=== PATIENT | male | born 1955 | race Caucasian/White ===

== ENCOUNTER 2023-09-02 20:27 | Inpatient (IN) ==
[2023-09-02 21:53] LABS: Basophils # (auto) 0.06 K/uL (0.00-0.20); Basophils % (auto) 0.3 %; Eosinophils # (auto) 0.02 K/uL (0.00-0.50); Eosinophils % (auto) 0.1 %; Hematocrit (blood only) 28.4 % (42.0-52.0); Hemoglobin 9.2 g/dl (14.0-18.0); Immature Granulocytes # (auto) 0.27 K/uL (0.01-0.20); Immature Granulocytes % (auto) 1.5 %; Lymphocytes # (auto) 0.21 K/uL (1.20-3.40); Lymphocytes % (auto) 1.2 %; Mean Corpuscular Hemoglobin 29.6 pg (25.0-34.0); Mean Corpuscular Hgb Conc 32.4 g/dL (32.0-36.0); Mean Corpuscular Volume 91.3 fL (80.0-100.0); Mean Platelet Volume 11.1 fL (9.4-12.4); Monocytes # (auto) 1.67 K/uL (0.11-0.59); Monocytes % (auto) 9.3 %; Neutrophils # (auto) 15.67 K/uL (1.40-6.50); Neutrophils % (auto) 87.6 %; Platelet Count 250 K/uL (130-400); RDW Coefficient of Variation 15.5 % (11.5-14.5); RDW Standard Deviation 51.9 fL (36.4-46.3); Red Blood Count 3.11 M/uL (4.70-6.10)
[2023-09-02 22:00] LABS: INR 1.1 (0.9-1.1); Partial Thromboplastin Time 29 Seconds (21-31); Prothrombin Time 12.1 Seconds (9.0-12.0)
[2023-09-02 22:07] LABS: Albumin Globulin Ratio 0.9 (0.9-2); Albumin Level 3.1 gm/dl (3.4-5.0); BUN Creatinine Ratio 48.1 (10-20); Bilirubin,Total 0.5 mg/dl (0.2-1.0); Calcium 9.7 mg/dl (8.6-10.3); Creatinine Clr Calc Pharmacy 68.4 ml/min; Est GFR (African American) 106.2 ml/min; Est GFR (Non-African American) 91.6 ml/min; Globulin 3.3 gm/dl (2.5-4.0); Total Protein 6.4 gm/dl (6.0-8.3)
[2023-09-02 22:13] LABS: Troponin I High Sensitivity 13.4 pg/ml (0-20)
[2023-09-02] MEDS ORDERED: SODIUM CHLORIDE 0.9% IV STA (22:22)
[2023-09-02] MEDS ORDERED: VANCOMYCIN CONSULT ACTIVE PRN (22:22)
[2023-09-02] MEDS ORDERED: MEROPENEM IV STA (22:22)
[2023-09-02] MEDS: SODIUM CHLORIDE 0.9% 1,000 ML IV ONE (23:06)
[2023-09-02] MEDS: SODIUM CHLORIDE 0.9% 500 ML IV ONE (23:06)
[2023-09-02 23:09] LABS: Magnesium 1.9 mg/dl (1.7-2.4)
[2023-09-02 23:15] LABS: C Reactive Protein 13.76 mg/dl (0-0.5)
[2023-09-03] MEDS: OPTIRAY 320 125ml IV ONE (00:07)
[2023-09-03] MEDS: VANCOMYCIN HCL 1,000 MG in SODIUM CHLORIDE 0.9% 500 ML IV ONE (00:32)
[2023-09-03] MEDS: diphenhydrAMINE 50 MG/ML VIAL IV STA (00:33)
--- NOTE | 2023-09-03 01:02 | History & Physical Report ---
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 Was again admitted in June 2023 at [facility] with symptomatic anemia ALISA and hyperkalemia possible superimposed soft tissue infection versus osteonecrosis versus osteomyelitis on CT neck films. ID consulted recommended 6 weeks of IV meropenem for presumed osteomyelitis. Patient presented to [facility] on July 07, 2023 with pink-tinged drainage from his tracheostomy and drainage out of his right neck area. On July 10, 2023 patient underwent right composite mandibulectomy, right neck dissection, left scapula and latissimus free flap to right neck and trach tube exchange. His course was complicated by postoperative hypotension with SBP's in the 80s requiring pressors WBC went up to 30 K. ID was consulted in the setting of prior history of Pseudomonas and Morganella pneumonia sputum and mandibular wound cultures. He was receiving cefepime and Flagyl. Progressive leukocytosis resolved. It is recommended to continue 6 weeks of IV meropenem 2 g IV every 8 hours for osteomyelitis to complete on August 26.Had episode of presyncope and hypotension thought to be from venlafaxine and it was stopped on august 02 2023. As per patient developed rash thought to be from meropenem and was stopped and was changed to ceftazidime and p.o. Flagyl but rash got worse and also got swelling of the lower extremity. And antibiotics were stopped per on on August 26. seems somewhat mixed up with dates and which antibiotic caused adverse reactions. Her infectious doctor Dr. Moore told her that rash and swelling could be from allergic reaction to venlafaxine.. Patient also has history of multivessel CAD. CKD. Hypotension on as needed midodrine. Comes here because patient having poor appetite could not tolerate tube feeds. Used to get 5 bolus tube feeds currently only tolerating 2 bolus tube feeds.Having lot of cough. Feeling feverish. And she does not want to take him back to [facility] so brought him here. Patient is alert and oriented. Difficult to understand. Denies any headache. No blurred vision. Always has some runny nose. No tracheal secretions currently. No chest pain. Currently not feeling any short of breath. No nausea. No abdominal pain. Stools are always loose. Micturating okay. Ambulates with a walker. Hemodynamics are okay. initially refused meropenem but then was okay to try meropenem for now..CT scan showing Pneumonia.Records are on the chart. Pneumonia Possible hospital-acquired pneumonia CT scan showing extensive bilateral pulmonary infiltrates with dense consolidation in left lower lobe and lower aspect of the left upper lobe Empirically starting on IV Vanco and meropenem Monitor for any drug reaction Consult pulmonary Close monitor Diffuse distention of colon On CT scan Will monitor Left adrenal nodule CT abdomen pelvis Noncontrast abdomen CT or MRI when patient is more stable( Seems patient knows about it, can check with ). Squamous cell carcinoma right Mandible and base of tongue S/p chemotherapy/radiation/pembrolizumab S/p surgery S/p PEG tube and s/p trach Follow-up with [facility] Hypotension On midodrine Chronic pain On oxycodone Hyperlipidemia On statin History of CAD On aspirin and statin Anemia Hemoglobin 9.2 Will check stool for Hemoccult Will monitor Mild transaminitis Will monitor Hyponatremia Sodium 131 Getting fluids Will follow labs Lower extremity edema Follow Dopplers Follow echo Nutrition Dietitian consult On tube feeds Pressure ulcers stage 2/3 sacral ulcers Wound care consult DVT prophylaxis Lovenox Disposition Telemetry Full code if chance of recovery as per my discussion with the patient His ID doctors at [facility] where [facility] [place] and also . ph [phone]. 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 Was again admitted in June 2023 at [facility] with symptomatic anemia ALISA and hyperkalemia possible superimposed soft tissue infection versus osteonecrosis versus osteomyelitis on CT neck films. ID consulted recommended 6 weeks of IV meropenem for presumed osteomyelitis. Patient presented to [facility] on July 07, 2023 with pink-tinged drainage from his tracheostomy and drainage out of his right neck area. On July 10, 2023 patient underwent right composite man dibulectomy, right neck dissection, left scapula and latissimus free flap to right neck and trach tube exchange. His course was complicated by postoperative hypotension with SBP's in the 80s requiring pressors WBC went up to 30 K. ID was consulted in the setting of prior history of Pseudomonas and Morganella pneumonia sputum and mandibular wound cultures. He was receiving cefepime and Flagyl. Progressive leukocytosis resolved. It is recommended to continue 6 weeks of IV meropenem 2 g IV every 8 hours for osteomyelitis to complete on August 26.Had episode of presyncope and hypotension thought to be from venlafaxine and it was stopped on august 02 2023. As per patient developed rash thought to be from meropenem and was stopped and was changed to ceftazidime and p.o. Flagyl but rash got worse and also got swelling of the lower extremity. And antibiotics were stopped per on on August 26. seems somewhat mixed up with dates and which antibiotic caused adverse reactions. Her infectious doctor Dr. Moore told her that rash and swelling could be from allergic reaction to venlafaxine.. Patient also has history of multivessel CAD. CKD. Hypotension on as needed midodrine. Comes here because patient having poor appetite could not tolerate tube feeds. Used to get 5 bolus tube feeds currently only tolerating 2 bolus tube feeds.Having lot of cough. Feeling feverish. And she does not want to take him back to [facility] so brought him here. Patient is alert and oriented. Difficult to understand. Denies any headache. No blurred vision. Always has some runny nose. No tracheal secretions currently. No chest pain. Currently not feeling any short of breath. No nausea. No abdominal pain. Stools are always loose. Micturating okay. Ambulates with a walker. Hemodynamics are okay. initially refused meropenem but then was okay to try meropenem for now..CT scan showing Pneumonia.Records are on the chart. Past medical history. As mentioned above Past surgical history. S/p tracheostomy and G-tube, s/p reconstructive repair/free flap reconstruction. S/p TAVR, expiratory laparotomy. Cholecyst cholecystectomy. Multiple tooth extractions. Family history father had kidney disease. Social history. No smoking. No alcohol use. No drug use. Allergies Allergy/AdvReac Type Severity Reaction Status Date / Time herbal complex no.323 Allergy Severe RASH ALL Verified 09/02/23 23:00 [From Menofem] OVER BODY/LEGS ceftazidime Allergy Intermediate SWELLING Verified 09/02/23 23:00 OF LOWER LEGS--GOING FOR ALLERGY TESTING metronidazole [From Flagyl] Allergy Intermediate SWELLING Verified 09/02/23 23:00 OF LOWER LEGS--GOING FOR ALLERGY TESTING Penicillins Allergy Unknown Unknown Verified 09/02/23 23:00 Home Medications Medication Instructions Recorded Confirmed Type Nutra 2.0 1 dose feeding tube DIRECTED 09/02/23 09/02/23 History ascorbic acid (vitamin C) 500 mg/5 1,000 mg feeding tube HS 09/02/23 09/02/23 History mL oral syrup aspirin 81 mg chewable tablet 81 mg feeding tube HS 09/02/23 09/02/23 History gabapentin 250 mg/5 mL oral 250 mg feeding tube QAM 09/02/23 09/02/23 History solution lactulose 10 gram/15 mL oral 15 ml feeding tube DIRECTED PRN 09/02/23 09/02/23 History solution Constipation midodrine 10 mg tablet 10 mg feeding tube TID 09/02/23 09/02/23 History multivitamin 0.5 tab feeding tube HS 09/02/23 09/02/23 History oxycodone 20 mg/mL oral concentrate 20 mg feeding tube Q3H 09/02/23 09/02/23 History polyethylene glycol 3350 17 17 g feeding tube DAILY PRN 09/02/23 09/02/23 History gram/dose oral powder (Miralax) Constipation potassium chloride 20 mEq oral 10 meq feeding tube DAILY 09/02/23 09/02/23 History packet (Klor-Con) kaya oil 1 ea miscellaneous DIRECTED 09/02/23 09/02/23 History rosuvastatin 20 mg tablet 20 mg feeding tube HS 09/02/23 09/02/23 History sennosides 8.8 mg/5 mL oral syrup 17.6 mg feeding tube HS 09/02/23 09/02/23 History (senna) sodium di- and 1 tab feeding tube ACHS 09/02/23 09/02/23 History monophosphate-potassium phos monobasic 250 mg tablet (Phospha Neutral) Review of Systems Review of Systems: All systems reviewed & are unremarkable except as noted in HPI & below Physical Exam Physical Exam: General- Not in distress Head- atraumatic Eyes- PERRL. ENT- oropharynx clear Neck- right s/p mandible surgery. s/p trach. Lungs- clear to auscultation , no wheezing or crackles. Heart- regular rhythm; no murmur, no gallop. Abdomen- normal bowel sounds, soft, nontender, s/p feeding tube. no distension. Extremities- no pretibial edema, no erythema seen. Neuro- alert, oriented x 3; PERRL, EOMI; pressured speech; obeys commands, moves extremities Skin: Stage 2/3 Sacral decubitus ulcers Results & Data Results & Data Vital Signs (Past 12 Hours) Vital Signs Temp Pulse Pulse Resp BP BP Pulse Ox 09/02/23 20:45 105 H 09/02/23 20:42 97 H 15 94 09/02/23 20:42 94 09/02/23 20:19 09/02/23 20:19 36.9 C 94 H 14 98/69 L 94 09/02/23 20:19 36.9 C 98 H 18 97/59 L 94 09/02/23 20:19 O2 Del Method O2 Flow Rate 09/02/23 20:45 09/02/23 20:42 Free Flow/Blow-by, Trach Collar 15 09/02/23 20:42 Free Flow/Blow-by, Trach Collar 15 09/02/23 20:19 Trach Collar 12 09/02/23 20:19 Free Flow/Blow-by, Trach Collar 15 09/02/23 20:19 Free Flow/Blow-by, Trach Collar 15 09/02/23 20:19 Free Flow/Blow-by, Trach Collar 10 Diagnostic Findings Laboratory Results WBC 17.90 K/ul (4.8-10.8) H 09/02/23 21:11 RBC 3.11 M/uL (4.70-6.10) L 09/02/23 21:11 Hgb 9.2 g/dl (14.0-18.0) L 09/02/23 21:11 Hct 28.4 % (42.0-52.0) L 09/02/23 21:11 MCV 91.3 fL (80.0-100.0) 09/02/23 21:11 MCH 29.6 pg (25.0-34.0) 09/02/23 21:11 MCHC 32.4 g/dL (32.0-36.0) 09/02/23 21:11 RDW Std Deviation 51.9 fL (36.4-46.3) H 09/02/23 21:11 RDW Coeff of [place] 15.5 % (11.5-14.5) H 09/02/23 21:11 Plt Count 250 K/uL (130-400) 09/02/23 21:11 MPV 11.1 fL (9.4-12.4) 09/02/23 21:11 Immature Gran % (Auto) 1.5 % 09/02/23 21:11 Neut % (Auto) 87.6 % 09/02/23 21:11 Lymph % (Auto) 1.2 % 09/02/23 21:11 [place] % (Auto) 9.3 % 09/02/23 21:11 Eos % (Auto) 0.1 % 09/02/23 21:11 Baso % (Auto) 0.3 % 09/02/23 21:11 Neut # (Auto) 15.67 K/uL (1.40-6.50) H 09/02/23 21:11 Lymph # (Auto) 0.21 K/uL (1.20-3.40) L 09/02/23 21:11 [place] # (Auto) 1.67 K/uL (0.11-0.59) H 09/02/23 21:11 Eos # (Auto) 0.02 K/uL (0.00-0.50) 09/02/23 21:11 Baso # (Auto) 0.06 K/uL (0.00-0.20) 09/02/23 21:11 Immature Gran # (Auto) 0.27 K/uL (0.01-0.20) H 09/02/23 21:11 ESR 61 mm/hr (0-20) H 09/02/23 21:11 PT 12.1 Seconds (9.0-12.0) H 09/02/23 21:11 INR 1.1 (0.9-1.1) 09/02/23 21:11 APTT 29 Seconds (21-31) 09/02/23 21:11 PTT Ratio 1.0 09/02/23 21:11 Sodium 131 mmol/L (136-145) L 09/02/23 21:11 Potassium 4.0 mmol/L (3.5-5.1) 09/02/23 21:11 Chloride 98 mmol/L (98-107) 09/02/23 21:11 Carbon Dioxide 25 mmol/L (21-32) 09/02/23 21:11 Anion Gap 8 (3-11) 09/02/23 21:11 BUN 38 mg/dl (6-23) H 09/02/23 21:11 Creatinine 0.79 mg/dl (0.6-1.4) 09/02/23 21:11 Est Cr Clr Drug Dosing 68.4 ml/min 09/02/23 21:11 Est GFR ( Amer) 106.2 ml/min 09/02/23 21:11 Est GFR (Non-Af Amer) 91.6 ml/min 09/02/23 21:11 BUN/Creatinine Ratio 48.1 (10-20) H 09/02/23 21:11 Glucose 141 mg/dl (70-99(Fasting)) H 09/02/23 21:11 Lactate 1.6 mmol/L (0.4-2.0) 09/02/23 23:06 Calcium 9.7 mg/dl (8.6-10.3) 09/02/23 21:11 Magnesium 1.9 mg/dl (1.7-2.4) 09/02/23 21:11 Total Bilirubin 0.5 mg/dl (0.2-1.0) 09/02/23 21:11 AST 61 U/L (13-39) H 09/02/23 21:11 ALT 57 U/L (7-52) H 09/02/23 21:11 Alkaline Phosphatase 91 U/L (34-104) 09/02/23 21:11 Total Creatine Kinase 12 U/L (30-223) L 09/02/23 21:11 Troponin I High Sens 13.4 pg/ml (0-20) 09/02/23 21:11 C-Reactive Protein 13.76 mg/dl (0-0.5) H 09/02/23 21:11 Total Protein 6.4 gm/dl (6.0-8.3) 09/02/23 21:11 Albumin 3.1 gm/dl (3.4-5.0) L 09/02/23 21:11 Globulin 3.3 gm/dl (2.5-4.0) 09/02/23 21:11 Albumin/Globulin Ratio 0.9 (0.9-2) 09/02/23 21:11 Procalcitonin 1.16 ng/ml (0-0.5) H 09/02/23 21:11 Impressions Abdomen/Pelvis CT 09/02/23 22:30 Exam(s): CT ABDOMEN + PELVIS With Contrast IV Amt: 117 ml optiray 320 EXAM: CT Abdomen and Pelvis With Intravenous Contrast CLINICAL HISTORY: Reason for exam: abd pain, peg tube. TECHNIQUE: Axial computed tomography images of the abdomen and pelvis with intravenous contrast. CTDI is 14.25 mGy and DLP is 1172.85 mGy-cm. Automated exposure control was utilized for the study. A dose lowering technique was utilized adhering to the principles of ALARA. CONTRAST: Patient received 117 ml optiray 320 of IV contrast COMPARISON: No relevant prior studies available. FINDINGS: ABDOMEN: Liver: Unremarkable. No mass. Gallbladder and bile ducts: Unremarkable. No calcified stones. No ductal dilation. Pancreas: Unremarkable. No mass. No ductal dilation. Spleen: Unremarkable. No splenomegaly. Adrenals: 13 mm left adrenal nodule. Kidneys and ureters: Bilateral nonobstructing renal calculi. There are 2 small calculi in the right kidney. There are 2 calculi in the left kidney, the largest measuring 5 mm. No hydronephrosis or ureteral calculus. Stomach and bowel: Significant portions of the colon are very distended. There is no evidence of small bowel obstruction. No mucosal thickening. PELVIS: Appendix: No findings to suggest acute appendicitis. Bladder: Unremarkable. No mass. ABDOMEN and PELVIS: Intraperitoneal space: Unremarkable. No free air. No significant fluid collection. Bones/joints: No acute findings. Soft tissues: Diffuse edema within fat planes diffusely, including the body wall. Vasculature: Unremarkable. No abdominal aortic aneurysm. Lymph nodes: Unremarkable. No enlarged lymph nodes. Tubes, lines and devices: A percutaneous gastrostomy tube is in the stomach. IMPRESSION: Diffuse distention of the colon. Bilateral nonobstructing renal calculi. Nonspecific 13 mm left adrenal nodule. If there is no history of malignancy consider a follow-up low dose, non-contrast adrenal CT or chemical-shift adrenal MRI in 12 months. If there is a history of malignancy recommend a low dose, non-emergent, non-contrast adrenal CT or chemical-shift adrenal MRI follow-up study. Electronically signed by: Candido Tejeda MD 09/03/23 01:07 AM Chest CTA 09/02/23 22:30 Exam(s): CTA CHEST IV Amt: 117 ml optiray 320 EXAM: CT Angiography Chest With Intravenous Contrast CLINICAL HISTORY: Reason for exam: PE. TECHNIQUE: Axial computed tomographic angiography images of the chest with intravenous contrast. CTDI is 14.25 mGy and DLP is 1172.85 mGy-cm. Automated exposure control was utilized for the study. A dose lowering technique was utilized adhering to the principles of ALARA. MIP reconstructed images were created and reviewed. COMPARISON: No relevant prior studies available. FINDINGS: Pulmonary arteries: Unremarkable. No pulmonary embolism. Aorta: No acute findings. No thoracic aortic aneurysm. Lungs: Extensive bilateral pulmonary infiltrates likely representing pneumonia. These are seen in both lower lobes, the right middle lobe and the left upper lobe. Dense consolidation is seen in the left lower lobe and lingular segments of the left upper lobe. Pleural space: Unremarkable. No significant effusion. No pneumothorax. Heart: Unremarkable. No cardiomegaly. No significant pericardial effusion. No evidence of RV dysfunction. Mediastinum: Subcarinal and left hilar adenopathy. Bones/joints: No acute fracture. No dislocation. Soft tissues: Unremarkable. IMPRESSION: Extensive bilateral pulmonary infiltrates with dense consolidations in the left lower lobe and lower aspect of the left upper lobe. No evidence of pulmonary emboli. Electronically signed by: Candido Tejeda MD 09/03/23 01:00 AM ECG Additional Comments: ECG. Normal sinus rhythm rate of 95. Possible left atrial enlargement. QTc 432.
--- NOTE | 2023-09-03 01:08 | CT Scan Report ---
Exam(s): CT ABDOMEN + PELVIS With Contrast IV Amt: 117 ml optiray 320 EXAM: CT Abdomen and Pelvis With Intravenous Contrast CLINICAL HISTORY: Reason for exam: abd pain, peg tube. TECHNIQUE: Axial computed tomography images of the abdomen and pelvis with intravenous contrast. CTDI is 14.25 mGy and DLP is 1172.85 mGy-cm. Automated exposure control was utilized for the study. A dose lowering technique was utilized adhering to the principles of ALARA. CONTRAST: Patient received 117 ml optiray 320 of IV contrast COMPARISON: No relevant prior studies available. FINDINGS: ABDOMEN: Liver: Unremarkable. No mass. Gallbladder and bile ducts: Unremarkable. No calcified stones. No ductal dilation. Pancreas: Unremarkable. No mass. No ductal dilation. Spleen: Unremarkable. No splenomegaly. Adrenals: 13 mm left adrenal nodule. Kidneys and ureters: Bilateral nonobstructing renal calculi. There are 2 small calculi in the right kidney. There are 2 calculi in the left kidney, the largest measuring 5 mm. No hydronephrosis or ureteral calculus. Stomach and bowel: Significant portions of the colon are very distended. There is no evidence of small bowel obstruction. No mucosal thickening. PELVIS: Appendix: No findings to suggest acute appendicitis. Bladder: Unremarkable. No mass. ABDOMEN and PELVIS: Intraperitoneal space: Unremarkable. No free air. No significant fluid collection. Bones/joints: No acute findings. Soft tissues: Diffuse edema within fat planes diffusely, including the body wall. Vasculature: Unremarkable. No abdominal aortic aneurysm. Lymph nodes: Unremarkable. No enlarged lymph nodes. Tubes, lines and devices: A percutaneous gastrostomy tube is in the stomach. IMPRESSION: Diffuse distention of the colon. Bilateral nonobstructing renal calculi. Nonspecific 13 mm left adrenal nodule. If there is no history of malignancy consider a follow-up low dose, non-contrast adrenal CT or chemical-shift adrenal MRI in 12 months. If there is a history of malignancy recommend a low dose, non-emergent, non-contrast adrenal CT or chemical-shift adrenal MRI follow-up study. Electronically signed by: Candido Tejeda MD 09/03/23 01:07 AM
[2023-09-03] MEDS: MEROPENEM 500 MG in SYRINGE 0 ML IV STA (01:16)
--- NOTE | 2023-09-03 01:30 | Emergency Department Note ---
History of Present Illness General Chief complaint: Respiratory Problems Time Seen by Provider: 09/02/23 21:51 History of Present Illness Maximum Pain Intensity: 7 This 67-year-old male with a complicated medical history that is been receiving all his care at [facility] came here tonight for chills, cough, congestion, shortness of breath and generalized illness. gives a majority of the history as patient has a trach and is hard of hearing. 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 He also has a PEG tube. states that they are recently hospitalized down in [facility] and he had some type of drug reaction either from a behavioral health medication or from an antibiotic. She is not sure. He just finished a long course of antibiotics for osteomyelitis. is not sure where the osteomyelitis was present at. He just finished meropenem on 26 August. Family complains of cough, congestion, generalized illness breathing problems and decreased appetite. Patient takes nothing by mouth. Patient does not have access to her [facility] online portal. Patient does have a few packets from her recent discharge that I did review and obtain most of the history from this. Home Medications Medication Instructions Recorded Confirmed Type Nutra 2.0 1 dose feeding tube DIRECTED 09/02/23 09/02/23 History ascorbic acid (vitamin C) 500 mg/5 1,000 mg feeding tube HS 09/02/23 09/02/23 History mL oral syrup aspirin 81 mg chewable tablet 81 mg feeding tube HS 09/02/23 09/02/23 History gabapentin 250 mg/5 mL oral 250 mg feeding tube QAM 09/02/23 09/02/23 History solution lactulose 10 gram/15 mL oral 15 ml feeding tube DIRECTED PRN 09/02/23 09/02/23 History solution Constipation midodrine 10 mg tablet 10 mg feeding tube TID 09/02/23 09/02/23 History multivitamin 0.5 tab feeding tube HS 09/02/23 09/02/23 History oxycodone 20 mg/mL oral concentrate 20 mg feeding tube Q3H 09/02/23 09/02/23 History polyethylene glycol 3350 17 17 g feeding tube DAILY PRN 09/02/23 09/02/23 History gram/dose oral powder (Miralax) Constipation potassium chloride 20 mEq oral 10 meq feeding tube DAILY 09/02/23 09/02/23 History packet (Klor-Con) kaya oil 1 ea miscellaneous DIRECTED 09/02/23 09/02/23 History rosuvastatin 20 mg tablet 20 mg feeding tube HS 09/02/23 09/02/23 History sennosides 8.8 mg/5 mL oral syrup 17.6 mg feeding tube HS 09/02/23 09/02/23 History (senna) sodium di- and 1 tab feeding tube ACHS 09/02/23 09/02/23 History monophosphate-potassium phos monobasic 250 mg tablet (Phospha Neutral) Allergies Allergy/AdvReac Type Severity Reaction Status Date / Time herbal complex no.323 Allergy Severe RASH ALL Verified 09/02/23 23:00 [From Menofem] OVER BODY/LEGS ceftazidime Allergy Intermediate SWELLING Verified 09/02/23 23:00 OF LOWER LEGS--GOING FOR ALLERGY TESTING metronidazole [From Flagyl] Allergy Intermediate SWELLING Verified 09/02/23 23:00 OF LOWER LEGS--GOING FOR ALLERGY TESTING Penicillins Allergy Unknown Unknown Verified 09/02/23 23:00 Review of Systems A total of 10 systems reviewed and were otherwise negative Physical Exam Vital Signs Vital Signs - 24 hr 09/02/23 20:19 09/02/23 20:19 09/02/23 20:19 Temperature 36.9 C 36.9 C Temperature Source Oral Oral Pulse Rate 94 H Pulse Rate [Right Finger] 98 H Respiratory Rate 18 14 Blood Pressure 98/69 L Blood Pressure [Left Arm] 97/59 L Blood Pressure Mean 78 Blood Pressure Mean [Left Arm] 71 Blood Pressure Position [Left Arm] Sitting Pulse Oximetry 94 94 Oxygen Delivery Method Free Flow/Blow- by Trach Collar Free Flow/Blow- by Trach Collar Free Flow/Blow- by Trach Collar Oxygen Flow Rate 10 15 15 Sepsis Recent Fever Within 48 Hours Yes Sepsis New/Unexplained Change in Mental Status No Sepsis Action Taken by Nursing No Action Required 09/02/23 20:19 09/02/23 20:42 09/02/23 20:42 Temperature Temperature Source Pulse Rate 97 H Pulse Rate [Right Finger] Respiratory Rate 15 Blood Pressure Blood Pressure [Left Arm] Blood Pressure Mean Blood Pressure Mean [Left Arm] Blood Pressure Position [Left Arm] Pulse Oximetry 94 94 Oxygen Delivery Method Trach Collar Free Flow/Blow- by Trach Collar Free Flow/Blow- by Trach Collar Oxygen Flow Rate 12 15 15 Sepsis Recent Fever Within 48 Hours Sepsis New/Unexplained Change in Mental Status Sepsis Action Taken by Nursing 09/02/23 20:45 09/03/23 00:39 Temperature Temperature Source Pulse Rate 105 H 67 Pulse Rate [Right Finger] Respiratory Rate Blood Pressure Blood Pressure [Left Arm] Blood Pressure Mean Blood Pressure Mean [Left Arm] Blood Pressure Position [Left Arm] Pulse Oximetry Oxygen Delivery Method Oxygen Flow Rate Sepsis Recent Fever Within 48 Hours Sepsis New/Unexplained Change in Mental Status Sepsis Action Taken by Nursing VITALS: Vitals are noted on the nurse's note and reviewed by myself. Vital signs hypoxic on room air but improved on oxygen GENERAL: White male whose had multiple surgeries to the right side of his jaw, in no acute distress, nondiaphoretic, well-developed well-nourished. SKIN: Capillary reflex less than 2 seconds. HEENT: Normocephalic. PERRLA. EOMI. Nares patent. Mucous membranes moist. Neck is supple without nuchal rigidity. HEART: Regular rate and rhythm LUNGS: Mild diffuse end expiratory wheezes. Rhonchi. No retractions or accessory muscle use. ABDOMEN: Positive bowel sounds x 4. Normal tympanic percussion. Soft, nontender, without masses or organomegaly. Sandoval sign negative. No guarding or rebound tenderness. no CVA tenderness MUSCULOSKELETAL: No gross musculoskeletal defects. Lower extremities with mild anemia and erythema that appears chronic in nature. Pedal pulses +2 equal present bilaterally. NEURO: Patient was alert and oriented to person place and time. No focal neurological deficits. Course Administered Medications Discontinued Medications Diphenhydramine HCl (Diphenhydramine 50 Mg/Ml Vial) 25 mg IV NOW STA Stop: 09/02/23 22:36 Last Admin: 09/03/23 00:33 Dose: 25 mg Documented By: PATTI Vancomycin HCl 1,000 mg/ (Sodium Chloride) 520 mls @ 200 mls/hr IV NOW ONE Stop: 09/03/23 00:57 Last Admin: 09/03/23 00:32 Dose: 200 mls/hr Documented By: PATTI Sodium Chloride (Nss) 1,000 mls @ 999 mls/hr IV .Q1H1M ONE Stop: 09/02/23 23:27 Last Infusion: 09/03/23 00:59 Dose: Infused Documented By: Admin: 09/02/23 23:06 Dose: 999 mls/hr Documented By: ISAC Sodium Chloride (Nss) 500 mls @ 999 mls/hr IV .Q31M ONE Stop: 09/02/23 22:57 Last Infusion: 09/03/23 00:59 Dose: Infused Documented By: Admin: 09/02/23 23:06 Dose: 999 mls/hr Documented By: ISAC Meropenem 500 mg/ Syringe 10 mls @ 2 mls/min IV NOW STA; Protocol Stop: 09/03/23 00:19 Last Admin: 09/03/23 01:16 Dose: 2 mls/min Documented By: PATTI Ioversol (Optiray 320 125ml) 125 ml IV ONCE ONE Stop: 09/03/23 00:08 Last Admin: 09/03/23 00:07 Dose: 117 ml Documented By: SARAH Critical Care Time Critical Care Time: Yes Total Critical Care Time: 35 I have personally spent 35 minutes of critical care time in the direct management of this patient. This includes bedside care, interpretation of diagnostic studies, and testing, discussion with consultants, patient, and family members, and other required patient management activities. This 35 minutes is in excess of all separately billable procedures. Medical Decision Making Medical Records Attestation: I reviewed the patient's medical records. Home Medications Current Medication List: was personally reviewed by me Laboratory Data Attestation: I reviewed the patient's lab results. 09/02/23 21:11 09/02/23 21:11 Lab Results 09/02/23 09/02/23 Range/Units 21:11 23:06 WBC 17.90 H (4.8-10.8) K/ul RBC 3.11 L (4.70-6.10) M/uL Hgb 9.2 L (14.0-18.0) g/dl Hct 28.4 L (42.0-52.0) % MCV 91.3 (80.0-100.0) fL MCH 29.6 (25.0-34.0) pg MCHC 32.4 (32.0-36.0) g/dL RDW Std Deviation 51.9 H (36.4-46.3) fL RDW Coeff of [place] 15.5 H (11.5-14.5) % Plt Count 250 (130-400) K/uL MPV 11.1 (9.4-12.4) fL Immature Gran % (Auto) 1.5 % Neut % (Auto) 87.6 % Lymph % (Auto) 1.2 % [place] % (Auto) 9.3 % Eos % (Auto) 0.1 % Baso % (Auto) 0.3 % Neut # (Auto) 15.67 H (1.40-6.50) K/uL Lymph # (Auto) 0.21 L (1.20-3.40) K/uL [place] # (Auto) 1.67 H (0.11-0.59) K/uL Eos # (Auto) 0.02 (0.00-0.50) K/uL Baso # (Auto) 0.06 (0.00-0.20) K/uL Immature Gran # (Auto) 0.27 H (0.01-0.20) K/uL ESR 61 H (0-20) mm/hr PT 12.1 H (9.0-12.0) Seconds INR 1.1 (0.9-1.1) APTT 29 (21-31) Seconds PTT Ratio 1.0 Sodium 131 L (136-145) mmol/L Potassium 4.0 (3.5-5.1) mmol/L Chloride 98 (98-107) mmol/L Carbon Dioxide 25 (21-32) mmol/L Anion Gap 8 (3-11) BUN 38 H (6-23) mg/dl Creatinine 0.79 (0.6-1.4) mg/dl Est Cr Clr Drug Dosing 68.4 ml/min Est GFR ( Amer) 106.2 ml/min Est GFR (Non-Af Amer) 91.6 ml/min BUN/Creatinine Ratio 48.1 H (10-20) Glucose 141 H (70-99(Fasting)) mg/dl Lactate 1.6 (0.4-2.0) mmol/L Calcium 9.7 (8.6-10.3) mg/dl Magnesium 1.9 (1.7-2.4) mg/dl Total Bilirubin 0.5 (0.2-1.0) mg/dl AST 61 H (13-39) U/L ALT 57 H (7-52) U/L Alkaline Phosphatase 91 (34-104) U/L Total Creatine Kinase 12 L (30-223) U/L Troponin I High Sens 13.4 (0-20) pg/ml C-Reactive Protein 13.76 H (0-0.5) mg/dl Total Protein 6.4 (6.0-8.3) gm/dl Albumin 3.1 L (3.4-5.0) gm/dl Globulin 3.3 (2.5-4.0) gm/dl Albumin/Globulin Ratio 0.9 (0.9-2) Procalcitonin 1.16 H (0-0.5) ng/ml Imaging Data Attestation: I personally reviewed and interpreted this imaging study as follows: Radiologist's Impression: Abdomen/Pelvis CT 09/02/23 22:30 Exam(s): CT ABDOMEN + PELVIS With Contrast IV Amt: 117 ml optiray 320 EXAM: CT Abdomen and Pelvis With Intravenous Contrast CLINICAL HISTORY: Reason for exam: abd pain, peg tube. TECHNIQUE: Axial computed tomography images of the abdomen and pelvis with intravenous contrast. CTDI is 14.25 mGy and DLP is 1172.85 mGy-cm. Automated exposure control was utilized for the study. A dose lowering technique was utilized adhering to the principles of ALARA. CONTRAST: Patient received 117 ml optiray 320 of IV contrast COMPARISON: No relevant prior studies available. FINDINGS: ABDOMEN: Liver: Unremarkable. No mass. Gallbladder and bile ducts: Unremarkable. No calcified stones. No ductal dilation. Pancreas: Unremarkable. No mass. No ductal dilation. Spleen: Unremarkable. No splenomegaly. Adrenals: 13 mm left adrenal nodule. Kidneys and ureters: Bilateral nonobstructing renal calculi. There are 2 small calculi in the right kidney. There are 2 calculi in the left kidney, the largest measuring 5 mm. No hydronephrosis or ureteral calculus. Stomach and bowel: Significant portions of the colon are very distended. There is no evidence of small bowel obstruction. No mucosal thickening. PELVIS: Appendix: No findings to suggest acute appendicitis. Bladder: Unremarkable. No mass. ABDOMEN and PELVIS: Intraperitoneal space: Unremarkable. No free air. No significant fluid collection. Bones/joints: No acute findings. Soft tissues: Diffuse edema within fat planes diffusely, including the body wall. Vasculature: Unremarkable. No abdominal aortic aneurysm. Lymph nodes: Unremarkable. No enlarged lymph nodes. Tubes, lines and devices: A percutaneous gastrostomy tube is in the stomach. IMPRESSION: Diffuse distention of the colon. Bilateral nonobstructing renal calculi. Nonspecific 13 mm left adrenal nodule. If there is no history of malignancy consider a follow-up low dose, non-contrast adrenal CT or chemical-shift adrenal MRI in 12 months. If there is a history of malignancy recommend a low dose, non-emergent, non-contrast adrenal CT or chemical-shift adrenal MRI follow-up study. Electronically signed by: Candido Tejeda MD 09/03/23 01:07 AM Chest CTA 09/02/23 22:30 Exam(s): CTA CHEST IV Amt: 117 ml optiray 320 EXAM: CT Angiography Chest With Intravenous Contrast CLINICAL HISTORY: Reason for exam: PE. TECHNIQUE: Axial computed tomographic angiography images of the chest with intravenous contrast. CTDI is 14.25 mGy and DLP is 1172.85 mGy-cm. Automated exposure control was utilized for the study. A dose lowering technique was utilized adhering to the principles of ALARA. MIP reconstructed images were created and reviewed. COMPARISON: No relevant prior studies available. FINDINGS: Pulmonary arteries: Unremarkable. No pulmonary embolism. Aorta: No acute findings. No thoracic aortic aneurysm. Lungs: Extensive bilateral pulmonary infiltrates likely representing pneumonia. These are seen in both lower lobes, the right middle lobe and the left upper lobe. Dense consolidation is seen in the left lower lobe and lingular segments of the left upper lobe. Pleural space: Unremarkable. No significant effusion. No pneumothorax. Heart: Unremarkable. No cardiomegaly. No significant pericardial effusion. No evidence of RV dysfunction. Mediastinum: Subcarinal and left hilar adenopathy. Bones/joints: No acute fracture. No dislocation. Soft tissues: Unremarkable. IMPRESSION: Extensive bilateral pulmonary infiltrates with dense consolidations in the left lower lobe and lower aspect of the left upper lobe. No evidence of pulmonary emboli. Electronically signed by: Candido Tejeda MD 09/03/23 01:00 AM MDM Narrative Prior records/ancillary studies reviewed and summarized above. Nursing notes reviewed. Additional history obtained from family. The patient's history was concerning for breathing issues, chills, generalized illness. Differential diagnosis: Etiologies such as metabolic, infection, hypo/hyperglycemia, electrolyte abnormalities, cardiac sources, intracerebral event, toxicologic, neurologic, as well as others were entertained. Physical examination: As above. ER treatment provided: IV Lock An order was placed for continuous cardiac monitoring. The monitor shows a rate of 60-100 with a sinus rhythm per my interpretation. IV fluids per septic protocol, vancomycin, meropenem and this was reviewed with the pharmacist I did request the records from [facility] On reassessment the patient felt better. Diagnostics interpretation by me: ECG: Ordered for weakness EKG: Normal sinus, left anterior fascicular block, no acute ST-T wave changes. Impression normal sinus rhythm with a left anterior fascicular block per my independent interpretation The labs Independently Interpreted by myself revealed leukocytosis, mild anemia stable per chart review on the patient's records Blood cultures pending, elevated procalcitonin, minimally elevated LFTs Elevated inflammatory markers Imaging studies: Chest x-ray concerning for multifocal pneumonia per my independent interpretation CTs as above Consultation: A consultation was placed with the hospitalist. The case was discussed and diagnostics were reviewed. The patient was evaluated in the ER for further treatment. Exam and history seem consistent with sepsis from pneumonia. Patient started broad-spectrum antibiotics. I did request the records from [facility]. Most of the history is obtained from the who did appear to be somewhat of a poor historian. I did review the paperwork from [facility]. He did have multiple drug resistances on his last sputum culture. He does have a history of MRSA. Pseudomonas was present on his last sputum culture. Patient has finished chemotherapy and radiation. He is suppose to start immunotherapy here shortly. Patient is agreeable treatment plan of admission. Medicine was consulted case was discussed. He will be admitted to the medical service and the case was discussed. By the evaluation outlined above emergent etiologies such as cardiac sources, intracerebral event, toxologic, neurologic, abnormalities blood glucose, metabolic, as well as others were deemed relatively unlikely. The pt informed about the findings as listed above. All questions were answered and pleased with the treatment. The chart was completed utilizing [employer] Speech voice recognition software. Grammatical errors, random word insertions, pronoun errors, and incomplete sentences are an occassional consequence of this system due to software limitations, ambient noise, and hardware issues. Any formal questions or concerns about the content, text, or information contained within the body of this dictation should be directly addressed to the physician virtual assistant for clarification. Impression & Plan Sepsis, Pneumonia Discharge Plan Visit Data Chief Complaint: Respiratory Problems ED Provider: Sunil [place] ED Midlevel Provider: Kari Triplett Discharge Problem: Sepsis, Pneumonia Patient Disposition: Admitted As Inpatient Condition: Fair Forms Stand Alone Forms: My [facility] [employer] Prescriptions Prescriptions: No Action multivitamin Tablet 0.5 tab feeding tube HS gabapentin 250 mg/5 mL solution 250 mg feeding tube QAM Rx Instructions: NEED TO SPACE GABAPENTIN 2-3 HRS BETWEEN OXYCODONE. sennosides [senna] 8.8 mg/5 mL Syrup 17.6 mg feeding tube HS potassium chloride [Klor-Con] 20 mEq packet 10 meq feeding tube DAILY Rx Instructions: NEED TO MIX WITH 8 OZ. WATER, THEN FLUSH WITH 8 OZ. WATER kaya oil Oil 1 ea miscellaneous DIRECTED Rx Instructions: PER PT'S SPOUSE, "USES SEVERAL TIMES DAILY" aspirin 81 mg Tablet,Chewable 81 mg feeding tube HS Phospha 250 Neutral 250 mg tablet 1 tab feeding tube ACHS polyethylene glycol 3350 [Miralax] 17 gram/dose Powder 17 g feeding tube DAILY PRN (Reason: Constipation) oxycodone 20 mg/mL concentrate 20 mg feeding tube Q3H midodrine 10 mg tablet 10 mg feeding tube TID ascorbic acid (vitamin C) [Vitamin C] 500 mg/5 mL Syrup 1,000 mg feeding tube HS rosuvastatin 20 mg tablet 20 mg feeding tube HS lactulose 10 gram/15 mL solution 15 ml feeding tube DIRECTED PRN (Reason: Constipation) Nutra 2.0 1 dose feeding tube DIRECTED Rx Instructions: NO FIBER ADDED TO NUTRA 2.0 PER PT'S SPOUSE Referrals Referrals: PCP,NO [Primary Care Provider] - Discharge Problem: Sepsis Qualifiers: Sepsis type: sepsis due to unspecified organism Sepsis acute organ dysfunction status: without acute organ dysfunction Qualified Code(s): A41.9 - Sepsis, unspecified organism
[2023-09-03] MEDS ORDERED: [UNRECOGNIZED DRUG - OTHER] feeding tube SCH (01:38)
[2023-09-03] MEDS ORDERED: POLYETHYLENE (MIRALAX) 17 GM PACK PEG PRN (01:38)
[2023-09-03] MEDS ORDERED: NITROGLYCERIN SL 0.4 MG/TAB TAB SL PRN (01:38)
[2023-09-03] MEDS ORDERED: TPN/PPN CONSULT PHARMACY PRN (02:07)
[2023-09-03] MEDS: ALBUT/IPRATROP 3MG/0.5MG NEB 3 ML VIAL NEB STA (02:23)
--- NOTE | 2023-09-03 02:23 | Ultrasound Report ---
Exam(s): US VENOUS BILATERAL LOWER EXTREMITIES EXAM: US Duplex Bilateral Lower Extremities Veins CLINICAL HISTORY: Reason for exam: swelling. TECHNIQUE: Real-time duplex ultrasound scan of the bilateral lower extremity veins integrating B-mode two-dimensional vascular structure, Doppler spectral analysis, color flow Doppler imaging and compression. COMPARISON: No relevant prior studies available. FINDINGS: Right deep veins: Unremarkable. No DVT in the right common femoral, femoral, proximal deep femoral or popliteal veins. The veins demonstrate normal color flow, are normally compressible, with normal phasic flow and/or augmentation response. Right superficial veins: Unremarkable. No thrombus in the visualized right great saphenous vein. Left deep veins: Unremarkable. No DVT in the left common femoral, femoral, proximal deep femoral or popliteal veins. The veins demonstrate normal color flow, are normally compressible, with normal phasic flow and/or augmentation response. Left superficial veins: Unremarkable. No thrombus in the visualized left great saphenous vein. Soft tissues: Extensive soft tissue edema. No popliteal cyst. IMPRESSION: No evidence of DVT in the lower extremities. Electronically signed by: Candido Tejeda MD 09/03/23 02:22 AM
--- NOTE | 2023-09-03 02:27 | Pharmacy Report ---
Pharmacy PK ABX Note - Date of Service September 03, 2023 - Assessment and Plan Assessment 67 year old M receiving Vancomycin and Meropenem for treatment of pneumonia. * Day #1 of antimicrobial therapy. * Afebrile. White count 18k. SCr 0.79. * Blood cultures pending. Plan Vancomycin * Loading dose: 1000 mg IV x 1 * Maintenance dose: 750 mg IV every 12 hours * Regimen is predicted to achieve target AUC/DESTINI of 400-600 mg/L.hr * Random level ordered for: 09/04/23 Meropenem * 500 mg IV every 6 hours Pharmacy will continue to follow and will adjust dose/frequency as necessary. Thank you. Pharmacy has transitioned to AUC monitoring for vancomycin. AUC/DESTINI is the preferred PK/PD target and is associated with decreased risk of nephrotoxicity compared to traditional trough targets.
[2023-09-03] MEDS: oxyCODONE HCL SOLN 5 MG/5 ML UDC PO PRN (04:11)
[2023-09-03] MEDS: SODIUM CHLORIDE 0.9% 1,000 ML IV SCH (04:12)
[2023-09-03] MEDS ORDERED: Nursing to Pharmacy Communication SCH (06:30)
[2023-09-03] MEDS: ENOXAPARIN INJ 40 MG/0.4 ML SYR SQ SCH ×2 (06:32→13:34)
--- NOTE | 2023-09-03 06:54 | XRay Report ---
SINGLE VIEW CHEST CLINICAL HISTORY: Atypical chest pain FINDINGS: An AP, portable, upright chest radiograph is obtained. No prior studies are available for c omparison at the time of dictation. The examination is degraded by portable technique, apical lordoti c positioning, and patient rotation. A tracheostomy is in place. A right-sided PICC line is in place. The tip projects over the right atrium. There is evidence of previous cardiac valve surgery. The hea rt is enlarged. The pulmonary vasculature is noncongested. There is dense airspace consolidation at t he left lung base with a left pleural effusion. Mild patchy airspace consolidation is seen at the rig ht lung base. No pneumothorax is seen. The skeletal structures are osteopenic. The bony thorax is emily ssly intact. Surgical clips project over the left chest. IMPRESSION: 1. There is dense left basilar consolidation and a small left pleural effusion. The appearance is typ ical for pneumonia/aspiration pneumonitis. Clinical correlation will be required and radiographic fol low-up to resolution is recommended. 2. There is also milder consolidation at the right lung base. 3. Mild cardiac enlargement without radiographic evidence of congestive failure. 4. Lines and tubes as above. ACT 112: Negative or not required by law. Electronically signed by: Sunil Khanna M.D. 09/03/2023 6:53 AM
[2023-09-03 07:45] LABS: Basophils # (auto) 0.02 K/uL (0.00-0.20); Basophils % (auto) 0.2 %; Hematocrit (blood only) 24.9 % (42.0-52.0); Hemoglobin 7.8 g/dl (14.0-18.0); Immature Granulocytes # (auto) 0.08 K/uL (0.01-0.20); Immature Granulocytes % (auto) 0.6 %; Lymphocytes # (auto) 0.37 K/uL (1.20-3.40); Lymphocytes % (auto) 2.8 %; Mean Corpuscular Hgb Conc 31.3 g/dL (32.0-36.0); Mean Corpuscular Volume 92.6 fL (80.0-100.0); Mean Platelet Volume 10.8 fL (9.4-12.4); Monocytes # (auto) 1.29 K/uL (0.11-0.59); Monocytes % (auto) 9.8 %; Neutrophils # (auto) 11.39 K/uL (1.40-6.50); Neutrophils % (auto) 86.6 %; Platelet Count 194 K/uL (130-400); RDW Coefficient of Variation 15.6 % (11.5-14.5); Red Blood Count 2.69 M/uL (4.70-6.10); White Blood Count 13.15 K/ul (4.8-10.8)
[2023-09-03] MEDS: MEROPENEM 500 MG in SYRINGE 0 ML IV SCH (07:45)
[2023-09-03] MEDS: POT PHOSPHATE MONOBASIC W/ SOD TAB PEG SCH (07:45)
[2023-09-03 08:04] LABS: BUN Creatinine Ratio 48.4 (10-20); Calcium 8.6 mg/dl (8.6-10.3); Creatinine Clr Calc Pharmacy 87.2 ml/min; Est GFR (African American) 117.3 ml/min; Est GFR (Non-African American) 101.2 ml/min; Magnesium 1.7 mg/dl (1.7-2.4); Potassium 3.9 mmol/L (3.5-5.1)
[2023-09-03] MEDS: GABAPENTIN 250 MG/5 ML 470 ML BTL GT SCH (08:31)
[2023-09-03] MEDS: POTASSIUM CHLORIDE PWD 20 MEQ PACK GT SCH (08:31)
[2023-09-03] MEDS: MIDODRINE HCL 10 MG TAB PO SCH (08:31)
--- NOTE | 2023-09-03 11:30 | Infectious Disease Consult ---
Date of Service September 03, 2023 Telehealth Information I performed this visit using a real-time telehealth connection between my location and the patients location ([facility]). After connecting through interactive tele-video, patient was identified by name and date of and/or wristband check.Patient (or authorized healthcare traveling representative) was informed that this was a telemedicine visit and it was being conducted confidentially over secure lines. My office door was closed and no one else was present in the room with me.Patient (or authorized healthcare traveling representative) provided consent to proceed with the visit, expressed an understanding of privacy and security of the telemedicine visit, and gave permission to have a hospital traveling representative in the room in order to assist with the visit and to conduct portions of the visit, as needed. I informed the patient (or authorized healthcare traveling representative) that I reviewed their record and presented the opportunity for them to ask any questions regarding the visit today. The patient agreed to participate. 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 Concerns for extensive bilateral pneumonia on CT imaging, patient has been started on meropenem and vancomycin IV therapy. 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 Patient was had a significant history related to his right mandibular squamous cell carcinoma s/p chemotherapy. In June 2023 he was at [facility] for concerns of osteomyelitis/necrosis of the jaw and treated with 6 weeks of ertapenem for presumed osteomyelitis. Patient underwent composite mandibulectomy in July 2023 with further concerns of infection, treated again with 6 weeks of meropenem with plans to end through 08/26. Unfortunately patient developing a rash and it was transitioned to ceftaz and Flagyl however rash persisted in the medication was discontinued prior to previously planned end date of 08/26. Apparently previous ID doctor thought that the rash was due to venlafaxine and not the IV antibiotics. Patient currently presenting to [facility] as did not want to take patient to [facility], with complaints of poor appetite and not tolerating tube feeds. Upon presentation temperature BP 98/69, 36.3 C, pulse 61, respiratory rate 21, pulse ox 100% on 15L, WBC 13.15. CTA chest with no evidence of pulmonary embolus showing extensive bilateral pulmonary infiltrates with dense conso lidations in the left lower lobe and lower aspect of the left upper lobe. CT abdomen/pelvis showing diffuse distention of the colon and nonobstructing bilateral renal calculi. Nonspecific 13 mm left adrenal nodule noted suggestions of MRI follow-up study. agreed to my ertapenem and patient was currently on that plus vancomycin in the setting of pneumonia. Allergies Allergy/AdvReac Type Severity Reaction Status Date / Time herbal complex no.323 Allergy Severe RASH ALL Verified 09/02/23 23:00 [From Menofem] OVER BODY/LEGS ceftazidime Allergy Intermediate SWELLING Verified 09/02/23 23:00 OF LOWER LEGS--GOING FOR ALLERGY TESTING metronidazole [From Flagyl] Allergy Intermediate SWELLING Verified 09/02/23 23:00 OF LOWER LEGS--GOING FOR ALLERGY TESTING Penicillins Allergy Unknown Unknown Verified 09/02/23 23:00 Home Medications Medication Instructions Recorded Confirmed Type Nutra 2.0 1 dose feeding tube DIRECTED 09/02/23 09/02/23 History ascorbic acid (vitamin C) 500 mg/5 1,000 mg feeding tube HS 09/02/23 09/02/23 History mL oral syrup aspirin 81 mg chewable tablet 81 mg feeding tube HS 09/02/23 09/02/23 History gabapentin 250 mg/5 mL oral 250 mg feeding tube QAM 09/02/23 09/02/23 History solution lactulose 10 gram/15 mL oral 15 ml feeding tube DIRECTED PRN 09/02/23 09/02/23 History solution Constipation midodrine 10 mg tablet 10 mg feeding tube TID 09/02/23 09/02/23 History multivitamin 0.5 tab feeding tube HS 09/02/23 09/02/23 History oxycodone 20 mg/mL oral concentrate 20 mg feeding tube Q3H 09/02/23 09/02/23 History polyethylene glycol 3350 17 17 g feeding tube DAILY PRN 09/02/23 09/02/23 History gram/dose oral powder (Miralax) Constipation potassium chloride 20 mEq oral 10 meq feeding tube DAILY 09/02/23 09/02/23 History packet (Klor-Con) kaya oil 1 ea miscellaneous DIRECTED 09/02/23 09/02/23 History rosuvastatin 20 mg tablet 20 mg feeding tube HS 09/02/23 09/02/23 History sennosides 8.8 mg/5 mL oral syrup 17.6 mg feeding tube HS 09/02/23 09/02/23 History (senna) sodium di- and 1 tab feeding tube ACHS 09/02/23 09/02/23 History monophosphate-potassium phos monobasic 250 mg tablet (Phospha Neutral) Patient History Medical History (Updated 09/03/23 @ 12:10 by Adan Leone MD) History of head and neck cancer Tracheostomy dependence Multifocal pneumonia Social History Smoking Status: Unknown if ever smoked Hx Alcohol Use: No Hx Substance Use: No Preferred Language: Turkish Communication Ability: Impaired Dental Equipment Technician Required: No Beliefs That Will Affect Care: None Current Living Situation: Spouse Other Information That Helps Us Care for You: No Feels Safe at Home: Yes Safety Concerns: Feels Safe At This Time Assistive Devices: Nebulizer, Walker and Other Review of Systems Constitutional: No weight loss/gain, fatigue, fever, loss of appetite Eyes: No pain, drainage, vision change HENT: No ear pain/drainage, sinus infections, hearing loss Cardiovascular: No chest pain, palpitations, lower extremity swelling Respiratory: No shortness of breath, wheezing, cough, sputum production Gastrointestinal: No abdominal pain, nausea/vomiting, indigestion/heartburn Skin: No rash, lesions Neurological: No dizziness, weakness, confusion, sensory changes Physical Exam telehealth, no physical exam obtained Results & Data Vital Signs (Past 12 Hours) Vital Signs Temp Pulse Pulse Resp BP BP Pulse Ox 09/03/23 11:04 09/03/23 11:04 36.3 C L 67 18 110/68 95 09/03/23 10:10 65 20 99 09/03/23 10:00 105/52 L 09/03/23 10:00 55 L 17 100 09/03/23 09:52 63 19 100 09/03/23 09:40 56 L 16 100 09/03/23 09:32 107/60 09/03/23 09:32 56 L 19 100 09/03/23 09:30 56 L 11 L 100 09/03/23 09:20 58 L 13 100 09/03/23 09:18 54 L 14 100 09/03/23 08:50 58 L 18 99 09/03/23 08:40 65 15 100 09/03/23 08:30 61 21 100 09/03/23 08:20 60 19 100 09/03/23 08:10 62 18 100 09/03/23 08:00 66 13 100 09/03/23 07:50 61 13 99 09/03/23 07:40 57 L 17 100 09/03/23 07:30 63 14 100 09/03/23 07:28 63 09/03/23 07:20 69 18 100 09/03/23 07:10 61 15 100 09/03/23 07:00 61 13 99 09/03/23 06:50 78 25 H 100 09/03/23 06:40 60 10 L 100 09/03/23 06:30 60 15 100 09/03/23 06:20 58 L 12 100 09/03/23 06:10 61 16 100 09/03/23 06:01 65 15 100 09/03/23 06:01 90/53 L 09/03/23 06:00 84/53 L 09/03/23 06:00 60 14 100 09/03/23 05:50 63 17 100 09/03/23 05:41 61 18 100 09/03/23 05:38 09/03/23 05:30 63 14 100 09/03/23 05:20 65 16 100 09/03/23 05:10 81 15 100 09/03/23 05:00 63 17 100 09/03/23 04:50 63 17 100 09/03/23 04:40 59 L 12 100 09/03/23 04:30 63 17 100 09/03/23 04:25 63 09/03/23 04:20 61 17 100 09/03/23 04:16 58 L 19 100 09/03/23 04:16 97/55 L 09/03/23 04:10 60 19 100 09/03/23 04:00 79 18 93 09/03/23 03:50 66 16 100 09/03/23 03:49 65 18 100 09/03/23 03:49 99/58 L 09/03/23 03:40 64 18 100 09/03/23 03:30 64 18 100 09/03/23 03:30 64 18 97/55 L 100 09/03/23 03:20 64 14 97 09/03/23 03:16 71 21 09/03/23 03:00 65 15 99 09/03/23 03:00 104/62 09/03/23 02:50 66 17 97 09/03/23 02:40 68 21 98 09/03/23 02:30 65 17 110/64 98 09/03/23 02:00 71 16 109/67 98 09/03/23 01:38 09/03/23 01:30 73 15 105/56 L 100 09/03/23 01:00 70 109/67 100 09/03/23 00:39 67 09/03/23 00:30 65 93/54 L 100 09/02/23 23:45 75 107/67 100 09/02/23 23:35 69 21 108/61 100 Pulse Ox O2 Del Method O2 Del Method O2 Flow Rate 09/03/23 11:04 Room Air 09/03/23 11:04 Room Air 09/03/23 10:10 09/03/23 10:00 09/03/23 10:00 09/03/23 09:52 09/03/23 09:40 09/03/23 09:32 09/03/23 09:32 09/03/23 09:30 09/03/23 09:20 09/03/23 09:18 09/03/23 08:50 09/03/23 08:40 09/03/23 08:30 09/03/23 08:20 09/03/23 08:10 09/03/23 08:00 09/03/23 07:50 09/03/23 07:40 09/03/23 07:30 09/03/23 07:28 09/03/23 07:20 09/03/23 07:10 09/03/23 07:00 09/03/23 06:50 09/03/23 06:40 09/03/23 06:30 09/03/23 06:20 09/03/23 06:10 09/03/23 06:01 09/03/23 06:01 09/03/23 06:00 09/03/23 06:00 09/03/23 05:50 09/03/23 05:41 09/03/23 05:38 Trach Collar 09/03/23 05:30 09/03/23 05:20 09/03/23 05:10 09/03/23 05:00 09/03/23 04:50 09/03/23 04:40 09/03/23 04:30 09/03/23 04:25 09/03/23 04:20 09/03/23 04:16 09/03/23 04:16 09/03/23 04:10 09/03/23 04:00 09/03/23 03:50 09/03/23 03:49 09/03/23 03:49 09/03/23 03:40 09/03/23 03:30 09/03/23 03:30 Trach Collar 09/03/23 03:20 09/03/23 03:16 09/03/23 03:00 09/03/23 03:00 09/03/23 02:50 09/03/23 02:40 09/03/23 02:30 Trach Collar 09/03/23 02:00 Trach Collar 09/03/23 01:38 100 Free Flow/Blow-by, Trach Collar 8 09/03/23 01:30 Trach Collar 09/03/23 01:00 Trach Collar 09/03/23 00:39 09/03/23 00:30 Trach Collar 09/02/23 23:45 Trach Collar 09/02/23 23:35 Trach Collar Laboratory Results Abnormal Lab Results 09/02/23 09/02/23 09/03/23 21:11 23:06 07:31 WBC 17.90 H 13.15 H RBC 3.11 L 2.69 L Hgb 9.2 L 7.8 L Hct 28.4 L 24.9 L MCV 91.3 92.6 MCH 29.6 29.0 MCHC 32.4 31.3 L RDW Std Deviation 51.9 H 52.0 H RDW Coeff of [place] 15.5 H 15.6 H Plt Count 250 194 MPV 11.1 10.8 Immature Gran % (Auto) 1.5 0.6 Neut % (Auto) 87.6 86.6 Lymph % (Auto) 1.[address] [facility] % (Auto) 9.3 9.8 Eos % (Auto) 0.1 0.0 Baso % (Auto) 0.3 0.2 Neut # (Auto) 15.67 H 11.39 H Lymph # (Auto) 0.[address] [facility] # (Auto) 1.67 H 1.29 H Eos # (Auto) 0.02 0.00 Baso # (Auto) 0.06 0.02 Immature Gran # (Auto) 0.27 H 0.08 ESR 61 H PT 12.1 H INR 1.1 APTT 29 PTT Ratio 1.0 Sodium 131 L 134 L Potassium 4.0 3.9 Chloride 98 104 Carbon Dioxide 25 26 Anion Gap 8 4 BUN 38 H 30 H Creatinine 0.79 0.62 Est Cr Clr Drug Dosing 68.4 87.2 Est GFR ( Amer) 106.2 117.3 Est GFR (Non-Af Amer) 91.6 101.2 BUN/Creatinine Ratio 48.1 H 48.4 H Glucose 141 H 102 H Lactate 1.6 Calcium 9.7 8.6 Magnesium 1.9 1.7 Total Bilirubin 0.5 AST 61 H ALT 57 H Alkaline Phosphatase 91 Total Creatine Kinase 12 L Troponin I High Sens 13.4 C-Reactive Protein 13.76 H Total Protein 6.4 Albumin 3.1 L Globulin 3.3 Albumin/Globulin Ratio 0.9 Procalcitonin 1.16 H 09/03/23 02:36 Gram Stain - Final Sputum,Vent Suction Sputum Culture - Pending 09/02/23 23:06 Aerobic Blood Culture - Pending Blood Anaerobic Blood Culture - Pending 09/02/23 21:11 Aerobic Blood Culture - Pending Blood Anaerobic Blood Culture - Pending Diagnostic Findings CT abdomen/pelvis: IMPRESSION: Diffuse distention of the colon. Bilateral nonobstructing renal calculi. Nonspecific 13 mm left adrenal nodule. If there is no history of malignancy consider a follow-up low dose, non-contrast adrenal CT or chemical-shift adrenal MRI in 12 months. If there is a history of malignancy recommend a low dose, non-emergent, non-contrast adrenal CT or chemical-shift adrenal MRI follow-up study. CTA chest: IMPRESSION: Extensive bilateral pulmonary infiltrates with dense consolidations in the left lower lobe and lower aspect of the left upper lobe. No evidence of pulmonary emboli.
[2023-09-03] MEDS ORDERED: VANCOMYCIN HCL 750 MG in SODIUM CHLORIDE 0.9% 250 ML IV SCH (12:00)
--- NOTE | 2023-09-03 12:12 | Pulmonary Consultation ---
Date of Consultation September 03, 2023 Assessment & Plan (1) Multifocal pneumonia: (2) Tracheostomy dependence: (3) History of head and neck cancer: Plan Patient with multifocal pneumonia which appears possibly related to aspiration given intolerance of tube feeds at home. Agree with continuing vancomycin and meropenem. Will defer further antibiotic coverage to ID. Patient has doing well with supplemental oxygen. Will consider bronchoscopy if patient unable to clear secretions or not having a significant clinical improvement in the next few days. Will add percussive vest therapy and hypertonic saline to promote mucociliary clearance. Thank you for the consult. Will continue to follow along with you. History of Present Illness Reason for Consultation: Multifocal pneumonia in a patient with a tracheostomy Attending Physician: Nabeel Wilkinson MD History of Present Illness 67-year-old male with history of right mandibular squamous cell carcinoma status postchemotherapy diagnosed in 2001 who had a tracheostomy and PEG tube placement in late of 2021. 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 He was on extended course of antibiotics including meropenem and Flagyl. There may have been confusion with his regarding antibiotics and concerns of adverse reactions. Patient has been having poor appetite and not tolerating tube feeds. Is also been having a cough with productive sputum and shortness of breath. He was admitted by the hospitalist service and is treated for "hospital-acquired pneumonia". Chest CTA completed 09/02/2019 revealed extensive bilateral pulmonary infiltrates with dense consolidation in the lingula and left lower lobe. Sputum cultures from tracheostomy are pending. Patient is currently on meropenem and vancomycin. ID consult is pending. He is on trach collar and required 8 L flow per minute. Saturations in the low 90s. Denies any dyspnea at rest. Patient notes that he has had a tracheostomy for about 2 years and follows with [facility]. Allergies Allergy/AdvReac Type Severity Reaction Status Date / Time herbal complex no.323 Allergy Severe RASH ALL Verified 09/02/23 23:00 [From Menofem] OVER BODY/LEGS ceftazidime Allergy Intermediate SWELLING Verified 09/02/23 23:00 OF LOWER LEGS--GOING FOR ALLERGY TESTING metronidazole [From Flagyl] Allergy Intermediate SWELLING Verified 09/02/23 23:00 OF LOWER LEGS--GOING FOR ALLERGY TESTING Penicillins Allergy Unknown Unknown Verified 09/02/23 23:00 Home Medications Medication Instructions Recorded Confirmed Type Nutra 2.0 1 dose feeding tube DIRECTED 09/02/23 09/02/23 History ascorbic acid (vitamin C) 500 mg/5 1,000 mg feeding tube HS 09/02/23 09/02/23 Hi story mL oral syrup aspirin 81 mg chewable tablet 81 mg feeding tube HS 09/02/23 09/02/23 History gabapentin 250 mg/5 mL oral 250 mg feeding tube QAM 09/02/23 09/02/23 History solution lactulose 10 gram/15 mL oral 15 ml feeding tube DIRECTED PRN 09/02/23 09/02/23 History solution Constipation midodrine 10 mg tablet 10 mg feeding tube TID 09/02/23 09/02/23 History multivitamin 0.5 tab feeding tube HS 09/02/23 09/02/23 History oxycodone 20 mg/mL oral concentrate 20 mg feeding tube Q3H 09/02/23 09/02/23 History polyethylene glycol 3350 17 17 g feeding tube DAILY PRN 09/02/23 09/02/23 History gram/dose oral powder (Miralax) Constipation potassium chloride 20 mEq oral 10 meq feeding tube DAILY 09/02/23 09/02/23 History packet (Klor-Con) kaya oil 1 ea miscellaneous DIRECTED 09/02/23 09/02/23 History rosuvastatin 20 mg tablet 20 mg feeding tube HS 09/02/23 09/02/23 History sennosides 8.8 mg/5 mL oral syrup 17.6 mg feeding tube HS 09/02/23 09/02/23 History (senna) sodium di- and 1 tab feeding tube ACHS 09/02/23 09/02/23 History monophosphate-potassium phos monobasic 250 mg tablet (Phospha Neutral) Patient History Medical History (Updated 09/03/23 @ 12:10 by Adan Leone MD) History of head and neck cancer Tracheostomy dependence Multifocal pneumonia Social History Smoking Status: Unknown if ever smoked Hx Alcohol Use: No Hx Substance Use: No Preferred Language: Welsh Communication Ability: Impaired Road Sign Installer Required: No Beliefs That Will Affect Care: None Current Living Situation: Spouse Other Information That Helps Us Care for You: No Feels Safe at Home: Yes Safety Concerns: Feels Safe At This Time Assistive Devices: Nebulizer, Walker and Other Review of Systems Review of Systems: All systems reviewed & are unremarkable except as noted in HPI & below Physical Exam Physical Exam: Constitutional: Patient appears to be of their stated age. Patient appears frail and elderly. Eyes: Pupils are equal round and reactive to light. Conjunctivae are normal. Anicteric sclera. Ears nose, mouth and throat: Mallampati class 2. Normal posterior oropharynx. Uvula is midline. Neck: Trachea is midline. Visual inspection is normal. Tracheostomy noted with Passy-Ashfield valve. Respiratory: Diffuse crackles. No increased work of breathing. No tachypnea Cardiovascular: Regular rate and rhythm. No murmurs. No edema. Gastrointestinal: Normal bowel sounds, soft, nontender and nondistended. No hepatosplenomegaly noted. Musculoskeletal: No cyanosis. Patient is able to move all extremities. Strength is 5 out of 5 in the upper and lower extremities. Skin: No rashes, warm dry and intact. Neurologic: No obvious focal neurological deficits seen. Psychiatric: Alert and oriented x3 with a euthymic affect. Results & Data Results & Data Vital Signs (Past 12 Hours) Vital Signs Temp Pulse Pulse Resp BP BP Pulse Ox 09/03/23 11:35 58 L 18 101/57 L 93 09/03/23 11:04 09/03/23 11:04 36.3 C L 67 18 110/68 95 09/03/23 10:10 65 20 99 09/03/23 10:00 105/52 L 09/03/23 10:00 55 L 17 100 09/03/23 09:52 63 19 100 09/03/23 09:40 56 L 16 100 09/03/23 09:32 107/60 09/03/23 09:32 56 L 19 100 09/03/23 09:30 56 L 11 L 100 09/03/23 09:20 58 L 13 100 09/03/23 09:18 54 L 14 100 09/03/23 08:50 58 L 18 99 09/03/23 08:40 65 15 100 09/03/23 08:30 61 21 100 09/03/23 08:20 60 19 100 09/03/23 08:10 62 18 100 09/03/23 08:00 66 13 100 09/03/23 07:50 61 13 99 05 07:40 57 L 17 100 05 07:30 63 14 100 05 07:28 63 05/05/28 07:20 69 18 100 05 07:10 61 15 100 05 07:00 61 13 99 05 06:50 78 25 H 100 05 06:40 60 10 L 100 05 06:30 60 15 100 05 06:20 58 L 12 100 05 06:10 61 16 100 05 06:01 65 15 100 05 06:01 90/53 L 05 06:00 84/53 L 05 06:00 60 14 100 05 05:50 63 17 100 05 05:41 61 18 100 05 05:38 05 05:30 63 14 100 05 05:20 65 16 100 05 05:10 81 15 100 05 05:00 63 17 100 05 04:50 63 17 100 05 04:40 59 L 12 100 05 04:30 63 17 100 05 04:25 63 05 04:20 61 17 100 05 04:16 58 L 19 100 05 04:16 97/55 L 05 04:10 60 19 100 05 04:00 79 18 93 05 03:50 66 16 100 05 03:49 65 18 100 05 03:49 99/58 L 05 03:40 64 18 100 05/05/28 03:30 64 18 100 05/05/28 03:30 64 18 97/55 L 100 05 03:20 64 14 97 05 03:16 71 21 05 03:00 65 15 99 05/05/28 03:00 104/62 05/05/28 02:50 66 17 97 05 02:40 68 21 98 05 02:30 65 17 110/64 98 05/01/24 02:00 71 16 109/67 98 09/03/23 01:38 09/03/23 01:30 73 15 105/56 L 100 09/03/23 01:00 70 109/67 100 09/03/23 00:39 67 09/03/23 00:30 65 93/54 L 100 Pulse Ox O2 Del Method O2 Del Method O2 Flow Rate O2 Flow Rate 09/03/23 11:35 Trach Collar 8 09/03/23 11:04 Room Air 09/03/23 11:04 Room Air 09/03/23 10:10 09/03/23 10:00 09/03/23 10:00 09/03/23 09:52 09/03/23 09:40 09/03/23 09:32 09/03/23 09:32 09/03/23 09:30 09/03/23 09:20 09/03/23 09:18 09/03/23 08:50 09/03/23 08:40 09/03/23 08:30 09/03/23 08:20 09/03/23 08:10 09/03/23 08:00 09/03/23 07:50 09/03/23 07:40 09/03/23 07:30 09/03/23 07:28 09/03/23 07:20 09/03/23 07:10 09/03/23 07:00 09/03/23 06:50 09/03/23 06:40 09/03/23 06:30 09/03/23 06:20 09/03/23 06:10 09/03/23 06:01 09/03/23 06:01 09/03/23 06:00 09/03/23 06:00 09/03/23 05:50 09/03/23 05:41 09/03/23 05:38 Trach Collar 09/03/23 05:30 09/03/23 05:20 09/03/23 05:10 09/03/23 05:00 09/03/23 04:50 09/03/23 04:40 09/03/23 04:30 09/03/23 04:25 09/03/23 04:20 09/03/23 04:16 09/03/23 04:16 09/03/23 04:10 09/03/23 04:00 09/03/23 03:50 09/03/23 03:49 09/03/23 03:49 09/03/23 03:40 09/03/23 03:30 09/03/23 03:30 Trach Collar 09/03/23 03:20 09/03/23 03:16 09/03/23 03:00 09/03/23 03:00 09/03/23 02:50 09/03/23 02:40 09/03/23 02:30 Trach Collar 09/03/23 02:00 Trach Collar 09/03/23 01:38 100 Free Flow/Blow-by, Trach Collar 8 09/03/23 01:30 Trach Collar 09/03/23 01:00 Trach Collar 09/03/23 00:39 09/03/23 00:30 Trach Collar PG Care Time/CCT Total # of Minutes Spent Total Time Spent with Patient: Total time spent is greater than 50% in coordination of care (as documented) at patient's floor/unit and/or counseling patient: Coding Level of Care Code 01711 INT INP/OBS CARE 3/75MIN Diagnoses Multifocal pneumonia J18.9 Tracheostomy dependence Z93.0 History of head and neck cancer Z85.89
[2023-09-03] MEDS: VANCOMYCIN HCL 1,000 MG in SODIUM CHLORIDE 0.9% 250 ML IV SCH (12:20)
--- NOTE | 2023-09-03 16:47 | Communication Note ---
Date of Service: September 03, 2023 Seen resting in bed, comfortable, not in distress States he is feeling improved compared to admission Breathing is okay No chest pain, palpitations, dizziness Abdominal pain Vital signs noted and reviewed Mild crackles bilaterally No wheezing Good air entry bilaterally No abdominal distention, normal bowel sounds No other new symptom All labs noted and reviewed Assessment and plan: Bilateral pneumonia, possible aspiration component On vancomycin plus meropenem ID service consulted Pulmonary service also consulted Tube feeding intolerance As per admitting H&P Nutrition service consulted Other diagnoses and plan of care per admitting service notes Nabeel Wilkinson MD
[2023-09-03] MEDS: TUBE FEEDING WATER FLUSH PEG SCH (17:10)
[2023-09-03 18:27] LABS: Adenovirus PCR Not Detected (NotDetected); Bordetella parapertussis PCR Not Detected (NotDetected); Bordetella pertussis PCR Not Detected (NotDetected); Chlamydia pneumoniae PCR Not Detected (NotDetected); Coronavirus 229E PCR Not Detected (NotDetected); Coronavirus CoV-2 (COVID19)PCR Not Detected (NotDetected); Coronavirus HKU1 PCR Not Detected (NotDetected); Coronavirus NL63 PCR Not Detected (NotDetected); Coronavirus OC43PCR Not Detected (NotDetected); Human Metapneumovirus PCR Not Detected (NotDetected); Influenza A PCR Not Detected (NotDetected); Influenza B PCR Not Detected (NotDetected); Mycoplasma pneumoniae PCR Not Detected (NotDetected); Parainfluenza Virus 1 PCR Not Detected (NotDetected); Parainfluenza Virus 2 PCR Not Detected (NotDetected); Parainfluenza Virus 3 PCR Not Detected (NotDetected); Parainfluenza Virus 4 PCR Not Detected (NotDetected); Respiratory Syncytial VirusPCR Not Detected (NotDetected); Rhinovirus/Enterovirus PCR Not Detected (NotDetected)
[2023-09-03] MEDS: SODIUM CHLOR 7% 4 ML NEB NEB SCH (18:58)
[2023-09-03] MEDS: SENNOSIDES 8.8 MG/5 ML UDC PEG SCH (23:16)
[2023-09-03] MEDS: ROSUVASTATIN CALCIUM 20 MG TAB PEG SCH (23:17)
[2023-09-03] MEDS: ASCORBIC ACID 500 MG TAB PO SCH (23:17)
[2023-09-03] MEDS: ASPIRIN 81 MG CHEW PEG SCH (23:17)
[2023-09-03] MEDS: MULTI VIT W/MINERALS LIQUID 15 ML UDC PEG SCH (23:17)
[2023-09-04] MEDS: ALBUT/IPRATROP 3MG/0.5MG NEB 3 ML VIAL NEB PRN (00:34)
--- NOTE | 2023-09-04 06:54 | Communication Note ---
Date of Service: September 04, 2023 Notified by RN of hemoglobin of 7.8 from 9.2 yesterday. No overt bleed as per RN. AP Worsening anemia possibly dilutional given ongoing IVF No overt bleeding Recheck H&H at 10 AM Defer decision for blood transfusion to AM provider.
[2023-09-04 09:57] LABS: BUN Creatinine Ratio 43.9 (10-20); Calcium 8.7 mg/dl (8.6-10.3); Creatinine Clr Calc Pharmacy 96.7 ml/min; Est GFR (African American) 121.4 ml/min; Est GFR (Non-African American) 104.8 ml/min; Potassium 3.8 mmol/L (3.5-5.1)
[2023-09-04] MEDS: LACTOBACILLUS ACIDOPHILUS 1 GM PACK PEG SCH (11:09)
[2023-09-04 11:27] LABS: Basophils # (auto) 0.05 K/uL (0.00-0.20); Basophils % (auto) 0.3 %; Eosinophils # (auto) 0.06 K/uL (0.00-0.50); Eosinophils % (auto) 0.3 %; Hematocrit (blood only) 29.1 % (42.0-52.0); Hemoglobin 9.1 g/dl (14.0-18.0); Immature Granulocytes # (auto) 0.19 K/uL (0.01-0.20); Lymphocytes # (auto) 0.44 K/uL (1.20-3.40); Lymphocytes % (auto) 2.3 %; Mean Corpuscular Hemoglobin 29.1 pg (25.0-34.0); Mean Corpuscular Hgb Conc 31.3 g/dL (32.0-36.0); Mean Platelet Volume 10.5 fL (9.4-12.4); Monocytes # (auto) 1.13 K/uL (0.11-0.59); Monocytes % (auto) 5.8 %; Neutrophils # (auto) 17.68 K/uL (1.40-6.50); Neutrophils % (auto) 90.3 %; Platelet Count 255 K/uL (130-400); RDW Coefficient of Variation 15.5 % (11.5-14.5); RDW Standard Deviation 53.1 fL (36.4-46.3); Red Blood Count 3.13 M/uL (4.70-6.10); White Blood Count 19.55 K/ul (4.8-10.8)
--- NOTE | 2023-09-04 11:34 | Pulmonology Progress Note ---
Date of Service September 04, 2023 Assessment & Plan (1) Multifocal pneumonia: (2) Tracheostomy dependence: (3) History of head and neck cancer: Plan Patient with multifocal pneumonia which appears possibly related to aspiration given intolerance of tube feeds at home. MRSA screen positive. Continue vancomycin. Continue gram-negative coverage per ID consult. Patient appears to be clearing secretions well with the aid of hypertonic saline and percussive vest therapy. Thank you for the consult. Will continue to follow along with you. Admission and Anticipated Discharge Date Admission Date: September 03, 2023 Subjective Patient's cough and shortness of breath are improving. Denies any significant shortness of breath at rest. Remains on humidified oxygen via trach. Review of Systems Review of Systems: All systems reviewed & are unremarkable except as noted in HPI & below Physical Exam Physical Exam: Constitutional: Patient appears to be of their stated age. Patient appears fra il and elderly. Eyes: Pupils are equal round and reactive to light. Conjunctivae are normal. Anicteric sclera. Ears nose, mouth and throat: Mallampati class 2. Normal posterior oropharynx. Uvula is midline. Neck: Trachea is midline. Visual inspection is normal. Tracheostomy noted with Passy-Charli valve. Respiratory: Diffuse crackles. No increased work of breathing. No tachypnea Cardiovascular: Regular rate and rhythm. No murmurs. No edema. Gastrointestinal: Normal bowel sounds, soft, nontender and nondistended. No hepatosplenomegaly noted. Musculoskeletal: No cyanosis. Patient is able to move all extremities. Strength is 5 out of 5 in the upper and lower extremities. Skin: No rashes, warm dry and intact. Neurologic: No obvious focal neurological deficits seen. Psychiatric: Alert and oriented x3 with a euthymic affect. Results & Data Results & Data Vital Signs (Past 12 Hours) Vital Signs Temp Pulse Pulse Resp BP Pulse Ox O2 Del Method 09/04/23 11:31 36.4 C L 59 L 16 97/61 L 96 Trach Collar 09/04/23 07:44 76 09/04/23 07:44 Room Air 09/04/23 07:36 94 Room Air 09/04/23 07:27 36.7 C 55 L 18 101/65 09/04/23 07:05 20 Trach Collar 09/04/23 03:07 36.5 C 64 18 103/62 92 Trach Collar 09/04/23 00:34 80 18 97 Trach Collar O2 Flow Rate FiO2 09/04/23 11:31 9 09/04/23 07:44 09/04/23 07:44 09/04/23 07:36 09/04/23 07:27 09/04/23 07:05 8 50 09/04/23 03:07 9 09/04/23 00:34 8 40 PG Care Time/CCT Total # of Minutes Spent Total Time Spent with Patient: Total time spent is greater than 50% in coordination of care (as documented) at patient's floor/unit and/or counseling patient: Coding Level of Care Code 52783 SUB INP/OBS CARE 05/29MIN Diagnoses Multifocal pneumonia J18.9 Tracheostomy dependence Z93.0 History of head and neck cancer Z85.89
[2023-09-04] MEDS: VANCOMYCIN LEVEL ONE (12:49)
--- NOTE | 2023-09-04 13:15 | Pharmacy Report ---
Pharmacy PK ABX Note - Date of Service September 04, 2023 - Assessment and Plan Assessment 67 year old M receiving vancomycin and meropenem for treatment of multifocal pneumonia. * Day #2 of antimicrobial therapy. * Afebrile. White count 20k. Renal function stable. * Blood cultures x 2 show no growth at 24 hours. Sputum (vent suction) culture growing Staphylococcus species. MRSA nasal swab positive. * Pulmonology and ID consulted. Plan Vancomycin * Current regimen: 1000 mg IV every 12 hours * Random level obtained 09/04/23 resulted as 14.7 mcg/mL. This is predicted to achieve target AUC/DESTINI of 400-600 mg/L.hr * Predicted AUC at steady state: 535 mg/L.hr * Continue 1000 mg IV every 12 hours * Will repeat level in the next 48-72 hours if therapy is continued and/or change in patient clinical status Meropenem * 500 mg IV every 6 hours Pharmacy will continue to follow and will adjust dose/frequency as necessary. Thank you. Pharmacy has transitioned to AUC monitoring for vancomycin. AUC/DESTINI is the preferred PK/PD target and is associated with decreased risk of nephrotoxicity compared to traditional trough targets.
[2023-09-04] MEDS: LACTULOSE SYRUP 10 GM/15 ML BTL 960 ML PO PRN (13:51)
--- NOTE | 2023-09-04 19:01 | Hospitalist Progress Note ---
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 Was again admitted in June 2023 at [facility] with symptomatic anemia ALISA and hyperkalemia possible superimposed soft tissue infection versus osteonecrosis versus osteomyelitis on CT neck films. ID consulted recommended 6 weeks of IV meropenem for presumed osteomyelitis. Patient presented to [facility] on July 07, 2023 with pink-tinged drainage from his tracheostomy and drainage out of his right neck area. On July 10, 2023 patient underwent right composite mandibulectomy, right neck dissection, left scapula and latissimus free flap to right neck and trach tube exchange. His course was complicated by postoperative hypotension with SBP's in the 80s requiring pressors WBC went up to 30 K. ID was consulted in the setting of prior history of Pseudomonas and Morganella pneumonia sputum and mandibular wound cultures. He was receiving cefepime and Flagyl. Progressive leukocytosis resolved. It is recommended to continue 6 weeks of IV meropenem 2 g IV every 8 hours for osteomyelitis to complete on August 26.Had episode of presyncope and hypotension thought to be from venlafaxine and it was stopped on august 02 2023. As per patient developed rash thought to be from meropenem and was stopped and was changed to ceftazidime and p.o. Flagyl but rash got worse and also got swelling of the lower extremity. And antibiotics were stopped per on on August 26. seems somewhat mixed up with dates and which antibiotic caused adverse reactions. Her infectious doctor Dr. Moore told her that rash and swelling could be from allergic reaction to venlafaxine.. Patient also has history of multivessel CAD. CKD. Hypotension on as needed midodrine. Comes here because patient having poor appetite could not tolerate tube feeds. Used to get 5 bolus tube feeds currently only tolerating 2 bolus tube feeds.Having lot of cough. Feeling feverish. And she does not want to take him back to [facility] so brought him here. Patient is alert and oriented. Difficult to understand. Denies any headache. No blurred vision. Always has some runny nose. No tracheal secretions currently. No chest pain. Currently not feeling any short of breath. No nausea. No abdominal pain. Stools are always loose. Micturating okay. Ambulates with a walker. Hemodynamics are okay. initially refused meropenem but then was okay to try meropenem for now..CT scan showing Pneumonia.Records are on the chart. Pneumonia Possible hospital-acquired pneumonia CT scan showing extensive bilateral pulmonary infiltrates with dense consolidation in left lower lobe and lower aspect of the left upper lobe Empirically starting on IV Vanco and meropenem Monitor for any drug reaction Consult pulmonary Close monitor Diffuse distention of colon On CT scan Will monitor Left adrenal nodule CT abdomen pelvis Noncontrast abdomen CT or MRI when patient is more stable( Seems patient knows about it, can check with ). Squamous cell carcinoma right Mandible and base of tongue S/p chemotherapy/radiation/pembrolizumab S/p surgery S/p PEG tube and s/p trach Follow-up with [facility] Hypotension On midodrine Chronic pain On oxycodone Hyperlipidemia On statin History of CAD On aspirin and statin Anemia Hemoglobin 9.2 Will check stool for Hemoccult Will monitor Mild transaminitis Will monitor Hyponatremia Sodium 131 Getting fluids Will follow labs Lower extremity edema Follow Dopplers Follow echo Nutrition Dietitian consult On tube feeds Pressure ulcers stage 2/3 sacral ulcers Wound care consult DVT prophylaxis Lovenox Disposition Telemetry Full code if chance of recovery as per my discussion with the patient His ID doctors at [facility] where [facility] and also . ph [phone]. Admission and Anticipated Discharge Date Admission Date: September 03, 2023 Results & Data Results & Data Vital Signs (Past 12 Hours) Vital Signs Temp Pulse Pulse Resp BP Pulse Ox O2 Del Method 09/04/23 15:25 36.3 C L 70 16 105/63 93 Room Air 09/04/23 15:12 68 09/04/23 11:31 36.4 C L 59 L 16 97/61 L 96 Trach Collar 09/04/23 07:44 76 09/04/23 07:44 Room Air 09/04/23 07:36 94 Room Air 09/04/23 07:27 36.7 C 55 L 18 101/65 09/04/23 07:05 20 Trach Collar O2 Flow Rate FiO2 09/04/23 15:25 09/04/23 15:12 09/04/23 11:31 9 09/04/23 07:44 09/04/23 07:44 09/04/23 07:36 09/04/23 07:27 09/04/23 07:05 8 50
[2023-09-05] MEDS: NUTREN LIQD 2.0 1,000 ML BAG PEG SCH (06:37)
[2023-09-05 08:36] LABS: Basophils # (auto) 0.03 K/uL (0.00-0.20); Basophils % (auto) 0.2 %; Eosinophils # (auto) 0.35 K/uL (0.00-0.50); Eosinophils % (auto) 2.7 %; Hematocrit (blood only) 24.8 % (42.0-52.0); Hemoglobin 7.7 g/dl (14.0-18.0); Immature Granulocytes # (auto) 0.12 K/uL (0.01-0.20); Immature Granulocytes % (auto) 0.9 %; Lymphocytes # (auto) 0.28 K/uL (1.20-3.40); Lymphocytes % (auto) 2.2 %; Mean Corpuscular Hemoglobin 29.1 pg (25.0-34.0); Mean Corpuscular Volume 93.6 fL (80.0-100.0); Mean Platelet Volume 10.7 fL (9.4-12.4); Monocytes # (auto) 0.67 K/uL (0.11-0.59); Monocytes % (auto) 5.2 %; Neutrophils # (auto) 11.51 K/uL (1.40-6.50); Neutrophils % (auto) 88.8 %; Platelet Count 252 K/uL (130-400); RDW Coefficient of Variation 15.6 % (11.5-14.5); RDW Standard Deviation 53.1 fL (36.4-46.3); Red Blood Count 2.65 M/uL (4.70-6.10); White Blood Count 12.96 K/ul (4.8-10.8)
[2023-09-05 08:48] LABS: BUN Creatinine Ratio 43.8 (10-20); Calcium 6.7 mg/dl (8.6-10.3); Creatinine Clr Calc Pharmacy 114.6 ml/min; Est GFR (African American) 130.3 ml/min; Est GFR (Non-African American) 112.4 ml/min; Potassium 2.9 mmol/L (3.5-5.1)
[2023-09-05 09:21] LABS: Acanthocytes 1+; Echinocytes 1+; Polychromasia 1+
[2023-09-05] MEDS ORDERED: VANCOMYCIN HCL 1,250 MG in SODIUM CHLORIDE 0.9% 250 ML IV SCH (10:00)
--- NOTE | 2023-09-05 10:54 | Electrocardiogram Report ---
Test Reason : Blood Pressure : / mmHG Vent. Rate : 095 BPM Atrial Rate : 095 BPM P-R Int : 130 ms QRS Dur : 102 ms QT Int : 344 ms P-R-T Axes : 068 -53 085 degrees QTc Int : 432 ms Normal sinus rhythm Possible Left atrial enlargement Left anterior fascicular block Abnormal ECG No previous ECGs available Confirmed by Jason Raya ([id number]) on 09/05/2023 10:53:46 AM Referred By: REFERRED SELF Confirmed By:Jason Raya
--- NOTE | 2023-09-05 18:58 | Hospitalist Progress Note ---
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 Was again admitted in June 2023 at [facility] with symptomatic anemia ALISA and hyperkalemia possible superimposed soft tissue infection versus osteonecrosis versus osteomyelitis on CT neck films. ID consulted recommended 6 weeks of IV meropenem for presumed osteomyelitis. Patient presented to [facility] on July 07, 2023 with pink-tinged drainage from his tracheostomy and drainage out of his right neck area. On July 10, 2023 patient underwent right composite mandibulectomy, right neck dissection, left scapula and latissimus free flap to right neck and trach tube exchange. His course was complicated by postoperative hypotension with SBP's in the 80s requiring pressors WBC went up to 30 K. ID was consulted in the setting of prior history of Pseudomonas and Morganella pneumonia sputum and mandibular wound cultures. He was receiving cefepime and Flagyl. Progressive leukocytosis resolved. It is recommended to continue 6 weeks of IV meropenem 2 g IV every 8 hours for osteomyelitis to complete on August 26.Had episode of presyncope and hypotension thought to be from venlafaxine and it was stopped on august 02 2023. As per patient developed rash thought to be from meropenem and was stopped and was changed to ceftazidime and p.o. Flagyl but rash got worse and also got swelling of the lower extremity. And antibiotics were stopped per on on August 26. seems somewhat mixed up with dates and which antibiotic caused adverse reactions. Her infectious doctor Dr. Moore told her that rash and swelling could be from allergic reaction to venlafaxine.. Patient also has history of multivessel CAD. CKD. Hypotension on as needed midodrine. Comes here because patient having poor appetite could not tolerate tube feeds. Used to get 5 bolus tube feeds currently only tolerating 2 bolus tube feeds.Having lot of cough. Feeling feverish. And she does not want to take him back to [facility] so brought him here. Patient is alert and oriented. Difficult to understand. Denies any headache. No blurred vision. Always has some runny nose. No tracheal secretions currently. No chest pain. Currently not feeling any short of breath. No nausea. No abdominal pain. Stools are always loose. Micturating okay. Ambulates with a walker. Hemodynamics are okay. initially refused meropenem but then was okay to try meropenem for now..CT scan showing Pneumonia.Records are on the chart. Pneumonia Possible hospital-acquired pneumonia CT scan showing extensive bilateral pulmonary infiltrates with dense consolidation in left lower lobe and lower aspect of the left upper lobe Empirically starting on IV Vanco and meropenem Monitor for any drug reaction Consult pulmonary Close monitor /3 Improving Continue vancomycin plus meropenem Hypertonic saline twice daily Diffuse distention of colon Tolerating tube feeding well Repeat CT scan of the abdomen tomorrow to follow-up Left adrenal nodule CT abdomen pelvis Noncontrast abdomen CT or MRI when patient is more stable( Seems patient knows about it, can check with ). Squamous cell carcinoma right Mandible and base of tongue S/p chemotherapy/radiation/pembrolizumab S/p surgery S/p PEG tube and s/p trach Follow-up with [facility] Hypotension On midodrine Chronic pain On oxycodone Hyperlipidemia On statin History of CAD On aspirin and statin Anemia Hemoglobin 9.2 Will check stool for Hemoccult Will monitor Stable Mild transaminitis Will monitor Hyponatremia Sodium 131 Getting fluids Will follow labs Lower extremity edema Follow Dopplers Follow echo Nutrition Dietitian consult On tube feeds Pressure ulcers stage 2/3 sacral ulcers Wound care consult DVT prophylaxis Lovenox Disposition Telemetry Full code if chance of recovery as per my discussion with the patient His ID doctors at [facility] where Adan [facility] and also . ph [phone]. Admission and Anticipated Discharge Date Admission Date: September 03, 2023 Subjective Follow-up for pneumonia etc. Seen resting in bed, comfortable, sitting up States he continues to feel improved Breathing is improving, less cough No abdominal pain, tolerating tube feeding well Has chronic headache, jaw pain, back pain No other new symptoms Review of Systems Review of Systems: all noted and negative except for above Physical Exam Physical Exam: General- oriented x 3, not in distress, speaks in sentences with no effort or accessory muscle use Eyes- anicteric Neck- no JVD Lungs-mild rhonchi at the bases, no wheezing Heart- normal rate, regular rhythm; no murmurs Abdomen- normal bowel sounds, nondistended, soft, nontender Extremities- no pretibial edema, no calf tenderness Neuro- alert, oriented x 3; no gross focal neurologic deficits Skin- warm & dry Results & Data Results & Data Vital Signs (Past 12 Hours) Vital Signs Temp Pulse Pulse Resp BP Pulse Ox O2 Del Method 09/05/23 15:45 36.4 C L 71 20 96/65 L 94 Room Air 09/05/23 11:01 36.2 C L 69 19 97/59 L 94 Room Air 09/05/23 08:00 68 09/05/23 08:00 Trach Collar 09/05/23 07:29 36.4 C L 74 19 98/66 L 74 L Room Air 09/05/23 07:16 78 18 94 Room Air all noted and reviewed including below
[2023-09-05] MEDS: oxyCODONE HCL SOLN 5 MG/5 ML UDC PO PRN (20:25)
[2023-09-06 06:58] LABS: Basophils # (auto) 0.04 K/uL (0.00-0.20); Basophils % (auto) 0.3 %; Eosinophils # (auto) 0.63 K/uL (0.00-0.50); Eosinophils % (auto) 5.5 %; Immature Granulocytes # (auto) 0.36 K/uL (0.01-0.20); Immature Granulocytes % (auto) 3.1 %; Lymphocytes # (auto) 0.37 K/uL (1.20-3.40); Lymphocytes % (auto) 3.2 %; Mean Corpuscular Hemoglobin 28.7 pg (25.0-34.0); Mean Corpuscular Volume 92.4 fL (80.0-100.0); Mean Platelet Volume 10.7 fL (9.4-12.4); Monocytes # (auto) 0.61 K/uL (0.11-0.59); Monocytes % (auto) 5.3 %; Neutrophils # (auto) 9.52 K/uL (1.40-6.50); Neutrophils % (auto) 82.6 %; Platelet Count 259 K/uL (130-400); RDW Coefficient of Variation 15.5 % (11.5-14.5); RDW Standard Deviation 51.8 fL (36.4-46.3); Red Blood Count 3.14 M/uL (4.70-6.10); White Blood Count 11.53 K/ul (4.8-10.8)
[2023-09-06 07:09] LABS: BUN Creatinine Ratio 38.3 (10-20); Creatinine Clr Calc Pharmacy 91.5 ml/min; Est GFR (African American) 118.9 ml/min; Est GFR (Non-African American) 102.6 ml/min; Potassium 3.3 mmol/L (3.5-5.1)
[2023-09-06] MEDS: POTASSIUM CHLORIDE 20 MEQ/15 ML UDC PEG SCH (10:48)
[2023-09-06] MEDS: CEFEPIME 2,000 MG in SYRINGE 0 ML IV SCH (10:48)
[2023-09-06] MEDS: POLYETHYLENE (MIRALAX) 17 GM PACK PEG SCH (10:49)
--- NOTE | 2023-09-06 12:50 | Pharmacy Report ---
Pharmacy PK ABX Note - Date of Service September 06, 2023 - Assessment and Plan Assessment 67 year old M receiving vancomycin and cefepime, metronidazole for treatment of multifocal pneumonia. * Day #4 of antimicrobial therapy. * Afebrile. White count trending down. Renal function stable. * Blood cultures x 2 show no growth. Sputum (vent suction) culture growing MRSA. * Pulmonology and ID consulted. Vancomycin * Random vancomycin level obtained 09/06/23 resulted as 25.1 mcg/mL. This is unexpectedly high. Repeated level and remained high at 24.8 mcg/mL. Unclear etiology of increase - SCr stable and vancomycin dose has not changed. * Will stop current vancomycin dose and give small supplemental dose this PM. Plan Vancomycin * Target AUC/EDSTINI of 400-600 mg/L.hr, but may need to dose by level instead of AUC for now * Stop scheduled vancomycin * 500 mg IV x1 tonight * Random level w AM labs Pharmacy will continue to follow and will adjust dose/frequency as necessary. Thank you. Pharmacy has transitioned to AUC monitoring for vancomycin. AUC/DESTINI is the preferred PK/PD target and is associated with decreased risk of nephrotoxicity compared to traditional trough targets.
[2023-09-06] MEDS: metroNIDAZOLE 500 MG TAB PO SCH (14:59)
--- NOTE | 2023-09-06 15:09 | CT Scan Report ---
CT SCAN OF THE ABDOMEN AND PELVIS WITHOUT IV CONTRAST CLINICAL HISTORY: Constipation. COMPARISON STUDY: Abdominal CT dated 09/02/2023 TECHNIQUE: CT scan of the abdomen and pelvis is performed from the lung bases to the proximal femora. Images are reviewed in the axial, sagittal, and coronal planes. IV contrast was not administered for this examination as per the referring clinician. Note that the examination was performed and signifi cantly suboptimal fashion without oral and IV contrast. The examination is degraded by motion artifac t, patient cachexia, and streak artifact from the arms which could not be elevated above the abdomen. A dose lowering technique was utilized adhering to the principles of ALARA. CT DOSE: 1312.27 mGy.cm FINDINGS: Lung bases: The heart is enlarged noting trace pericardial effusion. There is evidence of previous ao rtic valve surgery. The coronary arteries are densely calcified. There is diffusely diminished attenu ation of the cardiac blood pool as compared to the myocardium suggesting anemia. There are small pleu ral effusions. Extensive airspace consolidation is seen at the left lung base. Mild patchy consolidat ion is noted the right lung base. There are scattered calcified granulomas. A PICC line is noted in t he right upper extremity. Liver: The unenhanced liver is normal in size, contour, and attenuation. There is no intrahepatic janet iary ductal dilatation. Gallbladder: Surgically absent noting clips in the gallbladder fossa. Spleen: Normal in size and attenuation. Pancreas: The unenhanced pancreas is atrophic and not well evaluated. Adrenal glands: A 14 mm left adrenal adenoma is unchanged. The right adrenal gland is normal in appea corey. Kidneys: The unenhanced kidneys are normal in size and without hydronephrosis. Bilateral nonobstructi ng renal calculi measure up to 7 mm. Renal cysts measure up to 3.4 cm. A 2.2 cm complex/hyperdense le valery is seen in the interpolar left kidney on image #129. Abdominal vasculature: The abdominal aorta is normal in course and caliber noting moderate to advance d atherosclerotic calcification. Bowel: A percutaneous gastrostomy tube is in place. There is residual enteric contrast in the rectosi gmoid. No bowel obstruction is seen. Moderate fecal retention is noted throughout the colon. Question postsurgical change involving the rectosigmoid. The appendix is well-visualized and normal. Peritoneum: There is diffuse mesenteric edema. No intraperitoneal free air is identified. There is a small volume of abdominopelvic ascites. Lymphadenopathy: None. Pelvic viscera: The prostate gland is mildly enlarged and heterogeneous. The bladder wall appears thi ckened/trabeculated indicating chronic outlet obstruction. Skeletal structures: The skeletal structures are osteopenic. There is mild to moderate lumbosacral sp ondylosis. Sclerotic change is noted in the sacroiliac joints. No lytic or blastic lesions are seen. Soft tissues: The patient is cachectic. There is diffuse body wall edema. Tiny foci of gas within the ventral abdominal wall are likely related to subcutaneous injections. IMPRESSION: 1. Significantly suboptimal examination without oral and IV contrast. The examination is also degrade d by streak artifact, motion artifact, anasarca, and patient cachexia. 2. Cardiomegaly and trace pleural effusions. 3. Extensive left basilar consolidation and milder consolidation at the right lung base is again note d and typical for pneumonia/aspiration pneumonitis. Clinical correlation will be required and radiogr aphic follow-up to resolution is recommended. 4. Moderate colonic fecal retention. No bowel obstruction is seen. 5. There is anasarca of the body wall, diffuse mesenteric edema, and a small volume of ascites. 6. Bilateral nephrolithiasis. 7. There is an indeterminant 2.2 cm hypodense lesion in the left kidney which appeared to show postco ntrast enhancement on the 09/02/2023 examination. Although this could represent a complex cyst, a peter l neoplasm is to be excluded. A 3-4 month follow-up with a contrast-enhanced renal protocol CT or MRI is recommended for reassessment. 8. Additional findings as above. ACT 112: Positive. There are findings on this exam that require communication between the performing entity and the patient following Patient Test Result Information Act ([place] Act 112) guidelines. Electronically signed by: Sunil Khanna M.D. 09/06/2023 3:07 PM
--- NOTE | 2023-09-06 15:32 | Hospitalist Progress Note ---
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 Was again admitted in June 2023 at [facility] with symptomatic anemia ALISA and hyperkalemia possible superimposed soft tissue infection versus osteonecrosis versus osteomyelitis on CT neck films. ID consulted recommended 6 weeks of IV meropenem for presumed osteomyelitis. Patient presented to [facility] on July 07, 2023 with pink-tinged drainage from his tracheostomy and drainage out of his right neck area. On July 10, 2023 patient underwent right composite mandibulectomy, right neck dissection, left scapula and latissimus free flap to right neck and trach tube exchange. His course was complicated by postoperative hypotension with SBP's in the 80s requiring pressors WBC went up to 30 K. ID was consulted in the setting of prior history of Pseudomonas and Morganella pneumonia sputum and mandibular wound cultures. He was receiving cefepime and Flagyl. Progressive leukocytosis resolved. It is recommended to continue 6 weeks of IV meropenem 2 g IV every 8 hours for osteomyelitis to complete on August 26.Had episode of presyncope and hypotension thought to be from venlafaxine and it was stopped on august 02 2023. As per patient developed rash thought to be from meropenem and was stopped and was changed to ceftazidime and p.o. Flagyl but rash got worse and also got swelling of the lower extremity. And antibiotics were stopped per on on August 26. seems somewhat mixed up with dates and which antibiotic caused adverse reactions. Her infectious doctor Dr. Moore told her that rash and swelling could be from allergic reaction to venlafaxine.. Patient also has history of multivessel CAD. CKD. Hypotension on as needed midodrine. Comes here because patient having poor appetite could not tolerate tube feeds. Used to get 5 bolus tube feeds currently only tolerating 2 bolus tube feeds.Having lot of cough. Feeling feverish. And she does not want to take him back to [facility] so brought him here. Patient is alert and oriented. Difficult to understand. Denies any headache. No blurred vision. Always has some runny nose. No tracheal secretions currently. No chest pain. Currently not feeling any short of breath. No nausea. No abdominal pain. Stools are always loose. Micturating okay. Ambulates with a walker. Hemodynamics are okay. initially refused meropenem but then was okay to try meropenem for now..CT scan showing Pneumonia.Records are on the chart. Pneumonia Sepsis present on admission Possible hospital-acquired pneumonia CT scan showing extensive bilateral pulmonary infiltrates with dense consolidation in left lower lobe and lower aspect of the left upper lobe Empirically starting on IV Vanco and meropenem Monitor for any drug reaction Consult pulmonary Close monitor 3 Improving Continue vancomycin plus meropenem Hypertonic saline twice daily Diffuse distention of colon Tolerating tube feeding well Repeat CT scan of the abdomen tomorrow to follow-up Pressure ulcer of sacral region, stage 3, POA Daily wound care Wound care nurse consulted Left adrenal nodule CT abdomen pelvis Noncontrast abdomen CT or MRI when patient is more stable( Seems patient knows about it, can check with ). Squamous cell carcinoma right Mandible and base of tongue S/p chemotherapy/radiation/pembrolizumab S/p surgery S/p PEG tube and s/p trach Follow-up with [facility] Hypotension On midodrine Chronic pain On oxycodone Hyperlipidemia On statin History of CAD On aspirin and statin Anemia Hemoglobin 9.2 Stable Mild transaminitis Will monitor Hyponatremia Sodium 138 Lower extremity edema Negative for DVT EF 60 to 65%, status post TAVR, gradient is normal for this prosthetic aortic valve Possible component of cellulitis? Antibiotic management per above Severe malnutrition Dietitian consult On tube feeds DVT prophylaxis Lovenox Disposition Pending PT and OT evaluation Lives with his , main primary caregiver for the patient plan of care discussed with patient today and in detail and at length with his yesterday over the phone all questions answered they are understanding, agreeable, comfortable with the plan of care Admission and Anticipated Discharge Date Admission Date: September 03, 2023 Subjective Follow-up for pneumonia, etc. Seen resting in bed, comfortable, not in distress Breathing is improving, no cough No chest pain No abdominal pain, nausea vomiting, tolerating tube feeding well No other new symptom Review of Systems Review of Systems: all noted and negative except for above Physical Exam Physical Exam: General- oriented x 3, not in distress, speaks in sentences with no effort or accessory muscle use Eyes- anicteric Neck- no JVD Lungs-mild rhonchi at the bases, good air entry bilaterally Heart- normal rate, regular rhythm; no murmurs Abdomen- normal bowel sounds, nondistended, soft, nontender PEG tube in place Extremities- no pretibial edema, no calf tenderness Neuro- alert, oriented x 3; no gross focal neurologic deficits Skin- warm & dry Results & Data Results & Data Vital Signs (Past 12 Hours) Vital Signs Temp Pulse Pulse Resp BP Pulse Ox O2 Del Method 09/06/23 12:10 36.8 C 72 17 116/68 97 Room Air 09/06/23 08:00 64 09/06/23 07:35 37.0 C 87 19 110/72 97 Room Air all noted and reviewed including below
[2023-09-06] MEDS: VANCOMYCIN HCL 500 MG in NSS 100mL IV ONE (21:05)
[2023-09-07 06:47] LABS: Basophils # (auto) 0.03 K/uL (0.00-0.20); Basophils % (auto) 0.2 %; Eosinophils # (auto) 0.78 K/uL (0.00-0.50); Eosinophils % (auto) 5.6 %; Hematocrit (blood only) 26.6 % (42.0-52.0); Hemoglobin 8.5 g/dl (14.0-18.0); Immature Granulocytes # (auto) 0.15 K/uL (0.01-0.20); Immature Granulocytes % (auto) 1.1 %; Lymphocytes # (auto) 0.36 K/uL (1.20-3.40); Lymphocytes % (auto) 2.6 %; Mean Corpuscular Volume 90.8 fL (80.0-100.0); Mean Platelet Volume 10.6 fL (9.4-12.4); Monocytes # (auto) 0.67 K/uL (0.11-0.59); Monocytes % (auto) 4.8 %; Neutrophils # (auto) 11.97 K/uL (1.40-6.50); Neutrophils % (auto) 85.7 %; Platelet Count 233 K/uL (130-400); RDW Coefficient of Variation 15.3 % (11.5-14.5); RDW Standard Deviation 50.4 fL (36.4-46.3); Red Blood Count 2.93 M/uL (4.70-6.10); White Blood Count 13.96 K/ul (4.8-10.8)
[2023-09-07 06:56] LABS: BUN Creatinine Ratio 44.6 (10-20); Calcium 7.6 mg/dl (8.6-10.3); Creatinine Clr Calc Pharmacy 97.7 ml/min; Est GFR (African American) 122.3 ml/min; Est GFR (Non-African American) 105.5 ml/min; Potassium 3.6 mmol/L (3.5-5.1)
--- NOTE | 2023-09-07 09:43 | Pharmacy Report ---
Pharmacy PK ABX Note - Date of Service September 07, 2023 - Assessment and Plan Assessment 67 year old M receiving vancomycin and cefepime, metronidazole for treatment of multifocal pneumonia. * Day #5 of antimicrobial therapy. * Afebrile. White count w slight trend up today. SCr stable. * Blood cultures x 2 show no growth. Sputum (vent suction) culture growing MRSA. * Pulmonology and ID consulted. Vancomycin * Random vancomycin level obtained 09/06/23 resulted as 25.1 mcg/mL. This is unexpectedly high. Repeated level and remained high at 24.8 mcg/mL. Unclear etiology of increase - SCr stable and vancomycin dose has not changed. * Will stopped scheduled vancomycin and dosing via level * Random vancomycin level this AM with slight trend down to 20.6 mcg/mL after evening dose of 500 mg. Will give AM dose of 1000 mg this AM to target level >15 mcg/mL tomorrow AM Plan Vancomycin * Target AUC/DESTINI of 400-600 mg/L.hr, but dosing by level instead of AUC for now due to altered PK * 1000 mg IV x1 at noon * Random level w AM labs Pharmacy will continue to follow and will adjust dose/frequency as necessary. Thank you. Pharmacy has transitioned to AUC monitoring for vancomycin. AUC/DESTINI is the preferred PK/PD target and is associated with decreased risk of nephrotoxicity compared to traditional trough targets.
[2023-09-07] MEDS: VANCOMYCIN HCL 1,000 MG in SODIUM CHLORIDE 0.9% 250 ML IV ONE (11:57)
--- NOTE | 2023-09-07 15:59 | Hospitalist Progress Note ---
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 Was again admitted in June 2023 at [facility] with symptomatic anemia ALISA and hyperkalemia possible superimposed soft tissue infection versus osteonecrosis versus osteomyelitis on CT neck films. ID consulted recommended 6 weeks of IV meropenem for presumed osteomyelitis. Patient presented to [facility] on July 07, 2023 with pink-tinged drainage from his tracheostomy and drainage out of his right neck area. On July 10, 2023 patient underwent right composite mandibulectomy, right neck dissection, left scapula and latissimus free flap to right neck and trach tube exchange. His course was complicated by postoperative hypotension with SBP's in the 80s requiring pressors WBC went up to 30 K. ID was consulted in the setting of prior history of Pseudomonas and Morganella pneumonia sputum and mandibular wound cultures. He was receiving cefepime and Flagyl. Progressive leukocytosis resolved. It is recommended to continue 6 weeks of IV meropenem 2 g IV every 8 hours for osteomyelitis to complete on August 26.Had episode of presyncope and hypotension thought to be from venlafaxine and it was stopped on august 02 2023. As per patient developed rash thought to be from meropenem and was stopped and was changed to ceftazidime and p.o. Flagyl but rash got worse and also got swelling of the lower extremity. And antibiotics were stopped per on on August 26. seems somewhat mixed up with dates and which antibiotic caused adverse reactions. Her infectious doctor Dr. Moore told her that rash and swelling could be from allergic reaction to venlafaxine.. Patient also has history of multivessel CAD. CKD. Hypotension on as needed midodrine. Comes here because patient having poor appetite could not tolerate tube feeds. Used to get 5 bolus tube feeds currently only tolerating 2 bolus tube feeds.Having lot of cough. Feeling feverish. And she does not want to take him back to [facility] so brought him here. Patient is alert and oriented. Difficult to understand. Denies any headache. No blurred vision. Always has some runny nose. No tracheal secretions currently. No chest pain. Currently not feeling any short of breath. No nausea. No abdominal pain. Stools are always loose. Micturating okay. Ambulates with a walker. Hemodynamics are okay. initially refused meropenem but then was okay to try meropenem for now..CT scan showing Pneumonia.Records are on the chart. Pneumonia Sepsis present on admission Possible hospital-acquired pneumonia CT scan showing extensive bilateral pulmonary infiltrates with dense consolidation in left lower lobe and lower aspect of the left upper lobe Empirically starting on IV Vanco and meropenem Monitor for any drug reaction Consult pulmonary Close monitor 09/04 Improving Continue vancomycin plus meropenem Hypertonic saline twice daily 09/06 continue to improve on room air on Vanco, Cefepime + Flagyl Diffuse distention of colon Tolerating tube feeding well Repeat CT scan of the abdomen tomorrow to follow-up no bowel obstruction Pressure ulcer of sacral region, stage 3, POA Daily wound care Wound care nurse consulted Left adrenal nodule CT abdomen pelvis Noncontrast abdomen CT or MRI when patient is more stable( Seems patient knows about it, can check with ). Squamous cell carcinoma right Mandible and base of tongue S/p chemotherapy/radiation/pembrolizumab S/p surgery S/p PEG tube and s/p trach Follow-up with [facility] Hypotension On midodrine Chronic pain On oxycodone Hyperlipidemia On statin History of CAD On aspirin and statin Anemia Hemoglobin 9.2 Stable Mild transaminitis Will monitor Hyponatremia Sodium 137 Lower extremity edema Negative for DVT EF 60 to 65%, status post TAVR, gradient is normal for this prosthetic aortic valve Possible component of cellulitis? Antibiotic management per above - will order Lasix 20mg IV Severe malnutrition Dietitian consult On tube feeds DVT prophylaxis Lovenox Disposition Pending PT and OT evaluation Lives with his , main primary caregiver for the patient Admission and Anticipated Discharge Date Admission Date: September 03, 2023 Subjective ff up for pneumonia BL, etc seen resting in bed, comfortable states he feels that he is improving overall breathing continues to improve no chest pain no abdominal pain, tolerating feeding well Review of Systems Review of Systems: all noted and negative except for above Physical Exam Physical Exam: General- oriented x 3, not in distress, speaks in sentences with no effort or accessory muscle use Eyes- anicteric Neck- no JVD Lungs- clear BS BL Heart- normal rate, regular rhythm; no murmurs Abdomen- normal bowel sounds, nondistended, soft, no tenderness Extremities-mild pretibial edema, erythema improving , no calf tenderness Neuro- alert, oriented x 3; no gross focal neurologic deficits Skin- warm & dry Results & Data Results & Data Vital Signs (Past 12 Hours) Vital Signs Temp Pulse Pulse Resp BP Pulse Ox O2 Del Method 09/07/23 11:56 36.5 C 66 19 118/65 97 Room Air 09/07/23 08:15 Trach Collar 09/07/23 07:35 36.9 C 64 17 121/67 99 Room Air 09/07/23 06:28 63 O2 Flow Rate 09/07/23 11:56 09/07/23 08:15 10 09/07/23 07:35 09/07/23 06:28 all noted and reviewed including below
[2023-09-07] MEDS: FUROSEMIDE INJ 20 MG/2 ML VIAL IV ONE (16:54)
[2023-09-07] MEDS ORDERED: ACETAMINOPHEN SUSP 500 MG/15.6 ML UDP PO PRN (22:27)
[2023-09-07] MEDS: MELATONIN 3 MG TAB PO PRN (23:24)
[2023-09-07] MEDS: ACETAMINOPHEN SUSP 500 MG/15.6 ML UDP PEG PRN (23:24)
[2023-09-08 06:12] LABS: Calcium 7.6 mg/dl (8.6-10.3); Creatinine Clr Calc Pharmacy 96.5 ml/min; Est GFR (African American) 118.9 ml/min; Est GFR (Non-African American) 102.6 ml/min; Potassium 3.6 mmol/L (3.5-5.1)
[2023-09-08 06:15] LABS: Basophils # (auto) 0.02 K/uL (0.00-0.20); Basophils % (auto) 0.2 %; Eosinophils # (auto) 0.61 K/uL (0.00-0.50); Eosinophils % (auto) 4.7 %; Hematocrit (blood only) 26.5 % (42.0-52.0); Hemoglobin 8.4 g/dl (14.0-18.0); Immature Granulocytes # (auto) 0.16 K/uL (0.01-0.20); Immature Granulocytes % (auto) 1.2 %; Lymphocytes # (auto) 0.36 K/uL (1.20-3.40); Lymphocytes % (auto) 2.8 %; Mean Corpuscular Hemoglobin 28.7 pg (25.0-34.0); Mean Corpuscular Hgb Conc 31.7 g/dL (32.0-36.0); Mean Corpuscular Volume 90.4 fL (80.0-100.0); Mean Platelet Volume 10.7 fL (9.4-12.4); Monocytes # (auto) 0.73 K/uL (0.11-0.59); Monocytes % (auto) 5.6 %; Neutrophils # (auto) 11.16 K/uL (1.40-6.50); Neutrophils % (auto) 85.5 %; Platelet Count 213 K/uL (130-400); RDW Coefficient of Variation 15.4 % (11.5-14.5); RDW Standard Deviation 50.8 fL (36.4-46.3); Red Blood Count 2.93 M/uL (4.70-6.10); White Blood Count 13.04 K/ul (4.8-10.8)
--- NOTE | 2023-09-08 11:21 | Pharmacy Report ---
Pharmacy PK ABX Note - Date of Service September 08, 2023 - Assessment and Plan Assessment 67 year old M receiving vancomycin and cefepime, metronidazole for treatment of multifocal pneumonia. * Day #5 of antimicrobial therapy. * Afebrile. White count w slight trend up today. SCr stable. * Blood cultures x 2 show no growth. Sputum (vent suction) culture growing MRSA. * Pulmonology and ID consulted. Vancomycin * Random vancomycin level obtained 09/06/23 resulted as 25.1 mcg/mL. This is unexpectedly high. Repeated level and remained high at 24.8 mcg/mL. Unclear etiology of increase - SCr stable and vancomycin dose has not changed. * Will stopped scheduled vancomycin and dosing via level * Random vancomycin level this AM with slight trend down to 20.6 mcg/mL after evening dose of 500 mg. Will give AM dose of 1000 mg this AM to target level >15 mcg/mL tomorrow AM 5: Reviewed vancomycin level, trough within goal range. Will continue to dose per levels at this time as the patient specific pharmacokinetics are not following predictions for age and renal function. Redose 1000mg x1 today, level tomorrow AM Plan Vancomycin * Target AUC/DESTINI of 400-600 mg/L.hr, intermediate model fit per [facility] with predicted therapeutic AUC/DESTINI but dosing by level instead of AUC for now due to altered PK and severity of infection. Goal trough 15-20mcg/mL * 1000 mg IV x1 at noon * Random level w AM labs Pharmacy will continue to follow and will adjust dose/frequency as necessary. Thank you. Pharmacy has transitioned to AUC monitoring for vancomycin. AUC/DESTINI is the preferred PK/PD target and is associated with decreased risk of nephrotoxicity compared to traditional trough targets.
[2023-09-08] MEDS: VANCOMYCIN HCL 1,000 MG in SODIUM CHLORIDE 0.9% 250 ML IV ONE (13:19)
--- NOTE | 2023-09-08 17:16 | Hospitalist Progress Note ---
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 Was again admitted in June 2023 at [facility] with symptomatic anemia ALISA and hyperkalemia possible superimposed soft tissue infection versus osteonecrosis versus osteomyelitis on CT neck films. ID consulted recommended 6 weeks of IV meropenem for presumed osteomyelitis. Patient presented to [facility] on July 07, 2023 with pink-tinged drainage from his tracheostomy and drainage out of his right neck area. On July 10, 2023 patient underwent right composite mandibulectomy, right neck dissection, left scapula and latissimus free flap to right neck and trach tube exchange. His course was complicated by postoperative hypotension with SBP's in the 80s requiring pressors WBC went up to 30 K. ID was consulted in the setting of prior history of Pseudomonas and Morganella pneumonia sputum and mandibular wound cultures. He was receiving cefepime and Flagyl. Progressive leukocytosis resolved. It is recommended to continue 6 weeks of IV meropenem 2 g IV every 8 hours for osteomyelitis to complete on August 26.Had episode of presyncope and hypotension thought to be from venlafaxine and it was stopped on august 02 2023. As per patient developed rash thought to be from meropenem and was stopped and was changed to ceftazidime and p.o. Flagyl but rash got worse and also got swelling of the lower extremity. And antibiotics were stopped per on on August 26. seems somewhat mixed up with dates and which antibiotic caused adverse reactions. Her infectious doctor Dr. Moore told her that rash and swelling could be from allergic reaction to venlafaxine.. Patient also has history of multivessel CAD. CKD. Hypotension on as needed midodrine. Comes here because patient having poor appetite could not tolerate tube feeds. Used to get 5 bolus tube feeds currently only tolerating 2 bolus tube feeds.Having lot of cough. Feeling feverish. And she does not want to take him back to [facility] so brought him here. Patient is alert and oriented. Difficult to understand. Denies any headache. No blurred vision. Always has some runny nose. No tracheal secretions currently. No chest pain. Currently not feeling any short of breath. No nausea. No abdominal pain. Stools are always loose. Micturating okay. Ambulates with a walker. Hemodynamics are okay. initially refused meropenem but then was okay to try meropenem for now..CT scan showing Pneumonia.Records are on the chart. Pneumonia Sepsis present on admission Possible hospital-acquired pneumonia CT scan showing extensive bilateral pulmonary infiltrates with dense consolidation in left lower lobe and lower aspect of the left upper lobe Empirically starting on IV Vanco and meropenem Monitor for any drug reaction Consult pulmonary Close monitor 09/04 Improving Continue vancomycin plus meropenem Hypertonic saline twice daily 09/06 continue to improve on room air on Vanco, Cefepime + Flagyl 09/07 Stable overall Continue Vanco plus cefepime plus Flagyl Plan to transition to Augmentin plus doxycycline upon discharge Diffuse distention of colon Tolerating tube feeding well Repeat CT scan of the abdomen tomorrow to follow-up no bowel obstruction Pressure ulcer of sacral region, stage 3, POA - Daily wound care Wound care nurse consulted: Recommendations noted Left adrenal nodule CT abdomen pelvis Noncontrast abdomen CT or MRI when patient is more stable( Seems patient knows about it, can check with ). Squamous cell carcinoma right Mandible and base of tongue S/p chemotherapy/radiation/pembrolizumab S/p surgery S/p PEG tube and s/p trach Follow-up with [facility] Hypotension On midodrine Chronic pain On oxycodone Hyperlipidemia On statin History of CAD On aspirin and statin Anemia Hemoglobin 9.2 Stable Mild transaminitis Will monitor Hyponatremia Sodium 137 Lower extremity edema Negative for DVT EF 60 to 65%, status post TAVR, gradient is normal for this prosthetic aortic valve Possible component of cellulitis? Antibiotic management per above - Ordered Lasix 20mg IV Significantly improved May need as needed Lasix at home for leg edema Severe malnutrition Dietitian consult On tube feeds DVT prophylaxis Lovenox Disposition Pending PT and OT evaluation Lives with his , main primary caregiver for the patient Admission and Anticipated Discharge Date Admission Date: September 03, 2023 Subjective Follow-up for pneumonia, etc. Seen resting in bed, comfortable, not in distress States she continues to feel better overall Breathing is better No chest pain, palpitations, dizziness No fevers or chills Tolerating tube feeds well No other symptoms Review of Systems Review of Systems: all noted and negative except for above Physical Exam Physical Exam: General- oriented x 3, not in distress, speaks in sentences with no effort or accessory muscle use Eyes- anicteric Neck- no JVD Lungs- clear breath sounds bilaterally, no rales/wheezes Heart- normal rate, regular rhythm; no murmurs Abdomen- normal bowel sounds, nondistended, soft, nontender Extremities- no pretibial edema, no calf tenderness Neuro- alert, oriented x 3; no gross focal neurologic deficits Skin- warm & dry Results & Data Results & Data Vital Signs (Past 12 Hours) Vital Signs Temp Pulse Pulse Resp BP Pulse Ox O2 Del Method 09/08/23 15:00 36.8 C 64 20 126/72 100 Room Air 09/08/23 14:00 58 L 09/08/23 10:58 36.6 C 58 L 20 126/73 97 Room Air 09/08/23 08:00 Room Air 09/08/23 07:02 36.4 C L 57 L 18 130/72 97 Room Air 09/08/23 06:05 56 L all noted and reviewed including below
[2023-09-09 05:47] LABS: Basophils # (auto) 0.03 K/uL (0.00-0.20); Basophils % (auto) 0.2 %; Eosinophils # (auto) 0.65 K/uL (0.00-0.50); Eosinophils % (auto) 5.2 %; Hemoglobin 8.2 g/dl (14.0-18.0); Immature Granulocytes # (auto) 0.16 K/uL (0.01-0.20); Immature Granulocytes % (auto) 1.3 %; Lymphocytes # (auto) 0.42 K/uL (1.20-3.40); Lymphocytes % (auto) 3.3 %; Mean Corpuscular Hemoglobin 28.8 pg (25.0-34.0); Mean Corpuscular Hgb Conc 31.5 g/dL (32.0-36.0); Mean Corpuscular Volume 91.2 fL (80.0-100.0); Monocytes # (auto) 0.89 K/uL (0.11-0.59); Monocytes % (auto) 7.1 %; Neutrophils # (auto) 10.46 K/uL (1.40-6.50); Neutrophils % (auto) 82.9 %; Platelet Count 210 K/uL (130-400); RDW Coefficient of Variation 15.3 % (11.5-14.5); RDW Standard Deviation 50.7 fL (36.4-46.3); Red Blood Count 2.85 M/uL (4.70-6.10); White Blood Count 12.61 K/ul (4.8-10.8)
[2023-09-09 05:57] LABS: BUN Creatinine Ratio 45.2 (10-20); Calcium 7.5 mg/dl (8.6-10.3); Creatinine Clr Calc Pharmacy 92.6 ml/min; Est GFR (African American) 117.3 ml/min; Est GFR (Non-African American) 101.2 ml/min; Potassium 3.8 mmol/L (3.5-5.1)
[2023-09-09] MEDS: VANCOMYCIN HCL 1,000 MG in SODIUM CHLORIDE 0.9% 250 ML IV SCH (11:14)
--- NOTE | 2023-09-09 14:01 | Discharge Summary ---
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 Was again admitted in June 2023 at [facility] with symptomatic anemia ALISA and hyperkalemia possible superimposed soft tissue infection versus osteonecrosis versus osteomyelitis on CT neck films. ID consulted recommended 6 weeks of IV meropenem for presumed osteomyelitis. Patient presented to [facility] on July 07, 2023 with pink-tinged drainage from his tracheostomy and drainage out of his right neck area. On July 10, 2023 patient underwent right composite mandibulectomy, right neck dissection, left scapula and latissimus free flap to right neck and trach tube exchange. His course was complicated by postoperative hypotension with SBP's in the 80s requiring pressors WBC went up to 30 K. ID was consulted in the setting of prior history of Pseudomonas and Morganella pneumonia sputum and mandibular wound cultures. He was receiving cefepime and Flagyl. Progressive leukocytosis resolved. It is recommended to continue 6 weeks of IV meropenem 2 g IV every 8 hours for osteomyelitis to complete on August 26.Had episode of presyncope and hypotension thought to be from venlafaxine and it was stopped on august 02 2023. As per patient developed rash thought to be from meropenem and was stopped and was changed to ceftazidime and p.o. Flagyl but rash got worse and also got swelling of the lower extremity. And antibiotics were stopped per on on August 26. seems somewhat mixed up with dates and which antibiotic caused adverse reactions. Her infectious doctor Dr. Moore told her that rash and swelling could be from allergic reaction to venlafaxine.. Patient also has history of multivessel CAD. CKD. Hypotension on as needed midodrine. Comes here because patient having poor appetite could not tolerate tube feeds. Used to get 5 bolus tube feeds currently only tolerating 2 bolus tube feeds.Having lot of cough. Feeling feverish. And she does not want to take him back to [facility] so brought him here. Patient is alert and oriented. Difficult to understand. Denies any headache. No blurred vision. Always has some runny nose. No tracheal secretions currently. No chest pain. Currently not feeling any short of breath. No nausea. No abdominal pain. Stools are always loose. Micturating okay. Ambulates with a walker. Hemodynamics are okay. initially refused meropenem but then was okay to try meropenem for now..CT scan showing Pneumonia.Records are on the chart. Past medical history. As mentioned above Past surgical history. S/p tracheostomy and G-tube, s/p reconstructive repair/free flap reconstruction. S/p TAVR, expiratory laparotomy. Cholecyst c holecystectomy. Multiple tooth extractions. Family history father had kidney disease. Social history. No smoking. No alcohol use. No drug use. Admission Exam Per Admitting Provider General- Not in distress Head- atraumatic Eyes- PERRL. ENT- oropharynx clear Neck- right s/p mandible surgery. s/p trach. Lungs- clear to auscultation , no wheezing or crackles. Heart- regular rhythm; no murmur, no gallop. Abdomen- normal bowel sounds, soft, nontender, s/p feeding tube. no distension. Extremities- no pretibial edema, no erythema seen. 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 Was again admitted in June 2023 at [facility] with symptomatic anemia ALISA and hyperkalemia possible superimposed soft tissue infection versus osteonecrosis versus osteomyelitis on CT neck films. ID consulted recommended 6 weeks of IV meropenem for presumed osteomyelitis. Patient presented to [facility] on July 07, 2023 with pink-tinged drainage from his tracheostomy and drainage out of his right neck area. On July 10, 2023 patient underwent right composite mandibulectomy, right neck dissection, left scapula and latissimus free flap to right neck and trach tube exchange. His course was complicated by postoperative hypotension with SBP's in the 80s requiring pressors WBC went up to 30 K. ID was consulted in the setting of prior history of Pseudomonas and Morganella pneumonia sputum and mandibular wound cultures. He was receiving cefepime and Flagyl. Progressive leukocytosis resolved. It is recommended to continue 6 weeks of IV meropenem 2 g IV every 8 hours for osteomyelitis to complete on August 26.Had episode of presyncope and hypotension thought to be from venlafaxine and it was stopped on august 02 2023. As per patient developed rash thought to be from meropenem and was stopped and was changed to ceftazidime and p.o. Flagyl but rash got worse and also got swelling of the lower extremity. And antibiotics were stopped per on on August 26. seems somewhat mixed up with dates and which antibiotic caused adverse reactions. Her infectious doctor Dr. Moore told her that rash and swelling could be from allergic reaction to venlafaxine.. Patient also has history of multivessel CAD. CKD. Hypotension on as needed midodrine. Comes here because patient having poor appetite could not tolerate tube feeds. Used to get 5 bolus tube feeds currently only tolerating 2 bolus tube feeds.Having lot of cough. Feeling feverish. And she does not want to take him back to [facility] so brought him here. Patient is alert and oriented. Difficult to understand. Denies any headache. No blurred vision. Always has some runny nose. No tracheal secretions currently. No chest pain. Currently not feeling any short of breath. No nausea. No abdominal pain. Stools are always loose. Micturating okay. Ambulates with a walker. Hemodynamics are okay. initially refused meropenem but then was okay to try meropenem for now..CT scan showing Pneumonia.Records are on the chart. Pneumonia Sepsis present on admission Possible hospital-acquired pneumonia CT scan showing extensive bilateral pulmonary infiltrates with dense consolidation in left lower lobe and lower aspect of the left upper lobe Pulmonary service consulted placed on vancomycin plus meropenem Hypertonic saline twice daily Sputum culture: (+) MRSA improved gradually weaned off oxygen supplement completed 7 day course of Vanco, Merorpenem --> cefepime plus Flagyl 3 more days of Linezolid PO upon discharge to complete 10 day course PCP ff up in 1 week Diffuse distention of colon, resolved Tolerating tube feeding well Repeat CT scan of the abdomen : no distention, no obstruction Pressure ulcer of sacral region, stage 3, POA - Daily wound care Wound care nurse consulted: Recommendations noted - requires alternating pressure pad and pump prescription provided - wound care with Aquacel, Optifoam instructions provided Left adrenal nodule CT abdomen pelvis: . There is an indeterminant 2.2 cm hypodense lesion in the left kidney which appeared to show postcontrast enhancement on the 09/02/2023 examination. Although this could represent a complex cyst, a renal neoplasm is to be excluded. A 3-4 month follow-up with a contrast-enhanced renal protocol CT or MRI is recommended for reassessment. discussed with , they are already aware of this lesion and outside MDs following Please refer to full report in the Ordered Studies section above Further work up, management, and ff up as outpatient Squamous cell carcinoma right Mandible and base of tongue S/p chemotherapy/radiation/pembrolizumab S/p surgery S/p PEG tube and s/p trach Follow-up with [facility] Hypotension On midodrine Chronic pain On oxycodone Hyperlipidemia On statin History of CAD On aspirin and statin Anemia Hemoglobin 9.2 Stable Mild transaminitis ff up as outpatient Hyponatremia resolved Sodium 137 Lower extremity edema Negative for DVT EF 60 to 65%, status post TAVR, gradient is normal for this prosthetic aortic valve Possible component of cellulitis? Antibiotic management per above - Ordered Lasix 20mg IV Significantly improved May need as needed Lasix at home for leg edema Severe malnutrition Dietitian consult On tube feeds DVT prophylaxis Lovenox Disposition d/c home PCP ff up in 1 week plan of care discussed with patient and his over the phone in detail and at length all questions answered they are understanding, agreeable, comfortable with the plan of care Discharge Exam General- oriented x 3, not in distress, speaks in sentences with no effort or accessory muscle use Eyes- anicteric Neck- no JVD Lungs- clear breath sounds bilaterally, no rales/wheezes trach collar: no issues Heart- normal rate, regular rhythm; no murmurs Abdomen- normal bowel sounds, nondistended, soft, nontender Extremities- no pretibial edema, no calf tenderness Neuro- alert, oriented x 3; no gross focal neurologic deficits Skin- warm & dry Updated Medication List Medication Instructions Recorded Confirmed Type Nutra 2.0 1 dose feeding tube DIRECTED 09/02/23 09/02/23 History ascorbic acid (vitamin C) 500 mg/5 1,000 mg feeding tube HS 09/02/23 09/02/23 History mL oral syrup aspirin 81 mg chewable tablet 81 mg feeding tube HS 09/02/23 09/02/23 History gabapentin 250 mg/5 mL oral 250 mg feeding tube QAM 09/02/23 09/02/23 History solution lactulose 10 gram/15 mL oral 15 ml feeding tube DIRECTED PRN 09/02/23 09/02/23 History solution Constipation midodrine 10 mg tablet 10 mg feeding tube TID 09/02/23 09/02/23 History multivitamin 0.5 tab feeding tube HS 09/02/23 09/02/23 History kaya oil 1 ea miscellaneous DIRECTED 09/02/23 09/02/23 History rosuvastatin 20 mg tablet 20 mg feeding tube HS 09/02/23 09/02/23 History sennosides 8.8 mg/5 mL oral syrup 17.6 mg feeding tube HS 09/02/23 09/02/23 History (senna) sodium di- and 1 tab feeding tube ACHS 09/02/23 09/02/23 History monophosphate-potassium phos monobasic 250 mg tablet (Phospha Neutral) Lactobacillus acidophilus, 1 packet PEG BID 30 days #30 ea 09/09/23 Rx bulgaricus 100 million cell granules packet (Floranex) furosemide 20 mg tablet (Lasix) 20 mg PO UD PRN leg swelling #10 09/09/23 Rx tabs linezolid 600 mg tablet 600 mg PO BID 3 days #6 tabs 09/09/23 Rx oxycodone 20 mg/mL oral concentrate 10 mg (0.5 mL) feeding tube Q4H 09/09/23 09/02/23 Rx PRN pain #30 mL polyethylene glycol 3350 17 17 g feeding tube DAILY 09/09/23 Rx gram/dose oral powder Constipation 30 days #510 grams potassium chloride 20 mEq/15 mL 20 meq (15 mL) PEG BID 30 days 09/09/23 Rx oral liquid #900 mL Hospital Stay Data Consultations 09/02/23 23:05 ED Decision to Admit Stat 09/03/23 07:33 Consult Infectious Diseases Routine 09/03/23 08:00 Consult Pulmonology Routine Diagnostic Imagining Performed Laboratory Results WBC 12.61 K/ul (4.8-10.8) H 09/09/23 05:22 RBC 2.85 M/uL (4.70-6.10) L 09/09/23 05:22 Hgb 8.2 g/dl (14.0-18.0) L 09/09/23 05:22 Hct 26.0 % (42.0-52.0) L 09/09/23 05:22 MCV 91.2 fL (80.0-100.0) 09/09/23 05:22 MCH 28.8 pg (25.0-34.0) 09/09/23 05:22 MCHC 31.5 g/dL (32.0-36.0) L 09/09/23 05:22 RDW Std Deviation 50.7 fL (36.4-46.3) H 09/09/23 05:22 RDW Coeff of Quinton 15.3 % (11.5-14.5) H 09/09/23 05:22 Plt Count 210 K/uL (130-400) 09/09/23 05:22 MPV 11.0 fL (9.4-12.4) 09/09/23 05:22 Immature Gran % (Auto) 1.3 % 09/09/23 05:22 Neut % (Auto) 82.9 % 09/09/23 05:22 Lymph % (Auto) 3.3 % 09/09/23 05:22 Sutton % (Auto) 7.1 % 09/09/23 05:22 Eos % (Auto) 5.2 % 09/09/23 05:22 Baso % (Auto) 0.2 % 09/09/23 05:22 Neut # (Auto) 10.46 K/uL (1.40-6.50) H 09/09/23 05:22 Lymph # (Auto) 0.42 K/uL (1.20-3.40) L 09/09/23 05:22 Sutton # (Auto) 0.89 K/uL (0.11-0.59) H 09/09/23 05:22 Eos # (Auto) 0.65 K/uL (0.00-0.50) H 09/09/23 05:22 Baso # (Auto) 0.03 K/uL (0.00-0.20) 09/09/23 05:22 Immature Gran # (Auto) 0.16 K/uL (0.01-0.20) 09/09/23 05:22 Polychromasia 1+ 09/05/23 07:48 Echinocytes 1+ 09/05/23 07:48 Acanthocytes (Spur) 1+ 09/05/23 07:48 ESR 61 mm/hr (0-20) H 09/02/23 21:11 PT 12.1 Seconds (9.0-12.0) H 09/02/23 21:11 INR 1.1 (0.9-1.1) 09/02/23 21:11 APTT 29 Seconds (21-31) 09/02/23 21:11 PTT Ratio 1.0 09/02/23 21:11 Sodium 135 mmol/L (136-145) L 09/09/23 05:22 Potassium 3.8 mmol/L (3.5-5.1) 09/09/23 05:22 Chloride 106 mmol/L (98-107) 09/09/23 05:22 Carbon Dioxide 22 mmol/L (21-32) 09/09/23 05:22 Anion Gap 7 (3-11) 09/09/23 05:22 BUN 28 mg/dl (6-23) H 09/09/23 05:22 Creatinine 0.62 mg/dl (0.6-1.4) 09/09/23 05:22 Est Cr Clr Drug Dosing 92.6 ml/min 09/09/23 05:22 Est GFR ( Amer) 117.3 ml/min 09/09/23 05:22 Est GFR (Non-Af Amer) 101.2 ml/min 09/09/23 05:22 BUN/Creatinine Ratio 45.2 (10-20) H 09/09/23 05:22 Glucose 109 mg/dl (70-99(Fasting)) H 09/09/23 05:22 POC Glucose 109 mg/dl (70-99) H 09/06/23 18:09 Lactate 1.6 mmol/L (0.4-2.0) 09/02/23 23:06 Calcium 7.5 mg/dl (8.6-10.3) L 09/09/23 05:22 Magnesium 1.7 mg/dl (1.7-2.4) 09/03/23 07:31 Total Bilirubin 0.5 mg/dl (0.2-1.0) 09/02/23 21:11 AST 61 U/L (13-39) H 09/02/23 21:11 ALT 57 U/L (7-52) H 09/02/23 21:11 Alkaline Phosphatase 91 U/L (34-104) 09/02/23 21:11 Total Creatine Kinase 12 U/L (30-223) L 09/02/23 21:11 Troponin I High Sens 13.4 pg/ml (0-20) 09/02/23 21:11 C-Reactive Protein 13.76 mg/dl (0-0.5) H 09/02/23 21:11 Total Protein 6.4 gm/dl (6.0-8.3) 09/02/23 21:11 Albumin 3.1 gm/dl (3.4-5.0) L 09/02/23 21:11 Globulin 3.3 gm/dl (2.5-4.0) 09/02/23 21:11 Albumin/Globulin Ratio 0.9 (0.9-2) 09/02/23 21:11 Procalcitonin 1.16 ng/ml (0-0.5) H 09/02/23 21:11 Nasal Screen MRSA (PCR) Positive (Negative) A 09/03/23 16:53 Random Vancomycin 18.3 mcg/ml (10-20) 09/09/23 05:22 Adenovirus (PCR) Not Detected (NotDetected) 09/03/23 16:53 B. pertussis DNA (PCR) Not Detected (NotDetected) 09/03/23 16:53 B.parapertussis DNA PCR Not Detected (NotDetected) 09/03/23 16:53 C. pneumoniae DNA (PCR) Not Detected (NotDetected) 09/03/23 16:53 Coronavirus OC43 (PCR) Not Detected (NotDetected) 09/03/23 16:53 Coronavirus HKU1 (PCR) Not Detected (NotDetected) 09/03/23 16:53 Coronavirus 229E (PCR) Not Detected (NotDetected) 09/03/23 16:53 SARS-CoV-2 (PCR) Not Detected (NotDetected) 09/03/23 16:53 Coronavirus NL63 (PCR) Not Detected (NotDetected) 09/03/23 16:53 Human Metapneumovir PCR Not Detected (NotDetected) 09/03/23 16:53 Influenza Type A (PCR) Not Detected (NotDetected) 09/03/23 16:53 Influenza Type B (PCR) Not Detected (NotDetected) 09/03/23 16:53 Urine Legionella Ag SEE NOTE 09/03/23 Unknown M. pneumoniae (PCR) Not Detected (NotDetected) 09/03/23 16:53 Parainfluenza 1 (PCR) Not Detected (NotDetected) 09/03/23 16:53 Parainfluenza 2 (PCR) Not Detected (NotDetected) 09/03/23 16:53 Parainfluenza 3 (PCR) Not Detected (NotDetected) 09/03/23 16:53 Parainfluenza 4 (PCR) Not Detected (NotDetected) 09/03/23 16:53 RSV (PCR) Not Detected (NotDetected) 09/03/23 16:53 Entero/Rhino (PCR) Not Detected (NotDetected) 09/03/23 16:53 Blood Type A Negative 09/04/23 09:50 Antibody Screen NEGATIVE 09/04/23 09:50 Impressions Chest X-Ray 09/02/23 20:42 SINGLE VIEW CHEST CLINICAL HISTORY: Atypical chest pain FINDINGS: An AP, portable, upright chest radiograph is obtained. No prior studies are available for comparison at the time of dictation. The examination is degraded by portable technique, apical lordotic positioning, and patient rotation. A tracheostomy is in place. A right-sided PICC line is in place. The tip projects over the right atrium. There is evidence of previous cardiac valve surgery. The heart is enlarged. The pulmonary vasculature is noncongested. There is dense airspace consolidation at the left lung base with a left pleural effusion. Mild patchy airspace consolidation is seen at the right lung base. No pneumothorax is seen. The skeletal structures are osteopenic. The bony thorax is grossly intact. Surgical clips project over the left chest. IMPRESSION: 1. There is dense left basilar consolidation and a small left pleural effusion. The appearance is typical for pneumonia/aspiration pneumonitis. Clinical correlation will be required and radiographic follow-up to resolution is recommended. 2. There is also milder consolidation at the right lung base. 3. Mild cardiac enlargement without radiographic evidence of congestive failure. 4. Lines and tubes as above. ACT 112: Negative or not required by law. Electronically signed by: Sunil Khanna M.D. 09/03/2023 6:53 AM Venous Doppler Study 09/02/23 22:29 Exam(s): US VENOUS BILATERAL LOWER EXTREMITIES EXAM: US Duplex Bilateral Lower Extremities Veins CLINICAL HISTORY: Reason for exam: swelling. TECHNIQUE: Real-time duplex ultrasound scan of the bilateral lower extremity veins integrating B-mode two-dimensional vascular structure, Doppler spectral analysis, color flow Doppler imaging and compression. COMPARISON: No relevant prior studies available. FINDINGS: Right deep veins: Unremarkable. No DVT in the right common femoral, femoral, proximal deep femoral or popliteal veins. The veins demonstrate normal color flow, are normally compressible, with normal phasic flow and/or augmentation response. Right superficial veins: Unremarkable. No thrombus in the visualized right great saphenous vein. Left deep veins: Unremarkable. No DVT in the left common femoral, femoral, proximal deep femoral or popliteal veins. The veins demonstrate normal color flow, are normally compressible, with normal phasic flow and/or augmentation response. Left superficial veins: Unremarkable. No thrombus in the visualized left great saphenous vein. Soft tissues: Extensive soft tissue edema. No popliteal cyst. IMPRESSION: No evidence of DVT in the lower extremities. Electronically signed by: Candido Tejeda MD 09/03/23 02:22 AM Chest CTA 09/02/23 22:30 Exam(s): CTA CHEST IV Amt: 117 ml optiray 320 EXAM: CT Angiography Chest With Intravenous Contrast CLINICAL HISTORY: Reason for exam: PE. TECHNIQUE: Axial computed tomographic angiography images of the chest with intravenous contrast. CTDI is 14.25 mGy and DLP is 1172.85 mGy-cm. Automated exposure control was utilized for the study. A dose lowering technique was utilized adhering to the principles of ALARA. MIP reconstructed images were created and reviewed. COMPARISON: No relevant prior studies available. FINDINGS: Pulmonary arteries: Unremarkable. No pulmonary embolism. Aorta: No acute findings. No thoracic aortic aneurysm. Lungs: Extensive bilateral pulmonary infiltrates likely representing pneumonia. These are seen in both lower lobes, the right middle lobe and the left upper lobe. Dense consolidation is seen in the left lower lobe and lingular segments of the left upper lobe. Pleural space: Unremarkable. No significant effusion. No pneumothorax. Heart: Unremarkable. No cardiomegaly. No significant pericardial effusion. No evidence of RV dysfunction. Mediastinum: Subcarinal and left hilar adenopathy. Bones/joints: No acute fracture. No dislocation. Soft tissues: Unremarkable. IMPRESSION: Extensive bilateral pulmonary infiltrates with dense consolidations in the left lower lobe and lower aspect of the left upper lobe. No evidence of pulmonary emboli. Electronically signed by: Candido Tejeda MD 09/03/23 01:00 AM Abdomen/Pelvis CT 09/06/23 09:42 CT SCAN OF THE ABDOMEN AND PELVIS WITHOUT IV CONTRAST CLINICAL HISTORY: Constipation. COMPARISON STUDY: Abdominal CT dated 09/02/2023 TECHNIQUE: CT scan of the abdomen and pelvis is performed from the lung bases to the proximal femora. Images are reviewed in the axial, sagittal, and coronal planes. IV contrast was not administered for this examination as per the referring clinician. Note that the examination was performed and significantly suboptimal fashion without oral and IV contrast. The examination is degraded by motion artifact, patient cachexia, and streak artifact from the arms which could not be elevated above the abdomen. A dose lowering technique was utilized adhering to the principles of ALARA. CT DOSE: 1312.27 mGy.cm FINDINGS: Lung bases: The heart is enlarged noting trace pericardial effusion. There is evidence of previous aortic valve surgery. The coronary arteries are densely calcified. There is diffusely diminished attenuation of the cardiac blood pool as compared to the myocardium suggesting anemia. There are small pleural effusions. Extensive airspace consolidation is seen at the left lung base. Mild patchy consolidation is noted the right lung base. There are scattered calcified granulomas. A PICC line is noted in the right upper extremity. Liver: The unenhanced liver is normal in size, contour, and attenuation. There is no intrahepatic biliary ductal dilatation. Gallbladder: Surgically absent noting clips in the gallbladder fossa. Spleen: Normal in size and attenuation. Pancreas: The unenhanced pancreas is atrophic and not well evaluated. Adrenal glands: A 14 mm left adrenal adenoma is unchanged. The right adrenal gland is normal in appearance. Kidneys: The unenhanced kidneys are normal in size and without hydronephrosis. Bilateral nonobstructing renal calculi measure up to 7 mm. Renal cysts measure up to 3.4 cm. A 2.2 cm complex/hyperdense lesion is seen in the interpolar left kidney on image #129. Abdominal vasculature: The abdominal aorta is normal in course and caliber noting moderate to advanced atherosclerotic calcification. Bowel: A percutaneous gastrostomy tube is in place. There is residual enteric contrast in the rectosigmoid. No bowel obstruction is seen. Moderate fecal retention is noted throughout the colon. Question postsurgical change involving the rectosigmoid. The appendix is well-visualized and normal. Peritoneum: There is diffuse mesenteric edema. No intraperitoneal free air is identified. There is a small volume of abdominopelvic ascites. Lymphadenopathy: None. Pelvic viscera: The prostate gland is mildly enlarged and heterogeneous. The bladder wall appears thickened/trabeculated indicating chronic outlet obstruction. Skeletal structures: The skeletal structures are osteopenic. There is mild to moderate lumbosacral spondylosis. Sclerotic change is noted in the sacroiliac joints. No lytic or blastic lesions are seen. Soft tissues: The patient is cachectic. There is diffuse body wall edema. Tiny foci of gas within the ventral abdominal wall are likely related to subcutaneous injections. IMPRESSION: 1. Significantly suboptimal examination without oral and IV contrast. The examination is also degraded by streak artifact, motion artifact, anasarca, and patient cachexia. 2. Cardiomegaly and trace pleural effusions. 3. Extensive left basilar consolidation and milder consolidation at the right lung base is again noted and typical for pneumonia/aspiration pneumonitis. Clinical correlation will be required and radiographic follow-up to resolution is recommended. 4. Moderate colonic fecal retention. No bowel obstruction is seen. 5. There is anasarca of the body wall, diffuse mesenteric edema, and a small volume of ascites. 6. Bilateral nephrolithiasis. 7. There is an indeterminant 2.2 cm hypodense lesion in the left kidney which appeared to show postcontrast enhancement on the 09/02/2023 examination. Although this could represent a complex cyst, a renal neoplasm is to be excluded. A 3-4 month follow-up with a contrast-enhanced renal protocol CT or MRI is recommended for reassessment. 8. Additional findings as above. ACT 112: Positive. There are findings on this exam that require communication between the performing entity and the patient following Patient Test Result Information Act ([place] Act 112) guidelines. Electronically signed by: Sunil Khanna M.D. 09/06/2023 3:07 PM Discharge Instructions Given to Patient (Per Discharging Provider) PLEASE REFER TO YOUR NEW MEDICATION LIST AND FOLLOW INSTRUCTIONS CAREFULLY. YOUR NEW MEDICATIONS INCLUDE: Linezolid-antibiotic for pneumonia Potassium supplement MiraLAX Probiotic Lasix as needed for leg edema/swelling PLEASE CALL YOUR PRIMARY CARE PHYSICIAN OR RETURN TO THE ER IF WITH WORSENING OF SYMPTOMS, INCLUDING Fever or chills, cough, shortness of breath, Leg swelling, Worsening redness, discharge, pain over wound sites, etc. FOLLOW UP WITH PRIMARY CARE PHYSICIAN OUTLINED ABOVE. Total Time Total Time Spent Total Time Spent (In Minutes): 55 minutes
== END 2023-09-09 15:22 | disposition home health service (06) | DRG 871 ==
LOC: ED 20:27 → SUATTDRO 09-03 00:35 → EDINP 09-03 00:35 → 2S 09-03 01:39

== ENCOUNTER 2023-10-13 13:58 | Inpatient (IN) ==
[2023-10-13 15:52] LABS: Hematocrit (blood only) 26.5 % (42.0-52.0); Hemoglobin 8.5 g/dl (14.0-18.0); Mean Corpuscular Hemoglobin 29.2 pg (25.0-34.0); Mean Corpuscular Hgb Conc 32.1 g/dL (32.0-36.0); Mean Corpuscular Volume 91.1 fL (80.0-100.0); Mean Platelet Volume 11.1 fL (9.4-12.4); Platelet Count 183 K/uL (130-400); RDW Coefficient of Variation 16.5 % (11.5-14.5); RDW Standard Deviation 54.7 fL (36.4-46.3); Red Blood Count 2.91 M/uL (4.70-6.10); White Blood Count 17.77 K/ul (4.8-10.8)
[2023-10-13 16:08] LABS: Albumin Level 2.8 gm/dl (3.4-5.0); BUN Creatinine Ratio 45.3 (10-20); Bilirubin Direct 0.2 mg/dl (0-0.2); Bilirubin,Total 0.5 mg/dl (0.2-1.0); Calcium 12.1 mg/dl (8.6-10.3); Creatinine Clr Calc Pharmacy 57.8 ml/min; Est GFR (African American) 93.6 ml/min; Est GFR (Non-African American) 80.8 ml/min; Potassium 3.4 mmol/L (3.5-5.1); Total Protein 5.9 gm/dl (6.0-8.3)
--- NOTE | 2023-10-13 16:12 | Emergency Department Note ---
Impression & Plan Multifocal pneumonia, Severe malnutrition, Tracheostomy dependence, History of head and neck cancer ED Provider Note NAME: MARIPOSA PRIETO AGE: 68 SEX: M : 1955 ARRIVES VIA: Walk-In INFORMANT: [Patient][, ] ED PROVIDER(S): [Tushar Butler MD] CHIEF COMPLAINT: IV antibiotics HPI: This is a 68-year-old male with extensive medical history presenting for IV antibiotics. Patient was seen here recently with multifocal pneumonia as well as concern for pneumatosis of the abdomen. Family is encouraged to be admitted to the hospital for IV antibiotics and further treatment however family refused. After culture results revealed no oral antibiotic options, patient's family was called back and patient was brought back in the hospital. When asked about hospice options which they were supposed to start hospice tomorrow morning. Family states that the patient has been "tired of fighting "for some time now and requested hospice. Did offer options including hospice with antibiotics which they are agreeable to. Patient is also comfortable with this plan. ROS: See above HPI for pertinent positives & negatives. A total of [10] systems reviewed and were otherwise negative. PHYSICAL EXAMINATION: General: Extremely cachectic, chronically ill-appearing Head: Normocephalic Eyes: Normal inspection, extraocular muscles intact Ear, nose, throat: Normal external exam Neck: Large neck mass with previous surgical scars Respiratory: Rhonchi Cardiovascular: Regular rate/rhythm, no murmur GI: Tender Neuro: The patient awake and alert MEDICAL DECISION MAKING: This is 68-year-old male presenting for IV antibiotics. Patient recently left the ED and return for positive blood cultures requiring IV antibiotics. Patient has requested hospice care at this time as well. Patient is cachectic, G-tube and trach dependent. After goals care discussion with family, they would encourage hospice care with antibiotics at this time. -Blood work is reviewed showing a leukocytosis, hyponatremia, elevated calcium, slight transaminitis. -Some opacities reviewed on x-ray. -Will start on antibiotics and admit to medicine. Differential diagnosis: Sepsis, pneumonia, bacteremia, hospice Past Med/Surg History Problem List (Updated 10/17/23 @ 11:34 by Tushar Butler MD) Chronic osteomyelitis Severe malnutrition (Acute) Dysphagia Dyspnea and respiratory abnormalities Encounter for hospice care discussion Counseling regarding advanced directives and goals of care Palliative care by specialist Weakness generalized Cancer related pain CAD (coronary artery disease) Pressure ulcer G tube feedings Goals of care, counseling/discussion Hypercalcemia (Acute) History of head and neck cancer (Acute) Tracheostomy dependence (Acute) Multifocal pneumonia (Acute) Pneumonia (Acute) Sepsis (Acute) Social History Smoking Status: Never smoker Second Hand Exposure: No; Do You Dip or Chew Tobacco: No; Tobacco Cessation Education Requested by Patient: No Hx Alcohol Use: No Hx Substance Use: No Preferred Language: Brazilian Communication Ability: Impaired Groundhand Required: No Beliefs That Will Affect Care: Bahai Current Living Situation: Spouse Other Information That Helps Us Care for You: No Feels Safe at Home: Yes Safety Concerns: Feels Safe At This Time Assistive Devices: Nebulizer, Walker and Other Allergies Allergies Allergy/AdvReac Type Severity Reaction Status Date / Time herbal complex no.323 Allergy Severe RASH ALL Verified 10/11/23 15:19 [From Menofem] OVER BODY/LEGS ceftazidime Allergy Intermediate SWELLING Verified 10/11/23 15:19 OF LOWER LEGS--GOING FOR ALLERGY TESTING metronidazole [From Flagyl] Allergy Intermediate SWELLING Verified 10/11/23 15:19 OF LOWER LEGS--GOING FOR ALLERGY TESTING Penicillins Allergy Unknown CAN'T Verified 10/11/23 15:19 REMEMBER Home Meds Home Medications Medication Instructions Recorded Confirmed Nutra 2.0 1 dose feeding tube DIRECTED 09/02/23 10/13/23 ascorbic acid (vitamin C) 500 mg/5 500 mg feeding tube BID 09/02/23 10/13/23 mL oral syrup aspirin 81 mg chewable tablet 81 mg feeding tube HS 09/02/23 10/13/23 gabapentin 250 mg/5 mL oral 250 mg feeding tube TID 09/02/23 10/13/23 solution lactulose 10 gram/15 mL oral 10 g feeding tube DAILY PRN 09/02/23 10/13/23 solution Constipation midodrine 10 mg tablet 10 mg feeding tube TID 09/02/23 10/13/23 multivitamin 0.5 tab feeding tube BID 09/02/23 10/13/23 kaya oil 1 ea miscellaneous DAILY 09/02/23 10/13/23 sennosides 8.8 mg/5 mL oral syrup 17.6 mg feeding tube BID PRN 09/02/23 10/13/23 (senna) Constipation sodium di- and 1 tab feeding tube QPM 09/02/23 10/13/23 monophosphate-potassium phos monobasic 250 mg tablet (Phospha Neutral) acetaminophen 650 mg/20.3 mL oral 650 mg feeding tube Q6H PRN Pain 10/11/23 10/13/23 solution chlorhexidine gluconate 0.12 % 15 ml mucous membrane TID 10/11/23 10/13/23 mouthwash furosemide 10 mg/mL oral solution 20 mg feeding tube DAILY PRN 10/11/23 10/13/23 SWELLING OF LEGS mineral oil-hydrophil petrolat 1 applic topical BID 10/11/23 10/13/23 topical ointment naloxone 4 mg/actuation nasal spray 1 spray intranasal DIRECTED PRN 10/11/23 10/13/23 Opioid Overdose oxycodone 20 mg/mL oral concentrate 10 mg feeding tube Q3H PRN pain 10/11/23 10/13/23 polyethylene glycol 3350 17 17 g feeding tube QPM PRN 10/11/23 10/13/23 gram/dose oral powder Constipation potassium chloride 20 mEq oral 10 meq feeding tube BID 10/11/23 10/13/23 packet (Klor-Con) Previous Rx's Medication Instructions Recorded levofloxacin 750 mg tablet 750 mg PO DAILY 10 days #10 tabs 10/11/23 linezolid 600 mg tablet 600 mg PO BID 10 days #20 tabs 10/11/23 sucralfate 1 gram tablet (Carafate) 1 g PO BID 4 weeks #56 tabs 10/11/23 Results & Data (ED) Vital Signs Vital Signs - 24 hr 10/13/23 14:31 10/13/23 14:50 10/13/23 14:50 Temperature 36.6 C Temperature Source Temporal Artery Scan Pulse Rate 54 L Pulse Rate [Forehead] 54 L Respiratory Rate 16 Respiratory Effort / Characteristics Non-Labored Spontaneous Respiratory Depth Normal Respiratory Pattern Regular Blood Pressure 94/60 L Blood Pressure [Right Arm] Blood Pressure Mean 71 Blood Pressure Mean [Right Arm] Pulse Oximetry 97 Oxygen Delivery Method Room Air Room Air Sepsis Recent Fever Within 48 Hours No Sepsis New/Unexplained Change in Mental Status N/A Sepsis Action Taken by Nursing No Action Required 10/13/23 14:50 10/13/23 16:13 Temperature Temperature Source Pulse Rate 56 L Pulse Rate [Forehead] 54 L Respiratory Rate 12 Respiratory Effort / Characteristics Non-Labored Spontaneous Respiratory Depth Normal Respiratory Pattern Blood Pressure Blood Pressure [Right Arm] 127/62 Blood Pressure Mean Blood Pressure Mean [Right Arm] 83 Pulse Oximetry 100 Oxygen Delivery Method Room Air Sepsis Recent Fever Within 48 Hours Sepsis New/Unexplained Change in Mental Status Sepsis Action Taken by Nursing Laboratory Data 10/15/23 05:28 10/15/23 05:28 Lab Results 10/13/23 10/13/23 Range/Units 15:15 16:10 WBC 17.77 H (4.8-10.8) K/ul RBC 2.91 L (4.70-6.10) M/uL Hgb 8.5 L (14.0-18.0) g/dl Hct 26.5 L (42.0-52.0) % MCV 91.1 (80.0-100.0) fL MCH 29.2 (25.0-34.0) pg MCHC 32.1 (32.0-36.0) g/dL RDW Std Deviation 54.7 H (36.4-46.3) fL RDW Coeff of [place] 16.5 H (11.5-14.5) % Plt Count 183 (130-400) K/uL MPV 11.1 (9.4-12.4) fL Immature Gran % (Auto) 1.5 % Neut % (Auto) 91.7 % Lymph % (Auto) 1.7 % [place] % (Auto) 4.9 % Eos % (Auto) 0.1 % Baso % (Auto) 0.1 % Neut # (Auto) 16.30 H (1.40-6.50) K/uL Lymph # (Auto) 0.31 L (1.20-3.40) K/uL [place] # (Auto) 0.87 H (0.11-0.59) K/uL Eos # (Auto) 0.01 (0.00-0.50) K/uL Baso # (Auto) 0.01 (0.00-0.20) K/uL Immature Gran # (Auto) 0.27 H (0.01-0.20) K/uL Polychromasia 1+ Ovalocytes 1+ Echinocytes 1+ VBG pH 7.25 L (7.36-7.41) VBG pCO2 49 (38-50) mmHg VBG pO2 39 mmHg VBG HCO3 22 mmol/L VBG O2 Saturation 63.7 % VBG Base Excess -6.0 mEq/L Sodium 129 L (136-145) mmol/L Potassium 3.4 L (3.5-5.1) mmol/L Chloride 100 (98-107) mmol/L Carbon Dioxide 23 (21-32) mmol/L Anion Gap 6 (3-11) BUN 43 H (6-23) mg/dl Creatinine 0.95 (0.6-1.4) mg/dl Est Cr Clr Drug Dosing 57.8 ml/min Est GFR ( Amer) 93.6 ml/min Est GFR (Non-Af Amer) 80.8 ml/min BUN/Creatinine Ratio 45.3 H (10-20) Glucose 95 (70-99(Fasting)) mg/dl Lactate 1.0 (0.4-2.0) mmol/L Calcium 12.1 H* (8.6-10.3) mg/dl Total Bilirubin 0.5 (0.2-1.0) mg/dl Direct Bilirubin 0.2 (0-0.2) mg/dl AST 67 H (13-39) U/L ALT 62 H (7-52) U/L Alkaline Phosphatase 91 (34-104) U/L Total Protein 5.9 L (6.0-8.3) gm/dl Albumin 2.8 L (3.4-5.0) gm/dl Lipase 9 L (11-82) U/L Administered Medications Acetaminophen (Acetaminophen Susp 325 Mg/10.15 Ml Udc) 650 mg PEG Q6H BUCK Stop: 11/16/23 07:59 Last Admin: 10/17/23 09:09 Dose: 650 mg Documented By: CLARI Gabapentin (Gabapentin 250 Mg/5 Ml 470 Ml Btl) 250 mg GT TID BUCK Stop: 11/12/23 20:59 Last Admin: 10/17/23 09:09 Dose: 250 mg Documented By: Admin: 10/16/23 21:21 Dose: 250 mg Documented By: Admin: 10/16/23 15:16 Dose: 250 mg Documented By: Admin: 10/16/23 11:41 Dose: 250 mg Documented By: Admin: 10/15/23 21:35 Dose: 250 mg Documented By: Admin: 10/15/23 13:08 Dose: 250 mg Documented By: Admin: 10/15/23 10:02 Dose: 250 mg Documented By: Admin: 10/14/23 19:54 Dose: 250 mg Documented By: Admin: 10/14/23 15:21 Dose: 250 mg Documented By: Admin: 10/14/23 11:16 Dose: 250 mg Documented By: Admin: 10/13/23 23:50 Dose: 250 mg Documented By: ZEYNEP Heparin Sodium (Beef Lung) (Heparin 10 Unit/Ml 5 Ml Flush) 5 ml FLUSH PRN PRN PRN Reason: Flush Stop: 11/15/23 08:13 Last Admin: 10/16/23 08:41 Dose: 10 ml Documented By: CRISTINA Magnesium Hydroxide (Magnesium Hydroxide Susp 30 Ml Udc) 30 ml PEG BID BUCK Stop: 11/13/23 17:14 Last Admin: 10/17/23 07:32 Dose: Not Given Documented By: Admin: 10/16/23 21:21 Dose: 30 ml Documented By: Admin: 10/16/23 11:41 Dose: 30 ml Documented By: Admin: 10/15/23 21:35 Dose: 30 ml Documented By: Admin: 10/15/23 10:12 Dose: 30 ml Documented By: Admin: 10/14/23 19:53 Dose: 30 ml Documented By: Admin: 10/14/23 18:15 Dose: 30 ml Documented By: DIANNE Nutritional Formula (Nutren Liqd 2.0 1,000 Ml Bag) 1,000 ml GT UD BUCK; Protocol Stop: 11/12/23 18:14 Last Admin: 10/16/23 23:37 Dose: 1,000 ml Documented By: JENNIFER Potassium Phosphate (Pot Phosphate Monobasic W/ Sod Tab) 1 tab GT QPM BUCK Stop: 11/12/23 20:59 Last Admin: 10/16/23 21:15 Dose: 1 tab Documented By: Admin: 10/15/23 21:37 Dose: 1 tab Documented By: Admin: 10/14/23 19:51 Dose: 1 tab Documented By: Admin: 10/13/23 23:50 Dose: 1 tab Documented By: ZEYNEP Sennosides (Sennosides 8.8 Mg/5 Ml Udc) 17.6 mg GT BID PRN PRN Reason: Constipation, 2nd line Stop: 11/12/23 19:43 Last Admin: 10/15/23 09:43 Dose: 17.6 mg Documented By: DIANNE Sterile Water (Tube Feeding Water Flush) 175 ml GT Q4H BUCK Stop: 11/13/23 16:44 Last Admin: 10/17/23 09:09 Dose: 175 ml Documented By: Admin: 10/17/23 04:07 Dose: 175 ml Documented By: Admin: 10/17/23 00:40 Dose: 175 ml Documented By: Admin: 10/16/23 21:15 Dose: 175 ml Documented By: Admin: 10/16/23 16:30 Dose: 175 ml Documented By: Admin: 10/16/23 12:31 Dose: 175 ml Documented By: Admin: 10/16/23 07:45 Dose: 175 ml Documented By: Admin: 10/16/23 05:26 Dose: 175 ml Documented By: Admin: 10/16/23 01:37 Dose: 175 ml Documented By: Admin: 10/15/23 21:38 Dose: 175 ml Documented By: Admin: 10/15/23 17:01 Dose: 175 ml Documented By: Admin: 10/15/23 13:06 Dose: 175 ml Documented By: Admin: 10/15/23 07:51 Dose: 175 ml Documented By: Admin: 10/15/23 04:19 Dose: 175 ml Documented By: Admin: 10/14/23 23:28 Dose: 175 ml Documented By: Admin: 10/14/23 19:52 Dose: 175 ml Documented By: Admin: 10/14/23 16:45 Dose: 175 ml Documented By: DIANNE Discontinued Medications Albuterol (Albut/Ipratrop 3mg/0.5mg Neb 3 Ml Vial) 3 ml NEB QIDR BUCK; Protocol Stop: 11/13/23 08:24 Last Admin: 10/17/23 10:59 Dose: Not Given Documented By: Admin: 10/17/23 07:16 Dose: Not Given Documented By: [id number] Admin: 10/16/23 20:16 Dose: Not Given Documented By: Admin: 10/16/23 15:32 Dose: 3 ml Documented By: [id number] Admin: 10/16/23 11:10 Dose: 3 ml Documented By: [id number] Admin: 10/16/23 07:49 Dose: 3 ml Documented By: [id number] Admin: 10/15/23 19:45 Dose: 3 ml Documented By: Admin: 10/15/23 14:10 Dose: 3 ml Documented By: Admin: 10/15/23 10:22 Dose: 3 ml Documented By: Admin: 10/15/23 07:02 Dose: 3 ml Documented By: Admin: 10/14/23 20:14 Dose: 3 ml Documented By: Admin: 10/14/23 14:36 Dose: Not Given Documented By: Admin: 10/14/23 11:11 Dose: Not Given Documented By: Admin: 10/14/23 09:16 Dose: Not Given Documented By: CLIF Aspirin (Aspirin 81 Mg Chew) 81 mg GT HS BUCK Stop: 11/12/23 20:59 Last Admin: 10/15/23 21:37 Dose: 81 mg Documented By: KJSera Admin: 10/14/23 19:50 Dose: 81 mg Documented By: SJTonja Admin: 10/13/23 23:50 Dose: 81 mg Documented By: ZEYNEP Calcitonin [place] (Calcitonin [place] 400 Units/2 Ml) 200 units SQ ONE ONE Stop: 10/13/23 17:46 Last Admin: 10/13/23 20:28 Dose: 200 units Documented By: Chlorhexidine Gluconate (Chlorhexidine Gluconate 0.12% 480 Ml) 15 ml MT TID BUCK Stop: 11/12/23 20:59 Last Admin: 10/15/23 22:36 Dose: Not Given Documented By: Admin: 10/15/23 13:06 Dose: Not Given Documented By: Admin: 10/15/23 07:51 Dose: Not Given Documented By: Admin: 10/14/23 19:55 Dose: Not Given Documented By: Admin: 10/14/23 14:19 Dose: Not Given Documented By: Admin: 10/14/23 08:23 Dose: 15 ml Documented By: Admin: 10/13/23 23:49 Dose: 15 ml Documented By: ZEYNEP Hydromorphone HCl (Hydromorphone Inj 1 Mg/Ml Syringe) 1 mg IV Q3H PRN PRN Reason: Moderate Pain (4,5,6) on NRS Stop: 10/27/23 17:31 Last Admin: 10/14/23 00:01 Dose: 1 mg Documented By: ZEYNEP Hydromorphone HCl (Hydromorphone Inj 1 Mg/Ml Syringe) 1.5 mg IV Q3H PRN PRN Reason: Severe Pain (7,8,9,10) on NRS Stop: 10/27/23 17:31 Last Admin: 10/13/23 19:30 Dose: 1.5 mg Documented By: Hydromorphone HCl (Hydromorphone Inj 0.5 Mg/0.5 Ml Syr) 0.5 mg IV Q15M PRN PRN Reason: Pain Stop: 10/29/23 12:40 Last Admin: 10/16/23 07:44 Dose: 0.5 mg Documented By: CLARI Piperacillin Sod/Tazobactam Sod (Zosyn) 4.5 gm in 100 mls @ 200 mls/hr IV NOW ONE Stop: 10/13/23 15:53 Last Infusion: 10/13/23 17:32 Dose: Infused Documented By: Admin: 10/13/23 16:18 Dose: 200 mls/hr Documented By: ABIGAIL Sodium Chloride (Nss) 500 mls @ 999 mls/hr IV .Q31M ONE Stop: 10/13/23 17:51 Last Infusion: 10/13/23 20:40 Dose: Infused Documented By: Admin: 10/13/23 19:31 Dose: 999 mls/hr Documented By: Piperacillin Sod/Tazobactam (Sod 4.5 gm/ Dextrose) 100 mls @ 25 mls/hr IV Q8H [facility]; Protocol Stop: 10/20/23 21:59 Last Infusion: 10/15/23 22:31 Dose: Infused Documented By: Admin: 10/15/23 21:51 Dose: 25 mls/hr Documented By: Infusion: 10/15/23 17:01 Dose: Infused Documented By: Admin: 10/15/23 13:08 Dose: 28 mls/hr Documented By: Infusion: 10/15/23 10:10 Dose: Infused Documented By: Admin: 10/15/23 05:09 Dose: 25 mls/hr Documented By: Infusion: 10/15/23 01:51 Dose: Infused Documented By: Admin: 10/14/23 21:50 Dose: 25 mls/hr Documented By: Infusion: 10/14/23 18:20 Dose: Infused Documented By: Admin: 10/14/23 14:22 Dose: 25 mls/hr Documented By: Infusion: 10/14/23 10:53 Dose: Infused Documented By: Admin: 10/14/23 06:44 Dose: 25 mls/hr Documented By: Infusion: 10/14/23 04:32 Dose: Infused Documented By: Admin: 10/13/23 23:50 Dose: 25 mls/hr Documented By: PAH Lactated Ringer's (Lr) 500 mls @ 999 mls/hr IV .Q31M ONE Stop: 10/13/23 20:34 Last Infusion: 10/13/23 21:22 Dose: Infused Documented By: Admin: 10/13/23 20:32 Dose: 999 mls/hr Documented By: JR Lactated Ringer's (Lr) 1,000 mls @ 80 mls/hr IV .[id number] [facility] Stop: 10/14/23 14:59 Last Infusion: 10/14/23 10:54 Dose: Infused Documented By: Admin: 10/14/23 09:48 Dose: 80 mls/hr Documented By: Infusion: 10/14/23 09:48 Dose: Infused Documented By: Admin: 10/13/23 21:21 Dose: 80 mls/hr Documented By: Sodium Chloride (Nss) 1,000 mls @ 15 mls/hr IV .Q24H BUCK Stop: 10/28/23 13:07 Last Infusion: 10/14/23 16:46 Dose: Infused Documented By: Admin: 10/14/23 16:45 Dose: 100 mls/hr Documented By: Infusion: 10/14/23 16:45 Dose: Infused Documented By: Admin: 10/14/23 14:19 Dose: 15 mls/hr Documented By: DIANNE Sodium Chloride (Nss) 500 mls @ 100 mls/hr IV .Q5H BUCK Stop: 10/15/23 02:29 Last Infusion: 10/15/23 02:55 Dose: Infused Documented By: Admin: 10/14/23 21:51 Dose: 100 mls/hr Documented By: Infusion: 10/14/23 21:48 Dose: Infused Documented By: Admin: 10/14/23 16:45 Dose: 100 mls/hr Documented By: DIANNE Potassium Chloride (K Delfino / Wtr) 10 meq in 100 mls @ 100 mls/hr IV Q1H BUCK Stop: 10/15/23 10:29 Last Infusion: 10/15/23 11:43 Dose: Infused Documented By: Admin: 10/15/23 09:43 Dose: 100 mls/hr Documented By: Infusion: 10/15/23 09:43 Dose: Infused Documented By: Admin: 10/15/23 09:25 Dose: 100 mls/hr Documented By: Infusion: 10/15/23 08:49 Dose: Infused Documented By: Admin: 10/15/23 07:49 Dose: 100 mls/hr Documented By: Infusion: 10/15/23 07:29 Dose: Infused Documented By: Admin: 10/15/23 06:29 Dose: 100 mls/hr Documented By: PABLO Linezolid (Linezolid 600 Mg Tab) 600 mg PO BID BUCK Stop: 11/24/23 20:59 Last Admin: 10/15/23 21:35 Dose: 600 mg Documented By: Admin: 10/15/23 09:40 Dose: 600 mg Documented By: Admin: 10/14/23 19:51 Dose: 600 mg Documented By: Admin: 10/14/23 08:16 Dose: 600 mg Documented By: Admin: 10/13/23 23:51 Dose: 600 mg Documented By: ZEYNEP Midodrine (Midodrine Hcl 10 Mg Tab) 10 mg PO TID@0700,1200,1800 BUCK Stop: 11/13/23 06:59 Last Admin: 10/15/23 17:47 Dose: 10 mg Documented By: Admin: 10/15/23 13:06 Dose: 10 mg Documented By: Admin: 10/15/23 09:40 Dose: 10 mg Documented By: Admin: 10/14/23 19:50 Dose: 10 mg Documented By: Admin: 10/14/23 11:16 Dose: 10 mg Documented By: Admin: 10/14/23 08:16 Dose: 10 mg Documented By: DIANNE Multivitamins (Multivitamin Tab) 0.5 tab PO BID BUCK Stop: 11/12/23 20:59 Last Admin: 10/15/23 21:35 Dose: 0.5 tab Documented By: Admin: 10/15/23 09:41 Dose: 0.5 tab Documented By: Admin: 10/14/23 19:51 Dose: 0.5 tab Documented By: Admin: 10/14/23 08:16 Dose: 0.5 tab Documented By: Admin: 10/13/23 23:51 Dose: 0.5 tab Documented By: ZEYNEP Oxycodone HCl (Oxycodone Hcl Soln 5 Mg/5 Ml Udc) 15 mg PO Q1H PRN PRN Reason: Pain Stop: 10/29/23 12:44 Last Admin: 10/17/23 06:29 Dose: 15 mg Documented By: Admin: 10/17/23 04:02 Dose: 15 mg Documented By: Admin: 10/17/23 00:36 Dose: 15 mg Documented By: Admin: 10/16/23 16:29 Dose: 15 mg Documented By: CLARI Polyethylene Glycol (Polyethylene (Miralax) 17 Gm Pack) 17 gm PEG DAILY BUCK Stop: 11/13/23 17:14 Last Admin: 10/16/23 11:41 Dose: 17 gm Documented By: Admin: 10/15/23 09:42 Dose: 17 gm Documented By: Admin: 10/14/23 18:16 Dose: 17 gm Documented By: DIANNE Potassium Chloride (Potassium Chloride 20 Meq/15 Ml Udc) 40 meq GT NOW STA Stop: 10/13/23 17:40 Last Admin: 10/13/23 20:00 Dose: 40 meq Documented By: Potassium Chloride (Potassium Chloride Pwd 20 Meq Pack) 10 meq GT BID BUCK Stop: 11/12/23 20:59 Last Admin: 10/15/23 21:35 Dose: 10 meq Documented By: Admin: 10/15/23 09:40 Dose: 10 meq Documented By: Admin: 10/14/23 19:50 Dose: 10 meq Documented By: Admin: 10/14/23 08:17 Dose: 10 meq Documented By: Admin: 10/13/23 23:51 Dose: 10 meq Documented By: PAH Sodium Chloride (Sodium Chlor 7% 4 Ml Neb) 4 ml NEB BIDR BUCK Stop: 11/13/23 08:24 Last Admin: 10/15/23 19:45 Dose: 4 ml Documented By: Admin: 10/15/23 07:02 Dose: 4 ml Documented By: Admin: 10/14/23 20:14 Dose: 4 ml Documented By: Admin: 10/14/23 09:16 Dose: Not Given Documented By: CLIF Sucralfate (Sucralfate 1 Gm Tab) 1 gm GT BID BUCK Stop: 11/12/23 20:59 Last Admin: 10/15/23 21:35 Dose: 1 gm Documented By: Admin: 10/15/23 09:43 Dose: 1 gm Documented By: Admin: 10/14/23 19:51 Dose: 1 gm Documented By: Admin: 10/14/23 08:16 Dose: 1 gm Documented By: Admin: 10/13/23 23:51 Dose: 1 gm Documented By: PAH Discharge Plan Visit Data Chief Complaint: Referred by Doctor Stated Complaint: SENT OVER FOR IV ANITBIOTICS ED Provider: Tushar Butler Discharge Problem: Multifocal pneumonia, Severe malnutrition, Tracheostomy dependence, History of head and neck cancer Patient Disposition: Admitted As Inpatient Discharge Instructions Interventions: ED Discharge Assessment Last Done: 10/13/23 19:43
[2023-10-13] MEDS: PIPERACILLIN/TAZOBACTAM 4.5 GM/100 ML BAG IV ONE (16:18)
[2023-10-13 16:20] LABS: HCO3 VBG 22 mmol/L; Oxygen Saturation VBG 63.7 %; PCO2 VBG 49 mmHg (38-50); PO2 VBG 39 mmHg; pH VBG 7.25 (7.36-7.41)
--- NOTE | 2023-10-13 16:26 | History & Physical Report ---
Date of Service October 13, 2023 Assessment & Plan (1) Goals of care, counseling/discussion: Plan: Goals of Care: Discussed with patient and his at bedside, with additional family present. Extensive discussion regarding goals of care up until this point. Patient has expressed that he is very tired and would like to pursue hospice, and that they were pending enrollment in this tomorrow. They do not wish for any invasive treatments or treatments that are not going to improve quality of life, however treatments that may improve quality and decrease pain are things he would still like to pursue. Antibiotic treatment, any potential grafting that could help alleviate ulcer pain, and G-tube replacement if this becomes uncomfortable are all within this goal of care to the patient. They report their goals of this admission is to treat his pneumonia, and get to a point of wellness just prior to that around 2 weeks ago and then focus on hospice with home health and comfort. Should he decline and become critically ill escalation to the ICU, in vasive interventions including vasopressors are not things that Beltran wants and are not within his goals of care. 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 It is important for him and his family to feel like he is not giving up and do not want to "throw in the towel "for treatable or reversible parts of his illness, also expresses he and his agree that his most important value at this time is the comfort and quality at the end of his life. On shared decision making family would like to pursue the following plan: 1. Inpatient treatment for his fluoroquinolone resistant Pseudomonas infection. Could transition to outpatient/hospice if able to receive IV treatment at home 2. Would like to have his G-tube replaced at some point when stable/able for comfort as it has been over 2 years since this is replaced and notes that it is more uncomfortable for him to use 3. Continue G feeds as tolerated. Typically takes 1.5 cans of Nutra 2.0 diluted in an equal volume of water. Nutrition consulted. Do not add fiber to patients feeds. 4. Please like to keep outpatient referrals to review graphs for the wounds on his right hip as this causes him pain, and surgical opinion on whether interventions or procedures could help his pain as he tends to lean towards his graft site 5. If patient enters the active phase of dying, or decompensates/becomes critically ill Beltran does not wish for ICU level of care or vasopressors. Would transition to C[employer] HOU[employer] WORK[employer] at that point 6. Would like to meet with the palliative care provider while inpatient, and would like to keep the goal of transitioning to home hospice (2) Multifocal pneumonia: Plan: Sepsis 2/2 Recurrent multifocal pneumonia culture positive for open 1 and carbapenem resistant Pseudomonas. Prior MRSA positive cultures Continue linezolid/Zosyn Patient meets sepsis criteria due to leukocytosis, source, hypotension. IVF given in ER, 30 cc/kg effectual radiologically deferred due to significant lower extremity anemia, history of CHF. Lasix deferred. 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 Bioprosthetic not well-visualized. History of diastolic dysfunction Lasix held Hypotension Worsened in the setting of active infection/sepsis. Fluids as noted Midodrine continued (6) Hypercalcemia: Plan: 12.1, 12.1 on repeat Fluids as noted With history of osteonecrosis, osteomyelitis Bisphosphonate therapy deferred due to extensive bony and osteonecrotic disease. Will continue volume expansion, Add calcitonin 4u/kg --> 200u x1 and trend. May continue up to 48 hours. Of note cancerous procalcitonin associated with long-term not short-term/abbreviated use (7) Sepsis: Plan: Pulmonary source Is with a history of diastolic CHF, lower extremity edema. Hypotensive on admission Lasix held Received 500cc NSS on admission. Sepsis 1695 cc deferred due to significant lower extremity volume overload and history of CHF, lactate is normal. (8) G tube feedings: Plan: - Nutrition consulted Continue G feeds as tolerated. Typically takes 1.5 cans of Nutra 2.0 diluted in an equal volume of water. Goal 5 cans but pt with poor tolerance to this. Nutrition consulted. Do not add fiber to patients feeds. Started at 10 cc continuous feed overnight due to recent poor tolerance, further titration and evaluation per dietitian (9) Pressure ulcer: Plan: Pressure ulcer, sacral and bilateral shoulder Wound care consulted Patient defers examination by provider at time of admission due to discomfort at the sites and having recently been ruled/examined [id number] mattress ordered Plan Prophylaxis: Heparin twice daily deferred due to patient discomfort, discussed with family prefers SCDs Diet: Tube feeds as noted Disposition: PCU CODE STATUS: DNR/DNI. No escalation of care to ICU/pressures for clinical decompensation History of Present Illness Primary Care Provider: INGRID HENDRIX Per ER: 67yo M with a PMHx of SCC of the R mandible and tongue dx 2021 and s/p chemotherapy radiation/pembrolizumab, subsequent soft tissue infection versus osteonecrosis/osteomyelitis 06/2023 for which ID was consulted and recommended 6 weeks of meropenem for presumed osteomyelitis, after which patient had drainage from his tracheostomy 07/2023 and subsequently underwent right composite mandibulectomy, right neck dissection, left scapular and latissimus free flap to right neck grafting and treat tube exchange. He had postoperative hypotension and leukocytosis, given his prior Pseudomonas/Morganella positive cultures he was placed on cefepime and Flagyl with gradual clinical improvement. Was to continue 6 weeks of IV meropenem. Was subsequently admitted, mini with sepsis suspected from pneumonia with a MRSA sputum culture. He was discharged 09/09/2023 and completed 7 days of vancomycin/meropenem transition to cefepime plus Flagyl, and was to complete 3 more days of linezolid upon discharge at that time Patient was to start hospice 10/14/23. He presented to the ER 10/11/2023 for possible G-tube displacement/malfunction. CT A/P at that time showed left lobe airspace consolidations and trace pleural effusions. He did refuse admission at that time, was prescribed linezolid/levofloxacin to attempt to treat his observed recurrent pneumonia; cultures speciated for Pseudomonas which was resistant to fluoroquinolones. He was recalled to the emergency department for IV treatment for MDR Pseudomonas. On ER assessment he was volume contracted, hypercalcemic, with a leukocytosis of 17. Repeat imaging was not performed given recent interval and imaging. Blood cultures pending, patient was ordered Zosyn. Goals of care were discussed with the patient's and his at the bedside by ER provider. Patient was scheduled to enroll in hospice and would like to continue conservative care goals consistent with this; however treatment of active infection including IV antibiotics at this time are within her goals of care. They would like to be admitted to hospital for IV antibiotic treatment, without escalation of care should patient decompensate Per Patient: Patient is seen with his reedy and wif angel. THey report they are here to treat a pneumonia Was in the ER previously, was recommended to stay but did not wish to and was discharged home onvaquin Hospice was to start tomorrow. Per his 'patient was ready to throw in the towel, but now want to get straightened up and at least get through this infection' No fevers, but had been warm Trach suction material 'darker, gunky, and thick' no chest pain or chest pressure G tube has been functioning normally, but has not been replaced in 2 years. Was previously displaced, but appears to be functional. Was to see [facility] for a replacement. Was placed by a GI doctor. Would like replaced if possible. utrin 2.0 , 5 cartons per day (16oz each, approximately 1 cup). No fiber. Suppose dto take 5 boluses throughout the day, down to 1.5 cartons per day due to poor tolerance. Does not do free water pushes, usually mixes nitrin with an equal volume of water and somtimes a small flush of water after. Large sacral ulcer, pending an appointment with a surgeon at [place] to have a patch placed. Was at the side of his graft harvest, so tends to lean to that side. Has shoulder pressure ulcers. Patient defers exam at tiem of admission 2/2 comfort Goals of Care: Discussed with patient and his at bedside, with additional family present. Extensive discussion regarding goals of care up until this point. Patient has expressed that he is very tired and would like to pursue hospice, and that they were pending enrollment in this tomorrow. They do not wish for any invasive treatments or treatments that are not going to improve quality of life, however treatments that may improve quality and decrease pain are things he would still like to pursue. Antibiotic treatment, any potential grafting that could help alleviate ulcer pain, and G-tube replacement if this becomes uncomfortable are all within this goal of care to the patient. They report their goals of this admission is to treat his pneumonia, and get to a point of wellness just prior to that around 2 weeks ago and then focus on hospice with home health and comfort. Should he decline and become critically ill escalation to the ICU, invasive interventions including vasopressors are not things that Beltran wants and are not within his goals of care. 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 It is important for him and his family to feel like he is not giving up and do not want to "throw in the towel "for treatable or reversible parts of his illness, also expresses he and his agree that his most important value at this time is the comfort and quality at the end of his life. On shared decision making family would like to pursue the following plan: 1. Inpatient treatment for his fluoroquinolone resistant Pseudomonas infection. Could transition to outpatient/hospice if able to receive IV treatment at home 2. Would like to have his G-tube replaced at some point when stable/able for comfort as it has been over 2 years since this is replaced and notes that it is more uncomfortable for him to use 3. Continue NG feeds as tolerated. Typically takes 1.5 cans of Nutra 2.0 diluted in an equal volume of water. Nutrition consulted. Do not add fiber to patients feeds. 4. Please like to keep outpatient referrals to review graphs for the wounds on his right hip as this causes him pain, and surgical opinion on whether interventions or procedures could help his pain as he tends to lean towards his graft site 5. If patient enters the active phase of dying, or decompensates/becomes critically ill Beltran does not wish for ICU level of care or vasopressors. Would transition to C[employer] HOU[employer] WORK[employer] at that point 6. Would like to meet with the palliative care provider while inpatient, and would like to keep the goal of transitioning to home hospice Allergies Allergy/AdvReac Type Severity Reaction Status Date / Time herbal complex no.323 Allergy Severe RASH ALL Verified 10/11/23 15:19 [From Menofem] OVER BODY/LEGS ceftazidime Allergy Intermediate SWELLING Verified 10/11/23 15:19 OF LOWER LEGS--GOING FOR ALLERGY TESTING metronidazole [From Flagyl] Allergy Intermediate SWELLING Verified 10/11/23 15:19 OF LOWER LEGS--GOING FOR ALLERGY TESTING Penicillins Allergy Unknown CAN'T Verified 10/11/23 15:19 REMEMBER Home Medications Medication Instructions Recorded Confirmed Type Nutra 2.0 1 dose feeding tube DIRECTED 09/02/23 10/13/23 History ascorbic acid (vitamin C) 500 mg/5 500 mg feeding tube BID 09/02/23 10/13/23 History mL oral syrup aspirin 81 mg chewable tablet 81 mg feeding tube HS 09/02/23 10/13/23 History gabapentin 250 mg/5 mL oral 250 mg feeding tube TID 09/02/23 10/13/23 History solution lactulose 10 gram/15 mL oral 10 g feeding tube DAILY PRN 09/02/23 10/13/23 History solution Constipation midodrine 10 mg tablet 10 mg feeding tube TID 09/02/23 10/13/23 History multivitamin 0.5 tab feeding tube BID 09/02/23 10/13/23 History kaya oil 1 ea miscellaneous DAILY 09/02/23 10/13/23 History sennosides 8.8 mg/5 mL oral syrup 17.6 mg feeding tube BID PRN 09/02/23 10/13/23 History (senna) Constipation sodium di- and 1 tab feeding tube QPM 09/02/23 10/13/23 History monophosphate-potassium phos monobasic 250 mg tablet (Phospha Neutral) acetaminophen 650 mg/20.3 mL oral 650 mg feeding tube Q6H PRN Pain 10/11/23 10/13/23 History solution chlorhexidine gluconate 0.12 % 15 ml mucous membrane TID 10/11/23 10/13/23 History mouthwash furosemide 10 mg/mL oral solution 20 mg feeding tube DAILY PRN 10/11/23 10/13/23 History SWELLING OF LEGS levofloxacin 750 mg tablet 750 mg PO DAILY 10 days #10 tabs 10/11/23 10/13/23 Rx linezolid 600 mg tablet 600 mg PO BID 10 days #20 tabs 10/11/23 10/13/23 Rx mineral oil-hydrophil petrolat 1 applic topical BID 10/11/23 10/13/23 History topical ointment naloxone 4 mg/actuation nasal spray 1 spray intranasal DIRECTED PRN 10/11/23 10/13/23 History Opioid Overdose oxycodone 20 mg/mL oral concentrate 10 mg feeding tube Q3H PRN pain 10/11/23 10/13/23 History polyethylene glycol 3350 17 17 g feeding tube QPM PRN 10/11/23 10/13/23 History gram/dose oral powder Constipation potassium chloride 20 mEq oral 10 meq feeding tube BID 10/11/23 10/13/23 History packet (Klor-Con) sucralfate 1 gram tablet (Carafate) 1 g PO BID 4 weeks #56 tabs 10/11/23 10/13/23 Rx Past Med/Surg History Problem List CAD (coronary artery disease) Pressure ulcer G tube feedings Goals of care, counseling/discussion Hypercalcemia (Acute) History of head and neck cancer (Acute) Tracheostomy dependence (Acute) Multifocal pneumonia (Acute) Pneumonia (Acute) Sepsis (Acute) Social History Smoking Status: Never smoker Hx Alcohol Use: No Hx Substance Use: No Preferred Language: Yi Communication Ability: Effective Chassis Inspector Required: No Beliefs That Will Affect Care: None Current Living Situation: Spouse Feels Safe at Home: Yes Assistive Devices: Walker Physical Exam Physical Exam: General: Somnolent. Cachectic. Oriented to name and place, easily fatigued and offers minimal conversation but does answer questions appropriately. Skin: Patient is with known sacral decubitus ulcer, and pressure ulcers of his upper back. Reports these were recently checked by nursing and dressed and defers exam at time of admission for comfort HEENT: Right neck deformity at surgical site with graft in place no overlying warmth/tenderness/erythema. Trach in place. Pulm: Diminished in the bases, no rales. Diffusely mildly coarse symmetrical chest rise. No respiratory distress. Cardiac: Systolic murmur, regular bradycardia. Radial pulses intact and symmetrical. Abdominal: G-tube in place. Abdomen is soft without guarding/rigidity. No erythema/warmth/discharge at G-tube site Extremities: Bilateral lower extremities with 34+ pitting edema Results & Data Results & Data Vital Signs (Past 12 Hours) Vital Signs Temp Pulse Pulse Resp BP BP Pulse Ox 10/13/23 16:13 54 L 12 127/62 100 10/13/23 14:50 56 L 10/13/23 14:50 54 L 10/13/23 14:50 54 L 97 10/13/23 14:31 36.6 C 16 94/60 L O2 Del Method 10/13/23 16:13 Room Air 10/13/23 14:50 10/13/23 14:50 Room Air 10/13/23 14:50 Room Air 10/13/23 14:31 PG Care Time/CCT Total # of Minutes Spent Total Time Spent with Patient: Total time spent is greater than 50% in coordination of care (as documented) at patient's floor/unit and/or counseling patient: Coding Level of Care Code 70156 INT INP/OBS CARE 375MIN Diagnoses Goals of care, counseling/discussion Z71.89 Multifocal pneumonia J18.9 Tracheostomy dependence Z93.0 History of head and neck cancer Z85.89 CAD (coronary artery disease) I25.10 Hypercalcemia E83.52 Sepsis A41.9 Sepsis acute organ dysfunction status: without acute organ dysfunction Sepsis type: sepsis due to unspecified organism G tube feedings Z93.1 Pressure ulcer L89.90 (7) Sepsis Sepsis acute organ dysfunction status: without acute organ dysfunction Sepsis type: sepsis due to unspecified organism Qualified Code(s): A41.9 - Sepsis, unspecified organism
[2023-10-13 16:52] LABS: Basophils # (auto) 0.01 K/uL (0.00-0.20); Basophils % (auto) 0.1 %; Echinocytes 1+; Eosinophils # (auto) 0.01 K/uL (0.00-0.50); Eosinophils % (auto) 0.1 %; Immature Granulocytes # (auto) 0.27 K/uL (0.01-0.20); Immature Granulocytes % (auto) 1.5 %; Lymphocytes # (auto) 0.31 K/uL (1.20-3.40); Lymphocytes % (auto) 1.7 %; Monocytes # (auto) 0.87 K/uL (0.11-0.59); Monocytes % (auto) 4.9 %; Neutrophils % (auto) 91.7 %; Ovalocytes 1+; Polychromasia 1+
--- NOTE | 2023-10-13 17:15 | XRay Report ---
XR chest 1V portable HISTORY: 68 years-old Male PNA acute shortness of breath with reported pneumonia COMPARISON: 10/11/2023 TECHNIQUE: AP view of the chest FINDINGS: Left-sided PICC redemonstrated. Aortic valve endograft. Tracheostomy cannula. No pneumothorax. Trace pleural effusions. Patchy bibasilar collimation prior. Left axillary surgical clips. Bones appear emily ssly intact. IMPRESSION: 1. Similar appearance of the bibasilar airspace opacities suggestive of pneumonia versus aspiration p neumonitis. 2. Trace pleural effusions. ACT 112: Negative or not required by law. The above report was generated using voice recognition software. It may contain grammatical, syntax o r spelling errors. Electronically signed by: Bar Ambrose M.D. 10/13/2023 5:14 PM
[2023-10-13] MEDS ORDERED: ACETAMINOPHEN 1,000 MG/100 ML VIAL IV PRN (17:32)
[2023-10-13] MEDS ORDERED: NALOXONE HCL 0.4 MG/1 ML VIAL/CARP IV PRN (17:32)
[2023-10-13] MEDS: HYDROmorphone INJ 1 MG/ML SYRINGE IV PRN (19:30)
[2023-10-13] MEDS: SODIUM CHLORIDE 0.9% 500 ML IV ONE (19:31)
[2023-10-13] MEDS ORDERED: POLYETHYLENE (MIRALAX) 17 GM PACK GT PRN ×2 (19:44→20:31)
[2023-10-13] MEDS ORDERED: SENNOSIDES 8.8 MG/5 ML UDC GT PRN (19:44)
[2023-10-13] MEDS: POTASSIUM CHLORIDE 20 MEQ/15 ML UDC GT STA (20:00)
[2023-10-13] MEDS ORDERED: LACTULOSE SYRUP 10 GM/15 ML BTL 960 ML GT PRN ×2 (20:12→20:31)
[2023-10-13] MEDS: CALCITONIN SALMON 400 UNITS/2 ML SQ ONE (20:28)
[2023-10-13] MEDS: LACTATED RINGER'S 500 ML IV ONE (20:32)
[2023-10-13] MEDS ORDERED: GABAPENTIN 250 MG/5 ML 470 ML BTL GT SCH (21:00)
[2023-10-13] MEDS ORDERED: PETROLATUM 16 OZ JAR EXT SCH (21:00)
[2023-10-13] MEDS ORDERED: GABAPENTIN 150 MG/3 ML UDP GT SCH (21:00)
[2023-10-13] MEDS: LACTATED RINGER'S 1,000 ML IV SCH (21:21)
[2023-10-13 21:22] LABS: Appearance Urine Clear (Clear); Bacteria Urine Automated None Seen (None Seen); Bilirubin Urine Negative (Negative); Blood Urine Negative (Negative); Cast Urine Automated 0-2 /lpf (0-2); Color Urine Yellow; Epithelial Cell Urine Auto 0-2 /hpf (0-2); Glucose Urine UA Negative (Negative); Ketones Urine Negative (Negative); Leukocyte Esterase Urine Trace (Negative); Nitrite Urine Negative (Negative); Protein Urine 1+ (Negative); Specific Gravity Urine 1.015 (1.000-1.030); Urobilinogen Urine Negative (Negative); WBC Urine Automated 0-5 /hpf (0-5)
[2023-10-13 21:50] LABS: Calcium Oxalate Crystals Urine Present (None Prsent)
[2023-10-13] MEDS: CHLORHEXIDINE GLUCONATE 0.12% 480 ML MT SCH (23:49)
[2023-10-13] MEDS: PIPERACILLIN/TAZOBACTAM 4.5 GM in DEXTROSE 5% MINI-B 100 ML IV SCH (23:50)
[2023-10-13] MEDS: ASPIRIN 81 MG CHEW GT SCH (23:50)
[2023-10-13] MEDS: GABAPENTIN 250 MG/5 ML 470 ML BTL GT SCH (23:50)
[2023-10-13] MEDS: POT PHOSPHATE MONOBASIC W/ SOD TAB GT SCH (23:50)
[2023-10-13] MEDS: MULTIVITAMIN TAB PO SCH (23:51)
[2023-10-13] MEDS: SUCRALFATE 1 GM TAB GT SCH (23:51)
[2023-10-13] MEDS: LINEZOLID 600 MG TAB PO SCH (23:51)
[2023-10-13] MEDS: POTASSIUM CHLORIDE PWD 20 MEQ PACK GT SCH (23:51)
[2023-10-14] MEDS: HYDROmorphone INJ 1 MG/ML SYRINGE IV PRN (00:01)
[2023-10-14 06:30] LABS: Hematocrit (blood only) 26.4 % (42.0-52.0); Hemoglobin 8.3 g/dl (14.0-18.0); Mean Corpuscular Hemoglobin 28.9 pg (25.0-34.0); Mean Corpuscular Hgb Conc 31.4 g/dL (32.0-36.0); Mean Platelet Volume 11.1 fL (9.4-12.4); Platelet Count 157 K/uL (130-400); RDW Coefficient of Variation 16.5 % (11.5-14.5); RDW Standard Deviation 55.9 fL (36.4-46.3); Red Blood Count 2.87 M/uL (4.70-6.10); White Blood Count 18.37 K/ul (4.8-10.8)
[2023-10-14 06:48] LABS: Basophils # (auto) 0.02 K/uL (0.00-0.20); Basophils % (auto) 0.1 %; Eosinophils # (auto) 0.01 K/uL (0.00-0.50); Eosinophils % (auto) 0.1 %; Immature Granulocytes # (auto) 0.21 K/uL (0.01-0.20); Immature Granulocytes % (auto) 1.1 %; Lymphocytes # (auto) 0.27 K/uL (1.20-3.40); Lymphocytes % (auto) 1.5 %; Monocytes # (auto) 0.82 K/uL (0.11-0.59); Monocytes % (auto) 4.5 %; Neutrophils # (auto) 17.04 K/uL (1.40-6.50); Neutrophils % (auto) 92.7 %; Ovalocytes 1+
[2023-10-14 06:56] LABS: Albumin Globulin Ratio 0.8 (0.9-2); Albumin Level 2.5 gm/dl (3.4-5.0); BUN Creatinine Ratio 42.7 (10-20); Bilirubin,Total 0.5 mg/dl (0.2-1.0); Calcium 11.2 mg/dl (8.6-10.3); Creatinine Clr Calc Pharmacy 58.4 ml/min; Est GFR (African American) 100.4 ml/min; Est GFR (Non-African American) 86.6 ml/min; Magnesium 2.1 mg/dl (1.7-2.4); Phosphorus 3.7 mg/dl (2.5-4.9); Potassium 3.1 mmol/L (3.5-5.1); Total Protein 5.5 gm/dl (6.0-8.3)
[2023-10-14] MEDS: MIDODRINE HCL 10 MG TAB PO SCH (08:16)
--- NOTE | 2023-10-14 09:02 | Palliative Care Consultation ---
Date of Consultation October 14, 2023 Assessment & Plan (1) Cancer related pain: Beltran states his pain and dyspnea are poorly controlled and he would like more relief/comfort We discussed options and he elected CROP PEST CONTROL SPECIALIST only bolus Dilaudid. His sole assessor strength is reasonable and intact Will begin Dilaudid 0.3mg CROP PEST CONTROL SPECIALIST q15min prn without a continuous rate. Increased prn Dilaudid 1mg to q1h prn for very severe breakthrough pain patient is opioid tolerant Would be reasonable to think about adding in a continuous rate if a more formal decision to transition to METAL MOULDER is arrived upon however today pt wants to still try to treat his active/acute issues (2) Weakness generalized: (3) Encounter for hospice care discussion: 25 min ACP with pt face to face: I provided education about the hospice benefit: an interdisciplinary program offered by nurses, nurses aides, social workers, chaplains and a medical manager for patients with a terminal condition and a life expectancy of less than 6 months. This is covered by Medicare at 100%/no out of pocket expense to patient and all meds/supplies needed by patient for the reason they are on hospice are paid for/covered by hospice. The goal is assure quality of life of the patient in their home setting (home, jail, inpatient hospice setting) by providing symptoms management, psychosocial and spiritual support. However, they cannot offer 24 hours care and if the family is unable to provide that care, they will have to consider personal care with out of pocket cost vs. jail placement. We discussed the goals of hospice as a patient service and the goals of care; we discussed EOL trajectories and transitions nai the emotional impact of realizing mortality as a concrete reality from prior abstract considerations. Pt was reassured that no matter where they are along this trajectory, they are not alone - their medical team will remain by their side through their journey. Discussed the pros/cons of accepting help when especially weakened and distressed by pain-which would also help provide relief/decrease caregiver burden/strain. (4) Counseling regarding advanced directives and goals of care: see #3 above face to face with pt x25min, his sister and brother in law were present (5) Palliative care by specialist: Plan notified later this evening by primary team pt did not want him on dilaudid and wants him back on home regimen, which was done will follow up with tomorrow but will note, the patient reports insuff pain relief and he was already being given prn Dilaudid IV, moving this to CROP PEST CONTROL SPECIALIST only was to give him some control over when to take the med/have faster relief Thank you for allowing us to participate in the ongoing care of this patient. Please page with any additional concerns. 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, base of the tongue, s/p composite mandibulectomy and graft, chemotherapy, radiation and s/p PEG tube s/p trach he is here with PNA he would like PEG switched out, notes it has been 2 years and causes discomfort to use He and want all treatable things treated and are contemplating hospice at home but do not yet have a clear sense of what that entails/incldues/excludes he is seen bedside with sister and brother in law he is in pain and states current regimen of prn dilaudid IV is not enough and asks if we can do better to make his pain go away raspy voice Allergies Allergy/AdvReac Type Severity Reaction Status Date / Time herbal complex no.323 Allergy Severe RASH ALL Verified 10/11/23 15:19 [From Menofem] OVER BODY/LEGS ceftazidime Allergy Intermediate SWELLING Verified 10/11/23 15:19 OF LOWER LEGS--GOING FOR ALLERGY TESTING metronidazole [From Flagyl] Allergy Intermediate SWELLING Verified 10/11/23 15:19 OF LOWER LEGS--GOING FOR ALLERGY TESTING Penicillins Allergy Unknown CAN'T Verified 10/11/23 15:19 REMEMBER Home Medications Medication Instructions Recorded Confirmed Type Nutra 2.0 1 dose feeding tube DIRECTED 09/02/23 10/13/23 History ascorbic acid (vitamin C) 500 mg/5 500 mg feeding tube BID 09/02/23 10/13/23 History mL oral syrup aspirin 81 mg chewable tablet 81 mg feeding tube HS 09/02/23 10/13/23 History gabapentin 250 mg/5 mL oral 250 mg feeding tube TID 09/02/23 10/13/23 History solution lactulose 10 gram/15 mL oral 10 g feeding tube DAILY PRN 09/02/23 10/13/23 History solution Constipation midodrine 10 mg tablet 10 mg feeding tube TID 09/02/23 10/13/23 History multivitamin 0.5 tab feeding tube BID 09/02/23 10/13/23 History kaya oil 1 ea miscellaneous DAILY 09/02/23 10/13/23 History sennosides 8.8 mg/5 mL oral syrup 17.6 mg feeding tube BID PRN 09/02/23 10/13/23 History (senna) Constipation sodium di- and 1 tab feeding tube QPM 09/02/23 10/13/23 History monophosphate-potassium phos monobasic 250 mg tablet (Phospha Neutral) acetaminophen 650 mg/20.3 mL oral 650 mg feeding tube Q6H PRN Pain 10/11/23 10/13/23 History solution chlorhexidine gluconate 0.12 % 15 ml mucous membrane TID 10/11/23 10/13/23 History mouthwash furosemide 10 mg/mL oral solution 20 mg feeding tube DAILY PRN 10/11/23 10/13/23 History SWELLING OF LEGS levofloxacin 750 mg tablet 750 mg PO DAILY 10 days #10 tabs 10/11/23 10/13/23 Rx linezolid 600 mg tablet 600 mg PO BID 10 days #20 tabs 10/11/23 10/13/23 Rx mineral oil-hydrophil petrolat 1 applic topical BID 10/11/23 10/13/23 History topical ointment naloxone 4 mg/actuation nasal spray 1 spray intranasal DIRECTED PRN 10/11/23 10/13/23 History Opioid Overdose oxycodone 20 mg/mL oral concentrate 10 mg feeding tube Q3H PRN pain 10/11/23 10/13/23 History polyethylene glycol 3350 17 17 g feeding tube QPM PRN 10/11/23 10/13/23 History gram/dose oral powder Constipation potassium chloride 20 mEq oral 10 meq feeding tube BID 10/11/23 10/13/23 History packet (Klor-Con) sucralfate 1 gram tablet (Carafate) 1 g PO BID 4 weeks #56 tabs 10/11/23 10/13/23 Rx Patient History Social History Smoking Status: Never smoker Second Hand Exposure: No; Do You Dip or Chew Tobacco: No; Tobacco Cessation Education Requested by Patient: No Hx Alcohol Use: No Hx Substance Use: No Preferred Language: Estonian Communication Ability: Impaired Raw Stock Machine Feeder Required: No Beliefs That Will Affect Care: None Current Living Situation: Spouse Other Information That Helps Us Care for You: No Feels Safe at Home: Yes Safety Concerns: Feels Safe At This Time Assistive Devices: Nebulizer, Walker and Other Review of Systems Review of Systems: All systems reviewed & are unremarkable except as noted in Subjective Physical Exam Constitutional: + acute distress, + ill appearing, + cac hectic, + physical limitations, + frail appearing, cooperative and + in distress Eyes: PERRL ENMT: Nose: + dry nasal mucous membranes, + face asymmetric and + facial edema (right jaw to chin and neck) Mouth: + poor dentition Neck: + limited neck extension Respiratory: + labored breathing and + uses accessory muscles; + not able to speak in complete sentence Auscultation: + diminished lung sounds and + crackles Cardiovascular: Rate/Rhythm: + tachycardic Gastrointestinal (Abdomen): Inspection/Auscultation: + scaphoid (+peg) Musculoskeletal: gen weaknes Psychiatric: Orientation: alert and oriented x 3 Eye Contact: good eye contact Speech: + pressured speech Affect: + anxious affect and + tearful affect Results & Data Vital Signs (Past 12 Hours) Vital Signs Temp Pulse Pulse Resp BP Pulse Ox O2 Del Method 10/14/23 08:00 35.7 C L 62 18 118/72 93 Room Air 10/14/23 03:29 70 19 127/73 97 Trach Collar 10/14/23 01:42 Room Air 10/13/23 22:56 52 L 10/13/23 22:43 36.4 C L 62 18 115/71 90 Trach Collar 10/13/23 22:15 37.1 C 59 L 18 108/60 99 Room Air Laboratory Results 10/14/23 10/13/23 10/13/23 Range/Units 05:27 20:34 16:10 WBC 18.37 H (4.8-10.8) K/ul RBC 2.87 L (4.70-6.10) M/uL Hgb 8.3 L (14.0-18.0) g/dl Hct 26.4 L (42.0-52.0) % MCV 92.0 (80.0-100.0) fL MCH 28.9 (25.0-34.0) pg MCHC 31.4 L (32.0-36.0) g/dL RDW Std Deviation 55.9 H (36.4-46.3) fL RDW Coeff of Quinton 16.5 H (11.5-14.5) % Plt Count 157 (130-400) K/uL MPV 11.1 (9.4-12.4) fL Immature Gran % (Auto) 1.1 % Neut % (Auto) 92.7 % Lymph % (Auto) 1.5 % [place] % (Auto) 4.5 % Eos % (Auto) 0.1 % Baso % (Auto) 0.1 % Neut # (Auto) 17.04 H (1.40-6.50) K/uL Lymph # (Auto) 0.27 L (1.20-3.40) K/uL [place] # (Auto) 0.82 H (0.11-0.59) K/uL Eos # (Auto) 0.01 (0.00-0.50) K/uL Baso # (Auto) 0.02 (0.00-0.20) K/uL Immature Gran # (Auto) 0.21 H (0.01-0.20) K/uL Polychromasia Ovalocytes 1+ Echinocytes VBG pH 7.25 L (7.36-7.41) VBG pCO2 49 (38-50) mmHg VBG pO2 39 mmHg VBG HCO3 22 mmol/L VBG O2 Saturation 63.7 % VBG Base Excess -6.0 mEq/L Sodium 134 L (136-145) mmol/L Potassium 3.1 L (3.5-5.1) mmol/L Chloride 105 (98-107) mmol/L Carbon Dioxide 22 (21-32) mmol/L Anion Gap 7 (3-11) BUN 38 H (6-23) mg/dl Creatinine 0.89 (0.6-1.4) mg/dl Est Cr Clr Drug Dosing 58.4 ml/min Est GFR ( Amer) 100.4 ml/min Est GFR (Non-Af Amer) 86.6 ml/min BUN/Creatinine Ratio 42.7 H (10-20) Glucose 88 (70-99(Fasting)) mg/dl Lactate (0.4-2.0) mmol/L Calcium 11.2 H (8.6-10.3) mg/dl Phosphorus 3.7 (2.5-4.9) mg/dl Magnesium 2.1 (1.7-2.4) mg/dl Total Bilirubin 0.5 (0.2-1.0) mg/dl Direct Bilirubin (0-0.2) mg/dl AST 66 H (13-39) U/L ALT 61 H (7-52) U/L Alkaline Phosphatase 85 (34-104) U/L Total Protein 5.5 L (6.0-8.3) gm/dl Albumin 2.5 L (3.4-5.0) gm/dl Globulin 3.0 (2.5-4.0) gm/dl Albumin/Globulin Ratio 0.8 L (0.9-2) Lipase (11-82) U/L Urine Color Yellow Urine Appearance Clear (Clear) Urine pH 7.0 (4.5-7.5) Ur Specific Emerson 1.015 (1.000-1.030) Urine Protein 1+ H (Negative) Urine Glucose (UA) Negative (Negative) Urine Ketones Negative (Negative) Urine Blood Negative (Negative) Urine Nitrite Negative (Negative) Urine Bilirubin Negative (Negative) Urine Urobilinogen Negative (Negative) Ur Leukocyte Esterase Trace H (Negative) Urine WBC (Auto) 0-5 (0-5) /hpf Urine RBC (Auto) 3-5 H (0-2) /hpf U Hyaline Cast (Auto) 0-2 (0-2) /lpf U Epithel Cells (Auto) 0-2 (0-2) /hpf Urine Bacteria (Auto) None Seen (None Seen) Calcium Oxalate Crystal Present A (None Prsent) 10/13/23 Range/Units 15:15 WBC 17.77 H (4.8-10.8) K/ul RBC 2.91 L (4.70-6.10) M/uL Hgb 8.5 L (14.0-18.0) g/dl Hct 26.5 L (42.0-52.0) % MCV 91.1 (80.0-100.0) fL MCH 29.2 (25.0-34.0) pg MCHC 32.1 (32.0-36.0) g/dL RDW Std Deviation 54.7 H (36.4-46.3) fL RDW Coeff of Quinton 16.5 H (11.5-14.5) % Plt Count 183 (130-400) K/uL MPV 11.1 (9.4-12.4) fL Immature Gran % (Auto) 1.5 % Neut % (Auto) 91.7 % Lymph % (Auto) 1.7 % [place] % (Auto) 4.9 % Eos % (Auto) 0.1 % Baso % (Auto) 0.1 % Neut # (Auto) 16.30 H (1.40-6.50) K/uL Lymph # (Auto) 0.31 L (1.20-3.40) K/uL [place] # (Auto) 0.87 H (0.11-0.59) K/uL Eos # (Auto) 0.01 (0.00-0.50) K/uL Baso # (Auto) 0.01 (0.00-0.20) K/uL Immature Gran # (Auto) 0.27 H (0.01-0.20) K/uL Polychromasia 1+ Ovalocytes 1+ Echinocytes 1+ VBG pH (7.36-7.41) VBG pCO2 (38-50) mmHg VBG pO2 mmHg VBG HCO3 mmol/L VBG O2 Saturation % VBG Base Excess mEq/L Sodium 129 L (136-145) mmol/L Potassium 3.4 L (3.5-5.1) mmol/L Chloride 100 (98-107) mmol/L Carbon Dioxide 23 (21-32) mmol/L Anion Gap 6 (3-11) BUN 43 H (6-23) mg/dl Creatinine 0.95 (0.6-1.4) mg/dl Est Cr Clr Drug Dosing 57.8 ml/min Est GFR ( Amer) 93.6 ml/min Est GFR (Non-Af Amer) 80.8 ml/min BUN/Creatinine Ratio 45.3 H (10-20) Glucose 95 (70-99(Fasting)) mg/dl Lactate 1.0 (0.4-2.0) mmol/L Calcium 12.1 H* (8.6-10.3) mg/dl Phosphorus (2.5-4.9) mg/dl Magnesium (1.7-2.4) mg/dl Total Bilirubin 0.5 (0.2-1.0) mg/dl Direct Bilirubin 0.2 (0-0.2) mg/dl AST 67 H (13-39) U/L ALT 62 H (7-52) U/L Alkaline Phosphatase 91 (34-104) U/L Total Protein 5.9 L (6.0-8.3) gm/dl Albumin 2.8 L (3.4-5.0) gm/dl Globulin (2.5-4.0) gm/dl Albumin/Globulin Ratio (0.9-2) Lipase 9 L (11-82) U/L Urine Color Urine Appearance (Clear) Urine pH (4.5-7.5) Ur Specific Emerson (1.000-1.030) Urine Protein (Negative) Urine Glucose (UA) (Negative) Urine Ketones (Negative) Urine Blood (Negative) Urine Nitrite (Negative) Urine Bilirubin (Negative) Urine Urobilinogen (Negative) Ur Leukocyte Esterase (Negative) Urine WBC (Auto) (0-5) /hpf Urine RBC (Auto) (0-2) /hpf U Hyaline Cast (Auto) (0-2) /lpf U Epithel Cells (Auto) (0-2) /hpf Urine Bacteria (Auto) (None Seen) Calcium Oxalate Crystal (None Prsent) Diagnostic Findings Chest X-Ray 10/13/23 15:58 XR chest 1V portable HISTORY: 68 years-old Male PNA acute shortness of breath with reported pneumonia COMPARISON: 10/11/2023 TECHNIQUE: AP view of the chest FINDINGS: Left-sided PICC redemonstrated. Aortic valve endograft. Tracheostomy cannula. No pneumothorax. Trace pleural effusions. Patchy bibasilar collimation prior. Left axillary surgical clips. Bones appear grossly intact. IMPRESSION: 1. Similar appearance of the bibasilar airspace opacities suggestive of pneu monia versus aspiration pneumonitis. 2. Trace pleural effusions. ACT 112: Negative or not required by law. The above report was generated using voice recognition software. It may contain grammatical, syntax or spelling errors. Electronically signed by: Bar Ambrose M.D. 10/13/2023 5:14 PM PG Care Time/CCT Total # of Minutes Spent Total Time Spent with Patient: Total time spent is greater than 50% in coordination of care (as documented) at patient's floor/unit and/or counseling patient: I spent 85 minutes overall addressing this case: 15 min in medical data review/discussion with referring provider(s) and/or preparation for the visit 15 min in direct interaction with the patient/exam 25 min in Advance Care Planning/Goals of Care discussions as detailed above in note (must be >16min) 15 min in subsequent review and synthesis of assessment and plan 15 min communicating with other providers regarding the wong fonseca's case: Advanced Care Planning 34110 Advanced Care Planning 30 [place] [address] IN/OBS CONSULT LVL 4,60M Patient Type New History Comprehensive Exam Comprehensive Medical Decision Making High Complexity Diagnoses Cancer related pain G89.3 Weakness generalized R53.1 Encounter for hospice care discussion Z71.89 Counseling regarding advanced directives and goals of care Z71.89 Palliative care by specialist Z51.5 Additional Codes Advanced Care Planning - 63718 Advanced Care Planning 30 Min: 08948 Advanced Care Planning 30 Min ([id number])
[2023-10-14] MEDS: ALBUT/IPRATROP 3MG/0.5MG NEB 3 ML VIAL NEB SCH (09:16)
[2023-10-14] MEDS: SODIUM CHLOR 7% 4 ML NEB NEB SCH (09:16)
[2023-10-14] MEDS ORDERED: HYDROmorphone PCA 30 MG/30 ML IV PRN (13:07)
[2023-10-14] MEDS ORDERED: NALOXONE HCL 0.4 MG/1 ML VIAL/CARP IV PRN (13:07)
[2023-10-14] MEDS ORDERED: HYDROmorphone INJ 1 MG/ML SYRINGE IV PRN (13:09)
[2023-10-14] MEDS: SODIUM CHLORIDE 0.9% 1,000 ML IV SCH (14:19)
[2023-10-14] MEDS ORDERED: oxyCODONE HCL SOLN 5 MG/5 ML UDC PO PRN ×2 (16:15→17:07)
[2023-10-14] MEDS ORDERED: MoRPHine SULFATE 2 MG/ML CARP IV PRN (16:18)
[2023-10-14] MEDS: SODIUM CHLORIDE 0.9% 500 ML IV SCH (16:45)
[2023-10-14] MEDS: TUBE FEEDING WATER FLUSH GT SCH (16:45)
--- NOTE | 2023-10-14 16:49 | Hospitalist Progress Note ---
Date of Service October 14, 2023 Assessment & Plan (1) Multifocal pneumonia: Plan: Patient is a 67-year-old male with past medical history of SCC of the R mandible and tongue dx 2021 and s/p chemotherapy radiation/pembrolizumab, subsequent soft tissue infection versus osteonecrosis/osteomyelitis 06/2023 for which ID was consulted and recommended 6 weeks of meropenem for presumed osteomyelitis, after which patient had drainage from his tracheostomy 07/2023 and subsequently underwent right composite mandibulectomy, right neck dissection, left scapular and latissimus free flap to right neck grafting and treat tube exchange. He had postoperative hypotension and leukocytosis, given his prior Pseudomonas/Morganella positive cultures he was placed on cefepime and Flagyl with gradual clinical improvement. Was to continue 6 weeks of IV meropenem. Was subsequently admitted, mini with sepsis suspected from pneumonia with a MRSA sputum culture. He was discharged 09/09/2023 and completed 7 days of vancomycin/meropenem transition to cefepime plus Flagyl, and was to complete 3 more days of linezolid upon discharge at that time Patient was to start hospice 10/14/23. Patient was recently in the ED for possible G-tube displacement. CT abdomen pelvis showed left lobe airspace consolidation. He refused admission and was discharged on linezolid/levofloxacin. Culture was positive for Pseudomonas resistant to fluoroquinolone. He was called back to ED for IV antibiotic for multidrug resistant Pseudomonas Sepsis 2/2 Recurrent multifocal pneumonia Recently in the ED for G-tube displacement CT abdomen pelvis showed left lobe airspace consolidation. Sputum culture showed Pseudomonas aeruginosa; resistant to fluoroquinolone and meropenem Started on Zosyn. Continue on linezolid that was started previously. Will consult infectious disease regarding duration of antibiotic Airway clearance therapy with DuoNeb and hypertonic saline (2) Tracheostomy dependence: Plan: - Trach care (3) History of head and neck cancer: Plan: Squamous cell carcinoma of the right mandible, base of the tongue S/p composite mandibulectomy and graft, chemotherapy, radiation S/p PEG tube s/p trach Follows with [facility] O[facility]one 10 mg every 3 hours as needed Palliative care evaluated the patient; patient was being planned to be placed on Dilaudid REVERSER. However, patient's had bad experience with IV narcotics as she is not able to provide them at home and it leads to altered mental status. I discussed with her regarding pain management; she wants him to be on home pain regimen which includes oxycodone solution 10 mg every 3 hours as needed. Morphine 1 mg every 6 hours as needed was added after discussion with her. (4) CAD (coronary artery disease): Plan: Denies chest pain on admission Last echo 2023 with EF 60 to 65%. Bioprosthetic not well-visualized. History of diastolic dysfunction Lasix held for now Hypotension Worsened in the setting of active infection/sepsis. Fluids as noted Midodrine continued (5) Hypercalcemia: Plan: 12.1 on admission Bisphosphonate therapy deferred due to extensive bony and osteonecrotic d isease. -Given calcitonin 1 dose Will provide him in hydration with normal saline at 100 cc/h. Repeat BMP tomorrow a.m. (6) G tube feedings: Plan: - Nutrition consulted Continue G feeds as tolerated. Typically takes 1.5 cans of Nutra 2.0 diluted in an equal volume of water. Goal 5 cans but pt with poor tolerance to this. Nut rition consulted. Do not add fiber to patients feeds. Started at 10 cc continuous feed overnight due to recent poor tolerance, further titration and evaluation per dietitian (7) Pressure ulcer: Plan: Pressure ulcer, sacral and bilateral shoulder Wound care consulted [id number] mattress Plan Discussed with at bedside. Answer questions/queries. Time spent evaluating patient, direct bedside care, chart review, placing orders , interpretation of diagnostic studies, discussion with consultants, patient, and family members, as well as other required patient management activities is 50 minutes Please note the above document was generated using voice recognition software. It may contain grammatical, syntax or spelling errors. Any formal questions or concerns about the content, text or information contained within the body of this dictation should be directly addressed to the provider for clarification Prophylaxis: Heparin twice daily deferred due to patient discomfort, discussed with family prefers SCDs Diet: Tube feeds as noted Disposition: PCU CODE STATUS: DNR/DNI. No escalation of care to ICU/pressures for clinical decompensation Admission and Anticipated Discharge Date Admission Date: October 13, 2023 Subjective Patient seen and examined at bedside in the morning He is lying on the bed; he reports he has not been able to get any sleep overnight He reports that he wants to go home. Patient was also seen in the afternoon. He was sleepy. His was at bedside. We discussed current medication and plan. She did not want excessive pain medication that can cause sedation and could result im difficulty managing pain at home. She wants him to be on oxycodone and only on as needed morphine. Review of Systems Review of Systems: All systems reviewed & are unremarkable except as noted in Subjective Physical Exam Physical Exam: Constitutional: Appears cachectic. Oriented to name and place. Appears tired. HEENT; right neck surgical deformity with a graft in place. Trach in place. Respiratory: Coarse breath sound bilaterally. Cardiovascular: Systolic murmur. Chest: normal inspection of chest Abdomen: G-tube in place Musculoskeletal: Bilateral lower extremity with pitting edema Results & Data Results & Data Vital Signs (Past 12 Hours) Vital Signs Temp Pulse Resp BP Pulse Ox O2 Del Method 10/14/23 16:34 36.5 C 113 H 17 107/67 92 Room Air 10/14/23 11:50 36.4 C L 60 18 107/64 93 Room Air 10/14/23 08:00 35.7 C L 62 18 118/72 93 Room Air
[2023-10-14] MEDS ORDERED: MAGNESIUM HYDROXIDE SUSP 30 ML UDC PO SCH (17:15)
[2023-10-14] MEDS ORDERED: POLYETHYLENE (MIRALAX) 17 GM PACK PO SCH (17:15)
[2023-10-14] MEDS: MAGNESIUM HYDROXIDE SUSP 30 ML UDC PEG SCH (18:15)
[2023-10-14] MEDS: POLYETHYLENE (MIRALAX) 17 GM PACK PEG SCH (18:16)
[2023-10-15 05:57] LABS: Hematocrit (blood only) 26.3 % (42.0-52.0); Hemoglobin 8.2 g/dl (14.0-18.0); Mean Corpuscular Hemoglobin 28.9 pg (25.0-34.0); Mean Corpuscular Hgb Conc 31.2 g/dL (32.0-36.0); Mean Corpuscular Volume 92.6 fL (80.0-100.0); Mean Platelet Volume 11.3 fL (9.4-12.4); Platelet Count 167 K/uL (130-400); RDW Coefficient of Variation 16.6 % (11.5-14.5); Red Blood Count 2.84 M/uL (4.70-6.10); White Blood Count 19.36 K/ul (4.8-10.8)
[2023-10-15 06:13] LABS: Albumin Globulin Ratio 0.9 (0.9-2); Albumin Level 2.4 gm/dl (3.4-5.0); BUN Creatinine Ratio 35.4 (10-20); Bilirubin,Total 0.3 mg/dl (0.2-1.0); Calcium 10.7 mg/dl (8.6-10.3); Creatinine Clr Calc Pharmacy 57.5 ml/min; Est GFR (African American) 92.4 ml/min; Est GFR (Non-African American) 79.8 ml/min; Globulin 2.8 gm/dl (2.5-4.0); Potassium 2.9 mmol/L (3.5-5.1); Total Protein 5.2 gm/dl (6.0-8.3)
[2023-10-15] MEDS: POTASSIUM CHLORIDE / WTR 10 MEQ/100 ML PLCT IV SCH (06:29)
[2023-10-15 06:30] LABS: Basophils # (auto) 0.02 K/uL (0.00-0.20); Basophils % (auto) 0.1 %; Eosinophils # (auto) 0.05 K/uL (0.00-0.50); Eosinophils % (auto) 0.3 %; Immature Granulocytes # (auto) 0.18 K/uL (0.01-0.20); Immature Granulocytes % (auto) 0.9 %; Lymphocytes # (auto) 0.34 K/uL (1.20-3.40); Lymphocytes % (auto) 1.8 %; Monocytes # (auto) 0.79 K/uL (0.11-0.59); Monocytes % (auto) 4.1 %; Neutrophils # (auto) 17.98 K/uL (1.40-6.50); Neutrophils % (auto) 92.8 %
[2023-10-15] MEDS: SENNOSIDES 8.8 MG/5 ML UDC GT PRN (09:43)
[2023-10-15] MEDS ORDERED: oxyCODONE HCL SOLN 5 MG/5 ML UDC PO PRN (12:45)
--- NOTE | 2023-10-15 16:01 | Communication Note ---
Date of Service: October 15, 2023 I was asked to see this patient by Ale Palma of Palliative medicine, as the patient's PEG tube feeding adapter needed replaced due to leakage. I successfully replaced the PEG tube feeding adapter with a [facility] PEG-24 [place] Feeding adapter at the bedside. The tube was checked for functioning of the feeding an flush ports successfully. The patient's nurse Thomas was at the bedside. He was informed that the tube can be used as per prior.
--- NOTE | 2023-10-15 16:36 | Palliative Care Progress Note ---
Date of Service October 15, 2023 Assessment & Plan (1) Cancer related pain: (2) Dyspnea and respiratory abnormalities: (3) Encounter for hospice care discussion: Plan: I provided education about the hospice benefit: an interdisciplinary program offered by nurses, nurses aides, social workers, chaplains and a medical officer for patients with a terminal condition and a life expectancy of less than 6 months. This is covered by Medicare at 100%/no out of pocket expense to patient and all meds/supplies needed by patient for the reason they are on hospice are paid for/covered by hospice. The goal is assure quality of life of the patient in their home setting (home, retirement, inpatient hospice setting) by providing symptoms management, psychosocial and spiritual support. However, they cannot offer 24 hours care and if the family is unable to provide that care, they will have to consider personal care with out of pocket cost vs. retirement placement. We discussed the goals of hospice as a patient service and the goals of care; we discussed EOL trajectories and transitions ani the emotional impact of realizing mortality as a concrete reality from prior abstract considerations. Pt was reassured that no matter where they are along this trajectory, they are not alone - their medical team will remain by their side through their journey. Discussed the pros/cons of accepting help when especially weakened and distressed by pain-which would also help provide relief/decrease caregiver burden/strain. (4) Weakness generalized: (5) Counseling regarding advanced directives and goals of care: Plan: 45-minute [id number] advance care planning meeting was held with patient, his mother and his brother at the bedside together with care management. There has not been extensive amount of communications this morning with regards to patient's calling to notify staff that she will not accept patient back at home to provide care and advising family as well as med staff that should he return home, family will need to make sure he has caregiver support from them because she will not be his caregiver anymore. Patient's brother and mother state that the house belongs to the patient and his is not listed as an tree doctor. They have already discussed with her that they will be bringing patient back to his own home with the addition of home hospice per his preferences and they will be providing caregiver support. His brother will be transitioning up to patient's home for the duration of time as well, patient's additional family members including his son will also be assisting with his care. Patient's mother is very clear that they will "absolutely not consider anything other than going home, we will not place him in the home, he never wanted that and we are not going to do it." They share a significant amount of conflict that his predated this admission between patient's and patient's family, however family are united in a decision to pursue comfort present focus with the addition of hospice at home. It was also shared with us this morning that patient's son, mother and brother are his power of rubber down's. Patient's mother has the power of rubber down documentation at home which she will bring in tomorrow for nursing to scan and send to medical records for inclusion in the EMR. Son verified that he is the primary POA followed by his grandmother (patient's mother) and then his uncle (patient's brother). Patient's mother Tigist states that she would like the issue with his PEG tube addressed before discharging patient home. He is unable to take anything p.o. The PEG tube is the only way they are able to administer medications as well as provide his supplemental nutrition. It has been leaking for some time and they note that they feel it is only the cath that has to be replaced. I paged Dr. Carter/ GI and asked if this could be accommodated for patient's family. Dr Carter graciously agreed to see patient and take care of this issue for them. Family advised and they were very pleased and very appreciative. (6) Palliative care by specialist: Plan Comfort care orders have been written. Dr. Carter will see the patient to replace the leaking PEG tube hardware. A plan for home hospice discharge is being coordinated. Thank you for allowing us to participate in the ongoing care of this patient. Please page with any additional concerns. James Palma DNP Director, Palliative Medicine Admission and Anticipated Discharge Date Admission Date: October 13, 2023 Lori Gong is seen together with his mother, Tigist and his brother at bedside. He has had increased pain and dyspnea. His family at the bedside affirmed her desire for comfort focused plan of care with a return home with hospice. Review of Systems Review of Systems: All systems reviewed & are unremarkable except as noted in Subjective Physical Exam Constitutional: + acute distress, + ill appearing, + cac hectic, + physical limitations, + frail appearing, cooperative and + in distress Eyes: PERRL ENMT: Nose: + dry nasal mucous membranes, + face asymmetric and + facial edema (right jaw to chin and neck) Mouth: + poor dentition Neck: + limited neck extension Respiratory: + labored breathing and + uses accessory muscles; + not able to speak in complete sentence Auscultation: + diminished lung sounds and + crackles Cardiovascular: Rate/Rhythm: + tachycardic Gastrointestinal (Abdomen): Inspection/Auscultation: + scaphoid (+peg) Musculoskeletal: gen weaknes Psychiatric: Orientation: alert and oriented x 3 Eye Contact: good eye contact Speech: + pressured speech Affect: + anxious affect and + tearful affect Results & Data Vital Signs (Past 12 Hours) Vital Signs Temp Pulse Resp BP Pulse Ox O2 Del Method O2 Flow Rate 10/15/23 14:57 36.3 C L 64 20 102/60 95 Trach Collar 10/15/23 14:10 70 22 92 Trach Collar 4 10/15/23 11:35 36.4 C L 72 20 102/60 95 Trach Collar 10/15/23 10:22 66 20 93 Trach Collar 4 10/15/23 07:40 36.3 C L 68 20 104/67 96 Trach Collar 10/15/23 07:02 60 18 99 Trach Collar 4 FiO2 10/15/23 14:57 10/15/23 14:10 28 10/15/23 11:35 10/15/23 10:22 28 10/15/23 07:40 10/15/23 07:02 28 Laboratory Results 10/15/23 10/15/23 10/14/23 Range/Units 07:39 05:28 20:35 WBC 19.36 H (4.8-10.8) K/ul RBC 2.84 L (4.70-6.10) M/uL Hgb 8.2 L (14.0-18.0) g/dl Hct 26.3 L (42.0-52.0) % MCV 92.6 (80.0-100.0) fL MCH 28.9 (25.0-34.0) pg MCHC 31.2 L (32.0-36.0) g/dL RDW Std Deviation 56.0 H (36.4-46.3) fL RDW Coeff of Quinton 16.6 H (11.5-14.5) % Plt Count 167 (130-400) K/uL MPV 11.3 (9.4-12.4) fL Immature Gran % (Auto) 0.9 % Neut % (Auto) 92.8 % Lymph % (Auto) 1.8 % Barbour % (Auto) 4.1 % Eos % (Auto) 0.3 % Baso % (Auto) 0.1 % Neut # (Auto) 17.98 H (1.40-6.50) K/uL Lymph # (Auto) 0.34 L (1.20-3.40) K/uL Barbour # (Auto) 0.79 H (0.11-0.59) K/uL Eos # (Auto) 0.05 (0.00-0.50) K/uL Baso # (Auto) 0.02 (0.00-0.20) K/uL Immature Gran # (Auto) 0.18 (0.01-0.20) K/uL Polychromasia Ovalocytes Echinocytes VBG pH (7.36-7.41) VBG pCO2 (38-50) mmHg VBG pO2 mmHg VBG HCO3 mmol/L VBG O2 Saturation % VBG Base Excess mEq/L Sodium 138 (136-145) mmol/L Potassium 2.9 L (3.5-5.1) mmol/L Chloride 110 H (98-107) mmol/L Carbon Dioxide 23 (21-32) mmol/L Anion Gap 5 (3-11) BUN 34 H (6-23) mg/dl Creatinine 0.96 (0.6-1.4) mg/dl Est Cr Clr Drug Dosing 57.5 ml/min Est GFR ( Amer) 92.4 ml/min Est GFR (Non-Af Amer) 79.8 ml/min BUN/Creatinine Ratio 35.4 H (10-20) Glucose 125 H (70-99(Fasting)) mg/dl POC Glucose 152 H 116 H (70-99) mg/dl Lactate (0.4-2.0) mmol/L Calcium 10.7 H (8.6-10.3) mg/dl Phosphorus (2.5-4.9) mg/dl Magnesium (1.7-2.4) mg/dl Total Bilirubin 0.3 (0.2-1.0) mg/dl Direct Bilirubin (0-0.2) mg/dl AST 68 H (13-39) U/L ALT 65 H (7-52) U/L Alkaline Phosphatase 86 (34-104) U/L Total Protein 5.2 L (6.0-8.3) gm/dl Albumin 2.4 L (3.4-5.0) gm/dl Globulin 2.8 (2.5-4.0) gm/dl Albumin/Globulin Ratio 0.9 (0.9-2) Lipase (11-82) U/L Urine Color Urine Appearance (Clear) Urine pH (4.5-7.5) Ur Specific Aragon (1.000-1.030) Urine Protein (Negative) Urine Glucose (UA) (Negative) Urine Ketones (Negative) Urine Blood (Negative) Urine Nitrite (Negative) Urine Bilirubin (Negative) Urine Urobilinogen (Negative) Ur Leukocyte Esterase (Negative) Urine WBC (Auto) (0-5) /hpf Urine RBC (Auto) (0-2) /hpf U Hyaline Cast (Auto) (0-2) /lpf U Epithel Cells (Auto) (0-2) /hpf Urine Bacteria (Auto) (None Seen) Calcium Oxalate Crystal (None Prsent) 10/14/23 10/13/23 10/13/23 Range/Units 05:27 20:34 16:10 WBC 18.37 H (4.8-10.8) K/ul RBC 2.87 L (4.70-6.10) M/uL Hgb 8.3 L (14.0-18.0) g/dl Hct 26.4 L (42.0-52.0) % MCV 92.0 (80.0-100.0) fL MCH 28.9 (25.0-34.0) pg MCHC 31.4 L (32.0-36.0) g/dL RDW Std Deviation 55.9 H (36.4-46.3) fL RDW Coeff of Quinton 16.5 H (11.5-14.5) % Plt Count 157 (130-400) K/uL MPV 11.1 (9.4-12.4) fL Immature Gran % (Auto) 1.1 % Neut % (Auto) 92.7 % Lymph % (Auto) 1.5 % Barbour % (Auto) 4.5 % Eos % (Auto) 0.1 % Baso % (Auto) 0.1 % Neut # (Auto) 17.04 H (1.40-6.50) K/uL Lymph # (Auto) 0.27 L (1.20-3.40) K/uL Barbour # (Auto) 0.82 H (0.11-0.59) K/uL Eos # (Auto) 0.01 (0.00-0.50) K/uL Baso # (Auto) 0.02 (0.00-0.20) K/uL Immature Gran # (Auto) 0.21 H (0.01-0.20) K/uL Polychromasia Ovalocytes 1+ Echinocytes VBG pH 7.25 L (7.36-7.41) VBG pCO2 49 (38-50) mmHg VBG pO2 39 mmHg VBG HCO3 22 mmol/L VBG O2 Saturation 63.7 % VBG Base Excess -6.0 mEq/L Sodium 134 L (136-145) mmol/L Potassium 3.1 L (3.5-5.1) mmol/L Chloride 105 (98-107) mmol/L Carbon Dioxide 22 (21-32) mmol/L Anion Gap 7 (3-11) BUN 38 H (6-23) mg/dl Creatinine 0.89 (0.6-1.4) mg/dl Est Cr Clr Drug Dosing 58.4 ml/min Est GFR ( Amer) 100.4 ml/min Est GFR (Non-Af Amer) 86.6 ml/min BUN/Creatinine Ratio 42.7 H (10-20) Glucose 88 (70-99(Fasting)) mg/dl POC Glucose (70-99) mg/dl Lactate (0.4-2.0) mmol/L Calcium 11.2 H (8.6-10.3) mg/dl Phosphorus 3.7 (2.5-4.9) mg/dl Magnesium 2.1 (1.7-2.4) mg/dl Total Bilirubin 0.5 (0.2-1.0) mg/dl Direct Bilirubin (0-0.2) mg/dl AST 66 H (13-39) U/L ALT 61 H (7-52) U/L Alkaline Phosphatase 85 (34-104) U/L Total Protein 5.5 L (6.0-8.3) gm/dl Albumin 2.5 L (3.4-5.0) gm/dl Globulin 3.0 (2.5-4.0) gm/dl Albumin/Globulin Ratio 0.8 L (0.9-2) Lipase (11-82) U/L Urine Color Yellow Urine Appearance Clear (Clear) Urine pH 7.0 (4.5-7.5) Ur Specific Aragon 1.015 (1.000-1.030) Urine Protein 1+ H (Negative) Urine Glucose (UA) Negative (Negative) Urine Ketones Negative (Negative) Urine Blood Negative (Negative) Urine Nitrite Negative (Negative) Urine Bilirubin Negative (Negative) Urine Urobilinogen Negative (Negative) Ur Leukocyte Esterase Trace H (Negative) Urine WBC (Auto) 0-5 (0-5) /hpf Urine RBC (Auto) 3-5 H (0-2) /hpf U Hyaline Cast (Auto) 0-2 (0-2) /lpf U Epithel Cells (Auto) 0-2 (0-2) /hpf Urine Bacteria (Auto) None Seen (None Seen) Calcium Oxalate Crystal Present A (None Prsent) 10/13/23 Range/Units 15:15 WBC 17.77 H (4.8-10.8) K/ul RBC 2.91 L (4.70-6.10) M/uL Hgb 8.5 L (14.0-18.0) g/dl Hct 26.5 L (42.0-52.0) % MCV 91.1 (80.0-100.0) fL MCH 29.2 (25.0-34.0) pg MCHC 32.1 (32.0-36.0) g/dL RDW Std Deviation 54.7 H (36.4-46.3) fL RDW Coeff of Quinton 16.5 H (11.5-14.5) % Plt Count 183 (130-400) K/uL MPV 11.1 (9.4-12.4) fL Immature Gran % (Auto) 1.5 % Neut % (Auto) 91.7 % Lymph % (Auto) 1.7 % Barbour % (Auto) 4.9 % Eos % (Auto) 0.1 % Baso % (Auto) 0.1 % Neut # (Auto) 16.30 H (1.40-6.50) K/uL Lymph # (Auto) 0.31 L (1.20-3.40) K/uL Barbour # (Auto) 0.87 H (0.11-0.59) K/uL Eos # (Auto) 0.01 (0.00-0.50) K/uL Baso # (Auto) 0.01 (0.00-0.20) K/uL Immature Gran # (Auto) 0.27 H (0.01-0.20) K/uL Polychromasia 1+ Ovalocytes 1+ Echinocytes 1+ VBG pH (7.36-7.41) VBG pCO2 (38-50) mmHg VBG pO2 mmHg VBG HCO3 mmol/L VBG O2 Saturation % VBG Base Excess mEq/L Sodium 129 L (136-145) mmol/L Potassium 3.4 L (3.5-5.1) mmol/L Chloride 100 (98-107) mmol/L Carbon Dioxide 23 (21-32) mmol/L Anion Gap 6 (3-11) BUN 43 H (6-23) mg/dl Creatinine 0.95 (0.6-1.4) mg/dl Est Cr Clr Drug Dosing 57.8 ml/min Est GFR ( Amer) 93.6 ml/min Est GFR (Non-Af Amer) 80.8 ml/min BUN/Creatinine Ratio 45.3 H (10-20) Glucose 95 (70-99(Fasting)) mg/dl POC Glucose (70-99) mg/dl Lactate 1.0 (0.4-2.0) mmol/L Calcium 12.1 H* (8.6-10.3) mg/dl Phosphorus (2.5-4.9) mg/dl Magnesium (1.7-2.4) mg/dl Total Bilirubin 0.5 (0.2-1.0) mg/dl Direct Bilirubin 0.2 (0-0.2) mg/dl AST 67 H (13-39) U/L ALT 62 H (7-52) U/L Alkaline Phosphatase 91 (34-104) U/L Total Protein 5.9 L (6.0-8.3) gm/dl Albumin 2.8 L (3.4-5.0) gm/dl Globulin (2.5-4.0) gm/dl Albumin/Globulin Ratio (0.9-2) Lipase 9 L (11-82) U/L Urine Color Urine Appearance (Clear) Urine pH (4.5-7.5) Ur Specific Aragon (1.000-1.030) Urine Protein (Negative) Urine Glucose (UA) (Negative) Urine Ketones (Negative) Urine Blood (Negative) Urine Nitrite (Negative) Urine Bilirubin (Negative) Urine Urobilinogen (Negative) Ur Leukocyte Esterase (Negative) Urine WBC (Auto) (0-5) /hpf Urine RBC (Auto) (0-2) /hpf U Hyaline Cast (Auto) (0-2) /lpf U Epithel Cells (Auto) (0-2) /hpf Urine Bacteria (Auto) (None Seen) Calcium Oxalate Crystal (None Prsent) Diagnostic Findings Chest X-Ray 10/13/23 15:58 XR chest 1V portable HISTORY: 68 years-old Male PNA acute shortness of breath with reported pneumonia COMPARISON: 10/11/2023 TECHNIQUE: AP view of the chest FINDINGS: Left-sided PICC redemonstrated. Aortic valve endograft. Tracheostomy cannula. No pneumothorax. Trace pleural effusions. Patchy bibasilar collimation prior. Left axillary surgical clips. Bones appear grossly intact. IMPRESSION: 1. Similar appearance of the bibasilar airspace opacities suggestive of pneumonia versus aspiration pneumonitis. 2. Trace pleural effusions. ACT 112: Negative or not required by law. The above report was generated using voice recognition software. It may contain grammatical, syntax or spelling errors. Electronically signed by: Bar Ambrose M.D. 10/13/2023 5:14 PM PG Care Time/CCT Total # of Minutes Spent Total Time Spent with Patient: Total time spent is greater than 50% in coordination of care (as documented) at patient's floor/unit and/or counseling patient: I spent 95 minutes overall addressing this case: 10 min in medical data review/discussion with referring provider(s) and/or preparation for the visit 15 min in direct interaction with the patient/exam 45 min in Advance Care Planning/Goals of Care discussions as detailed above in note (must be >16min) 10 min in subsequent review and synthesis of assessment and plan 15 min communicating with other providers regarding the patient's case: Advanced Care Planning 77875 Advanced Care Planning 30 Min 81388 Advanced Care Planning Additional 30 Min [place] [address] SUB INP/OBS CARE 3/50MIN (25 - SIGNIFICANT, SEPARATELY IDENTIFIABLE ) Patient Type Established Medical Decision Making High Complexity Diagnoses Cancer related pain G89.3 Dyspnea and respiratory abnormalities R06.00; R06.89 Encounter for hospice care discussion Z71.89 Weakness generalized R53.1 Counseling regarding advanced directives and goals of care Z71.89 Palliative care by specialist Z51.5 Additional Codes Advanced Care Planning - 87045 Advanced Care Planning 30 Min: 46050 Advanced Care Planning 30 Min ([id number]) Advanced Care Planning - 36900 Advanced Care Planning Additional 30 Min: 57020 Advanced Care Planning Additional 30 Min ([id number])
--- NOTE | 2023-10-15 16:42 | Hospitalist Progress Note ---
Date of Service October 15, 2023 Assessment & Plan (1) Cancer related pain: (2) CAD (coronary artery disease): (3) Tracheostomy dependence: (4) Multifocal pneumonia: (5) Dysphagia: (6) Severe malnutrition: (7) Chronic osteomyelitis: Plan Patient with extensive complications associated with his head and neck cancer including chronic osteomyelitis, pneumonia, inability to eat and PEG tube dependent. Patient is in chronic pain and has requested to be kept comfortable. Extensive conversation with palliative care team. They have spoke with multiple family members. disability services coordinator also coordinating with family. Ultimately determined that son has power of deputy county attorney for medical decision making. After further discussion with the patient family and POA palliative care has walked the family the patient's through comfort care. Patient will be comfort measures only working on attempting to get the patient home with home hospice. I refer you to palliative care note from 10/15/2023 for details of family conversation and decision making Replace PEG tube to try and minimize leaking as coordinated with Dr. Carter and palliative care. Care management to continue to pursue and assist family with setting up home hospice 52 minutes spent on coordinating care, communication with palliative care and social and human services assistant and family Admission and Anticipated Discharge Date Admission Date: October 13, 2023 Subjective Patient minimally arousable but did seem to indicate he was still having some pain. Family at bedside Physical Exam Physical Exam: Constitutional: Lethargic, frail, cachectic, difficult to arouse HEENT: Tongue dry, tracheostomy Lungs: Decreased breath sounds, coarse upper airway sounds CV: S1-S2, regular Abdomen: Soft, nontender, nondistended Extremities: No significant edema Neuro: Generalized weakness Psych: Cooperative Results & Data Results & Data Vital Signs (Past 12 Hours) Vital Signs Temp Pulse Resp BP Pulse Ox O2 Del Method O2 Flow Rate 10/15/23 14:57 36.3 C L 64 20 102/60 95 Trach Collar 10/15/23 14:10 70 22 92 Trach Collar 4 10/15/23 11:35 36.4 C L 72 20 102/60 95 Trach Collar 10/15/23 10:22 66 20 93 Trach Collar 4 10/15/23 07:40 36.3 C L 68 20 104/67 96 Trach Collar 10/15/23 07:02 60 18 99 Trach Collar 4 FiO2 10/15/23 14:57 10/15/23 14:10 28 10/15/23 11:35 06/12/24 10:22 28 10/15/23 07:40 10/15/23 07:02 28 Diagnostic Findings Reviewed imaging, laboratory and diagnostic studies. Pertinent findings as below.
[2023-10-16] MEDS: HYDROmorphone INJ 0.5 MG/0.5 ML SYR IV PRN (07:44)
[2023-10-16] MEDS ORDERED: ATROPINE SULFATE 1% OP SOLN 5 ML BTL SL PRN (13:46)
[2023-10-16] MEDS ORDERED: GLYCOPYRROLATE 0.2 MG/ML VIAL IV PRN (13:46)
[2023-10-16] MEDS ORDERED: LORazepam 0.5 MG in SYRINGE 0.25 ML IV PRN (13:46)
[2023-10-16] MEDS ORDERED: ONDANSETRON 4 MG OD TAB SL PRN (13:46)
[2023-10-16] MEDS ORDERED: ONDANSETRON INJ 2 MG/ML 2 ML VIAL IV PRN (13:46)
[2023-10-16] MEDS ORDERED: LORazepam 0.5 MG TAB PO PRN ×2 (13:46→13:51)
--- NOTE | 2023-10-16 13:53 | Hospitalist Progress Note ---
Date of Service October 16, 2023 Assessment & Plan (1) Cancer related pain: (2) CAD (coronary artery disease): (3) Tracheostomy dependence: (4) Multifocal pneumonia: (5) Dysphagia: (6) Severe malnutrition: (7) Chronic osteomyelitis: Plan Patient is critically ill and candidate for hospice. Continue comfort care, transition to medications they will be able to give at home. Communication with care coordination, working on setting up home hospice with family. Continue continuous feeds as requested by family Increase oxycodone frequency for comfort Discharged with hospice when coordinated Admission and Anticipated Discharge Date Admission Date: October 13, 2023 Subjective Patient is requesting to get out of bed and into a chair. Pain medicines are helping Physical Exam Physical Exam: Constitutional: Alert, frail, cachectic HEENT: Mucous membranes dry, deformity from surgery. Tracheostomy Lungs: Clear to auscultation, decreased, no wheezes rales or rhonchi CV: S1-S2, regular Abdomen: Soft, PEG tube in place Extremities: No significant edema Neuro: No focal deficits generalized weakness Psych: Cooperative, normal mood Results & Data Results & Data Vital Signs (Past 12 Hours) Vital Signs Temp Pulse Resp BP Pulse Ox O2 Del Method O2 Flow Rate 10/16/23 11:11 75 15 94 Trach Collar 6 10/16/23 09:35 36.6 C 68 20 108/68 100 Trach Collar FiO2 10/16/23 11:11 28 10/16/23 09:35
[2023-10-16] MEDS: oxyCODONE HCL SOLN 5 MG/5 ML UDC PO PRN (16:29)
--- NOTE | 2023-10-16 17:36 | Infectious Disease Consult ---
Date of Service October 16, 2023 Telehealth Information I performed this visit using a real-time telehealth connection between my location and the patients location ([facility]). After connecting through interactive tele-video, patient was identified by name and date of and/or wristband check.Patient (or authorized healthcare vaccine customer representative) was informed that this was a telemedicine visit and it was being conducted confidentially over secure lines. My office door was closed and no one else was present in the room with me.Patient (or authorized healthcare vaccine customer representative) provided consent to proceed with the visit, expressed an understanding of privacy and security of the telemedicine visit, and gave permission to have a hospital vaccine customer representative in the room in order to assist with the visit and to conduct portions of the visit, as needed. I informed the patient (or authorized healthcare vaccine customer representative) that I reviewed their record and presented the opportunity for them to ask any questions regarding the visit today. The patient agreed to participate. 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 If we were being very aggressive, we might consider an extended infusion or even a novel beta lactam (unclear if this is truly needed but given the parker resistance I think it would be reasonable to consider it if the patient was severely ill and wanted to be as aggressive as possible). However, if the patient elects to go home on either standard dose cefepime or even no antibiotics at all, I will support whatever aligns with his wishes/goals of care. Feel free to send me a secure message to discuss if the GOC change. History of Present Illness History of Present Illness The patient was admitted for growth of PsA from a respiratory culture (in the context of head/neck cancer on comfort measures only). Allergies Allergy/AdvReac Type Severity Reaction Status Date / Time herbal complex no.323 Allergy Severe RASH ALL Verified 10/11/23 15:19 [From Menofem] OVER BODY/LEGS ceftazidime Allergy Intermediate SWELLING Verified 10/11/23 15:19 OF LOWER LEGS--GOING FOR ALLERGY TESTING metronidazole [From Flagyl] Allergy Intermediate SWELLING Verified 10/11/23 15:19 OF LOWER LEGS--GOING FOR ALLERGY TESTING Penicillins Allergy Unknown CAN'T Verified 10/11/23 15:19 REMEMBER Home Medications Medication Instructions Recorded Confirmed Type Nutra 2.0 1 dose feeding tube DIRECTED 09/02/23 10/13/23 History ascorbic acid (vitamin C) 500 mg/5 500 mg feeding tube BID 09/02/23 10/13/23 History mL oral syrup aspirin 81 mg chewable tablet 81 mg feeding tube HS 09/02/23 10/13/23 History gabapentin 250 mg/5 mL oral 250 mg feeding tube TID 09/02/23 10/13/23 History solution lactulose 10 gram/15 mL oral 10 g feeding tube DAILY PRN 09/02/23 10/13/23 History solution Constipation midodrine 10 mg tablet 10 mg feeding tube TID 09/02/23 10/13/23 History multivitamin 0.5 tab feeding tube BID 09/02/23 10/13/23 History kaya oil 1 ea miscellaneous DAILY 09/02/23 10/13/23 History sennosides 8.8 mg/5 mL oral syrup 17.6 mg feeding tube BID PRN 09/02/23 10/13/23 History (senna) Constipation sodium di- and 1 tab feeding tube QPM 09/02/23 10/13/23 History monophosphate-potassium phos monobasic 250 mg tablet (Phospha Neutral) acetaminophen 650 mg/20.3 mL oral 650 mg feeding tube Q6H PRN Pain 10/11/23 10/13/23 History solution chlorhexidine gluconate 0.12 % 15 ml mucous membrane TID 10/11/23 10/13/23 History mouthwash furosemide 10 mg/mL oral solution 20 mg feeding tube DAILY PRN 10/11/23 10/13/23 History SWELLING OF LEGS levofloxacin 750 mg tablet 750 mg PO DAILY 10 days #10 tabs 10/11/23 10/13/23 Rx linezolid 600 mg tablet 600 mg PO BID 10 days #20 tabs 10/11/23 10/13/23 Rx mineral oil-hydrophil petrolat 1 applic topical BID 10/11/23 10/13/23 History topical ointment naloxone 4 mg/actuation nasal spray 1 spray intranasal DIRECTED PRN 10/11/23 10/13/23 History Opioid Overdose oxycodone 20 mg/mL oral concentrate 10 mg feeding tube Q3H PRN pain 10/11/23 10/13/23 History polyethylene glycol 3350 17 17 g feeding tube QPM PRN 10/11/23 10/13/23 History gram/dose oral powder Constipation potassium chloride 20 mEq oral 10 meq feeding tube BID 10/11/23 10/13/23 History packet (Klor-Con) sucralfate 1 gram tablet (Carafate) 1 g PO BID 4 weeks #56 tabs 10/11/23 10/13/23 Rx Patient History Social History Smoking Status: Never smoker Second Hand Exposure: No; Do You Dip or Chew Tobacco: No; Tobacco Cessation Education Requested by Patient: No Hx Alcohol Use: No Hx Substance Use: No Preferred Language: Bulgarian Communication Ability: Impaired Machine Operations Supervisor Required: No Beliefs That Will Affect Care: Alevism Current Living Situation: Spouse Other Information That Helps Us Care for You: No Feels Safe at Home: Yes Safety Concerns: Feels Safe At This Time Assistive Devices: Nebulizer, Walker and Other Review of Systems Limited due to patient's mental status Physical Exam Vitals: as above (or see EMR) Exam limited due to constraints of telemedicine Gen/Constitutional: appears at stated age, ill Head: AT, NC Eyes: sclera anicteric, no conjunctival injection Card: appears to be well-perfused Resp: nml effort, symmetric chest rise, no accessory muscle use Derm: no visible diaphoresis, no visible rash, no visible jaundice Results & Data Vital Signs (Past 12 Hours) Vital Signs Temp Pulse Resp BP Pulse Ox O2 Del Method O2 Flow Rate 10/16/23 15:34 75 18 97 Trach Collar 6 10/16/23 11:11 75 15 94 Trach Collar 6 10/16/23 09:35 36.6 C 68 20 108/68 100 Trach Collar FiO2 10/16/23 15:34 28 10/16/23 11:11 28 10/16/23 09:35 Laboratory Results SEE EMR Diagnostic Findings [facility] [address] [place] [address] / Director: Indra Brito M.D. Clinical Laboratory Report Name: MARIPOSA PRIETO Acct: [id number] Status: CATALINA VAZQUEZ : 1955 [facility] Date: 10/11/23 Age: 68 Sex: M Dis Date: Loc: Emergency Department Spec: [id number] Collected: 10/11/23 Received: 10/11/23-[address]: Francis Skinner MD Source: Sputum,Trach OV Order: Ordered: Sputum Cult/Smr Procedure Result Verified Site Gram Stain Final 10/11/23-160 Gram Stain Result Rare Epithelial Cells Moderate WBCs Seen Rare Gram Negative Bacilli Sputum Culture Final 10/13/23-1127 Organism 1 Pseudomonas aeruginosa Quantity Moderate Sens Sensitivities to Follow Normal Chiquis No Normal Chiquis P aerugino RX M.I.C. --- --------- Cefepime S 8 Ceftazidime S 4 Ceftaz/Avibact S <=4 Ciprofloxacin R >2 Gentamicin S <=4 Levofloxacin R >4 Meropenem R 4 Tobramycin S <=4 Pip/Tazo S <=16 S = SENSITIVE I = INTERMEDIATE R = RESISTANT Name: MARIPOSA PRIETO : 1955 PAGE 1 Printed: 10/16/23 [id number] END OF REPORT
[2023-10-16] MEDS: NUTREN LIQD 2.0 1,000 ML BAG GT SCH (23:37)
[2023-10-17] MEDS: ACETAMINOPHEN SUSP 325 MG/10.15 ML UDC PEG SCH (09:09)
[2023-10-17] MEDS ORDERED: ALBUT/IPRATROP 3MG/0.5MG NEB 3 ML VIAL NEB PRN (11:22)
[2023-10-17] MEDS: oxyCODONE HCL SOLN 5 MG/5 ML UDC PO PRN (11:44)
--- NOTE | 2023-10-17 14:52 | Discharge Summary ---
Discharge Summary Date of Service October 17, 2023 Principal Dx & Hospital Course #1 = Principal Diagnosis (1) Cancer related pain: (2) CAD (coronary artery disease): (3) Tracheostomy dependence: (4) Multifocal pneumonia: (5) Dysphagia: (6) Severe malnutrition: (7) Chronic osteomyelitis: Plan Patient was admitted to the hospital. Initially started on broad-spectrum antibiotics for Pseudomonas infection. Patient has been treated for head and neck cancer. He is now tracheostomy dependent and PEG dependent and having severe chronic pain. Also been treated for chronic osteomyelitis and other infections. Palliative care consultation was obtained. Additionally, there was significant family dynamics that were creating issues between the patient's and other family members. Power of psychiatry physician papers were obtained and the patient's son, brother and mother were power of psychiatry physician. However, patient is alert and able to make his own decisions. Palliative care had an extensive family meeting and the patient's desire is to be kept comfortable and be kept at home. He did not want to pursue any other aggressive interventions. Our care trended and moved towards comfort care. Patient's pain medications were adjus josh. director of cloud services were involved in the patient's care and help coordinate home hospice. Interventional radiology was consulted to replace patient's PEG tube due to leakage. Patient does desire to be kept on his feeding tube because he feels that he would be uncomfortable if not fed. On the day of discharge with adjustment of his pain medications the patient's pain was much better controlled. I had a long discussion with the patient at the bedside. I explained to him comfort measures. I explained to him hospice care. I explained to him that our goal will be to keep him at home and keep him comfortable. He would not be sent to the hospital for aggressive workup if any other type of issues would arise. I even explained to him that if another infection would arise we would with hospice make sure he does not suffer from this infection but allow it to take its course even if that would result in his . The patient completely understood this conversation. He reiterated mulmarian iple times that he wanted to go home. He reiterated multiple times that he wanted to be kept comfortable at home. He also reiterated multiple times that he did understood that he would not be taken to the hospital and given aggressive interventions and care. That our goal would be to give him medicines purely for comfort and be kept at home. Patient's extended family was in the room and witnessed this conversation. The nurse was also at the bedside and witnessed this conversation. I am confident that the patient has decision- making capacity. I am confident that that this patient understands what he is choosing. He has significant medical issues of placement chronic pain and I believe that he is very appropriate for hospice care. Patient will be discharged home with hospice care to control his symptoms and keep him at home where he wants to be. 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 He had postoperative hypotension and leukocytosis, given his prior Pseudomonas/Morganella positive cultures he was placed on cefepime and Flagyl with gradual clinical improvement. Was to con tinue 6 weeks of IV meropenem. Was subsequently admitted, mini with sepsis suspected from pneumonia with a MRSA sputum culture. He was discharged 09/09/2023 and completed 7 days of vancomycin/meropenem transition to cefepime plus Flagyl, and was to complete 3 more days of linezolid upon discharge at that time Patient was to start hospice 10/14/23. He presented to the ER 10/11/2023 for possible G-tube displacement/malfunction. CT A/P at that time showed left lobe airspace consolidations and trace pleural effusions. He did refuse admission at that time, was prescribed linezolid/levofloxacin to attempt to treat his observed recurrent pneumonia; cultures speciated for Pseudomonas which was resistant to fluoroquinolones. He was recalled to the emergency department for IV treatment for MDR Pseudomonas. On ER assessment he was volume contracted, hypercalcemic, with a leukocytosis of 17. Repeat imaging was not performed given recent interval and imaging. Blood cultures pending, patient was ordered Zosyn. Goals of care were discussed with the patient's and his at the bedside by ER provider. Patient was scheduled to enroll in hospice and would like to continue conservative care goals consistent with this; however treatment of active infection including IV antibiotics at this time are within her goals of care. They would like to be admitted to hospital for IV antibiotic treatment, without escalation of care should patient decompensate Per Patient: Patient is seen with his faily and wif eulaliant. THey report they are here to treat a pneumonia Was in the ER previously, was recommended to stay but did not wish to and was discharged home onvaquin Hospice was to start tomorrow. Per his 'patient was ready to throw in the towel, but now want to get straightened up and at least get through this infection' No fevers, but had been warm Trach suction material 'darker, gunky, and thick' no chest pain or chest pressure G tube has been functioning normally, but has not been replaced in 2 years. Was previously displaced, but appears to be functional. Was to see [facility] for a replacement. Was placed by a GI doctor. Would like replaced if possible. utrin 2.0 , 5 cartons per day (16oz each, approximately 1 cup). No fiber. Suppose dto take 5 boluses throughout the day, down to 1.5 cartons per day due to poor tolerance. Does not do free water pushes, usually mixes nitrin with an equal volume of water and somtimes a small flush of water after. Large sacral ulcer, pending an appointment with a surgeon at [facility] to have a patch placed. Was at the side of his graft harvest, so tends to lean to that side. Has shoulder pressure ulcers. Patient defers exam at tiem of admission 2/2 comfort Goals of Care: Discussed with patient and his at bedside, with additional family present. Extensive discussion regarding goals of care up until this point. Patient has expressed that he is very tired and would like to pursue hospice, and that they were pending enrollment in this tomorrow. They do not wish for any invasive treatments or treatments that are not going to improve quality of life, however treatments that may improve quality and decrease pain are things he would still like to pursue. Antibiotic treatment, any potential grafting that could help alleviate ulcer pain, and G-tube replacement if this becomes uncomfortable are all within this goal of care to the patient. They report their goals of this admission is to treat his pneumonia, and get to a point of wellness just prior to that around 2 weeks ago and then focus on hospice with home health and comfort. Should he decline and become critically ill escalation to the ICU, invasive interventions including vasopressors are not things that Beltran wants and are not within his goals of care. 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 It is important for him and his family to feel like he is not giving up and do not want to "throw in the towel "for treatable or reversible parts of his illness, also expresses he and his agree that his most important value at this time is the comfort and quality at the end of his life. On shared decision making family would like to pursue the following plan: 1. Inpatient treatment for his fluoroquinolone resistant Pseudomonas infection. Could transition to outpatient/hospice if able to receive IV treatment at home 2. Would like to have his G-tube replaced at some point when stable/able for comfort as it has been over 2 years since this is replaced and notes that it is more uncomfortable for him to use 3. Continue NG feeds as tolerated. Typically takes 1.5 cans of Nutra 2.0 diluted in an equal volume of water. Nutrition consulted. Do not add fiber to patients feeds. 4. Please like to keep outpatient referrals to review graphs for the wounds on his right hip as this causes him pain, and surgical opinion on whether interventions or procedures could help his pain as he tends to lean towards his graft site 5. If patient enters the active phase of dying, or decompensates/becomes critically ill Beltran does not wish for ICU level of care or vasopressors. Would transition to PRODUCTION PACKAGER at that point 6. Would like to meet with the palliative care provider while inpatient, and would like to keep the goal of transitioning to home hospice Admission Exam Per Admitting Provider See H&P Discharge Exam Constitutional: Alert, frail, cachectic HEENT: Mucous membranes moist. Tracheostomy Lungs: Clear to auscultation, decreased, coarse upper airway sounds CV: S1-S2, regular Abdomen: Soft, nontender, nondistended, PEG tube in place Extremities: No significant edema Neuro: No focal deficits generalized weakness Psych: Cooperative, normal mood Updated Medication List Medication Instructions Recorded Confirmed Type Nutra 2.0 1 dose feeding tube DIRECTED 09/02/23 10/13/23 History ascorbic acid (vitamin C) 500 mg/5 500 mg feeding tube BID 09/02/23 10/13/23 History mL oral syrup aspirin 81 mg chewable tablet 81 mg feeding tube HS 09/02/23 10/13/23 History gabapentin 250 mg/5 mL oral 250 mg feeding tube TID 09/02/23 10/13/23 History solution lactulose 10 gram/15 mL oral 10 g feeding tube DAILY PRN 09/02/23 10/13/23 History solution Constipation midodrine 10 mg tablet 10 mg feeding tube TID 09/02/23 10/13/23 History multivitamin 0.5 tab feeding tube BID 09/02/23 10/13/23 History kaya oil 1 ea miscellaneous DAILY 09/02/23 10/13/23 History sennosides 8.8 mg/5 mL oral syrup 17.6 mg feeding tube BID PRN 09/02/23 10/13/23 History (senna) Constipation sodium di- and 1 tab feeding tube QPM 09/02/23 10/13/23 History monophosphate-potassium phos monobasic 250 mg tablet (Phospha Neutral) acetaminophen 650 mg/20.3 mL oral 650 mg feeding tube Q6H PRN Pain 10/11/23 10/13/23 History solution chlorhexidine gluconate 0.12 % 15 ml mucous membrane TID 10/11/23 10/13/23 History mouthwash furosemide 10 mg/mL oral solution 20 mg feeding tube DAILY PRN 10/11/23 10/13/23 History SWELLING OF LEGS levofloxacin 750 mg tablet 750 mg PO DAILY 10 days #10 tabs 10/11/23 10/13/23 Rx linezolid 600 mg tablet 600 mg PO BID 10 days #20 tabs 10/11/23 10/13/23 Rx mineral oil-hydrophil petrolat 1 applic topical BID 10/11/23 10/13/23 History topical ointment naloxone 4 mg/actuation nasal spray 1 spray intranasal DIRECTED PRN 10/11/23 10/13/23 History Opioid Overdose oxycodone 20 mg/mL oral concentrate 10 mg feeding tube Q3H PRN pain 10/11/23 10/13/23 History polyethylene glycol 3350 17 17 g feeding tube QPM PRN 10/11/23 10/13/23 History gram/dose oral powder Constipation potassium chloride 20 mEq oral 10 meq feeding tube BID 10/11/23 10/13/23 History packet (Klor-Con) sucralfate 1 gram tablet (Carafate) 1 g PO BID 4 weeks #56 tabs 10/11/23 10/13/23 Rx acetaminophen 650 mg/20.3 mL oral 650 mg (20.3 mL) PO Q6H #1,015 mL 10/17/23 Rx solution Hospital Stay Data Consultations 10/13/23 16:13 ED Decision to Admit Stat 10/13/23 17:21 Consult Palliative Care Routine 10/14/23 17:06 Consult Infectious Diseases Routine 10/15/23 12:47 Consult Gastroenterology Routine Diagnostic Imagining Performed Reviewed imaging, laboratory and diagnostic studies. Pertinent findings as below. Pending Results Patient Have Any Pending Studies at Discharge: No Discharge Instructions Given to Patient (Per Discharging Provider) Call hospice first with any questions or concerns Total Time Total Time Spent Total Time Spent (In Minutes): 65
== END 2023-10-17 17:51 | disposition hospice, home (50) | DRG 871 ==
LOC: ED 13:58 → EDINP 17:20 → SUATTDRO 17:20 → EDINP 19:43 → 4W 22:31 → 3E 10-15 22:23

== ENCOUNTER 2023-10-28 13:14 | Inpatient (IN) ==
--- NOTE | 2023-10-28 14:09 | XRay Report ---
XR chest 1V portable CLINICAL HISTORY: Chest pain, nonspecific COMPARISON STUDY: Chest CT September 02, 2023. Chest radiograph October 13, 2023. FINDINGS: A left-sided PICC, prosthetic aortic valve, right neck and left axillary surgical clips are again noted. There is no pneumothorax or pleural effusion. Extensive bibasilar opacities. Right midl josé miguel opacity has slightly increased. Left basilar opacity is slightly increased. Gaseous distention of several bowel loops within the upper abdomen is again noted. IMPRESSION: Progression of extensive bilateral airspace opacities suggestive of pneumonia or aspirati on pneumonitis. Radiographic follow-up to ensure resolution is recommended. ACT 112: Negative or not required by law. Electronically signed by: Soham Becerra M.D. 10/28/2023 2:08 PM
[2023-10-28 14:13] LABS: Albumin Globulin Ratio 0.8 (0.9-2); Albumin Level 2.5 gm/dl (3.4-5.0); BUN Creatinine Ratio 53.5 (10-20); Bilirubin,Total 0.5 mg/dl (0.2-1.0); Calcium 12.1 mg/dl (8.6-10.3); Creatinine Clr Calc Pharmacy 50.1 ml/min; Est GFR (African American) 75.1 ml/min; Est GFR (Non-African American) 64.8 ml/min; Magnesium 2.2 mg/dl (1.7-2.4); Phosphorus 3.9 mg/dl (2.5-4.9); Potassium 3.7 mmol/L (3.5-5.1); Total Protein 5.5 gm/dl (6.0-8.3)
[2023-10-28 14:32] LABS: Hematocrit (blood only) 26.2 % (42.0-52.0); Hemoglobin 8.5 g/dl (14.0-18.0); Mean Corpuscular Hemoglobin 28.8 pg (25.0-34.0); Mean Corpuscular Hgb Conc 32.4 g/dL (32.0-36.0); Mean Corpuscular Volume 88.8 fL (80.0-100.0); Mean Platelet Volume 11.2 fL (9.4-12.4); Platelet Count 139 K/uL (130-400); RDW Coefficient of Variation 16.6 % (11.5-14.5); RDW Standard Deviation 53.7 fL (36.4-46.3); Red Blood Count 2.95 M/uL (4.70-6.10)
[2023-10-28 14:33] LABS: Basophils # (auto) 0.03 K/uL (0.00-0.20); Basophils % (auto) 0.1 %; Echinocytes 1+; Eosinophils # (auto) 0.01 K/uL (0.00-0.50); Immature Granulocytes # (auto) 0.12 K/uL (0.01-0.20); Immature Granulocytes % (auto) 0.5 %; Lymphocytes # (auto) 0.22 K/uL (1.20-3.40); Monocytes # (auto) 0.75 K/uL (0.11-0.59); Monocytes % (auto) 3.4 %; Neutrophils # (auto) 20.77 K/uL (1.40-6.50); Ovalocytes 1+
[2023-10-28] MEDS ORDERED: VANCOMYCIN CONSULT ACTIVE PRN (14:41)
[2023-10-28 14:43] LABS: Troponin I High Sensitivity 19.7 pg/ml (0-20)
--- NOTE | 2023-10-28 14:54 | Emergency Department Note ---
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 Per EMS report the wanted the patient to get rehab. The patient is a poor historian and it is difficult to obtain history directly from him. [facility] hospice agency was contacted by her case management team and they were not aware that the patient was brought to the hospital. They report they are ready to reinstate the patient's hospice if he were to return home. The patient is acute on chronically ill-appearing, cachectic and frail with O2 saturation 92% on 12 L trach collar at 50% FiO2. Blood pressure is 88/54 with baseline history of blood pressures 90s-100s/60s-70s. Patient has pressure ulcers of his back most severe on the left greater than right scapula. Chest x-ray demonstrates multifocal pneumonia. WBC 21.9 K with neutrophil predominance though no left shift. H/H similar to prior. Platelets within normal limits. Chemistry without metabolic acidosis. BUNs/creatinine is 53, consistent with patient's clinically dry appearance. Sodium is 129 likely related to poor solute intake. Calcium is elevated at 12.1, likely related to the patient's dehydration and history of cancer. LFTs are unremarkable. Albumin is chronically low at 2.5. Blood culture obtained and empiric antibiotic treatment for multifocal pneumonia initiated with Zosyn and vancomycin at this time per prior Pseudomonas and MRSA sputum cultures. 1L NSS administered. 30cc/kg deferred due to low albumin and concern for overload. Calcitonin also administered due to hypercalcemia. Case was discussed with Dr. Armas, [facility] hospitalist, who will evaluate the patient for admission. Further management per admitting team. Triage Nursing notes reviewed and agree them. Prior/external medical records reviewed Vital Signs: reviewed Differential diagnosis: Reactive airway disease, pneumonia, pneumothorax, COPD, CHF, infections, cardiac ischemia, pulmonary embolism, musculoskeletal, gastrointestinal, as well as other pathologies. ER treatment provided: See below. Diagnostics interpreted by me: Cardiac Monitoring: An order for continuous cardiac monitoring was placed and demonstrated normal sinus rhythm, 69 bpm, no ectopy. Laboratory studies: See below Imaging studies: See below Consultation(s): Dr. Armas, [facility] hospitalist. 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 Per EMS report the wanted the patient to get rehab. The patient is a poor historian and it is difficult to obtain history directly from him. [facility] hospice agency was contacted by her case management team and they were not aware that the patient was brought to the hospital. They report they are ready to reinstate the patient's hospice if he were to return home. ROS: See above HPI for pertinent positives & negatives. A total of 10 systems reviewed and were otherwise negative. VITALS:See Below PHYSICAL EXAMINATION: GENERAL: Awake, alert, acute on chronically ill appearing, in no distress, cachectic. HENT: Normocephalic, atraumatic. Oropharynx dry/cracked. EYES: Normal conjunctiva. Sclera non-icteric. NECK: Supple. No nuchal rigidity. FROM. No JVD. Trach in place. RESPIRATORY: Rhonchi bilateral mid to lower lung gotti. CARDIAC: Regular rate, normal rhythm. Extremities warm and well perfused. Pulses equal. ABDOMEN: Soft, non-distended. No tenderness to palpation. No rebound or guarding. No masses. MUSCULOSKELETAL: Chest examination reveals no tenderness. No joint edema. LOWER EXTREMITIES: Calves are equal size bilaterally and non-tender. No edema. No discoloration. NEURO: No focal sensory or motor deficits noted. SKIN: No jaundice noted. Pressure ulcers of the back prominently of the left greater than right scapula. Tej Martins MD Past Med/Surg History Problem List (Updated 10/28/23 @ 21:18 by Tej Martins MD) Hypercalcemia (Acute) Hospice care patient (Acute) Hyponatremia (Acute) Chronic osteomyelitis (Acute) Severe malnutrition (Acute) Dysphagia Dyspnea and respiratory abnormalities Encounter for hospice care discussion Counseling regarding advanced directives and goals of care Palliative care by specialist Weakness generalized Cancer related pain CAD (coronary artery disease) Pressure ulcer G tube feedings Goals of care, counseling/discussion History of head and neck cancer (Acute) Tracheostomy dependence (Acute) Multifocal pneumonia (Acute) Pneumonia (Acute) Sepsis (Acute) Social History Smoking Status: Never smoker Second Hand Exposure: No; Do You Dip or Chew Tobacco: No; Hx Alcohol Use: No Hx Substance Use: No Preferred Language: Slovak Communication Ability: Impaired Key Worker Required: No Beliefs That Will Affect Care: None Current Living Situation: Spouse Other Information That Helps Us Care for You: No Feels Safe at Home: Yes Safety Concerns: Feels Safe At This Time Assistive Devices: Nebulizer and Wheelchair Allergies Allergies Allergy/AdvReac Type Severity Reaction Status Date / Time herbal complex no.323 Allergy Severe RASH ALL Verified 10/28/23 16:51 [From Menofem] OVER BODY/LEGS ceftazidime Allergy Intermediate SWELLING Verified 10/28/23 16:51 OF LOWER LEGS--GOING FOR ALLERGY TESTING metronidazole [From Flagyl] Allergy Intermediate SWELLING Verified 10/28/23 16:51 OF LOWER LEGS--GOING FOR ALLERGY TESTING Penicillins Allergy Unknown CAN'T Verified 10/28/23 16:51 REMEMBER Home Meds Home Medications Medication Instructions Recorded Confirmed Nutra 2.0 1 dose feeding tube DIRECTED 09/02/23 10/28/23 sennosides 8.8 mg/5 mL oral syrup 17.6 mg feeding tube BID PRN 09/02/23 10/28/23 (senna) Constipation Unknown Antibiotic 1 dose IV DAILY 10/28/23 10/28/23 ascorbic acid (vitamin C) 1,000 mg 1 g feeding tube BID 10/28/23 10/28/23 tablet (Vitamin C) furosemide 10 mg/mL oral solution 20 mg feeding tube DAILY PRN .. 10/28/23 10/28/23 midodrine 10 mg tablet 10 mg feeding tube TID 10/28/23 10/28/23 multivitamin 0.5 tab feeding tube BID 10/28/23 10/28/23 potassium chloride 20 mEq oral 20 meq feeding tube BID 10/28/23 10/28/23 packet (Klor-Con) sodium di- and 1 tab feeding tube UD 10/28/23 10/28/23 monophosphate-potassium phos monobasic 250 mg tablet (Phospha Neutral) sucralfate 1 gram tablet 1 g feeding tube BID 10/28/23 10/28/23 Previous Rx's Medication Instructions Recorded acetaminophen 650 mg/20.3 mL oral 650 mg (20.3 mL) PO Q6H #1,015 mL 10/17/23 solution oxycodone 20 mg/mL oral concentrate 30 mg (1.5 mL) feeding tube Q1H 10/17/23 PRN pain #30 mL Results & Data (ED) Vital Signs Vital Signs - 24 hr 10/28/23 13:37 10/28/23 13:39 10/28/23 13:50 Pulse Rate 60 58 L Pulse Rate [Apical] Respiratory Rate 18 Respiratory Effort / Characteristics Spontaneous Respiratory Depth Normal Respiratory Pattern Regular Blood Pressure 88/54 L Blood Pressure [Right Arm] Blood Pressure Mean 65 Blood Pressure Mean [Right Arm] Blood Pressure Position [Right Arm] Pulse Oximetry 92 Oxygen Delivery Method Trach Collar Trach Collar Oxygen Flow Rate 12 Fraction of Inspired Oxygen 50 SaO2/FiO2 Ratio 184 Sepsis Recent Fever Within 48 Hours No Sepsis New/Unexplained Change in Mental Status No Sepsis Action Taken by Nursing No Action Required 10/28/23 14:15 10/28/23 16:12 10/28/23 16:13 Pulse Rate 65 Pulse Rate [Apical] 55 L 69 Respiratory Rate 15 22 Respiratory Effort / Characteristics Non-Labored Spontaneous Respiratory Depth Respiratory Pattern Blood Pressure Blood Pressure [Right Arm] 95/63 L Blood Pressure Mean Blood Pressure Mean [Right Arm] 73 Blood Pressure Position [Right Arm] Lying Pulse Oximetry 96 95 Oxygen Delivery Method Trach Collar Trach Collar Oxygen Flow Rate 12 12 Fraction of Inspired Oxygen 50 SaO2/FiO2 Ratio Sepsis Recent Fever Within 48 Hours Sepsis New/Unexplained Change in Mental Status Sepsis Action Taken by Nursing Laboratory Data Attestation: I reviewed the patient's lab results. 10/28/23 13:20 10/28/23 13:20 Lab Results 10/28/23 Range/Units 13:20 WBC 21.90 H (4.8-10.8) K/ul RBC 2.95 L (4.70-6.10) M/uL Hgb 8.5 L (14.0-18.0) g/dl Hct 26.2 L (42.0-52.0) % MCV 88.8 (80.0-100.0) fL MCH 28.8 (25.0-34.0) pg MCHC 32.4 (32.0-36.0) g/dL RDW Std Deviation 53.7 H (36.4-46.3) fL RDW Coeff of Quinton 16.6 H (11.5-14.5) % Plt Count 139 (130-400) K/uL MPV 11.2 (9.4-12.4) fL Immature Gran % (Auto) 0.5 % Neut % (Auto) 95.0 % Lymph % (Auto) 1.0 % Warrick % (Auto) 3.4 % Eos % (Auto) 0.0 % Baso % (Auto) 0.1 % Neut # (Auto) 20.77 H (1.40-6.50) K/uL Lymph # (Auto) 0.22 L (1.20-3.40) K/uL Warrick # (Auto) 0.75 H (0.11-0.59) K/uL Eos # (Auto) 0.01 (0.00-0.50) K/uL Baso # (Auto) 0.03 (0.00-0.20) K/uL Immature Gran # (Auto) 0.12 (0.01-0.20) K/uL Ovalocytes 1+ Echinocytes 1+ Sodium 129 L (136-145) mmol/L Potassium 3.7 (3.5-5.1) mmol/L Chloride 95 L (98-107) mmol/L Carbon Dioxide 28 (21-32) mmol/L Anion Gap 6 (3-11) BUN 61 H (6-23) mg/dl Creatinine 1.14 (0.6-1.4) mg/dl Est Cr Clr Drug Dosing 50.1 ml/min Est GFR ( Amer) 75.1 ml/min Est GFR (Non-Af Amer) 64.8 ml/min BUN/Creatinine Ratio 53.5 H (10-20) Glucose 85 (70-99(Fasting)) mg/dl Calcium 12.1 H* (8.6-10.3) mg/dl Phosphorus 3.9 (2.5-4.9) mg/dl Magnesium 2.2 (1.7-2.4) mg/dl Total Bilirubin 0.5 (0.2-1.0) mg/dl AST 32 (13-39) U/L ALT 40 (7-52) U/L Alkaline Phosphatase 111 H (34-104) U/L Troponin I High Sens 19.7 (0-20) pg/ml Total Protein 5.5 L (6.0-8.3) gm/dl Albumin 2.5 L (3.4-5.0) gm/dl Globulin 3.0 (2.5-4.0) gm/dl Albumin/Globulin Ratio 0.8 L (0.9-2) Lipase 4 L (11-82) U/L Procalcitonin 0.88 H (0-0.5) ng/ml TSH 2.127 (0.300-4.500) uIu/ml Administered Medications Heparin Sodium (Porcine) (Heparin Sod 5,000 Unit/0.5 Ml Vial) 5,000 units SQ Q12 BUCK Stop: 11/27/23 20:59 Last Admin: 10/28/23 20:38 Dose: 5,000 units Documented By: [facility] Sodium Chloride (Nss) 1,000 mls @ 80 mls/hr IV .[id number] BUCK Stop: 11/27/23 16:29 Last Admin: 10/28/23 20:22 Dose: 80 mls/hr Documented By: [facility] Discontinued Medications Calcitonin Worthington (Calcitonin Worthington 400 Units/2 Ml) 235 units SQ NOW STA Stop: 10/28/23 14:44 Last Admin: 10/28/23 16:33 Dose: 235 units Documented By: [facility] Vancomycin HCl 1,500 mg/ (Sodium Chloride) 530 mls @ 200 mls/hr IV NOW ONE Stop: 10/28/23 17:19 Last Infusion: 10/28/23 19:29 Dose: Infused Documented By: Admin: 10/28/23 16:50 Dose: 200 mls/hr Documented By: [facility] Sodium Chloride (Nss) 1,000 mls @ 999 mls/hr IV .[id number] ONE Stop: 10/28/23 15:43 Last Infusion: 10/28/23 17:34 Dose: Infused Documented By: [facility] Admin: 10/28/23 16:33 Dose: 999 mls/hr Documented By: [facility] Piperacillin Sod/Tazobactam Sod (Zosyn) 4.5 gm in 100 mls @ 200 mls/hr IV NOW ONE Stop: 10/28/23 15:22 Last Admin: 10/28/23 16:35 Dose: Not Given Documented By: [facility] Cefepime HCl (Maxipime) 20 mls @ 5 mls/min IV NOW ONE Stop: 10/28/23 16:48 Last Admin: 10/28/23 16:50 Dose: 5 mls/min Documented By: [facility] Imaging Data Radiologist's Impression: Chest X-Ray 10/28/23 13:18 XR chest 1V portable CLINICAL HISTORY: Chest pain, nonspecific COMPARISON STUDY: Chest CT September 02, 2023. Chest radiograph October 13, 2023. FINDINGS: A left-sided PICC, prosthetic aortic valve, right neck and left axillary surgical clips are again noted. There is no pneumothorax or pleural effusion. Extensive bibasilar opacities. Right midlung opacity has slightly increased. Left basilar opacity is slightly increased. Gaseous distention of several bowel loops within the upper abdomen is again noted. IMPRESSION: Progression of extensive bilateral airspace opacities suggestive of pneumonia or aspiration pneumonitis. Radiographic follow-up to ensure resolution is recommended. ACT 112: Negative or not required by law. Electronically signed by: Soham Becerra M.D. 10/28/2023 2:08 PM Discharge Plan Visit Data Chief Complaint: Respiratory Problems ED Provider: Tej Martins Discharge Problem: Sepsis, Chronic osteomyelitis, Hyponatremia, Multifocal pneumonia, Tracheostomy dependence, History of head and neck cancer, Hospice care patient, Hypercalcemia Patient Disposition: Admitted As Inpatient Discharge Instructions Interventions: ED Discharge Assessment Last Done: 10/28/23 18:21 Discharge Problem: Sepsis Qualifiers: Sepsis type: sepsis due to unspecified organism Sepsis acute organ dysfunction status: unspecified Qualified Code(s): A41.9 - Sepsis, unspecified organism
[2023-10-28] MEDS ORDERED: oxyCODONE HCL SOLN 5 MG/5 ML UDC GT PRN (16:28)
[2023-10-28] MEDS ORDERED: ACETAMINOPHEN 650 MG/20.3 ML PO SCH (16:30)
[2023-10-28] MEDS ORDERED: [UNRECOGNIZED DRUG - OTHER] feeding tube SCH (16:30)
[2023-10-28] MEDS: CALCITONIN SALMON 400 UNITS/2 ML SQ STA (16:33)
[2023-10-28] MEDS: SODIUM CHLORIDE 0.9% 1,000 ML IV ONE (16:33)
[2023-10-28] MEDS: PIPERACILLIN/TAZOBACTAM 4.5 GM/100 ML BAG IV ONE (16:35)
--- NOTE | 2023-10-28 16:44 | History & Physical Report ---
Date of Service October 28, 2023 Assessment & Plan (1) Sepsis: (2) Multifocal pneumonia: (3) Hypercalcemia: (4) Hyponatremia: (5) Severe malnutrition: (6) Dysphagia: (7) Tracheostomy dependence: (8) Cancer related pain: (9) History of head and neck cancer: (10) G tube feedings: Plan Sepsis with multifocal pneumonia, Trach dependent respiratory failure- Hypotensive on admission which is improved with ED management. WBC 21, CXR with multifocal PNA, procal elevated, recent sputum clx with pseudomonas resistant to meropenem but sensitive to cefepime. Patient was recently admitted and discharged on home hospice. He was seen by palliative, ID during that time. He had Pseudomonas pneumonia which was resistant to meropenem but sensitive to cefepime. He was not discharged on antibiotics as he was going home on home hospice. However, during extensive discussion today at bedside in presence of , he wants to be full code and wants to get better and live. Hence will start on vanc/cefepime for now. Of note, he has been on iv dapto 400 mg q24 hr to end on November 04 per for suspected infective endocarditis. Vanc in stead of dapto as this would cover for any possible MRSA pneumonia. Will consult pulm and ID. Continue trach care. Follow up on sputum clx, blood clx. ?IE of TAVR tip per - on iv daptomycin 400 mg q24 hr- EOT 11/05/23 per . Has PICC line in place. Follows [facility]. Vanc for now. Hypercalcemia- given calcitonin in ED. will start on ivf. Recheck in am Hyponatremia- will give ivf, recheck in am Severe malnutrition- on tube feed with PEG tube in place. NPO. Continue home nutrina 2.0 with low fiber. Consult dietitian. Cancer related pain- continue home oxycodone and tylenol and gabapentin. states no morphine as it makes him lethargic. History of head and neck cancer s/p treatment and jaw reconstruction- states he is in remission. Gets all his care at [facility] discussion- patient was discharged on home hospice but and son disagrees. States he has 2 POAs (brother and son) but his brother went behind their back and put him on hospice which they disagree and was a surprise to them. They state they don't want him to be POA anymore and will go with his son (who agrees with the ) and they want to be aggressive with his care with hope to turn around and get him to rehab. They have already revoked hospice. Discussed GOC extensively at bedside and he elected to be aggressive and full code. Will consult palliative. 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 1024 for which ID was consulted and recommended 6 weeks of meropenem for presumed osteomyelitis after which patient had drainage from hysterectomy 07/2023 and subsequently underwent right composite mandibulectomy, right neck dissection, left scapular and latissimus free flap to right neck grafting and treat tube exchange. he had completed multiple course of antibiotics since then. He was recently admitted 10/11/2023 for possible G-tube displacement/ malfunction And was found to have pneumonia. he was seen by palliative and discharged on 10/16on home hospice, no antibiotics were prescribed. Patient was brought today for respiratory distress. I saw and examined the patient at bedside. I reviewed prior notes including palliative and ID notes. I spoke to the extensively at bedside and also spoke with the patient. Patient elects for full code and states he wants to get better and wants to leave. at bedside states patient has 2POA, his brother and his son. During recent admission, his brother went behind their back and changed him to comfort measures and hospice and it was a surprise to them when the hospice nurse showed up at their home. states that his son does not agree with the patient's brother's decision but agrees with her and are trying to get the brother off the POA and have her as POA. During my encounter, patient is awake, alert and says few words but he opte d for full code and his agrees. He looks sick, on trach and supplemental oxygen and is very malnourished. No fever, acute distress, chest pain, N/V. Allergies Allergy/AdvReac Type Severity Reaction Status Date / Time herbal complex no.323 Allergy Severe RASH ALL Verified 10/28/23 16:51 [From Menofem] OVER BODY/LEGS ceftazidime Allergy Intermediate SWELLING Verified 10/28/23 16:51 OF LOWER LEGS--GOING FOR ALLERGY TESTING metronidazole [From Flagyl] Allergy Intermediate SWELLING Verified 10/28/23 16:51 OF LOWER LEGS--GOING FOR ALLERGY TESTING Penicillins Allergy Unknown CAN'T Verified 10/28/23 16:51 REMEMBER Home Medications Medication Instructions Recorded Confirmed Type Nutra 2.0 1 dose feeding tube DIRECTED 09/02/23 10/28/23 History sennosides 8.8 mg/5 mL oral syrup 17.6 mg feeding tube BID PRN 09/02/23 10/28/23 History (senna) Constipation acetaminophen 650 mg/20.3 mL oral 650 mg (20.3 mL) PO Q6H #1,015 mL 10/17/23 10/28/23 Rx solution oxycodone 20 mg/mL oral concentrate 30 mg (1.5 mL) feeding tube Q1H 10/17/23 10/28/23 Rx PRN pain #30 mL Unknown Antibiotic 1 dose IV DAILY 10/28/23 History ascorbic acid (vitamin C) 1,000 mg 1 g feeding tube BID 10/28/23 10/28/23 History tablet (Vitamin C) furosemide 10 mg/mL oral solution 20 mg feeding tube DAILY PRN .. 10/28/23 10/28/23 History midodrine 10 mg tablet 10 mg feeding tube TID 10/28/23 10/28/23 History multivitamin 0.5 tab feeding tube BID 10/28/23 10/28/23 History potassium chloride 20 mEq oral 20 meq feeding tube BID 10/28/23 10/28/23 History packet (Klor-Con) sodium di- and 1 tab feeding tube UD 10/28/23 10/28/23 History monophosphate-potassium phos monobasic 250 mg tablet (Phospha Neutral) sucralfate 1 gram tablet 1 g feeding tube BID 10/28/23 10/28/23 History Past Med/Surg History Problem List (Updated 10/28/23 @ 16:56 by Tej Martins MD) Hospice care patient (Acute) Hyponatremia (Acute) Chronic osteomyelitis (Acute) Severe malnutrition (Acute) Dysphagia Dyspnea and respiratory abnormalities Encounter for hospice care discussion Counseling regarding advanced directives and goals of care Palliative care by specialist Weakness generalized Cancer related pain CAD (coronary artery disease) Pressure ulcer G tube feedings Goals of care, counseling/discussion History of head and neck cancer (Acute) Tracheostomy dependence (Acute) Multifocal pneumonia (Acute) Pneumonia (Acute) Sepsis (Acute) Social History Smoking Status: Unknown if ever smoked Second Hand Exposure: No; Do You Dip or Chew Tobacco: No; Hx Alcohol Use: No Hx Substance Use: No Preferred Language: Nicaraguan Communication Ability: Impaired Manager Of Photography Required: No Beliefs That Will Affect Care: Presybeterian Current Living Situation: Spouse Feels Safe at Home: Yes Assistive Devices: Nebulizer, Walker and Other Review of Systems Review of Systems: All systems reviewed & are unremarkable except as noted in Subjective and Other Physical Exam Physical Exam: General: Frail elderly male, sick looking, cachectic, not in acute distress HEENT: JESSICA, dry oral mucosa, on trach with supplemental oxygen. Chest: Coarse breath sounds bilaterally with rhonchi CVS: Regular, normal heart sounds Abdomen: Soft, non tender, not distended, normal bowel sounds, PEG tube noted Neuro: Awake, alert, weak voice, says few words, not conversing much MSK: loss of muscle mass diffusely Results & Data Results & Data Vital Signs (Past 12 Hours) Vital Signs Pulse Pulse Resp BP BP Pulse Ox O2 Del Method 10/28/23 16:13 69 95/63 L 95 Trach Collar 10/28/23 16:12 65 22 10/28/23 14:15 55 L 15 96 Trach Collar 10/28/23 13:50 Trach Collar 10/28/23 13:39 58 L 18 88/54 L 92 Trach Collar 10/28/23 13:37 60 O2 Flow Rate FiO2 10/28/23 16:13 12 10/28/23 16:12 10/28/23 14:15 12 50 10/28/23 13:50 10/28/23 13:39 12 50 10/28/23 13:37 (1) Sepsis Sepsis acute organ dysfunction status: without acute organ dysfunction Sepsis type: sepsis due to unspecified organism Qualified Code(s): A41.9 - Sepsis, un specified organism
[2023-10-28] MEDS: VANCOMYCIN HCL 1,500 MG in SODIUM CHLORIDE 0.9% 500 ML IV ONE (16:50)
[2023-10-28] MEDS: CEFEPIME 20 ML IV ONE (16:50)
[2023-10-28 17:56] LABS: Thyroid Stimulating Hormone 2.127 uIu/ml (0.300-4.500)
[2023-10-28 18:04] LABS: Adenovirus PCR Not Detected (NotDetected); Bordetella parapertussis PCR Not Detected (NotDetected); Bordetella pertussis PCR Not Detected (NotDetected); Chlamydia pneumoniae PCR Not Detected (NotDetected); Coronavirus 229E PCR Not Detected (NotDetected); Coronavirus CoV-2 (COVID19)PCR Not Detected (NotDetected); Coronavirus HKU1 PCR Not Detected (NotDetected); Coronavirus NL63 PCR Not Detected (NotDetected); Coronavirus OC43PCR Not Detected (NotDetected); Human Metapneumovirus PCR Not Detected (NotDetected); Influenza A PCR Not Detected (NotDetected); Influenza B PCR Not Detected (NotDetected); Mycoplasma pneumoniae PCR Not Detected (NotDetected); Parainfluenza Virus 1 PCR Not Detected (NotDetected); Parainfluenza Virus 2 PCR Not Detected (NotDetected); Parainfluenza Virus 3 PCR Not Detected (NotDetected); Parainfluenza Virus 4 PCR Not Detected (NotDetected); Respiratory Syncytial VirusPCR Not Detected (NotDetected); Rhinovirus/Enterovirus PCR Not Detected (NotDetected)
[2023-10-28] MEDS: SODIUM CHLORIDE 0.9% 1,000 ML IV SCH (20:22)
[2023-10-28] MEDS: HEPARIN SOD 5,000 UNIT/0.5 ML VIAL SQ SCH (20:38)
[2023-10-28] MEDS: GABAPENTIN 250 MG/5 ML 470 ML BTL GT SCH (21:43)
[2023-10-28] MEDS: PETROLATUM 16 OZ JAR EXT SCH (21:44)
[2023-10-28] MEDS: Cefepime 2,000 MG Extended Infusion IV SCH (21:51)
[2023-10-28] MEDS: oxyCODONE HCL SOLN 5 MG/5 ML UDC GT PRN (22:16)
[2023-10-28] MEDS ORDERED: ACETAMINOPHEN 325 MG TAB PO PRN (22:17)
[2023-10-29] MEDS: ACETAMINOPHEN SUSP 325 MG/10.15 ML UDC GT PRN (02:24)
[2023-10-29] MEDS ORDERED: CEFEPIME 2,000 MG in SYRINGE 0 ML IV SCH (04:00)
[2023-10-29 07:41] LABS: Albumin Globulin Ratio 0.8 (0.9-2); Albumin Level 2.2 gm/dl (3.4-5.0); Bilirubin,Total 0.5 mg/dl (0.2-1.0); Calcium 10.7 mg/dl (8.6-10.3); Creatinine Clr Calc Pharmacy 57.2 ml/min; Est GFR (Non-African American) 75.9 ml/min; Globulin 2.8 gm/dl (2.5-4.0); Hematocrit (blood only) 24.5 % (42.0-52.0); Hemoglobin 7.9 g/dl (14.0-18.0); Magnesium 2.1 mg/dl (1.7-2.4); Mean Corpuscular Hemoglobin 29.4 pg (25.0-34.0); Mean Corpuscular Hgb Conc 32.2 g/dL (32.0-36.0); Mean Corpuscular Volume 91.1 fL (80.0-100.0); Mean Platelet Volume 11.5 fL (9.4-12.4); Phosphorus 4.2 mg/dl (2.5-4.9); Platelet Count 120 K/uL (130-400); Potassium 3.2 mmol/L (3.5-5.1); RDW Coefficient of Variation 16.4 % (11.5-14.5); RDW Standard Deviation 54.5 fL (36.4-46.3); Red Blood Count 2.69 M/uL (4.70-6.10)
[2023-10-29 08:00] LABS: Basophils # (auto) 0.02 K/uL (0.00-0.20); Basophils % (auto) 0.1 %; Eosinophils # (auto) 0.04 K/uL (0.00-0.50); Eosinophils % (auto) 0.2 %; Immature Granulocytes % (auto) 0.6 %; Lymphocytes # (auto) 0.25 K/uL (1.20-3.40); Lymphocytes % (auto) 1.4 %; Monocytes # (auto) 0.58 K/uL (0.11-0.59); Monocytes % (auto) 3.3 %; Neutrophils # (auto) 16.51 K/uL (1.40-6.50); Neutrophils % (auto) 94.4 %; Polychromasia 1+
[2023-10-29] MEDS: POTASSIUM CHLORIDE / WTR 10 MEQ/100 ML PLCT IV SCH (08:53)
[2023-10-29] MEDS: VANCOMYCIN HCL 1,250 MG in SODIUM CHLORIDE 0.9% 250 ML IV SCH (08:53)
--- NOTE | 2023-10-29 09:21 | Pharmacy Report ---
Pharmacy PK ABX Note - Date of Service October 29, 2023 - Assessment and Plan Assessment 68 year old M receiving vancomycin and cefepime for treatment of pneumonia. MRSA nasal swab and bcx pending. Day # 2 of antimicrobial therapy. Plan Vancomycin * Loading dose: 1500 mg IV x 1 * Maintenance dose: 1250 mg IV every 24 hours * Regimen is predicted to achieve target AUC/DESTINI of 400-600 mg/L.hr * Random level ordered for: 10/31/23 with AM labs. Pharmacy will continue to follow and will adjust dose/frequency as necessary. Thank you. Pharmacy has transitioned to AUC monitoring for vancomycin. AUC/DESTINI is the preferred PK/PD target and is associated with decreased risk of nephrotoxicity compared to traditional trough targets.
--- NOTE | 2023-10-29 09:23 | Pulmonology Progress Note ---
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 - Multifocal pneumonia: Patient with recent sputum culture with resistant Pseudomonas to meropenem here with worsening SOB and sputum production. Last CT from 10/10 showed some extensive multifocal airspace consolidation at both lung bases that seem to be secondary to aspiration pneumonitis. Agree with Cefepime and Vancomycin. ID is consulted on the case. Will order a CT chest. Sputum culture ordered. MRSA swab pending. Admission and Anticipated Discharge Date Admission Date: October 28, 2023 Supervising Physician Co-Signing Physician Notes Agree with note as above. Please see my separate consultation. Subjective Mr. 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 Presented here due to shortness of breath and cough. Patient was recently discharge from hospital for hospice. However, this time patient, and son would want to revoke hospice and put the patient on full code. Patient currently admitted due to sepsis secondary to multifocal pneumonia due to resistant pseudomonas. Currently on Vanco and Cefepime. Chest X ray showed extensive bilateral opacities suggestive of pneumonia. ID consult is pending. He is currently on trach collar requiring 50 L/min saturating 100% Review of Systems Review of Systems: as per hpi Physical Exam Constitutional: + cachectic; no acute distress frail elderly male Neck: + tracheostomy present Respiratory: Auscultation: + rhonchi (bilateral) Cardiovascular: Rate/Rhythm: regular rate and regular rhythm Gastrointestinal (Abdomen): Inspection/Auscultation: abdomen normal to inspection and normal bowel sounds Peg tube in place Musculoskeletal: Extremities: + abnormal muscle tone (loss of muscle) Results & Data Results & Data Vital Signs (Past 12 Hours) Vital Signs Temp Pulse Pulse Resp BP Pulse Ox O2 Del Method 10/29/23 08:00 36.4 C L 69 18 85/44 L 100 Trach Collar 10/29/23 03:11 75 30 H 103/53 L 100 Trach Collar 10/28/23 23:41 36.3 C L 63 26 H 90/64 L 100 Trach Collar 10/28/23 22:26 65 10/28/23 22:25 63 16 94 Trach Collar O2 Flow Rate FiO2 10/29/23 08:00 50 10/29/23 03:11 10/28/23 23:41 10/28/23 22:26 10/28/23 22:25 12 50
--- NOTE | 2023-10-29 10:08 | Electrocardiogram Report ---
Test Reason : Blood Pressure : / mmHG Vent. Rate : 065 BPM Atrial Rate : 065 BPM P-R Int : 130 ms QRS Dur : 116 ms QT Int : 436 ms P-R-T Axes : 067 -44 099 degrees QTc Int : 453 ms Poor data quality, interpretation may be adversely affected Normal sinus rhythm Left axis deviation Low voltage QRS Non-specific intra-ventricular conduction delay Abnormal ECG When compared with ECG of 11-OCT-2023 13:01, No significant change Confirmed by Heber Terry ([id number]) on 10/29/2023 10:08:15 AM Referred By: REFERRED SELF Confirmed By:Heber Terry
[2023-10-29] MEDS: MIDODRINE HCL 10 MG TAB PO STA (11:37)
[2023-10-29] MEDS: SODIUM CHLORIDE 0.9% 1,000 ML IV SCH (11:37)
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
[2023-10-29 11:55] LABS: Base Excess ABG -1.5 mEq/L (-9-1.8); HCO3 ABG 24 mmol/L (19-24); PCO2 ABG 41 mmHg (35-46); PO2 ABG 88 mmHg (80-95); pH ABG 7.37 (7.35-7.45)
[2023-10-29 11:57] LABS: Allen Test Pos (Pos)
--- NOTE | 2023-10-29 13:17 | CT Scan Report ---
CT chest diagnostic wo con CLINICAL HISTORY: multifocal pneumonia TECHNIQUE: Multidetector row helical CT of the chest was performed. Coronal and sagittal reformations were obtained. Automated dose lowering techniques and/or adjustment according to patient size were u tilized for this exam. CT DOSE: 310.35 mGy.cm Comparison: Comparison is made to CT chest 09/02/2023 FINDINGS: Lungs and pleura: Extensive consolidation favoring the lower lobes, increased from prior exam. Trache ostomy tube is again seen. Heart and pericardium: Aortic valvular calcifications are seen. Biatrial enlargement is seen. Vessels: Severe atherosclerotic changes in the aorta and coronary arteries. Mediastinum and layne: Subcentimeter lymph nodes are seen. Chest wall and lower neck: Patient is cachectic in appearance. Abdomen: Mild ascites is seen. Patient is status post cholecystectomy. Bones: Degenerative changes in the thoracic spine. IMPRESSION: 1. Multifocal consolidation compatible with pneumonia, increased from prior exam. 2. Mild ascites which may reflect third spacing. 3. Cachexia. 4. Additional findings as above. ACT 112: Negative or not required by law. Electronically signed by: Orville Fortune M.D. 10/29/2023 1:15 PM
--- NOTE | 2023-10-29 13:23 | Pulmonary Consultation ---
Date of Consultation October 29, 2023 Assessment & Plan (1) Recurrent aspiration pneumonia: (2) Failure to thrive in adult: (3) Tracheostomy dependence: (4) Multifocal pneumonia: Plan 68-year-old male with a complex medical history including head and neck cancer, tracheostomy dependence and failure to thrive presenting to the hospital with recurrent aspiration pneumonia. CT chest with evidence of profound progression of multifocal nodular opacities and confluent masslike densities concerning for acute on chronic aspiration pneumonia. I suspect he has a degree of progressive fibrosis related to ongoing aspiration. Other etiologies include MAC infection. Consider AFB sputum cultures although I am doubtful that the patient would be able to tolerate treatment of MAC infection given his low BMI and cachectic state. Agree with empiric vancomycin and cefepime at this time. Consider ID consultation. Recommend ongoing discussion with palliative care medicine. Patient appears to be adequately ventilating with spontaneous breathing based on his blood gas. No role for invasive ventilatory support at this time. Continue to wean oxygen as able. Discussed with hospitalist service and bedside nursing. If further tracheostomy care is required, recommend consulting with ENT. No further input at this time. Please call questions. 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 He was discharged from the hospital 10/17/2023 under the assumption that he was to be home with hospice, but there was some misunderstanding between the family and the patient is now readmitted as a full code. Chest x-ray completed yesterday revealed progressive extensive bilateral airspace opacities concerning for aspiration pneumonia. CT chest personally reviewed by me reveals diffuse predominantly lower lobe and midlung zone multifocal nodular opacities with more confluent opacities in the lower lobes and right middle lobe. This appears to be progression of patient's underlying chronic aspiration. Patient is completely obtunded and minimally arousable on exam. Stat ABG was obtained which was unremarkable and revealed an acceptable acid-base status. Patient is currently on vancomycin and cefepime. Prior sputum cultures grew Pseudomonas 10/11/2023 which was resistant to levofloxacin, ciprofloxacin and meropenem. Cultures did appear to be sensitive to cefepime. Allergies Allergy/AdvReac Type Severity Reaction Status Date / Time herbal complex no.323 Allergy Severe RASH ALL Verified 10/28/23 16:51 [From Menofem] OVER BODY/LEGS ceftazidime Allergy Intermediate SWELLING Verified 10/28/23 16:51 OF LOWER LEGS--GOING FOR ALLERGY TESTING metronidazole [From Flagyl] Allergy Intermediate SWELLING Verified 10/28/23 16:51 OF LOWER LEGS--GOING FOR ALLERGY TESTING Penicillins Allergy Unknown CAN'T Verified 10/28/23 16:51 REMEMBER Home Medications Medication Instructions Recorded Confirmed Type Nutra 2.0 1 dose feeding tube DIRECTED 09/02/23 10/28/23 History sennosides 8.8 mg/5 mL oral syrup 17.6 mg feeding tube BID PRN 09/02/23 10/28/23 History (senna) Constipation acetaminophen 650 mg/20.3 mL oral 650 mg (20.3 mL) PO Q6H #1,015 mL 10/17/23 10/28/23 Rx solution oxycodone 20 mg/mL oral concentrate 30 mg (1.5 mL) feeding tube Q1H 10/17/23 10/28/23 Rx PRN pain #30 mL Unknown Antibiotic 1 dose IV DAILY 10/28/23 10/28/23 History ascorbic acid (vitamin C) 1,000 mg 1 g feeding tube BID 10/28/23 10/28/23 History tablet (Vitamin C) furosemide 10 mg/mL oral solution 20 mg feeding tube DAILY PRN .. 10/28/23 10/28/23 History midodrine 10 mg tablet 10 mg feeding tube TID 10/28/23 10/28/23 History multivitamin 0.5 tab feeding tube BID 10/28/23 10/28/23 History potassium chloride 20 mEq oral 20 meq feeding tube BID 10/28/23 10/28/23 History packet (Klor-Con) sodium di- and 1 tab feeding tube UD 10/28/23 10/28/23 History monophosphate-potassium phos monobasic 250 mg tablet (Phospha Neutral) sucralfate 1 gram tablet 1 g feeding tube BID 10/28/23 10/28/23 History Patient History Social History Smoking Status: Never smoker Second Hand Exposure: No; Do You Dip or Chew Tobacco: No; Hx Alcohol Use: No Hx Substance Use: No Preferred Language: Micronesian Communication Ability: Effective Managing Editor Required: No Beliefs That Will Affect Care: None Current Living Situation: Spouse Feels Safe at Home: Yes Assistive Devices: Bedside Commode, Hospital Bed, Nebulizer, Oxygen - Continuous, Walker, Wheelchair and Other Review of Systems Review of Systems: Unobtainable due to cognitive status Physical Exam Physical Exam: Constitutional: Cachectic and frail-appearing. Obtunded. Eyes: Pupils are equal round and reactive to light. Conjunctivae are normal. Anicteric sclera. Ears nose, mouth and throat: Tracheostomy in place. Neck: Trachea is midline. Visual inspection is normal. Tracheostomy noted with Passy-Charli valve. Respiratory: Diffuse crackles. Mildly tachypneic. Cardiovascular: Regular rate and rhythm. No murmurs. No edema. Gastrointestinal: Normal bowel sounds, soft, nontender and nondistended. No hepatosplenomegaly noted. Musculoskeletal: No cyanosis. Patient is able to move all extremities. Str ength is 5 out of 5 in the upper and lower extremities. Skin: No rashes, warm dry and intact. Neurologic: Minimally responsive to painful stimuli. Psychiatric: Unable to assess. Results & Data Results & Data Vital Signs (Past 12 Hours) Vital Signs Temp Pulse Resp BP Pulse Ox O2 Del Method O2 Flow Rate 10/29/23 10:44 36.4 C L 55 L 15 75/40 L 100 Trach Collar 50 10/29/23 08:00 36.4 C L 69 18 85/44 L 100 Trach Collar 50 10/29/23 03:11 75 30 H 103/53 L 100 Trach Collar PG Care Time/CCT Total # of Minutes Spent Total Time Spent with Patient: Total time spent is greater than 50% in coordination of care (as documented) at patient's floor/unit and/or counseling patient: Coding Level of Care Code 55127 INT INP/OBS CARE 2/55MIN Diagnoses Recurrent aspiration pneumonia J69.0 Failure to thrive in adult R62.7 Tracheostomy dependence Z93.0 Multifocal pneumonia J18.9
--- NOTE | 2023-10-29 14:01 | Hospitalist Progress Note ---
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 He is being managed for the following: Sepsis with multifocal pneumonia, Trach dependent respiratory failure Hypotension: likely 2/2 above. low BP despite ivf, pt already w/ lung crackles. will need icu transfer for likely pressor support. d/w icu team. Metabolic encephalopathy: likely 2/2 above iso general frailty. decisional capacity is minimal at present WBC 21, CXR and CT chest with multifocal PNA, procal elevated, recent sputum clx with pseudomonas resistant to meropenem but sensitive to cefepime. Patient was recently admitted and discharged on home hospice. He was seen by palliative, ID during that time. He had Pseudomonas pneumonia which was resistant to meropenem but sensitive to cefepime. He was not discharged on antibiotics as he was going home on home hospice. However, per admitting, he wants to be full code and wants to get better and live. C/w vanc/cefepime 10/27. Of note, he has been on iv dapto 400 mg q24 hr to end on November 04 per for suspected infective endocarditis. Vanc in stead of dapto as this would cover for any possible MRSA pneumonia. Follow up pulm and ID. Continue trach care. Follow up on sputum clx, blood clx. d/w pt's mother (poa) and sister/MAVERICK at bedside, discussed about poor prognosis and need to transfer to icu for blood pressor is dropping. ?IE of TAVR tip per - on iv daptomycin 400 mg q24 hr- EOT 11/05/23 per . Has PICC line in place. Follows [facility]. Vanc for now. Hypercalcemia- given calcitonin in ED. c/w ivf. Improving. Recheck in am Hyponatremia- c/w ivf, improving, recheck in am Severe malnutrition- on tube feed with PEG tube in place. NPO. Continue home nutrina 2.0 with low fiber after XR KUB. Consult dietitian. Cancer related pain- continue home oxycodone and tylenol and gabapentin. states no morphine as it makes him lethargic. History of head and neck cancer s/p treatment and jaw reconstruction- states he is in remission. Gets all his care at [facility] discussion- patient was discharged on home hospice but and son disagrees. Apparently has 3 POAs (son, mother and brother) but his brother went behind their back and put him on hospice (per and son) which they disagree and was a surprise to them. They state they don't want him to be POA anymore and will go with his son (who agrees with the ) and they want to be aggressive with his care with hope to turn around and get him to rehab. They have already revoked hospice. Palliative working on getting family meeting together to help us through this difficult family dynamics. Appreciate their efforts. D/w palliat renea , full code for now. DVT ppx- sc heparin Dispo- transfer to icu. Admission and Anticipated Discharge Date Admission Date: October 28, 2023 Subjective Patient was seen and examined at bedside. Patient was lying in bed, obtunded, cachectic and frail-appearing. Response to pain stimuli with minimal eye-opening. Per RN, patient has a small bowel movement in the morning. resumed his home midodrine, gave him 250 mL of NSS bolus, patient,s blood pressure improved with SBP closer to 90 per RN. Physical Exam Physical Exam: General: Frail elderly male, sick looking, cachectic, Obtunded HEENT: JESSICA, dry oral mucosa, on trach with supplemental oxygen. Chest: Coarse breath sounds bilaterally with rhonchi CVS: Regular, normal heart sounds Abdomen: Soft, non tender, not distended, normal bowel sounds, PEG tube noted Neuro: obtunded, moans to pain stimuli. MSK: loss of muscle mass diffusely Results & Data Results & Data Vital Signs (Past 12 Hours) Vital Signs Temp Pulse Resp BP Pulse Ox O2 Del Method O2 Flow Rate 10/29/23 10:44 36.4 C L 55 L 15 75/40 L 100 Trach Collar 50 10/29/23 08:00 36.4 C L 69 18 85/44 L 100 Trach Collar 50 10/29/23 03:11 75 30 H 103/53 L 100 Trach Collar (1) Sepsis Sepsis acute organ dysfunction status: unspecified Sepsis type: sepsis due to unspecified organism Qualified Code(s): A41.9 - Sepsis, unspecified organism
--- NOTE | 2023-10-29 14:54 | Critical Care Consultation ---
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 Presenting to the ICU with evidence of hypovolemic and septic shock Neurologic: Patient obtunded. Avoid sedating agents. Gabapentin and oxycodone discontinued. Can consider giving a dose of Narcan when transferred to the ICU. Pulmonary: Patient with evidence of progressive aspiration pneumonia. Fortunately he appears to be ventilating adequately based on his blood gas from this morning. Continue tracheostomy with supplemental oxygen. Will consider switching to cuffed trach if further ventilatory assistance required. Patient poor candidate for bronchoscopy at this time given tenuous blood pressure and bradycardia. Cardiovascular: Patient with evidence of bradycardia and hypotension secondary to septic shock and hypovolemia. Patient under resuscitated with volume. He has very low oncotic pressure. Will give albumin x 2 and then LR fluid bolus. Will also initiate stress dose steroids. May need to consider the addition of vasopressor support if remains refractory to fluids and crystalloids. Continue midodrine via PEG tube Gastrointestinal: KUB with evidence of developing ileus. Will place PEG tube to intermittent suction. Maintain strict n.p.o. status. Start Protonix 40 daily. Renal: Recheck BMP, calcium level, magnesium. Patient with evidence of hypercalcemia likely related to malignancy and dehydration. Infectious disease: Patient currently on vancomycin and cefepime. ID consulted by the hospitalist service. He has a history of resistant Pseudomonas and MRSA colonization. Hematologic: Patient with anemia of chronic disease and now mild thrombocytopenia likely related to sepsis. Will hold VTE chemical prophylaxis. Endocrine: TSH unremarkable. Stress dose steroids as above with hydrocortisone. Lines and tubes: Double-lumen PICC in place. Will use this for vasopressors if required. Continue Langford catheter. Trach and PEG tube in place. VTE prophylaxis: SCD CODE STATUS: Palliative care is been consulted and there is been some controversy related to the patient's CODE STATUS. Family adamantly requested full CODE STATUS and aggressive measures. Patient clearly has severe malnutrition and failure to thrive. Prognosis overall is very poor. This has been reiterated to the family numerous times. Family at bedside: Numerous family members updated at bedside including patient's mother and . Disposition: ICU Care coordinated with palliative care medicine, hospitalist service and bedside RN. I have personally spent 69 minutes of critical care time in the direct management of this patient. This is a life/limb threatening event. This includes time spent evaluating patient, direct bedside care, chart review, placing orders, interpretation of diagnostic studies, discussion with consultants, patient, and family members, as well as other required patient management activities. This time is exclusive of all separately billable procedures, and teaching time and separate from and in addition to any other critical care service time. Thank you for allowing us to participate in the care of this patient. History of Present Illness Reason for Consultation: Septic shock Attending Physician: Sanket Carlson MD History of Present Illness ICU service is consulted due to ongoing hypotension and bradycardia. Patient remains minimally responsive to commands. Chart reviewed, discussed with hospitalist and bedside RN. Patient received 500 mL of fluid today. Underwent a KUB which reveals evidence of possible ileus. Patient has double-lumen PICC for IV access along with peripheral IVs. Patient's labs this morning concerning for hypercalcemia and hypokalemia.. Allergies Allergy/AdvReac Type Severity Reaction Status Date / Time herbal complex no.323 Allergy Severe RASH ALL Verified 10/28/23 16:51 [From Menofem] OVER BODY/LEGS ceftazidime Allergy Intermediate SWELLING Verified 10/28/23 16:51 OF LOWER LEGS--GOING FOR ALLERGY TESTING metronidazole [From Flagyl] Allergy Intermediate SWELLING Verified 10/28/23 16:51 OF LOWER LEGS--GOING FOR ALLERGY TESTING Penicillins Allergy Unknown CAN'T Verified 10/28/23 16:51 REMEMBER Home Medications Medication Instructions Recorded Confirmed Type Nutra 2.0 1 dose feeding tube DIRECTED 09/02/23 10/28/23 History sennosides 8.8 mg/5 mL oral syrup 17.6 mg feeding tube BID PRN 09/02/23 10/28/23 History (senna) Constipation acetaminophen 650 mg/20.3 mL oral 650 mg (20.3 mL) PO Q6H #1,015 mL 10/17/23 10/28/23 Rx solution oxycodone 20 mg/mL oral concentrate 30 mg (1.5 mL) feeding tube Q1H 10/17/23 10/28/23 Rx PRN pain #30 mL Unknown Antibiotic 1 dose IV DAILY 10/28/23 10/28/23 History ascorbic acid (vitamin C) 1,000 mg 1 g feeding tube BID 10/28/23 10/28/23 History tablet (Vitamin C) furosemide 10 mg/mL oral solution 20 mg feeding tube DAILY PRN .. 10/28/23 10/28/23 History midodrine 10 mg tablet 10 mg feeding tube TID 10/28/23 10/28/23 History multivitamin 0.5 tab feeding tube BID 10/28/23 10/28/23 History potassium chloride 20 mEq oral 20 meq feeding tube BID 10/28/23 10/28/23 History packet (Klor-Con) sodium di- and 1 tab feeding tube UD 10/28/23 10/28/23 History monophosphate-potassium phos monobasic 250 mg tablet (Phospha Neutral) sucralfate 1 gram tablet 1 g feeding tube BID 10/28/23 10/28/23 History Patient History Social History Smoking Status: Never smoker Second Hand Exposure: No; Do You Dip or Chew Tobacco: No; Hx Alcohol Use: No Hx Substance Use: No Preferred Language: Maltese Communication Ability: Effective Supervisor Operations Required: No Beliefs That Will Affect Care: None Current Living Situation: Spouse Other Information That Helps Us Care for You: No Feels Safe at Home: Yes Safety Concerns: Feels Safe At This Time Assistive Devices: Bedside Commode, Hospital Bed, Nebulizer, Oxygen - Continuous, Walker, Wheelchair and Other Review of Systems Review of Systems: Unobtainable due to cognitive status Physical Exam Physical Exam: Constitutional: Cachectic and frail-appearing. Obtunded. Eyes: Pupils are equal round and reactive to light. Conjunctivae are normal. Anicteric sclera. Ears nose, mouth and throat: Tracheostomy in place. Neck: Trachea is midline. Visual inspection is normal. Tracheostomy noted with Passy-Palmyra valve. Respiratory: Diffuse crackles. Mildly tachypneic. Cardiovascular: Regular rate and rhythm. No murmurs. No edema. Gastrointestinal: Normal bowel sounds, soft, nontender and nondistended. No hepatosplenomegaly noted. Musculoskeletal: No cyanosis. Patient is able to move all extremities. Strength is 5 out of 5 in the upper and lower extremities. Skin: No rashes, warm dry and intact. Neurologic: Minimally responsive to painful stimuli. Psychiatric: Unable to assess. Results & Data Results & Data Vital Signs (Past 12 Hours) Vital Signs Temp Pulse Pulse Resp BP BP Pulse Ox 10/29/23 14:33 45 L 15 86/45 L 100 10/29/23 14:24 87/52 L 10/29/23 14:14 74/36 L 10/29/23 14:09 38 L 15 65/35 L 97 10/29/23 13:00 45 L 11 L 87/56 L 97 10/29/23 12:24 41 L 12 77/47 L 99 10/29/23 12:00 41 L 12 100 10/29/23 10:44 36.4 C L 55 L 15 75/40 L 100 10/29/23 08:00 10/29/23 08:00 36.4 C L 69 18 85/44 L 100 10/29/23 03:11 75 30 H 103/53 L 100 O2 Del Method O2 Flow Rate FiO2 10/29/23 14:33 10/29/23 14:24 10/29/23 14:14 10/29/23 14:09 10/29/23 13:00 10/29/23 12:24 35 10/29/23 12:00 40 10/29/23 10:44 Trach Collar 50 10/29/23 08:00 Trach Collar 50 10/29/23 08:00 Trach Collar 50 10/29/23 03:11 Trach Collar Coding Level of Care Code 71614 CRITICAL CARE 1ST 30-74M Diagnoses Multifocal pneumonia J18.9 Tracheostomy dependence Z93.0 Sepsis A41.9 Sepsis acute organ dysfunction status: unspecified Sepsis type: sepsis due to unspecified organism Severe malnutrition E43 Chronic osteomyelitis M86.60 (3) Sepsis Sepsis acute organ dysfunction status: unspecified Sepsis type: sepsis due to unspecified organism Qualified Code(s): A41.9 - Sepsis, unspecified organism
--- NOTE | 2023-10-29 15:01 | Surgery Consultation ---
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 Family is in the room and majority of history obtained from his sister, mother, medical providers caring for patient as well as his chart. They say he is usually verbal and communicative or write things down, but that his mental status declined the beginning of this week. He has a CT chest from today that shows multifocal consolidation compatible with pneumonia, increased from prior exam. Palliative saw patient last admission and current one and are helping navigate family dynamics and discuss regarding goals of care. Currently patient is full code, although he was to start home hospice services on the same day as this admission. He has been dealing with pneumonia vs, pneumonitis since at least 10/10. Patient is currently ill appearing. Recent BPs have been low despite attempts of fluid resuscitation. In the room SBP anywhere between 65-85 SBP. He is not able to communicate with me. The hospitalist came into the room and are discussing the possibility of transfer to the ICU for BP support. Given his condition I decided to personally not evaluated his wounds at this time. They were addressed by wound care this AM and I have reviewed the pictures in his chart. He does have a wound on the L back shoulder blade with some necrotic tissue, erythema and slough. His buttock/sacral wounds appearing to be evolving in are are sup erficial in nature that may be amenable to local wound care at this time. Must be diligent about offloading and local wound care at this time. Given patient's worsening clinical status, with the possibility of tsfer to the ICU for consideration of the start of pressors we will hold off on any type of surgical intervention. The family also wishes to speak with the patient's POA- the son and brother(who were not present at this time) in regards to if they would wish to pursue surgical debridement of these wounds should his other acute issues improve. It was discussed that cleaning up these wounds would not change the overall status of the patient and the wounds will still necessitate a lot of time and local wound care to eventually heal. We will follow along from the periphery, should family wish to pursue surgical intervention and his clinical status improve we will contemplate taking him to the OR, however he has other issues that are taking precedence in care at this time. (2) Recurrent aspiration pneumonia: (3) Severe malnutrition: Supervising Physician Co-Signing Physician Notes I personally saw and evaluated the patient with Dinah Rubio PA-C and agree with the assessment and plan. 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 Patient is not verbally responsive at this time and unable to obtain HPI/ROS from him. Family is in the room and majority of history obtained from his sister, mother, medical providers caring for patient as well as his chart. Family say he is usually verbal and communicative or write things down, but that his mental status declined the beginning of this week. Chart reviewed and patient was here 2 other times this month for evaluation of his respiratory status. He had a CT chest performed today that revealed multifocal consolidation compatible with pneumonia, increased from prior exam. His last admission he was seen by palliative and there has been discussions between comfort care, home on hospice vs remaining full code. At this time patient is full code. Apparently patient wanted to be on hospice and services were initiated, but as he was re-admitted services were actually never started. We have been consulted today for patient's shoulder and buttocks wounds. Family reports both have been present for a few months. The one on his shoulder they said was started as they took some tissue i n this region for his mandibular surgery. Unfortunately his wounds have progressed despite being seen in [place] [facility] as outpatient. Allergies Allergy/AdvReac Type Severity Reaction Status Date / Time herbal complex no.323 Allergy Severe RASH ALL Verified 10/28/23 16:51 [From Menofem] OVER BODY/LEGS ceftazidime Allergy Intermediate SWELLING Verified 10/28/23 16:51 OF LOWER LEGS--GOING FOR ALLERGY TESTING metronidazole [From Flagyl] Allergy Intermediate SWELLING Verified 10/28/23 16:51 OF LOWER LEGS--GOING FOR ALLERGY TESTING Penicillins Allergy Unknown CAN'T Verified 10/28/23 16:51 REMEMBER Home Medications Medication Instructions Recorded Confirmed Type Nutra 2.0 1 dose feeding tube DIRECTED 09/02/23 10/28/23 History sennosides 8.8 mg/5 mL oral syrup 17.6 mg feeding tube BID PRN 09/02/23 10/28/23 History (senna) Constipation acetaminophen 650 mg/20.3 mL oral 650 mg (20.3 mL) PO Q6H #1,015 mL 10/17/23 10/28/23 Rx solution oxycodone 20 mg/mL oral concentrate 30 mg (1.5 mL) feeding tube Q1H 10/17/23 10/28/23 Rx PRN pain #30 mL Unknown Antibiotic 1 dose IV DAILY 10/28/23 10/28/23 History ascorbic acid (vitamin C) 1,000 mg 1 g feeding tube BID 10/28/23 10/28/23 History tablet (Vitamin C) furosemide 10 mg/mL oral solution 20 mg feeding tube DAILY PRN .. 10/28/23 10/28/23 History midodrine 10 mg tablet 10 mg feeding tube TID 10/28/23 10/28/23 History multivitamin 0.5 tab feeding tube BID 10/28/23 10/28/23 History potassium chloride 20 mEq oral 20 meq feeding tube BID 10/28/23 10/28/23 History packet (Klor-Con) sodium di- and 1 tab feeding tube UD 10/28/23 10/28/23 History monophosphate-potassium phos monobasic 250 mg tablet (Phospha Neutral) sucralfate 1 gram tablet 1 g feeding tube BID 10/28/23 10/28/23 History Patient History Social History Smoking Status: Never smoker Second Hand Exposure: No; Do You Dip or Chew Tobacco: No; Hx Alcohol Use: No Hx Substance Use: No Preferred Language: Amharic Communication Ability: Effective Instructor Tap Dancing Required: No Beliefs That Will Affect Care: None Current Living Situation: Spouse Other Information That Helps Us Care for You: No Feels Safe at Home: Yes Safety Concerns: Feels Safe At This Time Assistive Devices: Bedside Commode, Hospital Bed, Nebulizer, Oxygen - Continuous, Walker, Wheelchair and Other Review of Systems Review of Systems: Unobtainable due to cognitive status Physical Exam Physical Exam: opens eyes to stimulation, but not communicative Constitutional: + frail appearing and + malnourished Respiratory: trach collar Skin: wounds not assessed on physical exam due to condition, reviewed wound care nu rses pictures in chart Results & Data Vital Signs (Past 12 Hours) Vital Signs Temp Pulse Resp BP Pulse Ox O2 Del Method O2 Flow Rate 10/29/23 10:44 97.5 F L 55 L 15 75/40 L 100 Trach Collar 50 10/29/23 08:00 97.5 F L 69 18 85/44 L 100 Trach Collar 50 10/29/23 03:11 75 30 H 103/53 L 100 Trach Collar Diagnostic Findings CT chest diagnostic wo con CLINICAL HISTORY: multifocal pneumonia TECHNIQUE: Multidetector row helical CT of the chest was performed. Coronal and sagittal reformations were obtained. Automated dose lowering techniques and/or adjustment according to patient size were utilized for this exam. CT DOSE: 310.35 mGy.cm Comparison: Comparison is made to CT chest 09/02/2023 FINDINGS: Lungs and pleura: Extensive consolidation favoring the lower lobes, increased from prior exam. Tracheostomy tube is again seen. Heart and pericardium: Aortic valvular calcifications are seen. Biatrial enlargement is seen. Vessels: Severe atherosclerotic changes in the aorta and coronary arteries. Mediastinum and layne: Subcentimeter lymph nodes are seen. Chest wall and lower neck: Patient is cachectic in appearance. Abdomen: Mild ascites is seen. Patient is status post cholecystectomy. Bones: Degenerative changes in the thoracic spine. IMPRESSION: 1. Multifocal consolidation compatible with pneumonia, increased from prior exam. 2. Mild ascites which may reflect third spacing. 3. Cachexia. 4. Additional findings as above. ACT 112: Negative or not required by law. Electronically signed by: Orville Fortune M.D. 10/29/2023 1:15 PM PG Care Time/CCT Total # of Minutes Spent Total Time Spent with Patient: Total time spent is greater than 50% in coordination of care (as documented) at patient's floor/unit and/or counseling patient: Coding Level of Care Code 45624 INT INP/OBS CARE Diagnoses Pressure ulcer L89.90 Recurrent aspiration pneumonia J69.0 Severe malnutrition E43
[2023-10-29] MEDS: LACTATED RINGER'S 500 ML IV ONE (15:38)
[2023-10-29] MEDS: ALBUMIN 5% 250 ML IV ONE (15:38)
[2023-10-29 15:39] LABS: Calcium 10.3 mg/dl (8.6-10.3); Potassium 3.5 mmol/L (3.5-5.1)
[2023-10-29 15:45] LABS: BUN Creatinine Ratio 59.4 (10-20); Creatinine Clr Calc Pharmacy 59.5 ml/min; Est GFR (African American) 92.4 ml/min; Est GFR (Non-African American) 79.8 ml/min
[2023-10-29] MEDS: HYDROCORTISONE SOD 50 MG in SYRINGE 0 ML IV SCH (15:47)
[2023-10-29] MEDS: ALBUMIN 25% 25 GM/100 ML VIAL IV ONE ×2 (16:13→18:33)
[2023-10-29] MEDS: SODIUM CHLORIDE 0.9% 250 ML IV ONE (16:15)
[2023-10-29] MEDS: MIDODRINE HCL 10 MG TAB PO SCH (17:48)
[2023-10-29] MEDS ORDERED: STAT IV Infusion **Titration per Protocol STA (18:13)
[2023-10-29] MEDS: NOREPINEPHRINE/D5W 4 MG/250 ML PLCT IV SCH (18:21)
[2023-10-29] MEDS: NOREPINEPHRINE/D5W 4 MG/250 ML IV ONE (18:22)
--- NOTE | 2023-10-29 18:54 | XRay Report ---
KUB CLINICAL HISTORY: Distended bowel loops seen on chest CT. FINDINGS: 2 AP, portable, supine abdominal radiographs are correlated with abdominal CT dated [address] dated 10/29/2023. A percutaneous gastrostomy tube is in place. Significant gaseous dist ention of the colon is similar to the 10/11/2023 CT scan. There is no evidence of high-grade small nuha l obstruction. There is no evidence of intraperitoneal free air on these supine images. Cholecystecto my clips are noted in the right upper quadrant. Multifocal airspace consolidation is seen at the lung bases. The heart is enlarged with evidence of previous cardiac valve surgery. The skeletal structure s are osteopenic and appear intact. There is moderate lumbosacral spondylosis. Small radiodense metal lic foreign bodies project over the left ilium and the right femoral head. IMPRESSION: 1. Multifocal airspace consolidation at the lung bases favors pneumonia/aspiration pneumonitis. Corre late clinically. 2. There is diffuse gaseous distention of the colon, which is similar to the prior abdominal CT scan. This could related to rectosigmoid fecal impaction/functional obstruction or possibly colonic ileus. Clinical correlation will be required. Follow-up as warranted. Electronically signed by: Sunil Khanna M.D. 10/29/2023 6:53 PM
[2023-10-30 04:51] LABS: BUN Creatinine Ratio 54.5 (10-20); Calcium 10.2 mg/dl (8.6-10.3); Creatinine Clr Calc Pharmacy 56.6 ml/min; Est GFR (African American) 86.9 ml/min; Magnesium 1.9 mg/dl (1.7-2.4); Phosphorus 3.7 mg/dl (2.5-4.9)
[2023-10-30 05:11] LABS: Hematocrit (blood only) 24.7 % (42.0-52.0); Hemoglobin 7.7 g/dl (14.0-18.0); Mean Corpuscular Hemoglobin 28.6 pg (25.0-34.0); Mean Corpuscular Hgb Conc 31.2 g/dL (32.0-36.0); Mean Corpuscular Volume 91.8 fL (80.0-100.0); Mean Platelet Volume 10.7 fL (9.4-12.4); Platelet Count 160 K/uL (130-400); RDW Coefficient of Variation 16.7 % (11.5-14.5); RDW Standard Deviation 54.9 fL (36.4-46.3); Red Blood Count 2.69 M/uL (4.70-6.10)
[2023-10-30] MEDS: ALBUTEROL 0.083% NEBU SOLN 3 ML VIAL NEB STA (06:17)
[2023-10-30] MEDS: ALBUT/IPRATROP 3MG/0.5MG NEB 3 ML VIAL ONE (06:17)
[2023-10-30] MEDS: POTASSIUM CHLORIDE 20 MEQ/15 ML UDC PEG STA (06:40)
--- NOTE | 2023-10-30 09:17 | Surgery Progress Note ---
Date of Service October 30, 2023 Assessment & Plan (1) Pressure ulcer: Plan: Pt w/ SCC of R mandible We are consulted for shoulder and sacral wounds Pt is currently in the ICU requiring pressors with the possibility of requiring ventilation He is being managed for multifocal pneumonia vs aspiration pneumonitis which is his primary concern There is also question of purulence surrounding his R mandible region, if indicated could consider ENT eval as this is not our area of expertise We will follow peripherally as pt is in too much of critical condition to consider taking him to the OR for debridement of shoulder wound If he makes a good recovery we can consider debridement in the future should his POA's wish for this....he has been evaluated by palliative who is assisting w/ family dynamics and goals of care discussions For now continue local wound care and offloading support. cleaning up his wounds at this time will not change his overall prognosis/picture call if any questions/concerns Admission and Anticipated Discharge Date Admission Date: October 28, 2023 Subjective Pt in ICU. No family in room at present time. Unable to obtain subjective history Physical Exam Physical Exam: resting, on trach collar Results & Data Vital Signs (Past 12 Hours) Vital Signs Temp Pulse Pulse Resp BP Pulse Ox O2 Del Method 10/30/23 09:00 99.1 F 91 H 31 H 90 10/30/23 09:00 89/57 L 10/30/23 09:00 89/57 L 10/30/23 09:00 89/57 L 10/30/23 09:00 89/57 L 10/30/23 09:00 89/57 L 10/30/23 08:45 99.3 F 93 H 28 H 92 10/30/23 08:30 91/60 L 10/30/23 08:30 99.7 F H 86 37 H 96 10/30/23 08:22 89/65 L 10/30/23 08:21 99.7 F H 90 35 H 94 Trach Collar 10/30/23 08:00 90/55 L 10/30/23 08:00 90/55 L 10/30/23 08:00 100.0 F H 88 31 H 93 10/30/23 07:51 99.9 F H 96 H 35 H 95 10/30/23 07:30 99.9 F H 95 H 38 H 90 10/30/23 07:18 99.9 F H 94 H 40 H 89 L 06/27/24 07:15 92/52 L 10/30/23 07:15 92/52 L 10/30/23 07:12 99.9 F H 97 H 38 H 92 10/30/23 07:00 100.0 F H 94 H 36 H 93 10/30/23 07:00 91/57 L 10/30/23 07:00 91/57 L 10/30/23 07:00 91/57 L 10/30/23 07:00 91/57 L 10/30/23 06:45 99.9 F H 97 H 31 H 95 10/30/23 06:39 99.9 F H 96 H 34 H 95 10/30/23 06:30 92/66 L 10/30/23 06:30 92/66 L 10/30/23 06:18 99.7 F H 98 H 39 H 98 10/30/23 06:17 97 H 30 H 98 Trach Collar 10/30/23 06:15 103/61 10/30/23 06:15 103/61 10/30/23 06:12 99.7 F H 99 H 35 H 96 10/30/23 06:00 106/60 10/30/23 05:51 99.5 F 78 22 90 10/30/23 05:45 92/55 L 10/30/23 05:39 99.5 F 87 26 H 86 L 10/30/23 05:30 84/64 L 10/30/23 05:30 84/64 L 10/30/23 05:24 99.5 F 90 33 H 91 10/30/23 05:15 96/55 L 10/30/23 05:15 96/55 L 10/30/23 05:06 99.5 F 84 36 H 93 10/30/23 05:00 98/65 L 10/30/23 05:00 99.5 F 82 28 H 93 10/30/23 04:51 99.5 F 82 29 H 97 10/30/23 04:45 93/50 L 10/30/23 04:39 99.5 F 85 37 H 99 10/30/23 04:30 100/54 L 10/30/23 04:21 99.5 F 81 27 H 97 10/30/23 04:18 99.5 F 80 29 H 92 10/30/23 04:15 94/58 L 10/30/23 04:15 94/58 L 10/30/23 04:15 94/58 L 10/30/23 04:09 99.5 F 83 27 H 98 10/30/23 04:00 92/59 L 10/30/23 04:00 92/59 L 10/30/23 03:51 99.5 F 83 32 H 93 10/30/23 03:48 99.5 F 81 36 H 91 10/30/23 03:46 98/52 L 10/30/23 03:46 98/52 L 10/30/23 03:46 98/52 L 10/30/23 03:33 99.5 F 81 26 H 100 10/30/23 03:31 91/72 L 10/30/23 03:30 99.5 F 83 28 H 100 10/30/23 03:24 99.5 F 80 25 H 100 10/30/23 03:00 95/56 L 10/30/23 03:00 99.7 F H 85 28 H 100 10/30/23 02:39 99.7 F H 85 27 H 100 10/30/23 01:46 99/49 L 10/30/23 01:46 99/49 L 10/30/23 01:46 99/49 L 10/30/23 01:46 99/49 L 10/30/23 01:45 99.7 F H 84 26 H 100 10/30/23 01:39 99.7 F H 81 27 H 100 10/30/23 01:32 94/66 L 10/30/23 01:32 94/66 L 10/30/23 01:18 99.5 F 83 26 H 99 10/30/23 01:15 101/44 L 10/30/23 01:15 101/44 L 10/30/23 01:15 101/44 L 10/30/23 01:12 99.5 F 82 26 H 99 10/30/23 01:03 99.5 F 90 35 H 94 10/30/23 01:00 94/66 L 10/30/23 01:00 94/66 L 10/30/23 01:00 94/66 L 10/30/23 01:00 84 18 96 Trach Collar 10/30/23 00:45 98/59 L 10/30/23 00:45 98/59 L 10/30/23 00:45 99.3 F 80 27 H 98 10/30/23 00:30 99.1 F 81 32 H 97 10/30/23 00:18 98.8 F 83 31 H 100 10/30/23 00:15 102/60 10/30/23 00:15 102/60 10/30/23 00:15 102/60 10/30/23 00:15 102/60 10/30/23 00:12 98.6 F 87 34 H 98 10/30/23 00:00 104/59 L 10/30/23 00:00 104/59 L 10/30/23 00:00 98.4 F 77 30 H 99 10/30/23 00:00 85 10/29/23 23:45 97.9 F 80 25 H 100 10/29/23 23:33 97.7 F 72 23 99 10/29/23 23:30 108/62 10/29/23 23:30 108/62 10/29/23 23:30 108/62 10/29/23 23:24 97.3 F L 78 23 97 10/29/23 23:15 111/62 10/29/23 23:15 111/62 10/29/23 23:15 111/62 10/29/23 23:06 97.0 F L 78 35 H 95 10/29/23 23:00 104/55 L 10/29/23 22:58 Trach Collar 10/29/23 22:48 96.6 F L 65 23 98 10/29/23 22:45 107/52 L 10/29/23 22:45 107/52 L 10/29/23 22:42 96.4 F L 65 18 98 10/29/23 22:33 96.3 F L 63 24 98 10/29/23 22:30 103/57 L 10/29/23 22:30 103/57 L 10/29/23 22:24 95.9 F L 65 17 99 10/29/23 22:15 104/56 L 10/29/23 22:12 95.7 F L 62 24 100 10/29/23 22:09 95.7 F L 60 19 100 10/29/23 22:00 102/55 L 10/29/23 22:00 102/55 L 10/29/23 22:00 102/55 L 10/29/23 21:51 95.2 F L 60 17 100 10/29/23 21:45 109/59 L 10/29/23 21:45 109/59 L 10/29/23 21:39 95.0 F L 56 L 20 100 10/29/23 21:33 94.8 F L 73 23 77 L 10/29/23 21:30 101/59 L 10/29/23 21:30 101/59 L 10/29/23 21:30 101/59 L 10/29/23 21:15 107/57 L O2 Flow Rate FiO2 10/30/23 09:00 100 10/30/23 09:00 10/30/23 09:00 10/30/23 09:00 10/30/23 09:00 10/30/23 09:00 10/30/23 08:45 10/30/23 08:30 10/30/23 08:30 10/30/23 08:22 10/30/23 08:21 100 10/30/23 08:00 10/30/23 08:00 10/30/23 08:00 10/30/23 07:51 10/30/23 07:30 10/30/23 07:18 10/30/23 07:15 10/30/23 07:15 10/30/23 07:12 10/30/23 07:00 10/30/23 07:00 10/30/23 07:00 10/30/23 07:00 10/30/23 07:00 10/30/23 06:45 10/30/23 06:39 10/30/23 06:30 10/30/23 06:30 10/30/23 06:18 10/30/23 06:17 40 100 10/30/23 06:15 10/30/23 06:15 10/30/23 06:12 10/30/23 06:00 10/30/23 05:51 10/30/23 05:45 10/30/23 05:39 10/30/23 05:30 10/30/23 05:30 10/30/23 05:24 10/30/23 05:15 10/30/23 05:15 10/30/23 05:06 10/30/23 05:00 10/30/23 05:00 10/30/23 04:51 10/30/23 04:45 10/30/23 04:39 10/30/23 04:30 10/30/23 04:21 10/30/23 04:18 10/30/23 04:15 10/30/23 04:15 10/30/23 04:15 10/30/23 04:09 10/30/23 04:00 10/30/23 04:00 10/30/23 03:51 10/30/23 03:48 10/30/23 03:46 10/30/23 03:46 10/30/23 03:46 10/30/23 03:33 10/30/23 03:31 10/30/23 03:30 10/30/23 03:24 10/30/23 03:00 10/30/23 03:00 10/30/23 02:39 10/30/23 01:46 10/30/23 01:46 10/30/23 01:46 10/30/23 01:46 10/30/23 01:45 10/30/23 01:39 10/30/23 01:32 10/30/23 01:32 10/30/23 01:18 10/30/23 01:15 10/30/23 01:15 10/30/23 01:15 10/30/23 01:12 10/30/23 01:03 10/30/23 01:00 10/30/23 01:00 10/30/23 01:00 10/30/23 01:00 10 10/30/23 00:45 10/30/23 00:45 10/30/23 00:45 10/30/23 00:30 10/30/23 00:18 10/30/23 00:15 10/30/23 00:15 10/30/23 00:15 10/30/23 00:15 10/30/23 00:12 10/30/23 00:00 10/30/23 00:00 10/30/23 00:00 10/30/23 00:00 10/29/23 23:45 10/29/23 23:33 10/29/23 23:30 10/29/23 23:30 10/29/23 23:30 10/29/23 23:24 10/29/23 23:15 10/29/23 23:15 10/29/23 23:15 10/29/23 23:06 10/29/23 23:00 10/29/23 22:58 10/29/23 22:48 10/29/23 22:45 10/29/23 22:45 10/29/23 22:42 10/29/23 22:33 10/29/23 22:30 10/29/23 22:30 10/29/23 22:24 10/29/23 22:15 10/29/23 22:12 10/29/23 22:09 10/29/23 22:00 10/29/23 22:00 10/29/23 22:00 10/29/23 21:51 10/29/23 21:45 10/29/23 21:45 10/29/23 21:39 10/29/23 21:33 10/29/23 21:30 10/29/23 21:30 10/29/23 21:30 10/29/23 21:15 PG Care Time/CCT Total # of Minutes Spent Total Time Spent with Patient: Total time spent is greater than 50% in coordination of care (as documented) at patient's floor/unit and/or counseling patient: Coding Level of Care Code 95893 SUB INP/OBS CARE 05/29MIN Diagnoses Pressure ulcer L89.90
--- NOTE | 2023-10-30 10:02 | XRay Report ---
SINGLE VIEW CHEST CLINICAL HISTORY: Status post bronchoalveolar lavage. FINDINGS: An AP, portable, upright chest radiograph is compared to study dated 10/28/2023 and correlat ed with chest CT dated 10/29/2023. Correlation is made with abdominal CT dated 09/06/2023. The examinati on is degraded by portable technique and apical lordotic positioning. A tracheostomy and left-sided P ICC are unchanged in position. Numerous surgical clips project over the left upper chest. There is ev idence of previous cardiac valve surgery. The heart is enlarged. The pulmonary vasculature is noncong ested. There is bibasilar airspace consolidation, right greater than left. Small pleural effusions ar e noted. No pneumothorax is seen. The skeletal structures are osteopenic. The bony thorax is grossly intact. Cholecystectomy clips are noted in the right upper quadrant. A gastrostomy tube projects over the upper abdomen. IMPRESSION: 1. No pneumothorax is identified post procedure. 2. Bibasilar airspace consolidation is again seen at both lung bases, left greater than right. This i s typical for pneumonia/aspiration pneumonitis. Clinical correlation will be required and radiographi c follow-up to resolution is recommended. 3. Cardiomegaly without radiographic evidence of congestive failure. 4. Small pleural effusions are noted. ACT 112: Negative or not required by law. Electronically signed by: Sunil Khanna M.D. 10/30/2023 10:00 AM
[2023-10-30] MEDS ORDERED: STAT IV Infusion **Titration per Protocol STA (10:15)
[2023-10-30] MEDS: VASOPRESSIN 20 UNITS in 0.9 % SODIUM CHLORIDE 100 ML IV SCH (10:28)
--- NOTE | 2023-10-30 10:41 | Procedure Note ---
Procedure Note Date of Service October 30, 2023 Note Tracheostomy exchange and bronchoscopy note: Patient's uncuffed trach was exchanged to a cuffed trach. Consent was obtained from the patient's son over the phone as the patient is currently not decisional due to metabolic encephalopathy. Timeout was performed prior to the procedure. Patient was placed on 100% FiO2. Bronchoscope was inserted via the current tracheostomy and the stoma and airway appeared to be unremarkable aside for very thick secretions emanating from the bilateral tracheobronchial tree which were suctioned and sent to the lab. The bronchoscope was then removed. The patient was then bagged using a bag-valve- mask to improve his oxygenation to 92%. We then exchanged the uncuffed trach to a cuffed trach without any significant issues. The patient was then placed on mechanical ventilation a bronchoscope adapter was placed. I inserted the bronchoscope via the bronchoscope adapter and inspected the airways further. Thick brown secretions were noted throughout the tracheobronchial tree which were aspirated free. Patient's ventilation improved status post bronchoscopy. Patient tolerated procedure without issue. Cultures will be sent from the right lower lobe Coding CPT Codes Pulmonary/Thoracic - Pulmonary and Thoracic: 87348 Dx bronchoscopy/wash ([id number]) Pulmonary/Thoracic - Pulmonary and Thoracic: 45825 Tracheotomy tube change prior to Fistula ([id number]) [facility] [place] (Charges) Pulmonary/Thoracic Procedure 1: Pulmonary and Thoracic: 22107 Dx bronchoscopy/wash Procedure 2: Pulmonary and Thoracic: 81304 Tracheotomy tube change prior to Fistula
--- NOTE | 2023-10-30 10:42 | Procedure Note ---
Procedure Note Date of Service October 30, 2023 Note ARTERIAL LINE PROCEDURE NOTE: Procedure: Arterial Line Placement Indication: Monitoring on Pressors Anesthesia: None/5 mL lidocaine 1% Consent was obtained from the patient's son over the phone signed and placed on the chart prior to procedure. Indication, risks, and benefits were explained at length. A time-out was completed verifying correct patient, procedure, site, positioning, and implant(s) or special equipment if applicable. Patients left wrist was prepped and draped in the usual sterile fashion. Ultrasound guidance was used to aid needle placement. A 20g Arrow arterial line was introduced into the left radial artery. Catheter was threaded, and the needle was removed with appropriate blood return. Good waveform was observed. The patient tolerated the procedure well. Blood Loss: Minimal Complications: None Coding CPT Codes Tubes, Drains, and Vasc Access - Tubes, Drains, and Vasc Access: [id number] Arterial Cath/Cannulation Sampling/Monitoring/Transfusion ([id number]) Tubes, Drains, and Vasc Access - Tubes, Drains, and Vasc Access: [id number] Ultrasound Guidance For Vascular ([id number]) [facility] [place] Codes (Charges) Tubes, Drains, and Vasc Access Procedure 1: Tubes, Drains, and Vasc Access: [id number] Arterial Cath/Cannulation Sampling/Monitoring/Transfusion Procedure 2: Tubes, Drains, and Vasc Access: [id number] Ultrasound Guidance For Vascular
[2023-10-30] MEDS: ALBUMIN 5% 250 ML IV ONE (10:54)
[2023-10-30 11:01] LABS: iSTAT Art Bld Gas pCO2 Correct 40 mmHg (35-46); iSTAT Art Bld Gas pH Corrected 7.338 (7.35-7.45); iSTAT Arterial Blood Gas HCO3 21 meg/L (19-24); iSTAT Arterial Blood Gas pCO2 40 mmHg (35-46); iSTAT Arterial Blood Gas pH 7.34 (7.35-7.45); iSTAT Arterial Blood Gas pO2 64 mmHg (80-95); iSTAT Arterial Blood Gas pO2 C 63; iSTAT Carbon Dioxide 22 mmol/L (24-31); iSTAT FiO2 50 %; iSTAT Hematocrit 25 % (42-52); iSTAT Hemoglobin 8.5 g/dl (14.0-18.0); iSTAT Potassium 2.9 mmol/L (3.3-5.0); iSTAT Site L Radial; iSTAT Sodium 138 mmol/L (135-144)
--- NOTE | 2023-10-30 11:18 | Critical Care Progress Note ---
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 Presenting to the ICU with evidence of hypovolemic and septic shock Neurologic: Patient remains with metabolic encephalopathy. Will continue to avoid sedating agents. May need to initiate continuous sedation to promote ventilator synchrony if further hypoxemia. Pulmonary: Patient transition to a cuffed trach 10/30/2023 bronchoscopy performed with washings from the right lower lobe. Brown mucoid secretions were aspirated and sent to lab for culture. Patient on broad-spectrum antibiotics currently including vancomycin and cefepime. He has diffuse infiltrates noted on CT chest and chest x-ray from aspiration pneumonia. Cardiovascular: Patient with worsening septic shock now on Levophed and vasopressin. Patient has PICC line in place. Left radial arterial line in place. Giving additional albumin boluses today. Will check repeat echo. Patient with history of TAVR and possible endocarditis. Given complete records from [facility]. Continue hydrocortisone 50 mg every 6 hours and midodrine 10 mg 3 times daily. Gastrointestinal: KUB with evidence of developing ileus. Continue Protonix and PEG tube to low intermittent wall suction. Will obtain CT abdomen pelvis with contrast today to evaluate for infective process and progression of ileus. Lipase unremarkable on presentation. Renal: Renal function remained stable. Replacing potassium as required. Check lactic acid level given ongoing hypotension. ABG with appropriate acid-base status. Infectious disease: Patient currently on vancomycin and cefepime. Reaching out to [facility] ID given history of presumptive endocarditis, aspiration pneumonia with history of resistant Pseudomonas organisms and chronic osteomyelitis. Hematologic: Patient with anemia of chronic disease. Thrombocytopenia improved. Continue aspirin 5000 units twice daily. Endocrine: TSH unremarkable. Stress dose steroids as above with hydrocortisone. Lines and tubes: Double-lumen PICC in place. Trach exchanged 10/30/2023. VTE prophylaxis: SCD CODE STATUS: Palliative care is been consulted and there is been some controversy related to the patient's CODE STATUS. Family adamantly requested full CODE STATUS and aggressive measures. Patient clearly has severe malnutrition and failure to thrive. Prognosis overall is very poor. This has been reiterated to the family numerous times. Patient's son and updated over the phone today. Disposition: ICU Patient discussed on multidisciplinary rounds. I have personally spent 96 minutes of critical care time in the direct management of this patient. This is a life/limb threatening event. This includes time spent evaluating patient, direct bedside care, chart review, placing orders, interpretation of diagnostic studies, discussion with consultants, patient, and family members, as well as other required patient management activities. This time is exclusive of all separately billable procedures, and teaching time and separate from and in addition to any other critical care service time. Thank you for allowing us to participate in the care of this patient. Admission and Anticipated Discharge Date Admission Date: October 28, 2023 Subjective Patient seen examined. Minimally responsive to commands, but does open his eyes spontaneously. Seems to be able to squeeze my hands bilaterally but unclear whether this is on command or reflex. Patient had worsening hypoxemic respiratory failure today and was ultimately changed from an uncuffed trach to a cuffed trach. Bronchoscopy performed. Patient was requiring escalating doses of vasopressors and is now on Levophed and vasopressin. Also receiving 250 bolus of albumin. Patient discussed in multidisciplinary rounds. Review of Systems Review of Systems: Unobtainable due to cognitive status Physical Exam Physical Exam: Constitutional: Cachectic and frail-appearing. Obtunded. Eyes: Pupils are equal round and reactive to light. Conjunctivae are normal. Anicteric sclera. Ears nose, mouth and throat: Tracheostomy in place. Neck: Trachea is midline. Visual inspection is normal. Tracheostomy noted with [place] valve. Respiratory: Diffuse crackles. Mildly tachypneic. Cardiovascular: Regular rate and rhythm. No murmurs. No edema. Gastrointestinal: Normal bowel sounds, soft, nontender and nondistended. No hepatosplenomegaly noted. Musculoskeletal: No cyanosis. Patient is able to move all extremities. Strength is 5 out of 5 in the upper and lower extremities. Skin: Multiple nonhealing ulcers noted throughout his body. Neurologic: Minimally responsive to painful stimuli. Psychiatric: Unable to assess. Results & Data Results & Data Vital Signs (Past 12 Hours) Vital Signs Temp Pulse Pulse Resp BP Pulse Ox O2 Del Method 10/30/23 10:18 Trach Collar 06/27/24 10:11 98 H 33 H 92 10/30/23 10:09 36.9 C 85 31 H 90 10/30/23 10:05 76/46 L 10/30/23 09:54 37.0 C 88 26 H 91 10/30/23 09:45 37.0 C 86 19 95 10/30/23 09:30 88/60 L 10/30/23 09:30 88/60 L 10/30/23 09:30 37.1 C 89 39 H 88 L 10/30/23 09:15 37.2 C 89 32 H 89 L 10/30/23 09:00 37.3 C 91 H 31 H 90 10/30/23 09:00 89/57 L 10/30/23 09:00 89/57 L 10/30/23 09:00 89/57 L 10/30/23 09:00 89/57 L 10/30/23 09:00 89/57 L 10/30/23 08:45 37.4 C 93 H 28 H 92 10/30/23 08:30 91/60 L 10/30/23 08:30 37.6 C H 86 37 H 96 10/30/23 08:22 89/65 L 10/30/23 08:21 37.6 C H 90 35 H 94 Trach Collar 10/30/23 08:00 90/55 L 10/30/23 08:00 90/55 L 10/30/23 08:00 37.8 C H 88 31 H 93 10/30/23 07:51 37.7 C H 96 H 35 H 95 10/30/23 07:35 Trach Collar 10/30/23 07:30 37.7 C H 95 H 38 H 90 10/30/23 07:18 37.7 C H 94 H 40 H 89 L 10/30/23 07:15 92/52 L 10/30/23 07:15 92/52 L 10/30/23 07:12 37.7 C H 97 H 38 H 92 10/30/23 07:00 37.8 C H 94 H 36 H 93 10/30/23 07:00 91/57 L 10/30/23 07:00 91/57 L 10/30/23 07:00 91/57 L 10/30/23 07:00 91/57 L 10/30/23 06:45 37.7 C H 97 H 31 H 95 10/30/23 06:39 37.7 C H 96 H 34 H 95 10/30/23 06:30 92/66 L 10/30/23 06:30 92/66 L 10/30/23 06:18 37.6 C H 98 H 39 H 98 10/30/23 06:17 97 H 30 H 98 Trach Collar 10/30/23 06:15 103/61 10/30/23 06:15 103/61 10/30/23 06:12 37.6 C H 99 H 35 H 96 10/30/23 06:00 106/60 10/30/23 05:51 37.5 C 78 22 90 10/30/23 05:45 92/55 L 10/30/23 05:39 37.5 C 87 26 H 86 L 10/30/23 05:30 84/64 L 10/30/23 05:30 84/64 L 10/30/23 05:24 37.5 C 90 33 H 91 10/30/23 05:15 96/55 L 10/30/23 05:15 96/55 L 10/30/23 05:06 37.5 C 84 36 H 93 10/30/23 05:00 98/65 L 10/30/23 05:00 37.5 C 82 28 H 93 10/30/23 04:51 37.5 C 82 29 H 97 10/30/23 04:45 93/50 L 10/30/23 04:39 37.5 C 85 37 H 99 10/30/23 04:30 100/54 L 10/30/23 04:21 37.5 C 81 27 H 97 10/30/23 04:18 37.5 C 80 29 H 92 10/30/23 04:15 94/58 L 10/30/23 04:15 94/58 L 10/30/23 04:15 94/58 L 10/30/23 04:09 37.5 C 83 27 H 98 10/30/23 04:00 92/59 L 10/30/23 04:00 92/59 L 10/30/23 03:51 37.5 C 83 32 H 93 10/30/23 03:48 37.5 C 81 36 H 91 10/30/23 03:46 98/52 L 10/30/23 03:46 98/52 L 10/30/23 03:46 98/52 L 10/30/23 03:33 37.5 C 81 26 H 100 10/30/23 03:31 91/72 L 10/30/23 03:30 37.5 C 83 28 H 100 10/30/23 03:24 37.5 C 80 25 H 100 10/30/23 03:00 95/56 L 10/30/23 03:00 37.6 C H 85 28 H 100 10/30/23 02:39 37.6 C H 85 27 H 100 10/30/23 01:46 99/49 L 10/30/23 01:46 99/49 L 10/30/23 01:46 99/49 L 10/30/23 01:46 99/49 L 10/30/23 01:45 37.6 C H 84 26 H 100 10/30/23 01:39 37.6 C H 81 27 H 100 10/30/23 01:32 94/66 L 10/30/23 01:32 94/66 L 10/30/23 01:18 37.5 C 83 26 H 99 10/30/23 01:15 101/44 L 10/30/23 01:15 101/44 L 10/30/23 01:15 101/44 L 10/30/23 01:12 37.5 C 82 26 H 99 10/30/23 01:03 37.5 C 90 35 H 94 10/30/23 01:00 94/66 L 10/30/23 01:00 94/66 L 10/30/23 01:00 94/66 L 10/30/23 01:00 84 18 96 Trach Collar 10/30/23 00:45 98/59 L 10/30/23 00:45 98/59 L 10/30/23 00:45 37.4 C 80 27 H 98 10/30/23 00:30 37.3 C 81 32 H 97 10/30/23 00:18 37.1 C 83 31 H 100 10/30/23 00:15 102/60 10/30/23 00:15 102/60 10/30/23 00:15 102/60 10/30/23 00:15 102/60 10/30/23 00:12 37.0 C 87 34 H 98 10/30/23 00:00 104/59 L 10/30/23 00:00 104/59 L 10/30/23 00:00 36.9 C 77 30 H 99 10/30/23 00:00 85 10/29/23 23:45 36.6 C 80 25 H 100 10/29/23 23:33 36.5 C 72 23 99 10/29/23 23:30 108/62 10/29/23 23:30 108/62 10/29/23 23:30 108/62 10/29/23 23:24 36.3 C L 78 23 97 10/29/23 23:15 111/62 10/29/23 23:15 111/62 10/29/23 23:15 111/62 O2 Flow Rate FiO2 10/30/23 10:18 10/30/23 10:11 50 10/30/23 10:09 10/30/23 10:05 10/30/23 09:54 10/30/23 09:45 10/30/23 09:30 10/30/23 09:30 10/30/23 09:30 10/30/23 09:15 10/30/23 09:00 100 10/30/23 09:00 10/30/23 09:00 10/30/23 09:00 10/30/23 09:00 10/30/23 09:00 10/30/23 08:45 10/30/23 08:30 10/30/23 08:30 10/30/23 08:22 10/30/23 08:21 100 10/30/23 08:00 10/30/23 08:00 10/30/23 08:00 10/30/23 07:51 10/30/23 07:35 10/30/23 07:30 10/30/23 07:18 10/30/23 07:15 10/30/23 07:15 10/30/23 07:12 10/30/23 07:00 10/30/23 07:00 10/30/23 07:00 10/30/23 07:00 10/30/23 07:00 10/30/23 06:45 10/30/23 06:39 10/30/23 06:30 10/30/23 06:30 10/30/23 06:18 10/30/23 06:17 40 100 10/30/23 06:15 10/30/23 06:15 10/30/23 06:12 10/30/23 06:00 10/30/23 05:51 10/30/23 05:45 10/30/23 05:39 10/30/23 05:30 10/30/23 05:30 10/30/23 05:24 10/30/23 05:15 10/30/23 05:15 10/30/23 05:06 10/30/23 05:00 10/30/23 05:00 10/30/23 04:51 10/30/23 04:45 10/30/23 04:39 10/30/23 04:30 10/30/23 04:21 10/30/23 04:18 10/30/23 04:15 10/30/23 04:15 10/30/23 04:15 10/30/23 04:09 10/30/23 04:00 10/30/23 04:00 10/30/23 03:51 10/30/23 03:48 10/30/23 03:46 10/30/23 03:46 10/30/23 03:46 10/30/23 03:33 10/30/23 03:31 10/30/23 03:30 10/30/23 03:24 10/30/23 03:00 10/30/23 03:00 10/30/23 02:39 10/30/23 01:46 10/30/23 01:46 10/30/23 01:46 10/30/23 01:46 10/30/23 01:45 10/30/23 01:39 10/30/23 01:32 10/30/23 01:32 10/30/23 01:18 10/30/23 01:15 10/30/23 01:15 10/30/23 01:15 10/30/23 01:12 10/30/23 01:03 10/30/23 01:00 10/30/23 01:00 10/30/23 01:00 10/30/23 01:00 10 10/30/23 00:45 10/30/23 00:45 10/30/23 00:45 10/30/23 00:30 10/30/23 00:18 10/30/23 00:15 10/30/23 00:15 10/30/23 00:15 10/30/23 00:15 10/30/23 00:12 10/30/23 00:00 10/30/23 00:00 10/30/23 00:00 10/30/23 00:00 10/29/23 23:45 10/29/23 23:33 10/29/23 23:30 10/29/23 23:30 10/29/23 23:30 10/29/23 23:24 10/29/23 23:15 10/29/23 23:15 10/29/23 23:15 Coding Level of Care Code 93891 CRITICAL CARE EA ADD 30M Diagnoses Multifocal pneumonia J18.9 Tracheostomy dependence Z93.0 Sepsis A41.9 Sepsis acute organ dysfunction status: unspecified Sepsis type: sepsis due to unspecified organism Severe malnutrition E43 Chronic osteomyelitis M86.60 Septic shock A41.9; R65.21 Pressure ulcer L89.90 Endocarditis I38 Time Spent (min) 96 (3) Sepsis Sepsis acute organ dysfunction status: unspecified Sepsis type: sepsis due to unspecified organism Qualified Code(s): A41.9 - Sepsis, unspecified organism
[2023-10-30] MEDS: PANTOprazole 40 MG in SYRINGE 0 ML IV SCH (11:20)
[2023-10-30] MEDS: POTASSIUM CHLORIDE / WTR 10 MEQ/100 ML PLCT IV SCH (11:20)
--- NOTE | 2023-10-30 13:59 | Hospitalist Progress Note ---
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 He is being managed for the following: Sepsis with multifocal pneumonia, Trach dependent respiratory failure Hypotension: likely 2/2 above. Metabolic encephalopathy: likely 2/2 above iso general frailty. decisional capacity is minimal at present WBC 21, CXR and CT chest with multifocal PNA, procal elevated, recent sputum clx with pseudomonas resistant to meropenem but sensitive to cefepime. Patient was recently admitted and discharged on home hospice. He was seen by palliative, ID during that time. He had Pseudomonas pneumonia which was resistant to meropenem but sensitive to cefepime. He was not discharged on antibiotics as he was going home on home hospice. However, per admitting, he wants to be full code and wants to get better and live. C/w vanc/cefepime 10/27. Of note, he has been on iv dapto 400 mg q24 hr to end on November 04 per for suspected infective endocarditis. Vanc in stead of dapto as this would cover for any possible MRSA pneumonia. Follow up on ID. Continue trach care. Follow up on sputum clx, blood clx. S/p bronch 10/29, Cx sent, f/u on bronch Cx. Pt needing pressor support and increasing O2 needs. Pt is being managed in the ICU. ?IE of TAVR tip per - on iv daptomycin 400 mg q24 hr- EOT 11/05/23 per . Has PICC line in place. Follows [facility]. Vanc for now. see above. Concern for ileus: KUB 10/28 showing ileus, being managed per ICU. PEG tube to LIWS, plan to obtain CTAP. Will follow. Hypercalcemia- given calcitonin in ED. c/w ivf. Improving. Recheck in am Hyponatremia- c/w ivf, improving, recheck in am Severe malnutrition- on tube feed with PEG tube in place. NPO. Continue home nutrina 2.0 with low fiber after XR KUB. Consult dietitian. Cancer related pain- continue home oxycodone and tylenol and gabapentin. states no morphine as it makes him lethargic. History of head and neck cancer s/p treatment and jaw reconstruction- states he is in remission. Gets all his care at [facility] discussion- patient was discharged on home hospice but and son disagrees. Apparently has 3 POAs (son, mother and brother) but his brother went behind their back and put him on hospice (per and son) which they disagree and was a surprise to them. They state they don't want him to be POA anymore and will go with his son (who agrees with the ) and they want to be aggressive with his care with hope to turn around and get him to rehab. They have already revoked hospice. Palliative working on getting family meeting together to help us through this difficult family dynamics. Appreciate their efforts. D/w pallia tive , full code for now. Pt with guarded prognosis. Patient's mother and sister has been explained 10/28. DVT ppx- sc heparin Dispo- transfer to icu. Admission and Anticipated Discharge Date Admission Date: October 28, 2023 Subjective Patient seen & examined at bedside. Minimally responsive to commands, but does open his eyes spontaneously. D/w tobacco weigher - patient had worsening hypoxemic respiratory failure today and was ultimately changed from an uncuffed trach to a cuffed trach. Bronchoscopy performed and Cx was sent, plan to consult [facility] ID (pt follows [facility] ID as well). Patient needing pressors. ROS not able due to coginition status. Physical Exam Physical Exam: General: Frail elderly male, sick looking, cachectic, Obtunded HEENT: JESSICA, dry oral mucosa, on trach with supplemental oxygen. Chest: Coarse breath sounds bilaterally with rhonchi CVS: Regular, normal heart sounds Abdomen: Soft, non tender, not distended, normal bowel sounds, PEG tube noted Neuro: obtunded. MSK: loss of muscle mass diffusely Results & Data Results & Data Vital Signs (Past 12 Hours) Vital Signs Temp Pulse Pulse Resp BP Pulse Ox O2 Del Method 10/30/23 13:30 36.6 C 87 24 100 10/30/23 13:30 98/60 L 10/30/23 13:25 101/59 L 10/30/23 13:25 101/59 L 10/30/23 13:20 101/55 L 10/30/23 13:15 97/60 L 10/30/23 13:15 97/60 L 10/30/23 13:12 36.6 C 85 30 H 99 10/30/23 13:10 100/59 L 10/30/23 13:10 100/59 L 10/30/23 13:05 106/60 10/30/23 13:00 36.6 C 80 28 H 100 10/30/23 12:55 106/61 10/30/23 12:50 99/61 L 10/30/23 12:50 99/61 L 10/30/23 12:35 101/60 10/30/23 12:35 101/60 10/30/23 12:33 36.8 C 84 26 H 100 10/30/23 12:31 98/60 L 10/30/23 12:27 36.7 C 86 33 H 99 10/30/23 12:21 36.7 C 95 H 14 100 10/30/23 12:15 98/52 L 10/30/23 12:15 98/52 L 10/30/23 12:10 99/54 L 10/30/23 12:10 99/54 L 10/30/23 12:03 36.7 C 72 19 97 10/30/23 12:00 102/56 L 10/30/23 12:00 102/56 L 10/30/23 12:00 36.7 C 81 29 H 96 10/30/23 11:55 101/57 L 10/30/23 11:55 101/57 L 10/30/23 11:51 36.7 C 76 34 H 96 10/30/23 11:51 112/55 L 10/30/23 11:51 112/55 L 10/30/23 11:45 111/63 10/30/23 11:45 111/63 10/30/23 11:42 100/60 10/30/23 11:42 36.8 C 81 28 H 97 10/30/23 11:36 36.8 C 74 26 H 96 10/30/23 11:35 106/58 L 10/30/23 11:35 106/58 L 10/30/23 11:33 36.8 C 86 29 H 96 10/30/23 11:30 113/63 10/30/23 11:30 113/63 10/30/23 11:27 36.8 C 71 22 96 10/30/23 11:25 96/58 L 10/30/23 11:25 96/58 L 10/30/23 11:25 96/58 L 10/30/23 11:21 36.8 C 87 32 H 96 10/30/23 11:20 110/61 10/30/23 11:16 93/66 L 10/30/23 11:16 93/66 L 10/30/23 11:15 36.8 C 80 29 H 96 10/30/23 11:12 36.8 C 69 20 96 10/30/23 11:10 77/53 L 10/30/23 11:10 77/53 L 10/30/23 11:06 36.8 C 82 35 H 93 10/30/23 11:05 97/54 L 10/30/23 11:00 91/48 L 10/30/23 11:00 91/48 L 10/30/23 10:57 36.8 C 68 23 94 10/30/23 10:55 90/52 L 10/30/23 10:55 90/52 L 10/30/23 10:55 90/52 L 10/30/23 10:40 88/54 L 10/30/23 10:40 88/54 L 10/30/23 10:39 36.9 C 73 23 93 10/30/23 10:38 83/50 L 10/30/23 10:35 82/53 L 10/30/23 10:33 36.9 C 82 29 H 94 10/30/23 10:30 84/49 L 10/30/23 10:30 84/49 L 10/30/23 10:25 77/45 L 10/30/23 10:18 Trach Collar 10/30/23 10:11 98 H 33 H 92 10/30/23 10:09 36.9 C 85 31 H 90 10/30/23 10:05 76/46 L 06/27/24 09:54 37.0 C 88 26 H 91 10/30/23 09:45 37.0 C 86 19 95 10/30/23 09:30 88/60 L 10/30/23 09:30 88/60 L 10/30/23 09:30 37.1 C 89 39 H 88 L 10/30/23 09:15 37.2 C 89 32 H 89 L 10/30/23 09:00 37.3 C 91 H 31 H 90 10/30/23 09:00 89/57 L 10/30/23 09:00 89/57 L 10/30/23 09:00 89/57 L 10/30/23 09:00 89/57 L 10/30/23 09:00 89/57 L 10/30/23 08:45 37.4 C 93 H 28 H 92 10/30/23 08:30 91/60 L 10/30/23 08:30 37.6 C H 86 37 H 96 10/30/23 08:22 89/65 L 10/30/23 08:21 37.6 C H 90 35 H 94 Trach Collar 10/30/23 08:19 87 10/30/23 08:00 90/55 L 10/30/23 08:00 90/55 L 10/30/23 08:00 37.8 C H 88 31 H 93 10/30/23 07:51 37.7 C H 96 H 35 H 95 10/30/23 07:35 Trach Collar 10/30/23 07:30 37.7 C H 95 H 38 H 90 10/30/23 07:18 37.7 C H 94 H 40 H 89 L 10/30/23 07:15 92/52 L 10/30/23 07:15 92/52 L 10/30/23 07:12 37.7 C H 97 H 38 H 92 10/30/23 07:00 37.8 C H 94 H 36 H 93 10/30/23 07:00 91/57 L 10/30/23 07:00 91/57 L 10/30/23 07:00 91/57 L 10/30/23 07:00 91/57 L 10/30/23 06:45 37.7 C H 97 H 31 H 95 10/30/23 06:39 37.7 C H 96 H 34 H 95 10/30/23 06:30 92/66 L 10/30/23 06:30 92/66 L 10/30/23 06:18 37.6 C H 98 H 39 H 98 10/30/23 06:17 97 H 30 H 98 Trach Collar 10/30/23 06:15 103/61 10/30/23 06:15 103/61 10/30/23 06:12 37.6 C H 99 H 35 H 96 10/30/23 06:00 106/60 10/30/23 05:51 37.5 C 78 22 90 10/30/23 05:45 92/55 L 10/30/23 05:39 37.5 C 87 26 H 86 L 10/30/23 05:30 84/64 L 10/30/23 05:30 84/64 L 10/30/23 05:24 37.5 C 90 33 H 91 10/30/23 05:15 96/55 L 10/30/23 05:15 96/55 L 10/30/23 05:06 37.5 C 84 36 H 93 10/30/23 05:00 98/65 L 10/30/23 05:00 37.5 C 82 28 H 93 10/30/23 04:51 37.5 C 82 29 H 97 10/30/23 04:45 93/50 L 10/30/23 04:39 37.5 C 85 37 H 99 10/30/23 04:30 100/54 L 10/30/23 04:21 37.5 C 81 27 H 97 10/30/23 04:18 37.5 C 80 29 H 92 10/30/23 04:15 94/58 L 10/30/23 04:15 94/58 L 10/30/23 04:15 94/58 L 10/30/23 04:09 37.5 C 83 27 H 98 10/30/23 04:00 92/59 L 10/30/23 04:00 92/59 L 10/30/23 03:51 37.5 C 83 32 H 93 10/30/23 03:48 37.5 C 81 36 H 91 10/30/23 03:46 98/52 L 10/30/23 03:46 98/52 L 10/30/23 03:46 98/52 L 10/30/23 03:33 37.5 C 81 26 H 100 10/30/23 03:31 91/72 L 10/30/23 03:30 37.5 C 83 28 H 100 10/30/23 03:24 37.5 C 80 25 H 100 10/30/23 03:00 95/56 L 10/30/23 03:00 37.6 C H 85 28 H 100 10/30/23 02:39 37.6 C H 85 27 H 100 O2 Flow Rate FiO2 10/30/23 13:30 10/30/23 13:30 10/30/23 13:25 10/30/23 13:25 10/30/23 13:20 10/30/23 13:15 10/30/23 13:15 10/30/23 13:12 10/30/23 13:10 10/30/23 13:10 10/30/23 13:05 10/30/23 13:00 10/30/23 12:55 10/30/23 12:50 10/30/23 12:50 10/30/23 12:35 10/30/23 12:35 10/30/23 12:33 10/30/23 12:31 10/30/23 12:27 10/30/23 12:21 10/30/23 12:15 10/30/23 12:15 10/30/23 12:10 10/30/23 12:10 10/30/23 12:03 10/30/23 12:00 10/30/23 12:00 10/30/23 12:00 10/30/23 11:55 10/30/23 11:55 10/30/23 11:51 10/30/23 11:51 10/30/23 11:51 10/30/23 11:45 10/30/23 11:45 10/30/23 11:42 10/30/23 11:42 10/30/23 11:36 10/30/23 11:35 10/30/23 11:35 10/30/23 11:33 10/30/23 11:30 10/30/23 11:30 10/30/23 11:27 10/30/23 11:25 10/30/23 11:25 10/30/23 11:25 10/30/23 11:21 10/30/23 11:20 10/30/23 11:16 10/30/23 11:16 10/30/23 11:15 10/30/23 11:12 10/30/23 11:10 10/30/23 11:10 10/30/23 11:06 10/30/23 11:05 10/30/23 11:00 10/30/23 11:00 10/30/23 10:57 10/30/23 10:55 10/30/23 10:55 10/30/23 10:55 10/30/23 10:40 10/30/23 10:40 10/30/23 10:39 10/30/23 10:38 10/30/23 10:35 10/30/23 10:33 10/30/23 10:30 10/30/23 10:30 10/30/23 10:25 10/30/23 10:18 10/30/23 10:11 50 10/30/23 10:09 10/30/23 10:05 10/30/23 09:54 10/30/23 09:45 10/30/23 09:30 10/30/23 09:30 10/30/23 09:30 10/30/23 09:15 10/30/23 09:00 100 10/30/23 09:00 10/30/23 09:00 10/30/23 09:00 10/30/23 09:00 10/30/23 09:00 10/30/23 08:45 10/30/23 08:30 10/30/23 08:30 10/30/23 08:22 10/30/23 08:21 100 10/30/23 08:19 10/30/23 08:00 10/30/23 08:00 10/30/23 08:00 10/30/23 07:51 10/30/23 07:35 10/30/23 07:30 10/30/23 07:18 10/30/23 07:15 10/30/23 07:15 10/30/23 07:12 10/30/23 07:00 10/30/23 07:00 10/30/23 07:00 10/30/23 07:00 10/30/23 07:00 10/30/23 06:45 10/30/23:39 10/30/23 06:30 10/30/23 06:30 10/30/23 06:18 10/30/23 06:17 40 100 10/30/23 06:15 10/30/23 06:15 10/30/23 06:12 10/30/23 06:00 10/30/23 05:51 10/30/23 05:45 10/30/23 05:39 10/30/23 05:30 10/30/23 05:30 10/30/23 05:24 10/30/23 05:15 10/30/23 05:15 10/30/23 05:06 10/30/23 05:00 10/30/23 05:00 10/30/23 04:51 10/30/23 04:45 10/30/23 04:39 10/30/23 04:30 10/30/23 04:21 10/30/23 04:18 10/30/23 04:15 10/30/23 04:15 10/30/23 04:15 10/30/23 04:09 10/30/23 04:00 10/30/23 04:00 10/30/23 03:51 10/30/23 03:48 10/30/23 03:46 10/30/23 03:46 10/30/23 03:46 10/30/23 03:33 10/30/23 03:31 10/30/23 03:30 10/30/23 03:24 10/30/23 03:00 10/30/23 03:00 10/30/23 02:39 (1) Sepsis Sepsis acute organ dysfunction status: unspecified Sepsis type: sepsis due to unspecified organism Qualified Code(s): A41.9 - Sepsis, unspecified organism
[2023-10-30] MEDS: OPTIRAY 320 125ml IV ONE (14:27)
--- NOTE | 2023-10-30 14:59 | Infectious Disease Consult ---
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 (R mandibular WCX with PsA and M morganii), s/p right composite mandibulectomy 07/10/23 s/p meropenem x 6wks eot 08/26, s/p TAVR 05/2021, admission to [facility] 09/02-09/08 with MRSA PNA s/p 10d of abx (completed with LZD), admission to [facility] 09/20-09/30 with hypoxic respiratory failure 2/2 aspiration PNA and MRSA bacteremia (MRSA believed 2/2 PNA with PICC seeding, was unable to get NITIN, treated for presumed endocarditis with daptomycin x 6 wks - end 11/03, plus doxy x 14d for PNA), admission [facility] 10/12-10/16 with PNA r/t MDR Pseudomonas and was transitioned to hospice, now presented on 10/27 with respiratory distress. Here he was hypothermic, hypotensive, requiring pressors. Initial WBC 21.90, Cr 1.14, AST/ALT wnl. PCT 0.88. RPP neg, MRSA positive. CXR with progression of extensive bl airspace opacities suggestive of PNA or aspiration pneumonitis. CT chest with multifocal consolidation c/w PNA, mild ascites. KUB with diffuse gaseous distention of colon. He was started on vancomycin and cefepime for c/f multifocal PNA vs aspiration. Seen by surgery for shoulder and sacral wounds. Also noted purulence around R mandible region. Holding surgical intervention due to acuity of patient. S/p bronchoscopy 10/29. He has had worsening shock requiring both levophed and vasopressin, also on solucortef. ID consulted 10/29. I reviewed recent sputum cx with ID pharmacist and [facility] pharmacy. Given resistance profile and worsening clinical status, will use broader coverage with zerbaxa. Will follow up on BAL cultures and additional studies. # Septic shock on 2 pressors # Acute respiratory failure # Multifocal PNA (prior SCx with MDR PsA) # H/o MRSA bacteremia, tx presumptive prosthetic valve endocarditis end through November 03 # h/o jaw OM s/p meropenem - Im going to stop cefepime and start zerbaxa empirically given his recent cultures and worsening clinical status - continue vancomycin to include coverage of lung and tx for endocarditis - f/u BAL cultures - f/u CTAP - will see patient with telepresenter tomorrow ID will continue to follow. If questions or concerns, contact Infectious Disease Call Center . Lizabeth Francisco MD [facility], Division of Infectious Diseases [facility]: [phone] Consultation Information This patient recommendation is based on a telemedicine consult request which was completed asynchronously through chart review and information provided by the primary physician. The patient was not seen or examined today. The evaluation is consultative in nature and all patient care and treatment decisions can either be accepted or rejected by the patient's primary hospital-based treating physician using their own independent medical judgment for their patient. Records Analyst contact information: Please call [facility] Call Center . 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 (R mandibular WCX with PsA and M morganii), s/p right composite mandibulectomy 07/10/23 s/p meropenem x 6wks eot 08/26, s/p TAVR 05/2021, admission to [facility] 09/02-09/08 with MRSA PNA s/p 10d of abx (completed with LZD), admission to [facility] 09/20-09/30 with hypoxic respiratory failure 2/2 aspiration PNA and MRSA bacteremia (MRSA believed 2/2 PNA with PICC seeding, was unable to get NITIN, treated for presumed endocarditis with daptomycin x 6 wks - end 11/03, plus doxy x 14d for PNA), admission [facility] 10/12-10/16 with PNA r/t MDR Pseudomonas and was transitioned to hospice, now presented on 10/27 with respiratory distress. Apparently code was reversed due to disagreements among family. Here he was hypothermic, hypotensive, requiring pressors. Initial WBC 21.90, Cr 1.14, AST/ALT wnl. PCT 0.88. RPP neg, MRSA positive. CXR with progression of extensive bl airspace opacities suggestive of PNA or aspiration pneumonitis. CT chest with multifocal consolidation c/w PNA, mild ascites. KUB with diffuse gaseous distention of colon. He was started on vancomycin and cefepime for c/f multifocal PNA vs aspiration. Seen by surgery for shoulder and sacral wounds. Also noted purulence around R mandible region. Holding surgical intervention due to acuity of patient. S/p bronchoscopy 10/29. He has had worsening shock requiring both levophed and vasopressin, also on solucortef. ID consulted 10/29. He was admitted to [facility] in September 2023 where he was admitted for hypoxic respiratory failure. His hospital course was c/b colonic pseudoobstruction, s/p rectal tube for decompression (c diff negative). Also found to have MRSA bacteremia. Given he was recently treated for MRSA PNA (09/01-09/02 trach aspirate cx: MRSA), suspected source to be respiratory, likely with secondary bacteremia and PICC seeding (which was present since 03/2022, left in place per family preference). This in the setting of TAVR raised concerns for IE. NITIN was attempted 09/23 however unable to pass probe into esophagus. He was not a surgical candidate due to significant comorbidities including malnourished state/deconditioning/SCC prognosis. Due to risk of complications and unlikely surgical candidacy, a NITIN was deferred. Cardiac CT on 09/25 showed no evidence of TAVR infection and valve was well-seated without significant paravalvular changes. Though reassuring the sensitivity for assessing endocarditis of TAVR is poor with current imaging modalities and high suspicion remained. He was seen by ID endocarditis team and plan was to treat for early prosthetic valve endocarditis 2/2 MRSA. Pt was transitioned to Daptomycin for ease of dosing on discharge and planned for 6 week course for endocarditis and add on PO doxycycline 14 day coverage of MRSA pneumonia. Note, based on review of [facility] records, patient has reported allergies to zosyn (causes itching/hives), meropenem (rash), and ?ceftazidime/flagyl (rash got worse when changed from meropenem). Allergies Allergy/AdvReac Type Severity Reaction Status Date / Time herbal complex no.323 Allergy Severe RASH ALL Verified 10/28/23 16:51 [From Menofem] OVER BODY/LEGS ceftazidime Allergy Intermediate SWELLING Verified 10/28/23 16:51 OF LOWER LEGS--GOING FOR ALLERGY TESTING metronidazole [From Flagyl] Allergy Intermediate SWELLING Verified 10/28/23 1 6:51 OF LOWER LEGS--GOING FOR ALLERGY TESTING Penicillins Allergy Unknown CAN'T Verified 10/28/23 16:51 REMEMBER Home Medications Medication Instructions Recorded Confirmed Type Nutra 2.0 1 dose feeding tube DIRECTED 09/02/23 10/28/23 History sennosides 8.8 mg/5 mL oral syrup 17.6 mg feeding tube BID PRN 09/02/23 10/28/23 History (senna) Constipation acetaminophen 650 mg/20.3 mL oral 650 mg (20.3 mL) PO Q6H #1,015 mL 10/17/23 10/28/23 Rx solution oxycodone 20 mg/mL oral concentrate 30 mg (1.5 mL) feeding tube Q1H 10/17/23 10/28/23 Rx PRN pain #30 mL Unknown Antibiotic 1 dose IV DAILY 10/28/23 10/28/23 History ascorbic acid (vitamin C) 1,000 mg 1 g feeding tube BID 10/28/23 10/28/23 History tablet (Vitamin C) furosemide 10 mg/mL oral solution 20 mg feeding tube DAILY PRN .. 10/28/23 10/28/23 History midodrine 10 mg tablet 10 mg feeding tube TID 10/28/23 10/28/23 History multivitamin 0.5 tab feeding tube BID 10/28/23 10/28/23 History potassium chloride 20 mEq oral 20 meq feeding tube BID 10/28/23 10/28/23 History packet (Klor-Con) sodium di- and 1 tab feeding tube UD 10/28/23 10/28/23 History monophosphate-potassium phos monobasic 250 mg tablet (Phospha Neutral) sucralfate 1 gram tablet 1 g feeding tube BID 10/28/23 10/28/23 History Patient History Social History Smoking Status: Never smoker Second Hand Exposure: No; Do You Dip or Chew Tobacco: No; Hx Alcohol Use: No Hx Substance Use: No Preferred Language: Wallisian Communication Ability: Effective Revenue Coordinator Required: No Beliefs That Will Affect Care: None Current Living Situation: Spouse Other Information That Helps Us Care for You: No Feels Safe at Home: Yes Safety Concerns: Feels Safe At This Time Assistive Devices: Bedside Commode, Hospital Bed, Nebulizer, Oxygen - Continuous, Walker, Wheelchair and Other Results & Data Vital Signs (Past 12 Hours) Vital Signs Temp Pulse Pulse Resp BP Pulse Ox O2 Del Method 10/30/23 14:00 93/61 L 10/30/23 13:55 96/65 L 10/30/23 13:55 96/65 L 10/30/23 13:55 96/65 L 10/30/23 13:51 76 31 H 100 10/30/23 13:50 90/54 L 10/30/23 13:50 90/54 L 10/30/23 13:50 90/54 L 10/30/23 13:45 36.6 C 83 26 H 100 10/30/23 13:45 93/54 L 10/30/23 13:45 93/54 L 10/30/23 13:42 36.6 C 83 25 H 99 10/30/23 13:40 93/58 L 10/30/23 13:40 93/58 L 10/30/23 13:39 36.6 C 81 33 H 100 10/30/23 13:36 36.6 C 83 31 H 99 10/30/23 13:35 104/52 L 10/30/23 13:35 104/52 L 10/30/23 13:33 36.6 C 85 34 H 98 10/30/23 13:30 36.6 C 87 24 100 10/30/23 13:30 98/60 L 10/30/23 13:25 101/59 L 10/30/23 13:25 101/59 L 10/30/23 13:20 101/55 L 10/30/23 13:15 97/60 L 10/30/23 13:15 97/60 L 10/30/23 13:12 36.6 C 85 30 H 99 10/30/23 13:10 100/59 L 10/30/23 13:10 100/59 L 10/30/23 13:05 106/60 10/30/23 13:00 36.6 C 80 28 H 100 10/30/23 12:55 106/61 10/30/23 12:50 99/61 L 10/30/23 12:50 99/61 L 10/30/23 12:35 101/60 10/30/23 12:35 101/60 10/30/23 12:33 36.8 C 84 26 H 100 10/30/23 12:31 98/60 L 10/30/23 12:27 36.7 C 86 33 H 99 10/30/23 12:21 36.7 C 95 H 14 100 10/30/23 12:15 98/52 L 10/30/23 12:15 98/52 L 10/30/23 12:10 99/54 L 10/30/23 12:10 99/54 L 10/30/23 12:03 36.7 C 72 19 97 10/30/23 12:00 102/56 L 10/30/23 12:00 102/56 L 10/30/23 12:00 36.7 C 81 29 H 96 10/30/23 11:55 101/57 L 10/30/23 11:55 101/57 L 10/30/23 11:51 36.7 C 76 34 H 96 10/30/23 11:51 112/55 L 10/30/23 11:51 112/55 L 10/30/23 11:45 111/63 10/30/23 11:45 111/63 10/30/23 11:42 100/60 10/30/23 11:42 36.8 C 81 28 H 97 10/30/23 11:36 36.8 C 74 26 H 96 10/30/23 11:35 106/58 L 10/30/23 11:35 106/58 L 10/30/23 11:33 36.8 C 86 29 H 96 10/30/23 11:30 113/63 10/30/23 11:30 113/63 10/30/23 11:27 36.8 C 71 22 96 10/30/23 11:25 96/58 L 10/30/23 11:25 96/58 L 10/30/23 11:25 96/58 L 10/30/23 11:21 36.8 C 87 32 H 96 10/30/23 11:20 110/61 10/30/23 11:16 93/66 L 10/30/23 11:16 93/66 L 10/30/23 11:15 36.8 C 80 29 H 96 10/30/23 11:12 36.8 C 69 20 96 10/30/23 11:10 77/53 L 10/30/23 11:10 77/53 L 10/30/23 11:06 36.8 C 82 35 H 93 10/30/23 11:05 97/54 L 10/30/23 11:00 91/48 L 10/30/23 11:00 91/48 L 10/30/23 10:57 36.8 C 68 23 94 10/30/23 10:55 90/52 L 10/30/23 10:55 90/52 L 10/30/23 10:55 90/52 L 10/30/23 10:40 88/54 L 10/30/23 10:40 88/54 L 10/30/23 10:39 36.9 C 73 23 93 10/30/23 10:38 83/50 L 10/30/23 10:35 82/53 L 10/30/23 10:33 36.9 C 82 29 H 94 10/30/23 10:30 84/49 L 10/30/23 10:30 84/49 L 10/30/23 10:25 77/45 L 10/30/23 10:18 Trach Collar 10/30/23 10:11 98 H 33 H 92 10/30/23 10:09 36.9 C 85 31 H 90 10/30/23 10:05 76/46 L 10/30/23 09:54 37.0 C 88 26 H 91 10/30/23 09:45 37.0 C 86 19 95 10/30/23 09:30 88/60 L 10/30/23 09:30 88/60 L 10/30/23 09:30 37.1 C 89 39 H 88 L 10/30/23 09:15 37.2 C 89 32 H 89 L 10/30/23 09:00 37.3 C 91 H 31 H 90 10/30/23 09:00 89/57 L 10/30/23 09:00 89/57 L 10/30/23 09:00 89/57 L 10/30/23 09:00 89/57 L 10/30/23 09:00 89/57 L 10/30/23 08:45 37.4 C 93 H 28 H 92 10/30/23 08:30 91/60 L 10/30/23 08:30 37.6 C H 86 37 H 96 10/30/23 08:22 89/65 L 10/30/23 08:21 37.6 C H 90 35 H 94 Trach Collar 10/30/23 08:19 87 10/30/23 08:00 90/55 L 10/30/23 08:00 90/55 L 10/30/23 08:00 37.8 C H 88 31 H 93 10/30/23 07:51 37.7 C H 96 H 35 H 95 10/30/23 07:35 Trach Collar 10/30/23 07:30 37.7 C H 95 H 38 H 90 10/30/23 07:18 37.7 C H 94 H 40 H 89 L 10/30/23 07:15 92/52 L 10/30/23 07:15 92/52 L 10/30/23 07:12 37.7 C H 97 H 38 H 92 10/30/23 07:00 37.8 C H 94 H 36 H 93 10/30/23 07:00 91/57 L 10/30/23 07:00 91/57 L 10/30/23 07:00 91/57 L 10/30/23 07:00 91/57 L 10/30/23 06:45 37.7 C H 97 H 31 H 95 10/30/23 06:39 37.7 C H 96 H 34 H 95 10/30/23 06:30 92/66 L 10/30/23 06:30 92/66 L 10/30/23 06:18 37.6 C H 98 H 39 H 98 10/30/23 06:17 97 H 30 H 98 Trach Collar 10/30/23 06:15 103/61 10/30/23 06:15 103/61 10/30/23 06:12 37.6 C H 99 H 35 H 96 10/30/23 06:00 106/60 10/30/23 05:51 37.5 C 78 22 90 10/30/23 05:45 92/55 L 10/30/23 05:39 37.5 C 87 26 H 86 L 10/30/23 05:30 84/64 L 10/30/23 05:30 84/64 L 10/30/23 05:24 37.5 C 90 33 H 91 10/30/23 05:15 96/55 L 10/30/23 05:15 96/55 L 10/30/23 05:06 37.5 C 84 36 H 93 10/30/23 05:00 98/65 L 10/30/23 05:00 37.5 C 82 28 H 93 10/30/23 04:51 37.5 C 82 29 H 97 10/30/23 04:45 93/50 L 10/30/23 04:39 37.5 C 85 37 H 99 10/30/23 04:30 100/54 L 10/30/23 04:21 37.5 C 81 27 H 97 10/30/23 04:18 37.5 C 80 29 H 92 10/30/23 04:15 94/58 L 10/30/23 04:15 94/58 L 10/30/23 04:15 94/58 L 10/30/23 04:09 37.5 C 83 27 H 98 10/30/23 04:00 92/59 L 10/30/23 04:00 92/59 L 10/30/23 03:51 37.5 C 83 32 H 93 10/30/23 03:48 37.5 C 81 36 H 91 10/30/23 03:46 98/52 L 10/30/23 03:46 98/52 L 10/30/23 03:46 98/52 L 10/30/23 03:33 37.5 C 81 26 H 100 10/30/23 03:31 91/72 L 10/30/23 03:30 37.5 C 83 28 H 100 10/30/23 03:24 37.5 C 80 25 H 100 10/30/23 03:00 95/56 L 10/30/23 03:00 37.6 C H 85 28 H 100 O2 Flow Rate FiO2 10/30/23 14:00 10/30/23 13:55 10/30/23 13:55 10/30/23 13:55 10/30/23 13:51 10/30/23 13:50 10/30/23 13:50 10/30/23 13:50 10/30/23 13:45 10/30/23 13:45 10/30/23 13:45 10/30/23 13:42 10/30/23 13:40 10/30/23 13:40 10/30/23 13:39 10/30/23 13:36 10/30/23 13:35 10/30/23 13:35 10/30/23 13:33 10/30/23 13:30 10/30/23 13:30 10/30/23 13:25 10/30/23 13:25 10/30/23 13:20 10/30/23 13:15 10/30/23 13:15 10/30/23 13:12 10/30/23 13:10 10/30/23 13:10 10/30/23 13:05 10/30/23 13:00 10/30/23 12:55 10/30/23 12:50 10/30/23 12:50 10/30/23 12:35 10/30/23 12:35 10/30/23 12:33 10/30/23 12:31 10/30/23 12:27 10/30/23 12:21 10/30/23 12:15 10/30/23 12:15 10/30/23 12:10 10/30/23 12:10 10/30/23 12:03 10/30/23 12:00 10/30/23 12:00 10/30/23 12:00 10/30/23 11:55 10/30/23 11:55 10/30/23 11:51 10/30/23 11:51 10/30/23 11:51 10/30/23 11:45 10/30/23 11:45 10/30/23 11:42 10/30/23 11:42 10/30/23 11:36 10/30/23 11:35 10/30/23 11:35 10/30/23 11:33 10/30/23 11:30 10/30/23 11:30 10/30/23 11:27 10/30/23 11:25 10/30/23 11:25 10/30/23 11:25 10/30/23 11:21 10/30/23 11:20 10/30/23 11:16 10/30/23 11:16 10/30/23 11:15 10/30/23 11:12 10/30/23 11:10 10/30/23 11:10 10/30/23 11:06 10/30/23 11:05 10/30/23 11:00 10/30/23 11:00 10/30/23 10:57 10/30/23 10:55 10/30/23 10:55 10/30/23 10:55 10/30/23 10:40 10/30/23 10:40 10/30/23 10:39 10/30/23 10:38 10/30/23 10:35 10/30/23 10:33 10/30/23 10:30 10/30/23 10:30 10/30/23 10:25 10/30/23 10:18 10/30/23 10:11 50 10/30/23 10:09 10/30/23 10:05 10/30/23 09:54 10/30/23 09:45 10/30/23 09:30 10/30/23 09:30 10/30/23 09:30 10/30/23 09:15 10/30/23 09:00 100 10/30/23 09:00 10/30/23 09:00 10/30/23 09:00 10/30/23 09:00 10/30/23 09:00 10/30/23 08:45 10/30/23 08:30 10/30/23 08:30 10/30/23 08:22 10/30/23 08:21 100 10/30/23 08:19 10/30/23 08:00 10/30/23 08:00 10/30/23 08:00 10/30/23 07:51 10/30/23 07:35 10/30/23 07:30 10/30/23 07:18 10/30/23 07:15 10/30/23 07:15 10/30/23 07:12 10/30/23 07:00 10/30/23 07:00 10/30/23 07:00 10/30/23 07:00 10/30/23 07:00 10/30/23 06:45 10/30/23 06:39 10/30/23 06:30 10/30/23 06:30 10/30/23 06:18 10/30/23 06:17 40 100 10/30/23 06:15 10/30/23 06:15 10/30/23 06:12 10/30/23 06:00 10/30/23 05:51 10/30/23 05:45 10/30/23 05:39 10/30/23 05:30 10/30/23 05:30 10/30/23 05:24 10/30/23 05:15 10/30/23 05:15 10/30/23 05:06 10/30/23 05:00 10/30/23 05:00 10/30/23 04:51 10/30/23 04:45 10/30/23 04:39 10/30/23 04:30 10/30/23 04:21 10/30/23 04:18 10/30/23 04:15 10/30/23 04:15 10/30/23 04:15 10/30/23 04:09 10/30/23 04:00 10/30/23 04:00 10/30/23 03:51 10/30/23 03:48 10/30/23 03:46 10/30/23 03:46 10/30/23 03:46 10/30/23 03:33 10/30/23 03:31 10/30/23 03:30 10/30/23 03:24 10/30/23 03:00 10/30/23 03:00 Laboratory Results Labs reviewed. Diagnostic Findings Imaging reviewed.
--- NOTE | 2023-10-30 16:54 | CT Scan Report ---
CT ANGIOGRAM OF THE ABDOMEN AND PELVIS CLINICAL HISTORY: Generalized abdominal pain. COMPARISON STUDY: Abdominal CT dated 10/11/2023. TECHNIQUE: Following the IV administration of 112 cc of Optiray 320, CT scan of the abdomen and pelv is is performed from the lung bases to the proximal femora. Images are reviewed in the axial, sagitta l, and coronal planes. 3-D MIPS images are created and assessed. IV contrast was administered without complication. A dose lowering technique was utilized adhering to the principles of ALARA. The examin ation is degraded by cachexia, as well as by streak artifact from the arms which could not be elevate d above the abdomen. There is also motion artifact. CT DOSE: 876.31 mGy.cm FINDINGS: Lung bases: There is evidence of previous aortic valve surgery. The heart is mildly enlarged and with out pericardial effusion. The coronary arteries are densely calcified. There is extensive multifocal airspace consolidation at both lung bases, left greater than right . Small pleural effusions are note d. Liver: The contrast-enhanced liver is normal in size, contour, and attenuation. There is rnai-nm-[id number] rate intrahepatic biliary ductal dilatation. Foci of portal venous gas seen previously are no longer identified. Gallbladder: Surgically absent noting clips in the gallbladder fossa. Spleen: Normal in size and attenuation 2. Heterogeneous arterial phase enhancement. Pancreas: Atrophic and grossly unremarkable. Adrenal glands: A 1.6 cm left adrenal adenoma is unchanged. The right adrenal gland is normal as imag ed. Kidneys: The contrast enhanced kidneys are normal in size and without hydronephrosis. The kidneys enh ance symmetrically. Bilateral renal cysts measure up to 3.6 cm. Nonobstructing bilateral renal calcul i measure up to 9 mm. A 1.9 cm hyperdense lesion in the interpolar left kidney seen on image #128 is unchanged. This appears to show postcontrast enhancement when compared to prior studies. Abdominal aorta and iliac arteries: There is moderate atherosclerotic calcification of the abdominal aorta which is normal in caliber. Abdominal aorta is widely patent. No dissection is seen. The iliac arteries are widely patent bilaterally noting atherosclerotic plaque and irregularity.. Major branches of the abdominal aorta: The celiac trunk, superior mesenteric, and inferior mesenteric arteries are widely patent. Hepatic arterial anatomy is conventional. The splenic artery is patent. Single bilateral renal arteries are patent. Stomach and bowel: A percutaneous gastrostomy tube is in place and appears appropriately positioned. There is rectosigmoid fecal impaction and moderate to severe constipation. Question mild rectal wall thickening. There is postoperative change noted in the rectosigmoid. The appendix is normal as visu alized. No mesenteric venous gas is clearly seen. Peritoneum: There is diffuse mesenteric edema. No intraperitoneal free air or abdominal ascites is id entified. Lymphadenopathy: None. Pelvic viscera: The bladder is partially decompressed. Langford catheter and appears thick walled. There are nonspecific foci of intraluminal gas. The prostate gland is mildly enlarged and heterogeneous. P ostsurgical change is noted in the right groin. Skeletal structures: The skeletal structures are osteopenic. There is moderate lumbosacral spondylosi s. Sclerotic changes noted in the sacroiliac joints. No lytic or blastic lesions are seen. Soft tissues: The patient is cachectic. There is anasarca of the body wall. IMPRESSION: 1. Streak and motion compromised examination. The examination is also degraded by cachexia and diffus e edema. 2. Multifocal airspace consolidation is seen at both lung bases, typical for pneumonia/aspiration pne umonitis. Clinical correlation will be required and radiographic follow-up to resolution is recommend ed. 3. Small pleural effusions. 4. Unremarkable CT angiogram of the abdominal aorta and its major branches. 5. There is diffuse mesenteric edema and anasarca of the body wall. 6. There is rectosigmoid fecal impaction and moderate to severe constipation. Question rectal wall th ickening. This is not well assessed due to anasarca. Correlate clinically for evidence of a nonspecif ic proctitis. 7. Bilateral nephrolithiasis. 8. A hyperdense and likely enhancing lesion in the interpolar left kidney is similar in appearance to previous. A renal neoplasm is not excluded. A nonemergent renal ultrasound could be considered for f urther assessment. 9. Additional findings as above. ACT 112: Negative or not required by law. Electronically signed by: Sunil Khanna M.D. 10/30/2023 4:52 PM
[2023-10-30] MEDS: CEFTOLOZANE/TAZOBACTAM 3,000 MG in DEXTROSE 5% 100 ML IV SCH (17:24)
[2023-10-31 04:14] LABS: Hematocrit (blood only) 24.8 % (42.0-52.0); Hemoglobin 7.9 g/dl (14.0-18.0); Mean Corpuscular Hemoglobin 28.9 pg (25.0-34.0); Mean Corpuscular Hgb Conc 31.9 g/dL (32.0-36.0); Mean Corpuscular Volume 90.8 fL (80.0-100.0); Mean Platelet Volume 11.1 fL (9.4-12.4); Platelet Count 134 K/uL (130-400); RDW Coefficient of Variation 16.4 % (11.5-14.5); Red Blood Count 2.73 M/uL (4.70-6.10); White Blood Count 25.68 K/ul (4.8-10.8)
[2023-10-31 04:50] LABS: BUN Creatinine Ratio 52.3 (10-20); Creatinine Clr Calc Pharmacy 48.2 ml/min; Est GFR (African American) 79.3 ml/min; Est GFR (Non-African American) 68.4 ml/min; Magnesium 1.7 mg/dl (1.7-2.4); Potassium 3.9 mmol/L (3.5-5.1)
[2023-10-31] MEDS: MAGNESIUM SULFATE / D5W 1 GM/100 ML BAG IV SCH (05:05)
[2023-10-31 06:06] LABS: Basophils # (auto) 0.03 K/uL (0.00-0.20); Basophils % (auto) 0.1 %; Immature Granulocytes # (auto) 0.16 K/uL (0.01-0.20); Immature Granulocytes % (auto) 0.6 %; Lymphocytes # (auto) 0.35 K/uL (1.20-3.40); Lymphocytes % (auto) 1.4 %; Monocytes # (auto) 0.62 K/uL (0.11-0.59); Monocytes % (auto) 2.4 %; Neutrophils # (auto) 24.52 K/uL (1.40-6.50); Neutrophils % (auto) 95.5 %
[2023-10-31] MEDS ORDERED: STAT IV/IM STA (08:54)
[2023-10-31] MEDS: SODIUM BICARBONATE 8.4% 150 MEQ in DEXTROSE 5% 1,000 ML IV SCH (09:19)
[2023-10-31] MEDS: VANCOMYCIN HCL 1,000 MG in SODIUM CHLORIDE 0.9% 250 ML IV SCH (10:00)
--- NOTE | 2023-10-31 10:05 | XRay Report ---
XR chest 1V portable CLINICAL HISTORY: pneumonia COMPARISON STUDY: Chest CT October 29, 2023. Chest radiograph October 30, 2023. FINDINGS: A tracheostomy tube and left PICC are in place. There are left axillary surgical clips and a prosthetic aortic valve. Cardiomediastinal silhouette is stable. There is a small left pleural effu valery. There is no pneumothorax. Extensive bilateral consolidation has mildly progressed since prior c hest radiograph. IMPRESSION: 1. Progression of extensive bilateral airspace opacities suggestive of multifocal pneumonia. 2. Small left pleural effusion. ACT 112: Negative or not required by law. Electronically signed by: Soham Becerra M.D. 10/31/2023 10:04 AM
--- NOTE | 2023-10-31 10:22 | Pharmacy Report ---
Pharmacy PK ABX Note - Date of Service October 31, 2023 - Assessment and Plan Assessment * 68 year old M receiving ceftolozane/tazobactam and vancomycin for PNA. Also w recent hx MRSA bacteremia, currently on therapy for presumptive endocarditis (through November 03). ID following. Recent hx Pseudomonas in sputum resistant to meropenem. Recent hx jaw osteomyelitis s/p meropenem x6 weeks * SCr stable Vancomycin * Target AUC/DESTINI of 400-600 mg/L.hr * Current maintenance dose: 1250 mg IV every 24 hours * Random level of 22.3 mcg/mL this AM * Above regimen is predicted to achieve a supratherapeutic AUC on 717 mg/L.hr * Will reduce dose and repeat random level in 72 hours Plan * Reduce vancomycin to 1000 mg IV q24h * Random level 7 w AM labs Pharmacy will continue to follow and will adjust dose/frequency as necessary. Thank you. Pharmacy has transitioned to AUC monitoring for vancomycin. AUC/DESTINI is the preferred PK/PD target and is associated with decreased risk of nephrotoxicity compared to traditional trough targets.
[2023-10-31] MEDS ORDERED: NUTREN LIQD 2.0 1,000 ML BAG PEG SCH (10:45)
[2023-10-31] MEDS: TUBE FEEDING WATER FLUSH PEG SCH (11:25)
--- NOTE | 2023-10-31 11:32 | Critical Care Progress Note ---
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 Presenting to the ICU with evidence of hypovolemic and septic shock Neurologic: Patient remains with metabolic encephalopathy. Will continue to avoid sedating agents. Pulmonary: Will deflate cuff and trial back on trach collar. Antibiotics transitioned to Zerbaxa due to history of resistant Pseudomonas per infectious disease. Appreciate their input. Cardiovascular: Patient with septic shock now on Levophed and vasopressin. Patient has PICC line in place. Left radial arterial line in place. Giving additional albumin boluses today. Will check repeat echo which is pending. Patient with history of TAVR and possible endocarditis. Continue hydrocortisone 50 mg every 6 hours and midodrine 10 mg 3 times daily. Gastrointestinal: CT abdomen pelvis completed 10/30/2023 revealed fecal impaction. Patient status post large bowel movement after enema. Will restart trophic tube feeds. Monitor for signs of aspiration. Renal: Renal function remained stable. Replacing potassium as required. ABG with appropriate acid-base status. Infectious disease: Continue Zerbaxa. Appreciate [facility] ID given history of presumptive endocarditis, aspiration pneumonia with history of resistant Pseudomonas organisms and chronic osteomyelitis. Hematologic: Patient with anemia of chronic disease. Thrombocytopenia improved. Continue heparin 5000 units twice daily. Endocrine: TSH unremarkable. Stress dose steroids as above with hydrocortisone. Lines and tubes: Double-lumen PICC in place. Trach exchanged 10/30/2023. VTE prophylaxis: SCD, heparin CODE STATUS: Palliative care is been consulted and there is been some controversy related to the patient's CODE STATUS. Family adamantly requested full CODE STATUS and aggressive measures. Patient clearly has severe malnutrition and failure to thrive. Prognosis overall is very poor. This has been reiterated to the family numerous times. Patient's mother updated at bedside. Disposition: ICU Patient discussed on multidisciplinary rounds. I have personally spent 42 minutes of critical care time in the direct management of this patient. This is a life/limb threatening event. This includes time spent evaluating patient, direct bedside care, chart review, placing orders, interpretation of diagnostic studies, discussion with consultants, patient, and family members, as well as other required patient management activities. This time is exclusive of all separately billable procedures, and teaching time and separate from and in addition to any other critical care service time. Thank you for allowing us to participate in the care of this patient. Admission and Anticipated Discharge Date Admission Date: October 28, 2023 Subjective Minimally responsive to commands. Remains hypotensive on pressors. Mother updated at bedside. Review of Systems Review of Systems: Unobtainable due to cognitive status Physical Exam Physical Exam: Constitutional: Cachectic and frail-appearing. Obtunded. Eyes: Pupils are equal round and reactive to light. Conjunctivae are normal. Anicteric sclera. Ears nose, mouth and throat: Tracheostomy in place. Neck: Trachea is midline. Visual inspection is normal. Tracheostomy noted with [place] valve. Respiratory: Diffuse crackles. Mildly tachypneic. Cardiovascular: Regular rate and rhythm. No murmurs. No edema. Gastrointestinal: Normal bowel sounds, soft, nontender and nondistended. No hepatosplenomegaly noted. Musculoskeletal: No cyanosis. Patient is able to move all extremities. Strength is 5 out of 5 in the upper and lower extremities. Skin: Multiple nonhealing ulcers noted throughout his body. Neurologic: Minimally responsive to painful stimuli. Psychiatric: Unable to assess. Results & Data Results & Data Vital Signs (Past 12 Hours) Vital Signs Temp Pulse Pulse Resp BP BP Pulse Ox 10/31/23 07:57 37.5 C 88 36 H 97 10/31/23 07:51 37.5 C 92 H 32 H 97 10/31/23 07:36 37.5 C 87 30 H 96 10/31/23 07:33 37.5 C 88 23 96 10/31/23 07:18 37.5 C 89 31 H 96 10/31/23 07:12 37.5 C 86 34 H 96 10/31/23 07:02 88 32 H 96 10/31/23 07:01 98/62 L 10/31/23 07:00 37.5 C 92 H 34 H 97 10/31/23 06:51 37.5 C 88 23 95 10/31/23 06:48 37.5 C 91 H 35 H 96 10/31/23 06:36 37.5 C 88 36 H 96 10/31/23 06:24 37.5 C 86 34 H 96 10/31/23 06:12 37.5 C 92 H 40 H 96 10/31/23 06:00 37.5 C 87 37 H 96 10/31/23 05:49 37.6 C H 90 26 H 112/54 L 96 10/31/23 05:36 37.6 C H 86 32 H 95 10/31/23 05:27 37.5 C 88 42 H 95 10/31/23 05:21 37.4 C 94 H 35 H 97 10/31/23 05:12 37.6 C H 89 35 H 96 10/31/23 05:11 94/71 L 10/31/23 04:57 37.6 C H 101 H 37 H 96 10/31/23 04:57 37.6 C H 83 27 H 105/51 L 96 10/31/23 04:51 37.5 C 87 35 H 95 10/31/23 04:42 37.6 C H 89 37 H 96 10/31/23 04:18 37.5 C 91 H 35 H 96 10/31/23 04:09 37.5 C 94 H 33 H 96 10/31/23 04:03 37.5 C 115 H 35 H 96 10/31/23 04:00 101/67 10/31/23 04:00 101/67 10/31/23 04:00 101/67 10/31/23 04:00 36.7 C 89 25 H 104/51 L 96 10/31/23 03:57 37.5 C 93 H 35 H 96 10/31/23 03:48 37.5 C 92 H 34 H 96 10/31/23 03:42 37.5 C 93 H 35 H 95 10/31/23 03:24 37.5 C 93 H 40 H 95 10/31/23 03:06 37.5 C 93 H 38 H 95 10/31/23 03:01 95/74 L 10/31/23 03:01 95/74 L 10/31/23 03:00 37.5 C 92 H 35 H 96 10/31/23 03:00 37.5 C 92 H 20 102/53 L 95 10/31/23 02:51 37.5 C 93 H 30 H 96 10/31/23 02:48 37.5 C 89 32 H 95 10/31/23 02:42 37.5 C 92 H 37 H 95 10/31/23 02:33 90 34 H 95 10/31/23 02:15 37.6 C H 93 H 34 H 95 10/31/23 02:12 37.6 C H 91 H 39 H 95 10/31/23 02:06 37.6 C H 87 34 H 95 10/31/23 02:00 103/66 10/31/23 02:00 37.7 C H 91 H 35 H 94 10/31/23 01:58 37.7 C H 92 H 22 106/53 L 95 10/31/23 01:57 37.7 C H 94 H 38 H 95 10/31/23 00:00 92 H 10/31/23 00:00 37.9 C H 95 H 24 104/51 L 94 O2 Del Method FiO2 10/31/23 07:57 10/31/23 07:51 10/31/23 07:36 10/31/23 07:33 10/31/23 07:18 10/31/23 07:12 10/31/23 07:02 40 10/31/23 07:01 10/31/23 07:00 10/31/23 06:51 10/31/23 06:48 10/31/23 06:36 10/31/23 06:24 10/31/23 06:12 10/31/23 06:00 10/31/23 05:49 Mechanical Vent 10/31/23 05:36 10/31/23 05:27 10/31/23 05:21 10/31/23 05:12 10/31/23 05:11 10/31/23 04:57 10/31/23 04:57 Mechanical Vent 40 10/31/23 04:51 10/31/23 04:42 10/31/23 04:18 10/31/23 04:09 10/31/23 04:03 10/31/23 04:00 10/31/23 04:00 10/31/23 04:00 10/31/23 04:00 Mechanical Vent 40 10/31/23 03:57 10/31/23 03:48 10/31/23 03:42 10/31/23 03:24 10/31/23 03:06 10/31/23 03:01 10/31/23 03:01 10/31/23 03:00 10/31/23 03:00 Mechanical Vent 40 10/31/23 02:51 10/31/23 02:48 10/31/23 02:42 10/31/23 02:33 40 10/31/23 02:15 10/31/23 02:12 10/31/23 02:06 10/31/23 02:00 10/31/23 02:00 10/31/23 01:58 Mechanical Vent 40 10/31/23 01:57 10/31/23 00:00 10/31/23 00:00 Mechanical Vent 40 Coding Level of Care Code 42445 CRITICAL CARE 1ST 30-74M Diagnoses Multifocal pneumonia J18.9 Tracheostomy dependence Z93.0 Sepsis A41.9 Sepsis acute organ dysfunction status: unspecified Sepsis type: sepsis due to unspecified organism Severe malnutrition E43 Chronic osteomyelitis M86.60 Septic shock A41.9; R65.21 Pressure ulcer L89.90 Endocarditis I38 (3) Sepsis Sepsis acute organ dysfunction status: unspecified Sepsis type: sepsis due to unspecified organism Qualified Code(s): A41.9 - Sepsis, unspecified organism
--- NOTE | 2023-10-31 11:49 | Hospitalist Progress Note ---
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 He is being managed for the following: Sepsis with multifocal pneumonia, Trach dependent respiratory failure Hypotension/septic shock: likely 2/2 above. Metabolic encephalopathy: likely 2/2 above iso general frailty. decisional capacity is minimal at present WBC 21, CXR and CT chest with multifocal PNA, procal elevated, recent sputum clx with pseudomonas resistant to meropenem but sensitive to cefepime. Patient was recently admitted and discharged on home hospice. He was seen by palliative, ID during that time. He had Pseudomonas pneumonia which was resistant to meropenem but sensitive to cefepime. He was not discharged on antibiotics as he was going home on home hospice. However, per admitting, he wants to be full code and wants to get better and live. vanc/cefepime 10/27. Of note, he has been on iv dapto 400 mg q24 hr to end on November 04 per for suspected infective endocarditis. Vanc in stead of dapto as this would cover for any possible MRSA pneumonia. ID evaled, on Vanc 10/27 and Zerbaxa 10/29. Cefepime dc'd 10/29. Follow up on ID. Continue trach care. Follow up on sputum clx, blood clx. S/p bronch 10/29, Cx sent, f/u on bronch Cx. Pt needing pressor support and increasing O2 needs. Pt is being managed in the ICU. ?IE of TAVR tip per - on iv daptomycin 400 mg q24 hr- EOT 11/05/23 per . Has PICC line in place. Follows [facility]. see above. Concern for ileus: KUB 10/28 showing ileus, s/p enema w/ good bowel fxn return. Plan for trickle feed today. Hypercalcemia- given calcitonin in ED. s/p ivf. resolved. Hyponatremia- c/w ivf, improving, recheck in am Severe malnutrition- on tube feed with PEG tube in place. NPO. Continue home nutrina 2.0 with low fiber. Dietitian on board. Cancer related pain- continue home oxycodone and tylenol and gabapentin. states no morphine as it makes him lethargic. History of head and neck cancer s/p treatment and jaw reconstruction- states he is in remission. Gets all his care at [facility] discussion- patient was discharged on home hospice but and son disagrees. Apparently has 3 POAs (son, mother and brother) but his brother went behind their back and put him on hospice (per and son) which they disagree and was a surprise to them. They state they don't want him to be POA anymore and will go with his son (who agrees with the ) and they want to be aggressive with his care with hope to turn around and get him to rehab. They have already revoked hospice. Palliative working on getting family meeting together to help us through this difficult family dynamics. Appreciate their efforts. D/w palliative , full code for now. Pt with guarded prognosis. Patient's mother and sister has been updated 10/30 at bedside. DVT ppx- sc heparin Dispo- transfer to icu. Admission and Anticipated Discharge Date Admission Date: October 28, 2023 Subjective Patient seen & examined at bedside. Minimally responsive to commands, but does open his eyes spontaneously. Per RN, had BMs after enema, plan for trickle feed today, plan for weaning vasopressor off today. ROS not able due to cognition status. Pt's mother and sister were updated at bedside. Physical Exam Physical Exam: General: Frail elderly male, sick looking, cachectic, Obtunded HEENT: JESSICA, dry oral mucosa, on trach with MV support. Chest: Coarse breath sounds bilaterally with rhonchi --improving. CVS: Regular, normal heart sounds Abdomen: Soft, non tender, not distended, normal bowel sounds, PEG tube noted Neuro: obtunded. MSK: loss of muscle mass diffusely Results & Data Results & Data Vital Signs (Past 12 Hours) Vital Signs Temp Pulse Pulse Resp BP BP Pulse Ox 10/31/23 07:57 37.5 C 88 36 H 97 10/31/23 07:51 37.5 C 92 H 32 H 97 10/31/23 07:36 37.5 C 87 30 H 96 10/31/23 07:33 37.5 C 88 23 96 10/31/23 07:18 37.5 C 89 31 H 96 10/31/23 07:12 37.5 C 86 34 H 96 10/31/23 07:02 88 32 H 96 10/31/23 07:01 98/62 L 10/31/23 07:00 37.5 C 92 H 34 H 97 10/31/23 06:51 37.5 C 88 23 95 10/31/23 06:48 37.5 C 91 H 35 H 96 10/31/23 06:36 37.5 C 88 36 H 96 10/31/23 06:24 37.5 C 86 34 H 96 10/31/23 06:12 37.5 C 92 H 40 H 96 10/31/23 06:00 37.5 C 87 37 H 96 10/31/23 05:49 37.6 C H 90 26 H 112/54 L 96 10/31/23 05:36 37.6 C H 86 32 H 95 10/31/23 05:27 37.5 C 88 42 H 95 10/31/23 05:21 37.4 C 94 H 35 H 97 10/31/23 05:12 37.6 C H 89 35 H 96 10/31/23 05:11 94/71 L 10/31/23 04:57 37.6 C H 101 H 37 H 96 10/31/23 04:57 37.6 C H 83 27 H 105/51 L 96 10/31/23 04:51 37.5 C 87 35 H 95 10/31/23 04:42 37.6 C H 89 37 H 96 10/31/23 04:18 37.5 C 91 H 35 H 96 10/31/23 04:09 37.5 C 94 H 33 H 96 10/31/23 04:03 37.5 C 115 H 35 H 96 10/31/23 04:00 10/31/23 04:00 10/31/23 04:00 10/31/23 04:00 36.7 C 89 25 H 104/51 L 96 10/31/23 03:57 37.5 C 93 H 35 H 96 10/31/23 03:48 37.5 C 92 H 34 H 96 10/31/23 03:42 37.5 C 93 H 35 H 95 10/31/23 03:24 37.5 C 93 H 40 H 95 10/31/23 03:06 37.5 C 93 H 38 H 95 10/31/23 03:01 95/74 L 10/31/23 03:01 95/74 L 10/31/23 03:00 37.5 C 92 H 35 H 96 10/31/23 03:00 37.5 C 92 H 20 102/53 L 95 10/31/23 02:51 37.5 C 93 H 30 H 96 10/31/23 02:48 37.5 C 89 32 H 95 10/31/23 02:42 37.5 C 92 H 37 H 95 10/31/23 02:33 90 34 H 95 10/31/23 02:15 37.6 C H 93 H 34 H 95 10/31/23 02:12 37.6 C H 91 H 39 H 95 10/31/23 02:06 37.6 C H 87 34 H 95 10/31/23 02:00 103/66 10/31/23 02:00 37.7 C H 91 H 35 H 94 10/31/23 01:58 37.7 C H 92 H 22 106/53 L 95 10/31/23 01:57 37.7 C H 94 H 38 H 95 10/31/23 00:00 92 H 10/31/23 00:00 37.9 C H 95 H 24 104/51 L 94 O2 Del Method FiO2 10/31/23 07:57 10/31/23 07:51 10/31/23 07:36 10/31/23 07:33 10/31/23 07:18 10/31/23 07:12 10/31/23 07:02 40 10/31/23 07:01 10/31/23 07:00 10/31/23 06:51 10/31/23 06:48 10/31/23 06:36 10/31/23 06:24 10/31/23 06:12 10/31/23 06:00 10/31/23 05:49 Mechanical Vent 10/31/23 05:36 10/31/23 05:27 10/31/23 05:21 10/31/23 05:12 10/31/23 05:11 10/31/23 04:57 10/31/23 04:57 Mechanical Vent 40 10/31/23 04:51 10/31/23 04:42 10/31/23 04:18 10/31/23 04:09 10/31/23 04:03 10/31/23 04:00 10/31/23 04:00 10/31/23 04:00 10/31/23 04:00 Mechanical Vent 40 10/31/23 03:57 10/31/23 03:48 10/31/23 03:42 10/31/23 03:24 10/31/23 03:06 10/31/23 03:01 10/31/23 03:01 10/31/23 03:00 10/31/23 03:00 Mechanical Vent 40 10/31/23 02:51 10/31/23 02:48 10/31/23 02:42 10/31/23 02:33 40 10/31/23 02:15 10/31/23 02:12 10/31/23 02:06 10/31/23 02:00 10/31/23 02:00 10/31/23 01:58 Mechanical Vent 40 10/31/23 01:57 10/31/23 00:00 10/31/23 00:00 Mechanical Vent 40 (1) Sepsis Sepsis acute organ dysfunction status: unspecified Sepsis type: sepsis due to unspecified organism Qualified Code(s): A41.9 - Sepsis, unspecified organism
[2023-10-31] MEDS ORDERED: STAT IV Infusion **Titration per Protocol STA (13:11)
--- NOTE | 2023-10-31 13:13 | Communication Note ---
Date of Service: October 31, 2023 Patient was attempted to be rolled by bedside nursing for routine care of the patient and he became profoundly hypotensive, bradycardic and hypoxemic. Bag valve was used and hypoxia resolved. Patient was placed back on the ventilator and the tracheal cuff was reinflated. Systolic blood pressures improved to the 100s from the 60s. Patient will be placed back on Levophed. Patient remains largely minimally responsive to commands, but does spontaneously move limbs. Mental status otherwise remains relatively unchanged from the last 2 days. Will however pursue MRI brain given metabolic encephalopathy. CRITICAL CARE TIME - I have personally spent 35 minutes of critical care time in the direct management of this patient. This is a life/limb threatening event. This includes time spent evaluating patient, direct bedside care, chart review, placing orders, interpretation of diagnostic studies, discussion with consultants, patient, and family members, as well as other required patient management activities. This time is exclusive of all separately billable procedures, and teaching time and separate from and in addition to any other critical care service time. Coding Level of Care Code 87823 CRITICAL CARE 1ST 30-74M
[2023-10-31] MEDS: NOREPINEPHRINE/D5W 4 MG/250 ML PLCT IV SCH (13:15)
--- NOTE | 2023-10-31 14:08 | Infectious Disease Progress Nt ---
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 (R mandibular WCX with PsA and M morganii), s/p right composite mandibulectomy 07/10/23 s/p meropenem x 6wks eot 08/26, s/p TAVR 05/2021, admission to [facility] 09/02-09/08 with MRSA PNA s/p 10d of abx (completed with LZD), admission to [facility] 09/20-09/30 with hypoxic respiratory failure 2/2 aspiration PNA and MRSA bacteremia (MRSA believed 2/2 PNA with PICC seeding, was unable to get NITIN, treated for presumed endocarditis with daptomycin x 6 wks - end 11/03, plus doxy x 14d for PNA), admission [facility] 10/12-10/16 with PNA r/t MDR Pseudomonas and was transitioned to hospice, now presented on 10/27 with respiratory distress. Here he was hypothermic, hypotensive, requiring pressors. Initial WBC 21.90, Cr 1.14, AST/ALT wnl. PCT 0.88. RPP neg, MRSA positive. CXR with progression of extensive bl airspace opacities suggestive of PNA or aspiration pneumonitis. CT chest with multifocal consolidation c/w PNA, mild ascites. KUB with diffuse gaseous distention of colon. He was started on vancomycin and cefepime for c/f multifocal PNA vs aspiration. Seen by surgery for shoulder and sacral wounds. Also noted purulence around R mandible region. Holding surgical intervention due to acuity of patient. S/p bronchoscopy 10/29. He has had worsening shock requiring both levophed and vasopressin, also on solucortef. ID consulted 10/29. Given worsening clinical status and possible PsA resistance, abx changed to zerbaxa. CTAP with multifocal airspace consolidation in bl lungs, rectosigmoid fecal impaction. Hospice discussions ongoing. Patient has multiple open wounds, which I was not able to see as patient is very unstable became hypotensive when turned to be cleaned. Will continue on empiric therapy. # Septic shock # Acute respiratory failure # Multifocal PNA (prior SCx with carbapenem-R PsA) # Multiple open wounds, ?superimposed infection # H/o MRSA bacteremia, tx presumptive prosthetic valve endocarditis end through November 03 # h/o jaw OM s/p meropenem - continue zerbaxa empirically given his recent cultures and critical clinical status de-escalate pending cultures - continue vancomycin to include coverage of lung and tx for endocarditis - f/u BAL cultures - GNR noted - GOC discussions per primary team ID will continue to follow. If questions or concerns, contact Infectious Disease Call Center . Lizabeth Francisco MD [facility], Division of Infectious Diseases [facility]: [phone] Admission and Anticipated Discharge Date Admission Date: October 28, 2023 Subjective Subsequent visit was provided via telemedicine using two-way real-time interactive telecommunication between the patient and the telemedicine provider. For the duration of the visit, the provider was performing the assessment from a different facility than the patient. This includesuse of bluetooth stethoscope forauscultationperformed by the telepresenter that the telemedicine provider can hear if described in the physical exam. [employer] contact information: Please call [facility] Call Center . (Phone Number For Physician Use Only) After establishing a telemedicine visit, patient was: Patient was verified with two unique identifiers, Patient/authorized rep acknowledged consent and understanding and Gave permission to continue telehealth session Time Spent with Patient: Subsequent => 55 min Per RN, patient was turned after he had a BM and then became hypotensive to 50s and now back on levophed. Still with thin secretions. He had an enema yesterday and has had watery stools. Multiple open wounds, including scapula where he has bone showing, spinal wounds, and sacrum that is open and bloody. Physical Exam Physical Exam: General: intubated Lungs: crackles Heart: regular Abdomen: firm Results & Data Vital Signs (Past 12 Hours) Vital Signs Temp Pulse Pulse Resp BP BP Pulse Ox 10/31/23 13:12 66 24 96 10/31/23 07:57 37.5 C 88 36 H 97 10/31/23 07:51 37.5 C 92 H 32 H 97 10/31/23 07:36 37.5 C 87 30 H 96 10/31/23 07:33 37.5 C 88 23 96 10/31/23 07:18 37.5 C 89 31 H 96 10/31/23 07:12 37.5 C 86 34 H 96 10/31/23 07:02 88 32 H 96 10/31/23 07:01 98/62 L 10/31/23 07:00 37.5 C 92 H 34 H 97 10/31/23 06:51 37.5 C 88 23 95 10/31/23 06:48 37.5 C 91 H 35 H 96 10/31/23 06:36 37.5 C 88 36 H 96 10/31/23 06:24 37.5 C 86 34 H 96 10/31/23 06:12 37.5 C 92 H 40 H 96 10/31/23 06:00 37.5 C 87 37 H 96 10/31/23 05:49 37.6 C H 90 26 H 112/54 L 96 10/31/23 05:36 37.6 C H 86 32 H 95 10/31/23 05:27 37.5 C 88 42 H 95 10/31/23 05:21 37.4 C 94 H 35 H 97 10/31/23 05:12 37.6 C H 89 35 H 96 10/31/23 05:11 94/71 L 10/31/23 04:57 37.6 C H 101 H 37 H 96 10/31/23 04:57 37.6 C H 83 27 H 105/51 L 96 10/31/23 04:51 37.5 C 87 35 H 95 10/31/23 04:42 37.6 C H 89 37 H 96 10/31/23 04:18 37.5 C 91 H 35 H 96 10/31/23 04:09 37.5 C 94 H 33 H 96 10/31/23 04:03 37.5 C 115 H 35 H 96 10/31/23 04:00 101/67 10/31/23 04:00 101/67 10/31/23 04:00 101/67 10/31/23 04:00 36.7 C 89 25 H 104/51 L 96 10/31/23 03:57 37.5 C 93 H 35 H 96 10/31/23 03:48 37.5 C 92 H 34 H 96 10/31/23 03:42 37.5 C 93 H 35 H 95 10/31/23 03:24 37.5 C 93 H 40 H 95 10/31/23 03:06 37.5 C 93 H 38 H 95 10/31/23 03:01 95/74 L 10/31/23 03:01 95/74 L 10/31/23 03:00 37.5 C 92 H 35 H 96 10/31/23 03:00 37.5 C 92 H 20 102/53 L 95 10/31/23 02:51 37.5 C 93 H 30 H 96 10/31/23 02:48 37.5 C 89 32 H 95 10/31/23 02:42 37.5 C 92 H 37 H 95 10/31/23 02:33 90 34 H 95 10/31/23 02:15 37.6 C H 93 H 34 H 95 10/31/23 02:12 37.6 C H 91 H 39 H 95 10/31/23 02:06 37.6 C H 87 34 H 95 O2 Del Method FiO2 10/31/23 13:12 40 10/31/23 07:57 10/31/23 07:51 10/31/23 07:36 10/31/23 07:33 10/31/23 07:18 10/31/23 07:12 10/31/23 07:02 40 10/31/23 07:01 10/31/23 07:00 10/31/23 06:51 10/31/23 06:48 10/31/23 06:36 10/31/23 06:24 10/31/23 06:12 10/31/23 06:00 10/31/23 05:49 Mechanical Vent 10/31/23 05:36 10/31/23 05:27 10/31/23 05:21 10/31/23 05:12 10/31/23 05:11 10/31/23 04:57 10/31/23 04:57 Mechanical Vent 40 10/31/23 04:51 10/31/23 04:42 10/31/23 04:18 10/31/23 04:09 10/31/23 04:03 10/31/23 04:00 10/31/23 04:00 10/31/23 04:00 10/31/23 04:00 Mechanical Vent 40 10/31/23 03:57 10/31/23 03:48 10/31/23 03:42 10/31/23 03:24 10/31/23 03:06 10/31/23 03:01 10/31/23 03:01 10/31/23 03:00 10/31/23 03:00 Mechanical Vent 40 10/31/23 02:51 10/31/23 02:48 10/31/23 02:42 10/31/23 02:33 40 10/31/23 02:15 10/31/23 02:12 10/31/23 02:06 Laboratory Results Labs reviewed.
--- NOTE | 2023-10-31 16:31 | Cardiology Consultation ---
Date of Consultation October 31, 2023 Assessment & Plan (1) Recurrent aspiration pneumonia: (2) Septic shock: (3) Left ventricular systolic dysfunction: (4) NSVT (nonsustained ventricular tachycardia): Echocardiogram was performed today after episode of bradycardia and recurrent hypotension requiring reapplication of ventilator support to his tracheostomy. Echocardiogram reveals severe left ventricular hypokinesis of the mid and apical levels with relative sparing of the basal segments, left ventricular ejection fraction moderately reduced in the range of 30-35%. TAVR prosthesis with mild prosthetic regurgitation, normal prosthetic gradients, pulmonary artery systolic pressure elevated to severe degree 63 mmHg. The appearance of the left ventricular wall motion is suggestive of LAD territory ischemia or injury versus a stress-induced cardiomyopathy with left ventricular apical ballooning pattern. Compared to the previous images obtained at this institution on 09/03/2023, there has been interval development of hypokinesis of the left ventricle as noted above with decline in ejection fra ction in the pulmonary systolic pressure which had been estimated to be 37 mmHg at that time is now 63 mmHg. EKG performed today 10/31/2023 at 1426 reveals sinus rhythm at 63 bpm with left bundle branch block morphology. Compared to previous tracings performed at this institution, most recent of which was on 10/28/2023, left bundle branch block has replaced a nonspecific intraventricular conduction delay. High sensitive troponin performed today at 1410 elevated at 12,063 PG per mL, having been within normal limits 3 days ago on 10/28/2023. Patient has had his heart care elsewhere, and limited records are available. Multivessel coronary disease including what would appear to be hemodynamically significant mid LAD stenosis noted at time of diagnostic coronary angiography in February,. No records are available to determine if he received percutaneous revascularization. There is an echocardiogram dated 05/12/2023 by which time a TAVR prosthesis was in place. Patient is anemic at baseline and is not felt to be a candidate for systemic anticoagulation at present. Recommend ongoing supportive care with ventilator support, antibiotics as already pursued. He has been on midodrine for blood pressure support on a chronic basis for over 6 months per review of his chart and this has been continued as well as the addition of norepinephrine. He is on stress dose steroids. Patient is not a candidate for the addition of a beta-gardenia or STUART inhibitor/ARB/Entresto. Prognosis poor. Case reviewed with Dr. Leone of critical care medicine. History of Present Illness Attending Physician: Sanket Carlson MD History of Present Illness Mr Gutierrez is a 68 year old male seen in cardiology consultation per the request of Dr Carlson for evaluation of an abnormal echocardiogram. Patient unable to provide subjective input and therefore history obtained from review of his records. Patient admitted to this institution for the first time from 09/03/2023 until 09/09/2023 with multifocal pneumonia. 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 Complex surgical intervention performed at [facility] in July,. Patient has been treated for osteomyelitis and pneumonia. He was readmitted on 10/13/2023-10/17/2023. At time of discharge plan had been for hospice hospice, however patient subsequently reversed this decision postdischarge. Patient admitted to the third time on 10/28/2023 for ongoing respiratory insuf ficiency and has been in the ICU due to concerns of hypotension and bradycardia. Today he was given a short break from the ventilator and subsequently became profoundly hypotensive and bradycardic prompting reconnection to the ventilator via his tracheostomy and treatment with norepinephrine and his blood pressure has improved, heart rate stabilized with the exception of 2 rounds of nonsustained ventricular tachycardia observed today at 1340 and again at 1426. Cardiac History: Report of cardiac catheterization performed within [facility] 02/07/2023: Mid LM to Dist LM lesion is 40% stenosed. Prox LAD to Mid LAD lesion is 70% stenosed. -The measured IFR value was 0.78 and 0.78 1st Diag lesion is 70% stenosed. 2nd Diag-1 lesion is 80% stenosed. 2nd Diag-2 lesion is 70% stenosed. 1st Mrg lesion is 80% stenosed. Prox RCA lesion is 30% stenosed. RPAV lesion is 30% stenosed. Mid Cx lesion is 70% stenosed. TAVR early May, [facility], details of procedure unavailable Transthoracic echocardiogram [facility] 05/12/2023: LVEF 55 to 60%, maximum CW velocity across the TAVR prosthesis 1.89 m/s with trace paravalvular leak Allergies Allergy/AdvReac Type Severity Reaction Status Date / Time herbal complex no.323 Allergy Severe RASH ALL Verified 10/28/23 16:51 [From Menofem] OVER BODY/LEGS ceftazidime Allergy Intermediate SWELLING Verified 10/28/23 16:51 OF LOWER LEGS--GOING FOR ALLERGY TESTING metronidazole [From Flagyl] Allergy Intermediate SWELLING Verified 10/28/23 16:51 OF LOWER LEGS--GOING FOR ALLERGY TESTING Penicillins Allergy Unknown CAN'T Verified 10/28/23 16:51 REMEMBER Home Medications Medication Instructions Recorded Confirmed Type Nutra 2.0 1 dose feeding tube DIRECTED 09/02/23 10/28/23 History sennosides 8.8 mg/5 mL oral syrup 17.6 mg feeding tube BID PRN 09/02/23 10/28/23 History (senna) Constipation acetaminophen 650 mg/20.3 mL oral 650 mg (20.3 mL) PO Q6H #1,015 mL 10/17/23 10/28/23 Rx solution oxycodone 20 mg/mL oral concentrate 30 mg (1.5 mL) feeding tube Q1H 10/17/23 10/28/23 Rx PRN pain #30 mL Unknown Antibiotic 1 dose IV DAILY 10/28/23 10/28/23 History ascorbic acid (vitamin C) 1,000 mg 1 g feeding tube BID 10/28/23 10/28/23 History tablet (Vitamin C) furosemide 10 mg/mL oral solution 20 mg feeding tube DAILY PRN .. 10/28/23 History midodrine 10 mg tablet 10 mg feeding tube TID 10/28/23 10/28/23 History multivitamin 0.5 tab feeding tube BID 10/28/23 10/28/23 History potassium chloride 20 mEq oral 20 meq feeding tube BID 10/28/23 10/28/23 History packet (Klor-Con) sodium di- and 1 tab feeding tube UD 10/28/23 10/28/23 History monophosphate-potassium phos monobasic 250 mg tablet (Phospha Neutral) sucralfate 1 gram tablet 1 g feeding tube BID 10/28/23 10/28/23 History Patient History Social History Smoking Status: Never smoker Second Hand Exposure: No; Do You Dip or Chew Tobacco: No; Hx Alcohol Use: No Hx Substance Use: No Preferred Language: Kinyarwanda Communication Ability: Effective Physical Therapy Assistant Required: No Beliefs That Will Affect Care: Alevism Current Living Situation: Spouse Other Information That Helps Us Care for You: No Feels Safe at Home: Yes Safety Concerns: Feels Safe At This Time Assistive Devices: Bedside Commode, Hospital Bed, Nebulizer, Oxygen - Continuous, Walker, Wheelchair and Other Review of Systems Review of Systems: Unobtainable due to cognitive status and Unobtainable due to endotracheal tube Physical Exam Constitutional: + cachectic Respiratory: Auscultation: + diminished lung sounds (Decreased breath sounds at the lower lung gotti) Cardiovascular: Rate/Rhythm: regular rate and regular rhythm Heart Sounds: normal S1, normal S2 and + murmur (1/6 systolic murmur) Vessels: no JVD Extremities: no edema Neurologic: Not responding to commands at the time of my assessment Genitourinary: Langford catheter in place draining clear yellow urine Results & Data Vital Signs (Past 12 Hours) Vital Signs Temp Pulse Pulse Resp BP BP Pulse Ox 10/31/23 13:12 66 24 96 10/31/23 07:57 37.5 C 88 36 H 97 10/31/23 07:51 37.5 C 92 H 32 H 10/31/23 07:36 37.5 C 87 30 H 10/31/23 07:33 37.5 C 88 23 96 10/31/23 07:18 37.5 C 89 31 H 96 10/31/23 07:12 37.5 C 86 34 H 10/31/23 07:02 88 32 H 10/31/23 07:01 98/62 L 10/31/23 07:00 37.5 C 92 H 34 H 97 10/31/23 06:51 37.5 C 88 23 95 10/31/23 06:48 37.5 C 91 H 35 H 10/31/23 06:36 37.5 C 88 36 H 96 10/31/23 06:24 37.5 C 86 34 H 96 10/31/23 06:12 37.5 C 92 H 40 H 96 10/31/23 06:00 37.5 C 87 37 H 96 10/31/23 05:49 37.6 C H 90 26 H 112/54 L 96 10/31/23 05:36 37.6 C H 86 32 H 95 10/31/23 05:27 37.5 C 88 42 H 95 10/31/23 05:21 37.4 C 94 H 35 H 97 10/31/23 05:12 37.6 C H 89 35 H 96 10/31/23 05:11 94/71 L 10/31/23 04:57 37.6 C H 101 H 37 H 96 10/31/23 04:57 37.6 C H 83 27 H 105/51 L 96 10/31/23 04:51 37.5 C 87 35 H 95 10/31/23 04:42 37.6 C H 89 37 H 96 O2 Del Method FiO2 10/31/23 13:12 40 10/31/23 07:57 10/31/23 07:51 10/31/23 07:36 10/31/23 07:33 10/31/23 07:18 10/31/23 07:12 10/31/23 07:02 40 10/31/23 07:01 10/31/23 07:00 10/31/23 06:51 10/31/23 06:48 10/31/23 06:36 10/31/23 06:24 10/31/23 06:12 10/31/23 06:00 10/31/23 05:49 Mechanical Vent 10/31/23 05:36 10/31/23 05:27 10/31/23 05:21 10/31/23 05:12 10/31/23 05:11 10/31/23 04:57 10/31/23 04:57 Mechanical Vent 40 10/31/23 04:51 10/31/23 04:42 Laboratory Results Cardiac Enzymes 10/31/23 Range/Units 14:10 Troponin I High Sens 69580.4 H* (0-20) pg/ml CBC 10/31/23 Range/Units 03:34 WBC 25.68 H (4.8-10.8) K/ul RBC 2.73 L (4.70-6.10) M/uL Hgb 7.9 L (14.0-18.0) g/dl Hct 24.8 L (42.0-52.0) % Plt Count 134 (130-400) K/uL Neut # (Auto) 24.52 H (1.40-6.50) K/uL Lymph # (Auto) 0.35 L (1.20-3.40) K/uL [place] # (Auto) 0.62 H (0.11-0.59) K/uL Eos # (Auto) 0.00 (0.00-0.50) K/uL Baso # (Auto) 0.03 (0.00-0.20) K/uL Comprehensive Metabolic Panel 10/31/23 Range/Units 03:34 Sodium 134 L (136-145) mmol/L Potassium 3.9 D (3.5-5.1) mmol/L Chloride 106 (98-107) mmol/L Carbon Dioxide 18 L (21-32) mmol/L BUN 57 H (6-23) mg/dl Creatinine 1.09 (0.6-1.4) mg/dl Glucose 108 H (70-99(Fasting)) mg/dl Calcium 10.0 (8.6-10.3) mg/dl Intake and Output 10/31/23 10/31/23 10/31/23 06:59 14:59 22:59 Intake Total 380.147 / 3128.150 270.748 / 270.748 Output Total 787 / 2187 Balance -406.853 / 941.150 270.748 / 270.748 Intake: IV 380.147 / 3098.150 270.748 / 270.748 Ceftolozane/Tazobactam 3,000 mg 122.8 / 245.6 In Dextrose 5% 100 ml @ 122.8 mls/hr IV Q8H [facility] Rx#:[id number] Magnesium Sulfate / D5w 1 gm In 200 / 200 100 ml @ 50 mls/hr IV Q2H [facility] Rx#:[id number] Norepinephrine/D5w 4 mg In 250 176.11 / 417.487 20.533 / 20.533 ml @ 0.09 MCG/KG/MIN 19.845 mls /hr IV .[id number] [facility] Rx#: [id number] Vasopressin 20 units In 0.9 % 81.237 / 187.918 50.215 / 50.215 Sodium Chloride 100 ml @ 0.04 UNIT/MIN 12.12 mls/hr IV . Q8H20M [facility] Rx#:[id number] Output: Urine Amount (Catheter) [id number] Langford/Indwelling [id number] Gastric Drainage 200 / 300 Gastrostomy 200 / 200 # Bowel Movements 2 / 2 Other: Weight 54.7 kg 54.7 kg Weight Measurement Method Built in [facility] Patient Weight 11/01/23 06:59 Weight 54.7 kg
--- NOTE | 2023-10-31 16:34 | Electrocardiogram Report ---
Test Reason : Blood Pressure : / mmHG Vent. Rate : 063 BPM Atrial Rate : 063 BPM P-R Int : 138 ms QRS Dur : 166 ms QT Int : 448 ms P-R-T Axes : 060 -72 110 degrees QTc Int : 458 ms Normal sinus rhythm Left axis deviation Left bundle branch block Abnormal ECG When compared with ECG of 28-OCT-2023 13:24, No significant change Confirmed by Heber Terry ([id number]) on 10/31/2023 4:34:21 PM Referred By: REFERRED SELF Confirmed By:Heber Terry
[2023-10-31] MEDS: ATROPINE SULFATE 0.1 MG/ML 10ML SYR IV ONE (17:10)
[2023-10-31] MEDS: POTASSIUM CHLORIDE / WTR 10 MEQ/100 ML PLCT IV SCH ×2 (17:30→17:34)
[2023-10-31] MEDS: ASPIRIN 81 MG CHEW PEG SCH (17:34)
[2023-10-31 18:25] LABS: BUN Creatinine Ratio 54.1 (10-20); Calcium 10.1 mg/dl (8.6-10.3); Creatinine Clr Calc Pharmacy 47.9 ml/min; Est GFR (African American) 77.6 ml/min; Est GFR (Non-African American) 66.9 ml/min; Potassium 3.2 mmol/L (3.5-5.1)
[2023-10-31] MEDS: ATORVASTATIN 40 MG TAB PEG SCH (19:38)
[2023-11-01 04:06] LABS: iSTAT Art Bld Gas pCO2 Correct 30 mmHg (35-46); iSTAT Art Bld Gas pH Corrected 7.439 (7.35-7.45); iSTAT Arterial Blood Gas HCO3 20 meg/L (19-24); iSTAT Arterial Blood Gas pCO2 30 mmHg (35-46); iSTAT Arterial Blood Gas pH 7.43 (7.35-7.45); iSTAT Arterial Blood Gas pO2 85 mmHg (80-95); iSTAT Arterial Blood Gas pO2 C 83; iSTAT Carbon Dioxide 21 mmol/L (24-31); iSTAT FiO2 40 %; iSTAT Hematocrit 23 % (42-52); iSTAT Hemoglobin 7.8 g/dl (14.0-18.0); iSTAT Potassium 3.1 mmol/L (3.3-5.0); iSTAT Site Art Line; iSTAT Sodium 134 mmol/L (135-144)
[2023-11-01 04:41] LABS: BUN Creatinine Ratio 53.1 (10-20); Calcium 9.9 mg/dl (8.6-10.3); Creatinine Clr Calc Pharmacy 47.1 ml/min; Est GFR (African American) 75.9 ml/min; Est GFR (Non-African American) 65.5 ml/min; Magnesium 2.3 mg/dl (1.7-2.4); Potassium 3.2 mmol/L (3.5-5.1)
[2023-11-01 04:48] LABS: Troponin I High Sensitivity 9164.2 pg/ml (0-20)
[2023-11-01 04:55] LABS: Hematocrit (blood only) 22.7 % (42.0-52.0); Hemoglobin 7.4 g/dl (14.0-18.0); Mean Corpuscular Hemoglobin 28.9 pg (25.0-34.0); Mean Corpuscular Hgb Conc 32.6 g/dL (32.0-36.0); Mean Corpuscular Volume 88.7 fL (80.0-100.0); Mean Platelet Volume 11.1 fL (9.4-12.4); Platelet Count 129 K/uL (130-400); RDW Coefficient of Variation 16.3 % (11.5-14.5); RDW Standard Deviation 52.9 fL (36.4-46.3); Red Blood Count 2.56 M/uL (4.70-6.10); White Blood Count 30.86 K/ul (4.8-10.8)
[2023-11-01 04:56] LABS: Basophils # (auto) 0.04 K/uL (0.00-0.20); Basophils % (auto) 0.1 %; Immature Granulocytes # (auto) 0.28 K/uL (0.01-0.20); Immature Granulocytes % (auto) 0.9 %; Lymphocytes # (auto) 0.46 K/uL (1.20-3.40); Lymphocytes % (auto) 1.5 %; Monocytes # (auto) 1.14 K/uL (0.11-0.59); Monocytes % (auto) 3.7 %; Neutrophils # (auto) 28.94 K/uL (1.40-6.50); Neutrophils % (auto) 93.8 %; RBC Morphology Unremarkable
[2023-11-01] MEDS: POTASSIUM CHLORIDE / WTR 10 MEQ/100 ML PLCT IV SCH (05:23)
--- NOTE | 2023-11-01 08:07 | XRay Report ---
XR chest 1V portable CLINICAL HISTORY: Respiratory failure. COMPARISON STUDY: Chest CT October 29, 2023. Chest radiograph October 31, 2023. FINDINGS: Tracheostomy tube, prosthetic aortic valve and left PICC are in place. There are left chest /axillary surgical clips. Small left pleural effusion is again noted. There is no pneumothorax. Exten sive bilateral airspace opacities persist. The cardiomediastinal silhouette is stable. IMPRESSION: 1. No pneumothorax. No significant a small left pleural effusion. 2. Persistent extensive airspace opacities suggestive of multifocal pneumonia. ACT 112: Negative or not required by law. Electronically signed by: Soham Becerra M.D. 11/01/2023 8:05 AM
[2023-11-01] MEDS: MULTI VIT W/MINERALS LIQUID 15 ML UDC PEG SCH (09:04)
--- NOTE | 2023-11-01 09:27 | Cardiology Progress Note ---
Date of Service November 01, 2023 Assessment & Plan (1) Left ventricular systolic dysfunction: (2) Takotsubo cardiomyopathy: (3) Septic shock: (4) Recurrent aspiration pneumonia: (5) NSVT (nonsustained ventricular tachycardia): Plan: Echocardiogram was performed today after episode of bradycardia and recurrent hypotension requiring reapplication of ventilator support to his tracheostomy. Echocardiogram reveals severe left ventricular hypokinesis of the mid and apical levels with relative sparing of the basal segments, left ventricular ejection fraction moderately reduced in the range of 30-35%. TAVR prosthesis with mild prosthetic regurgitation, normal prosthetic gradients, pulmonary artery systolic pressure elevated to severe degree 63 mmHg. Patient has had his heart care elsewhere, and limited records are available. Multivessel coronary disease including what would appear to be hemodynamically significant mid LAD stenosis noted at time of diagnostic coronary angiography in February,. No records are available to determine if he received percutaneous revascularization. There is an echocardiogram dated 05/12/2023 by which time a TAVR prosthesis was in place. The appearance of the left ventricular wall motion is suggestive of LAD terr itory ischemia or injury versus a stress-induced cardiomyopathy with left ventricular apical ballooning pattern. Compared to the previous images obtained at this institution on 09/03/2023, there has been interval development of hypokinesis of the left ventricle as noted above with decline in ejection fraction in the pulmonary systolic pressure which had been estimated to be 37 mmHg at that time is now 63 mmHg. EKG performed today 10/31/2023 at 1426 reveals sinus rhythm at 63 bpm with left bundle branch block morphology. Compared to previous tracings performed at this institution, most recent of which was on 10/28/2023, left bundle branch block has replaced a nonspecific intraventricular conduction delay. 11/01/2023 High sensitive troponin performed 10/31/23 at 1410 elevated at 12,063 PG per mL, trending down to 9164 this morning at 4:03 AM. Severe anemia with worsening leukocytosis noted today. Currently patient is not a candidate for IV anticoagulation. Continue low-dose aspirin and statin therapy. Recommend ongoing supportive care with ventilator support, antibiotics as already pursued. History of chronic hypotension regarding midodrine for blood pressure support over the past 6 months per chart review. Continue stress dose steroids and blood pressure support with norepinephrine as directed by the critical care service. Patient is not a candidate for the addition of a beta-gardenia or STUART inhibitor/ARB/Entresto. Poor prognosis. Admission and Anticipated Discharge Date Admission Date: October 28, 2023 Subjective 68-year-old male seen and examined at the bedside. Blood pressure stable on Levophed infusion. No dysrhythmia on telemetry. Responsive to tactile stimuli. Encephalopathy noted. Review of Systems Review of Systems: Unobtainable due to cognitive status Physical Exam Constitutional: + ill appearing and + cachectic Respiratory: no respiratory distress and no labored breathing Auscultation: no crackles, no rales, no rhonchi and no wheezes Cardiovascular: Rate/Rhythm: regular rate and regular rhythm Heart Sounds: normal S1 and normal S2; no murmur Extremities: no edema Gastrointestinal (Abdomen): Inspection/Auscultation: normal bowel sounds; abdomen not distended Percussion/Palpation: abdomen nontender, no guarding and abdomen not rigid Neurologic: Metabolic encephalopathy Results & Data Vital Signs (Past 12 Hours) Vital Signs Temp Pulse Pulse Resp BP BP Pulse Ox 11/01/23 07:19 94 H 11/01/23 07:15 36.7 C 89 26 H 101/70 99 11/01/23 07:08 90 25 H 98 11/01/23 06:57 36.7 C 88 23 98 11/01/23 06:03 36.8 C 28 H 99 11/01/23 06:00 91/58 L 11/01/23 05:51 36.8 C 76 20 97 11/01/23 05:49 36.8 C 79 17 99/48 L 98 11/01/23 05:29 89/57 L 11/01/23 05:00 36.6 C 64 20 98/45 L 97 11/01/23 04:54 36.7 C 63 20 97 11/01/23 04:33 36.7 C 84 25 H 97 11/01/23 04:03 36.6 C 79 22 98 11/01/23 04:00 96/64 L 11/01/23 03:55 36.6 C 84 24 102/50 L 98 11/01/23 03:40 82 25 H 97 11/01/23 03:36 36.5 C 77 23 97 11/01/23 03:06 36.4 C L 101 H 24 96 11/01/23 03:00 90/57 L 11/01/23 03:00 36.6 C 87 19 108/55 L 100 11/01/23 02:54 36.4 C L 85 27 H 97 11/01/23 02:30 36.2 C L 79 24 97 11/01/23 02:03 36.0 C L 84 30 H 96 11/01/23 02:00 104/61 11/01/23 02:00 36.1 C L 79 22 102/51 L 97 11/01/23 01:57 36.0 C L 118 H 27 H 97 11/01/23 01:36 35.9 C L 82 23 97 11/01/23 01:02 93/57 L 11/01/23 01:00 36.2 C L 80 25 H 97 11/01/23 00:51 83 28 H 97 11/01/23 00:00 82 11/01/23 00:00 36.6 C 69 20 100 11/01/23 00:00 86/57 L 11/01/23 00:00 86/57 L 10/31/23 23:30 36.5 C 61 20 100 10/31/23 23:03 36.4 C L 64 20 100 10/31/23 23:00 94/58 L 10/31/23 23:00 94/58 L 10/31/23 23:00 94/58 L 10/31/23 22:54 64 21 100 10/31/23 22:00 36.2 C L 83 22 104/67 99 O2 Del Method FiO2 11/01/23 07:19 11/01/23 07:15 11/01/23 07:08 40 11/01/23 06:57 11/01/23 06:03 11/01/23 06:00 11/01/23 05:51 11/01/23 05:49 Mechanical Vent 40 11/01/23 05:29 11/01/23 05:00 Mechanical Vent 11/01/23 04:54 11/01/23 04:33 11/01/23 04:03 11/01/23 04:00 11/01/23 03:55 Mechanical Vent 40 11/01/23 03:40 40 11/01/23 03:36 11/01/23 03:06 11/01/23 03:00 11/01/23 03:00 Mechanical Vent 40 11/01/23 02:54 11/01/23 02:30 11/01/23 02:03 11/01/23 02:00 11/01/23 02:00 Mechanical Vent 40 11/01/23 01:57 11/01/23 01:36 11/01/23 01:02 11/01/23 01:00 11/01/23 00:51 11/01/23 00:00 11/01/23 00:00 11/01/23 00:00 11/01/23 00:00 10/31/23 23:30 10/31/23 23:03 10/31/23 23:00 10/31/23 23:00 10/31/23 23:00 10/31/23 22:54 40 10/31/23 22:00 Mechanical Vent 40 Laboratory Results Cardiac Enzymes 10/31/23 10/31/23 11/01/23 Range/Units 14:10 23:43 04:03 Troponin I High Sens 83053.4 H* 87511.6 H* 9164.2 H* (0-20) pg/ml CBC 11/01/23 Range/Units 04:03 WBC 30.86 H* (4.8-10.8) K/ul RBC 2.56 L (4.70-6.10) M/uL Hgb 7.4 L (14.0-18.0) g/dl Hct 22.7 L (42.0-52.0) % Plt Count 129 L (130-400) K/uL Neut # (Auto) 28.94 H (1.40-6.50) K/uL Lymph # (Auto) 0.46 L (1.20-3.40) K/uL [place] # (Auto) 1.14 H (0.11-0.59) K/uL Eos # (Auto) 0.00 (0.00-0.50) K/uL Baso # (Auto) 0.04 (0.00-0.20) K/uL Comprehensive Metabolic Panel 10/31/23 11/01/23 Range/Units 17:48 04:03 Sodium 133 L 134 L (136-145) mmol/L Potassium 3.2 L 3.2 L (3.5-5.1) mmol/L Chloride 104 102 (98-107) mmol/L Carbon Dioxide 22 22 (21-32) mmol/L BUN 60 H 60 H (6-23) mg/dl Creatinine 1.11 1.13 (0.6-1.4) mg/dl Glucose 142 H 151 H (70-99(Fasting)) mg/dl Calcium 10.1 9.9 (8.6-10.3) mg/dl Intake and Output 10/31/23 11/01/23 11/01/23 22:59 06:59 14:59 Intake Total 932.999 / 2900.960 1564.413 / 2900.960 200 / 200 Output Total 1290 / 2495 655 / 2495 Balance -357.001 / 405.960 909.413 / 405.960 200 / 200 Intake: IV 792.999 / 2630.960 1444.413 / 2630.960 200 / 200 Ceftolozane/Tazobactam 3,000 mg 122.8 / 368.4 122.8 / 368.4 In Dextrose 5% 100 ml @ 122.8 mls/hr IV Q8H [facility] Rx#:[id number] Magnesium Sulfate / D5w 1 gm In 100 / 300 100 ml @ 50 mls/hr IV Q2H [facility] Rx#:[id number] Norepinephrine/D5w 4 mg In 250 100.114 / 198.927 78.28 / 198.927 ml @ 0.07 MCG/KG/MIN 14.359 mls /hr IV .[id number] [facility] Rx#: [id number] Potassium Chloride / Wtr 10 meq 200 / 293.333 93.333 / 293.333 200 / 200 In 100 ml @ 100 mls/hr IV Q1H [facility] Rx#:[id number] Sodium Bicarbonate 8.4% 150 meq 1150 / 1150 In Dextrose 5% 1,000 ml @ 75 mls/hr IV .[id number] [facility] Rx#: [id number] Vancomycin HCl 1,000 mg In 270 / 270 Sodium Chloride 0.9% 250 ml @ 200 mls/hr IV Q24H [facility] Rx#: [id number] Vasopressin 20 units In 0.9 % 0.085 / 50.300 Sodium Chloride 100 ml @ 0.04 UNIT/MIN 12.12 mls/hr IV . Q8H20M [facility] Rx#:[id number] Tube Feeding 40 / 170 120 / 170 Tube Irrigant 100 / 100 Output: Urine Amount (Catheter) 1290 / 2495 655 / 2495 Langford/Indwelling 1290 / 2495 655 / 2495 Other: Weight 56.3 kg Weight Measurement Method Built in [facility]
--- NOTE | 2023-11-01 09:39 | Critical Care Progress Note ---
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 Presenting to the ICU with evidence of hypovolemic and septic shock Neurologic: Patient remains with metabolic encephalopathy. Will continue to avoid sedating agents. Obtain MRI brain today without contrast. Pulmonary: Continue full ventilatory support. Patient was taken off ventilator 10/31/2023 and had an apneic episode with saturations down to the 60s. It appears that the patient is currently vent dependent at this time. Cardiovascular: Patient with septic and cardiogenic shock now on Levophed. Patient has PICC line in place. Left radial arterial line in place. Echo with concerning findings of apical wall ballooning indicative of likely Takotsubo's. Troponins were elevated as well. Unclear whether the patient had an acute coronary event. Cardiology note appreciated. Anticoagulation is relatively contraindicated given his pancytopenia. Will support his LV with Levophed. Patient also on midodrine chronically for BP control. Aspirin and statin added by cardiology team. Statin on board. Continue stress dose steroids. Patient had an episode of nonsustained V. tach 10/31/2023. Beta-blockers contraindicated given severe hypotension. Will consider the use of amiodarone if this recurs. Maintain potassium above 4 and mag above 2. Gastrointestinal: CT abdomen pelvis completed 10/30/2023 revealed fecal impaction. Patient status post large bowel movement after enema. Continue to advance tube feeds as tolerated. Renal: Renal function remained stable. Urine output adequate. Infectious disease: Continue vancomycin and Zerbaxa. Appreciate [facility] ID given history of presumptive endocarditis, aspiration pneumonia with history of resistant Pseudomonas organisms and chronic osteomyelitis. White count increasing. Will recheck procalcitonin, blood cultures and urine cultures. Gram-negative bacilli growing from BAL sample. Hematologic: Patient with anemia of chronic disease. Thrombocytopenia improved. Continue heparin 5000 units twice daily. Endocrine: TSH unremarkable. Stress dose steroids as above with hydrocortisone. Lines and tubes: Double-lumen PICC in place. Trach exchanged 10/30/2023. VTE prophylaxis: SCD, heparin CODE STATUS: Palliative care is been consulted and there is been some controversy related to the patient's CODE STATUS. Family adamantly requested full CODE STATUS and aggressive measures. Patient clearly has severe malnutrition and failure to thrive. Prognosis overall is very poor. This has been reiterated to the family numerous times. Disposition: ICU Patient discussed on multidisciplinary rounds. I have personally spent 38 minutes of critical care time in the direct management of this patient. This is a life/limb threatening event. This includes time spent evaluating patient, direct bedside care, chart review, placing orders, interpretation of diagnostic studies, discussion with consultants, patient, and family members, as well as other required patient management activities. This time is exclusive of all separately billable procedures, and teaching time and separate from and in addition to any other critical care service time. Thank you for allowing us to participate in the care of this patient. Admission and Anticipated Discharge Date Admission Date: October 28, 2023 Subjective Patient remains minimally responsive to commands, but does open eyes spontaneously move limbs spontaneously. Off of all sedation. Currently on low- dose Levophed infusion. Remains on the ventilator with minimal vent settings. Review of Systems Review of Systems: Unobtainable due to cognitive status and Unobtainable due to reduced consciousness Physical Exam Physical Exam: Constitutional: Cachectic and frail-appearing. Spontaneously moving limbs and opening eyes . Eyes: Pupils are equal round and reactive to light. Conjunctivae are normal. Anicteric sclera. Ears nose, mouth and throat: Tracheostomy in place. Neck: Trachea is midline. Visual inspection is normal. Tracheostomy noted. Respiratory: Diffuse crackles. Mildly tachypneic. Cardiovascular: Regular rate and rhythm. No murmurs. No edema. Gastrointestinal: Normal bowel sounds, soft, nontender and nondistended. No hepatosplenomegaly noted. Musculoskeletal: No cyanosis. Patient is able to move all extremities. Strength is 5 out of 5 in the upper and lower extremities. Skin: Multiple nonhealing ulcers noted throughout his body. Neurologic: Minimally responsive to painful stimuli. Psychiatric: Unable to assess. Results & Data Results & Data Vital Signs (Past 12 Hours) Vital Signs Temp Pulse Pulse Resp BP BP Pulse Ox 11/01/23 07:19 94 H 11/01/23 07:15 36.7 C 89 26 H 101/70 99 11/01/23 07:08 90 25 H 98 11/01/23 06:57 36.7 C 88 23 98 11/01/23 06:03 36.8 C 28 H 99 11/01/23 06:00 91/58 L 11/01/23 05:51 36.8 C 76 20 97 11/01/23 05:49 36.8 C 79 17 99/48 L 98 11/01/23 05:29 89/57 L 11/01/23 05:00 36.6 C 64 20 98/45 L 97 11/01/23 04:54 36.7 C 63 20 97 11/01/23 04:33 36.7 C 84 25 H 97 11/01/23 04:03 36.6 C 79 22 98 11/01/23 04:00 96/64 L 11/01/23 03:55 36.6 C 84 24 102/50 L 98 11/01/23 03:40 82 25 H 97 11/01/23 03:36 36.5 C 77 23 97 11/01/23 03:06 36.4 C L 101 H 24 96 11/01/23 03:00 90/57 L 11/01/23 03:00 36.6 C 87 19 108/55 L 100 11/01/23 02:54 36.4 C L 85 27 H 97 11/01/23 02:30 36.2 C L 79 24 97 11/01/23 02:03 36.0 C L 84 30 H 96 11/01/23 02:00 104/61 11/01/23 02:00 36.1 C L 79 22 102/51 L 97 11/01/23 01:57 36.0 C L 118 H 27 H 97 11/01/23 01:36 35.9 C L 82 23 97 11/01/23 01:02 93/57 L 11/01/23 01:00 36.2 C L 80 25 H 97 11/01/23 00:51 83 28 H 97 11/01/23 00:00 82 11/01/23 00:00 36.6 C 69 20 100 11/01/23 00:00 86/57 L 11/01/23 00:00 86/57 L 10/31/23 23:30 36.5 C 61 20 100 10/31/23 23:03 36.4 C L 64 20 100 10/31/23 23:00 94/58 L 10/31/23 23:00 94/58 L 10/31/23 23:00 94/58 L 10/31/23 22:54 64 21 100 10/31/23 22:00 36.2 C L 83 22 104/67 99 O2 Del Method FiO2 11/01/23 07:19 11/01/23 07:15 11/01/23 07:08 40 11/01/23 06:57 11/01/23 06:03 11/01/23 06:00 11/01/23 05:51 11/01/23 05:49 Mechanical Vent 40 11/01/23 05:29 11/01/23 05:00 Mechanical Vent 11/01/23 04:54 11/01/23 04:33 11/01/23 04:03 11/01/23 04:00 11/01/23 03:55 Mechanical Vent 40 11/01/23 03:40 40 11/01/23 03:36 11/01/23 03:06 11/01/23 03:00 11/01/23 03:00 Mechanical Vent 40 11/01/23 02:54 11/01/23 02:30 11/01/23 02:03 11/01/23 02:00 11/01/23 02:00 Mechanical Vent 40 11/01/23 01:57 11/01/23 01:36 11/01/23 01:02 11/01/23 01:00 11/01/23 00:51 11/01/23 00:00 11/01/23 00:00 11/01/23 00:00 11/01/23 00:00 10/31/23 23:30 10/31/23 23:03 10/31/23 23:00 10/31/23 23:00 10/31/23 23:00 10/31/23 22:54 40 10/31/23 22:00 Mechanical Vent 40 Coding Level of Care Code 41073 CRITICAL CARE 1ST 30-74M Diagnoses Multifocal pneumonia J18.9 Tracheostomy dependence Z93.0 Sepsis A41.9 Sepsis acute organ dysfunction status: unspecified Sepsis type: sepsis due to unspecified organism Severe malnutrition E43 Chronic osteomyelitis M86.60 Septic shock A41.9; R65.21 Pressure ulcer L89.90 Endocarditis I38 Takotsubo cardiomyopathy I51.81 NSVT (nonsustained ventricular tachycardia) I47.29 (3) Sepsis Sepsis acute organ dysfunction status: unspecified Sepsis type: sepsis due to unspecified organism Qualified Code(s): A41.9 - Sepsis, unspecified organism
--- NOTE | 2023-11-01 13:36 | Hospitalist Progress Note ---
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 He is being managed for the following: Sepsis with multifocal pneumonia, Trach dependent respiratory failure Hypotension/septic shock: likely 2/2 above. Metabolic encephalopathy: likely 2/2 above iso general frailty. decisional capacity is minimal at present WBC 21, CXR and CT chest with multifocal PNA, procal elevated, recent sputum clx with pseudomonas resistant to meropenem but sensitive to cefepime. Patient was recently admitted and discharged on home hospice. He was seen by palliative, ID during that time. He had Pseudomonas pneumonia which was resistant to meropenem but sensitive to cefepime. He was not discharged on antibiotics as he was going home on home hospice. However, per admitting, he wants to be full code and wants to get better and live. vanc/cefepime 10/27. Of note, he has been on iv dapto 400 mg q24 hr to end on November 04 per for suspected infective endocarditis. ID evaled, on Vanc 10/27 and Zerbaxa 10/29. Cefepime dc'd 10/29. Follow up on ID. Continue trach care. Follow up on sputum clx, blood clx. S/p bronch 10/29, Cx sent, f/u on bronch Cx. 10/29 bronch Cx growing Pseudomonas aer. f/u sensitivity. Pt needing pressor support and increasing O2 needs. Pt is being managed in the ICU. Plan for mri brain today. ?IE of TAVR tip per - on iv daptomycin 400 mg q24 hr- EOT 11/05/23 per . Has PICC line in place. Follows [facility]. see above. Concern for ileus: KUB 10/28 showing ileus, s/p enema w/ good bowel fxn return. On trickle feed. LAD territory ischemia vs Stress induced CM: per echo 10/30. Cardio following. on aspirin and statin. Hypercalcemia- given calcitonin in ED. s/p ivf. resolved. Hyponatremia- c/w ivf, improving, recheck in am Severe malnutrition- on tube feed with PEG tube in place. NPO. Continue home nutrina 2.0 with low fiber. Dietitian on board. Cancer related pain- continue home oxycodone and tylenol and gabapentin. states no morphine as it makes him lethargic. History of head and neck cancer s/p treatment and jaw reconstruction- states he is in remission. Gets all his care at [facility] discussion- patient was discharged on home hospice but and son disagrees. Apparently has 3 POAs (son, mother and brother) but his brother went behind their back and put him on hospice (per and son) which they disagree and was a surprise to them. They state they don't want him to be POA anymore and will go with his son (who agrees with the ) and they want to be aggressive with his care with hope to turn around and get him to rehab. They have already revoked hospice. Palliative working on getting family meeting together to help us through this difficult family dynamics. Appreciate their efforts. D/w palliative , full code for now. Pt with guarded prognosis. Patient's mother and sister has been updated 10/30 at bedside. DVT ppx- sc heparin Dispo- icu. Admission and Anticipated Discharge Date Admission Date: October 28, 2023 Subjective Patient seen & examined at bedside. Opens eyes to name and sometimes spontaneously. Had an episode of hypotension, bradycardia and hypoxemia on 10/30 afternoon. Need ventilation and pressor support back. ROS not able due to cognition status. Physical Exam Physical Exam: General: Frail elderly male, sick looking, cachectic, Obtunded HEENT: JESSICA, dry oral mucosa, on trach with MV support. Chest: Coarse breath sounds bilaterally with rhonchi --improving. CVS: Regular, normal heart sounds Abdomen: Soft, non tender, not distended, normal bowel sounds, PEG tube noted Neuro: obtunded. MSK: loss of muscle mass diffusely Results & Data Results & Data Vital Signs (Past 12 Hours) Vital Signs Temp Pulse Pulse Resp BP BP Pulse Ox 11/01/23 10:30 81 23 97 11/01/23 07:19 94 H 11/01/23 07:15 36.7 C 89 26 H 101/70 99 11/01/23 07:08 90 25 H 98 11/01/23 06:57 36.7 C 88 23 98 11/01/23 06:03 36.8 C 28 H 99 11/01/23 06:00 91/58 L 11/01/23 05:51 36.8 C 76 20 97 11/01/23 05:49 36.8 C 79 17 99/48 L 98 11/01/23 05:29 89/57 L 11/01/23 05:00 36.6 C 64 20 98/45 L 97 11/01/23 04:54 36.7 C 63 20 97 11/01/23 04:33 36.7 C 84 25 H 97 11/01/23 04:03 36.6 C 79 22 98 11/01/23 04:00 96/64 L 11/01/23 03:55 36.6 C 84 24 102/50 L 98 11/01/23 03:40 82 25 H 97 11/01/23 03:36 36.5 C 77 23 97 11/01/23 03:06 36.4 C L 101 H 24 96 11/01/23 03:00 90/57 L 11/01/23 03:00 36.6 C 87 19 108/55 L 100 11/01/23 02:54 36.4 C L 85 27 H 97 11/01/23 02:30 36.2 C L 79 24 97 11/01/23 02:03 36.0 C L 84 30 H 96 11/01/23 02:00 104/61 11/01/23 02:00 36.1 C L 79 22 102/51 L 97 11/01/23 01:57 36.0 C L 118 H 27 H 97 11/01/23 01:36 35.9 C L 82 23 97 O2 Del Method FiO2 11/01/23 10:30 40 11/01/23 07:19 11/01/23 07:15 11/01/23 07:08 40 11/01/23 06:57 11/01/23 06:03 11/01/23 06:00 11/01/23 05:51 11/01/23 05:49 Mechanical Vent 40 11/01/23 05:29 11/01/23 05:00 Mechanical Vent 11/01/23 04:54 11/01/23 04:33 11/01/23 04:03 11/01/23 04:00 11/01/23 03:55 Mechanical Vent 40 11/01/23 03:40 40 11/01/23 03:36 11/01/23 03:06 11/01/23 03:00 11/01/23 03:00 Mechanical Vent 40 11/01/23 02:54 11/01/23 02:30 11/01/23 02:03 11/01/23 02:00 11/01/23 02:00 Mechanical Vent 40 11/01/23 01:57 11/01/23 01:36 (1) Sepsis Sepsis acute organ dysfunction status: unspecified Sepsis type: sepsis due to unspecified organism Qualified Code(s): A41.9 - Sepsis, unspecified organism
[2023-11-01] MEDS ORDERED: STAT IV Infusion **Titration per Protocol STA (15:19)
[2023-11-01] MEDS ORDERED: LORazepam 0.5 MG in SYRINGE 0.25 ML IV PRN (15:19)
[2023-11-01] MEDS ORDERED: ONDANSETRON INJ 2 MG/ML 2 ML VIAL IV PRN (15:19)
[2023-11-01] MEDS ORDERED: ONDANSETRON 4 MG OD TAB SL PRN (15:19)
--- NOTE | 2023-11-01 15:23 | Communication Note ---
Date of Service: November 01, 2023 I had a lengthy discussion with the patient's in private and the patient's son Jesse. We had discussions regarding the patient's overall declining con dition. Patient 's indicates that the patient would want to be let go in peace and to comfortably if he was in the active phase of dying. She acknowledges that he is severely ill and likely will not recover from this illness. She is in agreement with proceeding with comfort measures only. Jesse, the patient's son is also in agreement with proceeding with comfort measures only. Multiple other family members including the patient's mother and brother are in agreement with comfort measures only at this time. We will discontinue vasopressors, ventilator support and initiate a morphine drip. Coding Level of Care Code None
[2023-11-01] MEDS: LORazepam 0.5 MG TAB PO PRN (16:05)
[2023-11-01] MEDS: MoRPHine SULF/NSS 100 MG/100 ML BAG IV SCH (16:24)
[2023-11-01] MEDS: LORazepam 0.5 MG in SYRINGE 0.25 ML IV SCH (16:24)
[2023-11-01] MEDS: MoRPHine BOLUS from BAG IV PRN (17:50)
[2023-11-01] MEDS: GLYCOPYRROLATE 0.2 MG/ML VIAL IV PRN (18:26)
[2023-11-01] MEDS: LORazepam 0.5 MG in SYRINGE 0.25 ML IV PRN (18:39)
--- NOTE | 2023-11-02 13:37 | Hospitalist Progress Note ---
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 He was being managed for the following: Sepsis with multifocal pneumonia, Trach dependent respiratory failure Hypotension/septic shock: likely 2/2 above. Metabolic encephalopathy: likely 2/2 above iso general frailty. ?IE of TAVR tip Concern for ileus LAD territory ischemia vs Stress induced CM: Hypercalcemia Hyponatremia Severe malnutrition Cancer related pain History of head and neck cancer s/p treatment and jaw reconstruction Patient was converted to comfort care measures 11/01/2023 evening. No labs/no active treatment. Comfort care medications on board. Admission and Anticipated Discharge Date Admission Date: October 28, 2023 Subjective Patient seen & examined at bedside. Patient remains obtunded, does not open eyes to verbal stimuli. Patient's at bedside was also updated on current condition of the patient. Patient has been converted to comfort care status as of 11/01/2023 evening. Physical Exam Physical Exam: Frail, elderly, cachectic, obtunded Dry oral mucosa No eye-opening to verbal stimuli Trach tube noted Trace BLE edema noted Urinary catheter with minimal urine noted. Results & Data Results & Data Vital Signs (Past 12 Hours) Vital Signs Pulse O2 Del Method FiO2 11/02/23 07:47 55 L 11/02/23 07:00 Oxymask, Trach Collar 30 (1) Sepsis Sepsis acute organ dysfunction status: unspecified Sepsis type: sepsis due to unspecified organism Qualified Code(s): A41.9 - Sepsis, unspecified organism
[2023-11-02] MEDS ORDERED: LORazepam 0.5 MG in SYRINGE 0.25 ML IV PRN (17:16)
[2023-11-03] MEDS ORDERED: VANCOMYCIN LEVEL ONE (09:30)
--- NOTE | 2023-11-03 10:47 | Hospitalist Progress Note ---
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 He was being managed for the following: Sepsis with Multifocal Pneumonia, Trach Dependent Respiratory Failure Hypotension/Septic Shock: Likely 2/2 above. Metabolic Encephalopathy: Likely 2/2 above in setting of general frailty. ? IE of TAVR Tip Concern for Ileus [place] Ischemia vs. Stress-Induced CM Hypercalcemia Hyponatremia Severe Malnutrition: PEG tube in place. Cancer-Related Pain History of Head and Neck Cancer s/p Treatment and Jaw Reconstruction Code Status: DNR/DNI - No Resuscitation Dispo: Patient was converted to comfort care measures on 11/01/2023. No labs/no active treatment. Comfort care medications on board. Per communication report by Dr. Leone on 11/01/23: "Patient 's indicates that the patient would want to be let go in peace and to comfortably if he was in the active phase of dying. She acknowledges that he is severely ill and likely will not recover from this illness. She is in agreement with proceeding with comfort measures only. Jesse, the patient's son is also in agreement with proceeding with comfort measures only. Multiple other family members including the patient's mother and brother are in agreement with comfort measures only at this time." Patient seen in collaboration with Dr. Carlson. Please see addendum. I spent a total of 30 minutes coordinating, documenting, and providing care for this patient excluding time spent in the performance of separately billed services. This included personally reviewing all current laboratories and imaging studies, medical reconciliation, outpatient chart review and discussion with specialists. This chart was completed in part utilizing Speech Voice Recognition Software. Grammatical errors, random word insertions, pronoun errors, and incomplete sentences are an occasional consequence of this system due to software limitations, ambient noise, and hardware issues. Any formal questions or concerns about the content, text, or information contained within the body of this dictation should be directly addressed to the provider for clarification. Admission and Anticipated Discharge Date Admission Date: October 28, 2023 Supervising Physician Co-Signing Physician Notes pt was not seen/evaluated by myself. Subjective Patient seen & examined at bedside in room E308-1. Patient remains obtunded, does not open eyes to verbal stimuli. Patient's at bedside, offers no concerns at this time. Feels that he is comfortable and that his wishes are being respected. Patient has been converted to comfort care status as of 11/01/2023. Review of Systems Review of Systems: At least ten systems reviewed and negative, except as noted in the HPI. Physical Exam Physical Exam: General: Frail, elderly, cachectic and obtunded. Unresponsive to verbal stimuli. HEENT: Dry mucous membranes, no eye-opening to verbal stimuli. Respiratory: Trach tube and collar in place, coarse breath sounds bilaterally. Cardiovascular: Trace BLE edema noted, regular heart sounds. Abdomen/GI: Normal bowel sounds, soft, nontender, nondistended, PEG tube noted. Extremities/Musculoskeletal: Diffuse loss of muscle mass. Neurologic: Unable to appropriately evaluate, patient is obtunded. Skin: Known wound on patient's L shoulder blade, did not visualize as pt's does not want him repositioned. Results & Data Results & Data Vital Signs (Past 12 Hours) Vital Signs O2 Del Method FiO2 11/03/23 07:52 Trach Collar 30 Diagnostic Findings Chest X-Ray 10/28/23 13:18 XR chest 1V portable CLINICAL HISTORY: Chest pain, nonspecific COMPARISON STUDY: Chest CT September 02, 2023. Chest radiograph October 13, 2023. FINDINGS: A left-sided PICC, prosthetic aortic valve, right neck and left axillary surgical clips are again noted. There is no pneumothorax or pleural effusion. Extensive bibasilar opacities. Right midlung opacity has slightly increased. Left basilar opacity is slightly increased. Gaseous distention of several bowel loops within the upper abdomen is again noted. IMPRESSION: Progression of extensive bilateral airspace opacities suggestive of pneumonia or aspiration pneumonitis. Radiographic follow-up to ensure resolution is recommended. ACT 112: Negative or not required by law. Electronically signed by: Soham Becerra M.D. 10/28/2023 2:[address] 10/29/23 10:59 CT chest diagnostic wo con CLINICAL HISTORY: multifocal pneumonia TECHNIQUE: Multidetector row helical CT of the chest was performed. Coronal and sagittal reformations were obtained. Automated dose lowering techniques and/or adjustment according to patient size were utilized for this exam. CT DOSE: 310.35 mGy.cm Comparison: Comparison is made to CT chest 09/02/2023 FINDINGS: Lungs and pleura: Extensive consolidation favoring the lower lobes, increased from prior exam. Tracheostomy tube is again seen. Heart and pericardium: Aortic valvular calcifications are seen. Biatrial enlargement is seen. Vessels: Severe atherosclerotic changes in the aorta and coronary arteries. Mediastinum and layne: Subcentimeter lymph nodes are seen. Chest wall and lower neck: Patient is cachectic in appearance. Abdomen: Mild ascites is seen. Patient is status post cholecystectomy. Bones: Degenerative changes in the thoracic spine. IMPRESSION: 1. Multifocal consolidation compatible with pneumonia, increased from prior exam. 2. Mild ascites which may reflect third spacing. 3. Cachexia. 4. Additional findings as above. ACT 112: Negative or not required by law. Electronically signed by: Orville Fortune M.D. 10/29/2023 1:15 PM KUB X-Ray 10/29/23 12:54 KUB CLINICAL HISTORY: Distended bowel loops seen on chest CT. FINDINGS: 2 AP, portable, supine abdominal radiographs are correlated with abdominal CT dated 10/11/[address] dated 10/29/2023. A percutaneous gastrostomy tube is in place. Significant gaseous distention of the colon is similar to the 10/11/2023 CT scan. There is no evidence of high-grade small bowel obstruction. There is no evidence of intraperitoneal free air on these supine images. Cholecystectomy clips are noted in the right upper quadrant. Multifocal airspace consolidation is seen at the lung bases. The heart is enlarged with evidence of previous cardiac valve surgery. The skeletal structures are osteopenic and appear intact. There is moderate lumbosacral spondylosis. Small radiodense metallic foreign bodies project over the left ilium and the right femoral head. IMPRESSION: 1. Multifocal airspace consolidation at the lung bases favors pneumonia/aspiration pneumonitis. Correlate clinically. 2. There is diffuse gaseous distention of the colon, which is similar to the prior abdominal CT scan. This could related to rectosigmoid fecal impaction/functional obstruction or possibly colonic ileus. Clinical correlation will be required. Follow-up as warranted. Electronically signed by: Sunil Khanna M.D. 10/29/2023 6:53 PM Chest X-Ray 10/30/23 09:43 SINGLE VIEW CHEST CLINICAL HISTORY: Status post bronchoalveolar lavage. FINDINGS: An AP, portable, upright chest radiograph is compared to study dated 10/28/2023 and correlated with chest CT dated 10/29/2023. Correlation is made with abdominal CT dated 09/06/2023. The examination is degraded by portable technique and apical lordotic positioning. A tracheostomy and left-sided PICC are unchanged in position. Numerous surgical clips project over the left upper chest. There is evidence of previous cardiac valve surgery. The heart is enlarged. The pulmonary vasculature is noncongested. There is bibasilar airspace consolidation, right greater than left. Small pleural effusions are noted. No pneumothorax is seen. The skeletal structures are osteopenic. The bony thorax is grossly intact. Cholecystectomy clips are noted in the right upper quadrant. A gastrostomy tube projects over the upper abdomen. IMPRESSION: 1. No pneumothorax is identified post procedure. 2. Bibasilar airspace consolidation is again seen at both lung bases, left greater than right. This is typical for pneumonia/aspiration pneumonitis. Clinical correlation will be required and radiographic follow-up to resolution is recommended. 3. Cardiomegaly without radiographic evidence of congestive failure. 4. Small pleural effusions are noted. ACT 112: Negative or not required by law. Electronically signed by: Sunil Khanna M.D. 10/30/2023 10:00 AM Abdomen/Pelvis CTA 10/30/23 11:14 CT ANGIOGRAM OF THE ABDOMEN AND PELVIS CLINICAL HISTORY: Generalized abdominal pain. COMPARISON STUDY: Abdominal CT dated 10/11/2023. TECHNIQUE: Following the IV administration of 112 cc of Optiray 320, CT scan of the abdomen and pelvis is performed from the lung bases to the proximal femora. Images are reviewed in the axial, sagittal, and coronal planes. 3-D MIPS images are created and assessed. IV contrast was administered without complication. A dose lowering technique was utilized adhering to the principles of ALARA. The examination is degraded by cachexia, as well as by streak artifact from the arms which could not be elevated above the abdomen. There is also motion artifact. CT DOSE: 876.31 mGy.cm FINDINGS: Lung bases: There is evidence of previous aortic valve surgery. The heart is mildly enlarged and without pericardial effusion. The coronary arteries are densely calcified. There is extensive multifocal airspace consolidation at both lung bases, left greater than right . Small pleural effusions are noted. Liver: The contrast-enhanced liver is normal in size, contour, and attenuation. There is [id number] intrahepatic biliary ductal dilatation. Foci of portal venous gas seen previously are no longer identified. Gallbladder: Surgically absent noting clips in the gallbladder fossa. Spleen: Normal in size and attenuation 2. Heterogeneous arterial phase enhancement. Pancreas: Atrophic and grossly unremarkable. Adrenal glands: A 1.6 cm left adrenal adenoma is unchanged. The right adrenal gland is normal as imaged. Kidneys: The contrast enhanced kidneys are normal in size and without hydronephrosis. The kidneys enhance symmetrically. Bilateral renal cysts measure up to 3.6 cm. Nonobstructing bilateral renal calculi measure up to 9 mm. A 1.9 cm hyperdense lesion in the interpolar left kidney seen on image #128 is unchanged. This appears to show postcontrast enhancement when compared to prior studies. Abdominal aorta and iliac arteries: There is moderate atherosclerotic calcification of the abdominal aorta which is normal in caliber. Abdominal aorta is widely patent. No dissection is seen. The iliac arteries are widely patent bilaterally noting atherosclerotic plaque and irregularity.. Major branches of the abdominal aorta: The celiac trunk, superior mesenteric, and inferior mesenteric arteries are widely patent. Hepatic arterial anatomy is conventional. The splenic artery is patent. Single bilateral renal arteries are patent. Stomach and bowel: A percutaneous gastrostomy tube is in place and appears appropriately positioned. There is rectosigmoid fecal impaction and moderate to severe constipation. Question mild rectal wall thickening. There is postoperative change noted in the rectosigmoid. The appendix is normal as visualized. No mesenteric venous gas is clearly seen. Peritoneum: There is diffuse mesenteric edema. No intraperitoneal free air or abdominal ascites is identified. Lymphadenopathy: None. Pelvic viscera: The bladder is partially decompressed. Langford catheter and appears thick walled. There are nonspecific foci of intraluminal gas. The prostate gland is mildly enlarged and heterogeneous. Postsurgical change is noted in the right groin. Skeletal structures: The skeletal structures are osteopenic. There is moderate lumbosacral spondylosis. Sclerotic changes noted in the sacroiliac joints. No lytic or blastic lesions are seen. Soft tissues: The patient is cachectic. There is anasarca of the body wall. IMPRESSION: 1. Streak and motion compromised examination. The examination is also degraded by cachexia and diffuse edema. 2. Multifocal airspace consolidation is seen at both lung bases, typical for pneumonia/aspiration pneumonitis. Clinical correlation will be required and radiographic follow-up to resolution is recommended. 3. Small pleural effusions. 4. Unremarkable CT angiogram of the abdominal aorta and its major branches. 5. There is diffuse mesenteric edema and anasarca of the body wall. 6. There is rectosigmoid fecal impaction and moderate to severe constipation. Question rectal wall thickening. This is not well assessed due to anasarca. Correlate clinically for evidence of a nonspecific proctitis. 7. Bilateral nephrolithiasis. 8. A hyperdense and likely enhancing lesion in the interpolar left kidney is similar in appearance to previous. A renal neoplasm is not excluded. A nonemergent renal ultrasound could be considered for further assessment. 9. Additional findings as above. ACT 112: Negative or not required by law. Electronically signed by: Sunil Khanna M.D. 10/30/2023 4:52 PM Chest X-Ray 10/31/23 08:55 XR chest 1V portable CLINICAL HISTORY: pneumonia COMPARISON STUDY: Chest CT October 29, 2023. Chest radiograph October 30, 2023. FINDINGS: A tracheostomy tube and left PICC are in place. There are left axillary surgical clips and a prosthetic aortic valve. Cardiomediastinal silhouette is stable. There is a small left pleural effusion. There is no pneumothorax. Extensive bilateral consolidation has mildly progressed since prior chest radiograph. IMPRESSION: 1. Progression of extensive bilateral airspace opacities suggestive of multifocal pneumonia. 2. Small left pleural effusion. ACT 112: Negative or not required by law. Electronically signed by: Soham Becerra M.D. 10/31/2023 10:04 AM Chest X-Ray 11/01/23 07:00 XR chest 1V portable CLINICAL HISTORY: Respiratory failure. COMPARISON STUDY: Chest CT October 29, 2023. Chest radiograph October 31, 2023. FINDINGS: Tracheostomy tube, prosthetic aortic valve and left PICC are in place. There are left chest/axillary surgical clips. Small left pleural effusion is again noted. There is no pneumothorax. Extensive bilateral airspace opacities persist. The cardiomediastinal silhouette is stable. IMPRESSION: 1. No pneumothorax. No significant a small left pleural effusion. 2. Persistent extensive airspace opacities suggestive of multifocal pneumonia. ACT 112: Negative or not required by law. Electronically signed by: Soham Becerra M.D. 11/01/2023 8:05 AM Medications Administered Acetaminophen (Acetaminophen Susp 325 Mg/10.15 Ml Udc) 650 mg GT Q6H PRN PRN Reason: Pain or Fever Stop: 11/27/23 23:40 Last Admin: 10/29/23 09:21 Dose: 650 mg Documented By: Admin: 10/29/23 02:24 Dose: 650 mg Documented By: [facility] Glycopyrrolate (Glycopyrrolate 0.2 Mg/Ml Vial) 0.2 mg IV Q4H PRN PRN Reason: Secretions or Pulm Congestion Stop: 12/01/23 15:18 Last Admin: 11/01/23 18:26 Dose: 0.2 mg Documented By: FABY Morphine Sulfate (Morphine Sulf/Nss) 100 mg in 100 mls @ 6 mls/hr IV .[id number] [facility]; Protocol Stop: 11/15/23 15:29 Last Titration: 11/03/23 07:10 Dose: 6 mg/hr, 6 mls/hr Documented By: IDRIS Co-signed By: GHISLAINE Admin: 11/02/23 22:06 Dose: 6 mg/hr, 6 mls/hr Documented By: SRTato Co-signed By: IRINA Titration: 11/02/23 22:06 Dose: Infused Documented By: GHISLAINE Co-signed By: IRINA Titration: 11/02/23 18:54 Dose: 6 mg/hr, 6 mls/hr Documented By: GHISLAINE Co-signed By: MITZI Titration: 11/02/23 12:11 Dose: 6 mg/hr, 6 mls/hr Documented By: MTP Co-signed By: MITZI Admin: 11/02/23 05:45 Dose: 6 mg/hr, 6 mls/hr Documented By: [id number] Co-signed By: GUILLERMINA Titration: 11/02/23 05:45 Dose: Infused Documented By: [id number] Co-signed By: GUILLERMINA Titration: 11/01/23 18:40 Dose: 6 mg/hr, 6 mls/hr Documented By: MTP Co-signed By: CIARA Titration: 11/01/23 18:21 Dose: 5 mg/hr, 5 mls/hr Documented By: MTP Co-signed By: CIARA Titration: 11/01/23 17:43 Dose: 4 mg/hr, 4 mls/hr Documented By: MTP Co-signed By: CIARA Titration: 11/01/23 17:13 Dose: 3 mg/hr, 3 mls/hr Documented By: FABY Co-signed By: DIMITRIS Admin: 11/01/23 16:24 Dose: 2 mg/hr, 2 mls/hr Documented By: MTP Co-signed By: CIARA Lorazepam 0.5 mg/ Syringe 0.5 mls @ 2 mls/min IV Q4H PRN; Protocol PRN Reason: Anxiety/Agitation Stop: 12/01/23 15:18 Last Admin: 11/01/23 18:39 Dose: 2 mls/min Documented By: FABY Lorazepam (Lorazepam 0.5 Mg Tab) 0.5 mg PO Q4H PRN PRN Reason: Anxiety/Agitation Stop: 12/01/23 15:18 Last Admin: 11/01/23 16:05 Dose: 0.5 mg Documented By: FABY Morphine Sulfate (Morphine Bolus From Bag) 1 mg IV Q30M PRN PRN Reason: Comfort Care Parameters Stop: 11/15/23 15:18 Last Admin: 11/01/23 18:40 Dose: 1 mg Documented By: MTP Co-signed By: CIARA Admin: 11/01/23 18:20 Dose: 1 mg Documented By: MTP Co-signed By: CIARA Admin: 11/01/23 17:50 Dose: 1 mg Documented By: MTP Co-signed By: CIARA Discontinued Medications Albuterol (Albut/Ipratrop 3mg/0.5mg Neb 3 Ml Vial) Confirm Administered Dose 3 ml .ROUTE .STK-MED ONE Stop: 10/30/23 06:01 Last Admin: 10/30/23 06:17 Dose: 3 ml Documented By: SENIA Albuterol (Albuterol 0.083% Nebu Soln 3 Ml Vial) 2.5 mg NEB NOW STA; Protocol Stop: 10/30/23 06:02 Last Admin: 10/30/23 06:17 Dose: Not Given Documented By: SENIA Aspirin (Aspirin 81 Mg Chew) 81 mg PEG DAILY BUCK Stop: 11/30/23 17:29 Last Admin: 11/01/23 09:03 Dose: 81 mg Documented By: Admin: 10/31/23 17:34 Dose: 81 mg Documented By: FABY Atorvastatin Calcium (Atorvastatin 40 Mg Tab) 40 mg PEG QAM BUCK Stop: 11/30/23 17:29 Last Admin: 11/01/23 09:03 Dose: 40 mg Documented By: Admin: 10/31/23 19:38 Dose: 40 mg Documented By: [id number] Atropine Sulfate (Atropine Sulfate 0.1 Mg/Ml 10ml Syr) Confirm Administered Dose 1 mg IV .STK-MED ONE Stop: 10/31/23 13:05 Last Admin: 10/31/23 17:10 Dose: Not Given Documented By: FABY Calcitonin Sciota (Calcitonin Sciota 400 Units/2 Ml) 235 units SQ NOW STA Stop: 10/28/23 14:44 Last Admin: 10/28/23 16:33 Dose: 235 units Documented By: RUSSG Emollient Ointment (Petrolatum 16 Oz Jar) 1 oz EXT BID [facility] Stop: 11/27/23 20:59 Last Admin: 11/01/23 09:04 Dose: 1 oz Documented By: Admin: 10/31/23 20:48 Dose: 1 oz Documented By: [id number] Admin: 10/31/23 10:20 Dose: 1 oz Documented By: Admin: 10/30/23 21:17 Dose: 1 oz Documented By: [id number] Admin: 10/30/23 08:17 Dose: 1 oz Documented By: Admin: 10/29/23 22:20 Dose: 1 oz Documented By: Admin: 10/29/23 15:55 Dose: Not Given Documented By: Admin: 10/28/23 21:44 Dose: Not Given Documented By: MLH Gabapentin (Gabapentin 250 Mg/5 Ml 470 Ml Btl) 250 mg GT TID BUCK Stop: 11/27/23 20:59 Last Admin: 10/29/23 15:51 Dose: Not Given Documented By: Admin: 10/29/23 08:53 Dose: 250 mg Documented By: Admin: 10/28/23 21:43 Dose: 250 mg Documented By: RANDALL Heparin Sodium (Porcine) (Heparin Sod 5,000 Unit/0.5 Ml Vial) 5,000 units SQ Q12 BUCK Stop: 11/27/23 20:59 Last Admin: 11/01/23 09:03 Dose: 5,000 units Documented By: Admin: 10/31/23 20:48 Dose: 5,000 units Documented By: [id number] Admin: 10/31/23 09:22 Dose: 5,000 units Documented By: Admin: 10/30/23 21:05 Dose: 5,000 units Documented By: [id number] Admin: 10/30/23 08:14 Dose: 5,000 units Documented By: Admin: 10/29/23 22:20 Dose: 5,000 units Documented By: Admin: 10/29/23 09:21 Dose: 5,000 units Documented By: Admin: 10/28/23 20:38 Dose: 5,000 units Documented By: RANDALL Vancomycin HCl 1,500 mg/ (Sodium Chloride) 530 mls @ 200 mls/hr IV NOW ONE Stop: 10/28/23 17:19 Last Infusion: 10/28/23 19:29 Dose: Infused Documented By: [facility] Admin: 10/28/23 16:50 Dose: 200 mls/hr Documented By: AFTAB Sodium Chloride (Nss) 1,000 mls @ 999 mls/hr IV .Q1H1M ONE Stop: 10/28/23 15:43 Last Infusion: 10/28/23 17:34 Dose: Infused Documented By: [facility] Admin: 10/28/23 16:33 Dose: 999 mls/hr Documented By: AFTAB Piperacillin Sod/Tazobactam Sod (Zosyn) 4.5 gm in 100 mls @ 200 mls/hr IV NOW O NE Stop: 10/28/23 15:22 Last Admin: 10/28/23 16:35 Dose: Not Given Documented By: AFTAB Cefepime HCl (Maxipime) 20 mls @ 5 mls/min IV NOW ONE Stop: 10/28/23 16:48 Last Admin: 10/28/23 16:50 Dose: 5 mls/min Documented By: AFTAB Sodium Chloride (Nss) 1,000 mls @ 80 mls/hr IV .[id number] BUCK Stop: 11/27/23 16:29 Last Admin: 10/30/23 08:45 Dose: Not Given Documented By: Infusion: 10/30/23 08:45 Dose: Infused Documented By: Admin: 10/29/23 18:22 Dose: Not Given Documented By: Admin: 10/29/23 10:51 Dose: 80 mls/hr Documented By: Infusion: 10/29/23 09:08 Dose: Infused Documented By: Admin: 10/28/23 20:22 Dose: 80 mls/hr Documented By: RANDALL Cefepime HCl 2,000 mg/ (Dextrose) 100 mls @ 33.333 mls/hr IV Q8H BUCK; Protocol Stop: 11/04/23 21:59 Last Infusion: 10/30/23 15:59 Dose: Infused Documented By: Admin: 10/30/23 13:40 Dose: 33.3 mls/hr Documented By: Infusion: 10/30/23 09:44 Dose: Infused Documented By: Admin: 10/30/23 06:39 Dose: 33.3 mls/hr Documented By: Infusion: 10/30/23 01:29 Dose: Infused Documented By: Admin: 10/29/23 22:20 Dose: 33.3 mls/hr Documented By: Infusion: 10/29/23 19:20 Dose: Infused Documented By: Admin: 10/29/23 16:19 Dose: 33.3 mls/hr Documented By: Infusion: 10/29/23 09:05 Dose: Infused Documented By: Admin: 10/29/23 06:04 Dose: 33.3 mls/hr Documented By: Infusion: 10/29/23 00:52 Dose: Infused Documented By: Admin: 10/28/23 21:51 Dose: 33.3 mls/hr Documented By: RANDALL Vancomycin HCl 1,250 mg/ (Sodium Chloride) 275 mls @ 200 mls/hr IV Q24H BUCK Stop: 11/05/23 07:59 Last Infusion: 10/30/23 09:44 Dose: Infused Documented By: Admin: 10/30/23 08:14 Dose: 200 mls/hr Documented By: Infusion: 10/29/23 10:16 Dose: Infused Documented By: Admin: 10/29/23 08:53 Dose: 200 mls/hr Documented By: MAYUR Potassium Chloride (K Delfino / Wtr) 10 meq in 100 mls @ 100 mls/hr IV Q1H BUCK Stop: 10/29/23 10:59 Last Infusion: 10/29/23 12:02 Dose: Infused Documented By: Admin: 10/29/23 11:02 Dose: 100 mls/hr Documented By: Infusion: 10/29/23 10:57 Dose: Infused Documented By: Admin: 10/29/23 09:57 Dose: 100 mls/hr Documented By: Infusion: 10/29/23 09:53 Dose: Infused Documented By: Admin: 10/29/23 08:53 Dose: 100 mls/hr Documented By: MAYUR Sodium Chloride (Nss) 1,000 mls @ 999 mls/hr IV .Q1H1M BUCK Stop: 10/29/23 11:30 Last Infusion: 10/29/23 11:52 Dose: Infused Documented By: Admin: 10/29/23 11:37 Dose: 999 mls/hr Documented By: MAYUR Sodium Chloride (Nss) 250 mls @ 999 mls/hr IV .Q16M ONE Stop: 10/29/23 15:05 Last Infusion: 10/29/23 16:31 Dose: Infused Documented By: Admin: 10/29/23 16:15 Dose: 999 mls/hr Documented By: MAYUR Albumin Human (Albumin 25%) 25 gm in 100 mls @ 50 mls/hr IV ONE ONE Stop: 10/29/23 16:51 Last Admin: 10/29/23 18:33 Dose: Not Given Documented By: MAYUR Albumin Human (Albumin 5%) 250 mls @ 500 mls/hr IV ONE ONE Stop: 10/29/23 15:29 Last Infusion: 10/29/23 16:08 Dose: Infused Documented By: Admin: 10/29/23 15:38 Dose: 500 mls/hr Documented By: MAYUR Lactated Ringer's (Lr) 500 mls @ 999 mls/hr IV .Q31M ONE Stop: 10/29/23 15:22 Last Infusion: 10/29/23 16:08 Dose: Infused Documented By: Admin: 10/29/23 15:38 Dose: 999 mls/hr Documented By: MAYUR Hydrocortisone Sodium (Succinate 50 mg/ Syringe) 1 mls @ 4 mls/min IV Q6H BUCK Stop: 11/28/23 14:59 Last Admin: 11/01/23 16:25 Dose: Not Given Documented By: Admin: 11/01/23 10:00 Dose: 4 mls/min Documented By: Admin: 11/01/23 03:13 Dose: 4 mls/min Documented By: [id number] Admin: 10/31/23 20:46 Dose: 4 mls/min Documented By: [id number] Admin: 10/31/23 16:00 Dose: 4 mls/min Documented By: Admin: 10/31/23 09:20 Dose: 4 mls/min Documented By: Admin: 10/31/23 03:12 Dose: 4 mls/min Documented By: [id number] Admin: 10/30/23 21:05 Dose: 4 mls/min Documented By: [id number] Admin: 10/30/23 17:24 Dose: 4 mls/min Documented By: Admin: 10/30/23 08:16 Dose: 4 mls/min Documented By: Admin: 10/30/23 03:11 Dose: 4 mls/min Documented By: Admin: 10/29/23 22:19 Dose: 4 mls/min Documented By: Admin: 10/29/23 15:47 Dose: 4 mls/min Documented By: MAYUR Albumin Human (Albumin 25%) 25 gm in 100 mls @ 50 mls/hr IV ONE ONE Stop: 10/29/23 17:29 Last Infusion: 10/29/23 18:22 Dose: Infused Documented By: Admin: 10/29/23 16:13 Dose: 50 mls/hr Documented By: MAYUR Pantoprazole Sodium 40 mg/ (Syringe) 10 mls @ 5 mls/min IV DAILY@1100 BUCK Stop: 11/29/23 10:59 Last Admin: 11/01/23 12:06 Dose: 5 mls/min Documented By: Admin: 10/31/23 09:20 Dose: 5 mls/min Documented By: Admin: 10/30/23 11:20 Dose: 5 mls/min Documented By: WS Norepinephrine Bitartrate (Levophed/D5w) 4 mg in 250 mls @ 15.435 mls/hr IV .[id number] BUCK; Protocol Stop: 11/28/23 18:14 Last Titration: 10/31/23 19:45 Dose: Infused Documented By: [id number] Titration: 10/31/23 07:19 Dose: 0.07 mcg/kg/min, 15.4 mls/hr Documented By: [id number] Admin: 10/31/23 06:39 Dose: Not Given Documented By: [id number] Titration: 10/31/23 05:59 Dose: 0.07 mcg/kg/min, 15.4 mls/hr Documented By: [id number] Admin: 10/31/23 01:56 Dose: 0.09 mcg/kg/min, 19.8 mls/hr Documented By: [id number] Co-signed By: [email or web address] Titration: 10/31/23 01:56 Dose: Infused Documented By: [id number] Co-signed By: MNM Titration: 10/30/23 23:09 Dose: 0.09 mcg/kg/min, 19.8 mls/hr Documented By: [id number] Admin: 10/30/23 20:36 Dose: Not Given Documented By: [id number] Titration: 10/30/23 20:30 Dose: 0.07 mcg/kg/min, 15.4 mls/hr Documented By: [id number] Titration: 10/30/23 19:17 Dose: 0.09 mcg/kg/min, 19.8 mls/hr Documented By: AVA Co-signed By: [id number] Admin: 10/30/23 12:53 Dose: 0.09 mcg/kg/min, 19.8 mls/hr Documented By: WS Co-signed By: [email or web address] Titration: 10/30/23 12:53 Dose: Infused Documented By: WS Co-signed By: CMP Titration: 10/30/23 10:11 Dose: 0.09 mcg/kg/min, 19.8 mls/hr Documented By: Titration: 10/30/23 10:05 Dose: 0.07 mcg/kg/min, 15.4 mls/hr Documented By: Titration: 10/30/23 06:51 Dose: 0.05 mcg/kg/min, 11 mls/hr Documented By: [email or web address] Co-signed By: AVA Titration: 10/29/23 19:21 Dose: 0.05 mcg/kg/min, 11 mls/hr Documented By: [email or web address] Co-signed By: WS Admin: 10/29/23 18:21 Dose: 0.05 mcg/kg/min, 11 mls/hr Documented By: WS Co-signed By: [facility] Vasopressin 20 units/ Sodium (Chloride) 101 mls @ 12.12 mls/hr IV .[id number] BUCK Stop: 11/29/23 10:14 Last Admin: 10/31/23 19:42 Dose: Not Given Documented By: [id number] Infusion: 10/31/23 19:40 Dose: Infused Documented By: [id number] Infusion: 10/31/23 07:19 Dose: 0.04 unit/min, 12.1 mls/hr Documented By: [id number] Admin: 10/31/23 03:10 Dose: 0.04 unit/min, 12.1 mls/hr Documented By: [id number] Co-signed By: Infusion: 10/31/23 02:00 Dose: Infused Documented By: [id number] Co-signed By: Infusion: 10/30/23 19:17 Dose: 0.04 unit/min, 12.1 mls/hr Documented By: AVA Co-signed By: [id number] Admin: 10/30/23 17:39 Dose: 0.04 unit/min, 12.1 mls/hr Documented By: AVA Co-signed By: [facility] Infusion: 10/30/23 17:39 Dose: Infused Documented By: WS Co-signed By: [facility] Admin: 10/30/23 10:28 Dose: 0.04 unit/min, 12.1 mls/hr Documented By: AVA Co-signed By: MAYUR Albumin Human (Albumin 5%) 250 mls @ 500 mls/hr IV ONE ONE Stop: 10/30/23 11:06 Last Infusion: 10/30/23 11:28 Dose: Infused Documented By: Admin: 10/30/23 10:54 Dose: 500 mls/hr Documented By: AVA Potassium Chloride (K Delfino / Wtr) 10 meq in 100 mls @ 100 mls/hr IV Q1H BUCK Stop: 10/30/23 17:14 Last Infusion: 10/30/23 18:37 Dose: Infused Documented By: Admin: 10/30/23 17:25 Dose: 100 mls/hr Documented By: Infusion: 10/30/23 16:30 Dose: Infused Documented By: Admin: 10/30/23 15:30 Dose: 100 mls/hr Documented By: Infusion: 10/30/23 15:30 Dose: Infused Documented By: Admin: 10/30/23 15:00 Dose: 100 mls/hr Documented By: Infusion: 10/30/23 14:19 Dose: Infused Documented By: Admin: 10/30/23 13:19 Dose: 100 mls/hr Documented By: Infusion: 10/30/23 13:17 Dose: Infused Documented By: Admin: 10/30/23 12:17 Dose: 100 mls/hr Documented By: Infusion: 10/30/23 12:17 Dose: Infused Documented By: Admin: 10/30/23 11:20 Dose: 100 mls/hr Documented By: AVA Ceftolozane/Tazobactam 3,000 (mg/ Dextrose) 122.8 mls @ 122.8 mls/hr IV Q8H BUCK; Protocol Stop: 11/06/23 15:59 Last Infusion: 11/01/23 18:48 Dose: Infused Documented By: [facility] Admin: 11/01/23 16:25 Dose: Not Given Documented By: [facility] Admin: 11/01/23 09:06 Dose: 122.8 mls/hr Documented By: [facility] Infusion: 11/01/23 01:06 Dose: Infused Documented By: [id number] Admin: 10/31/23 23:47 Dose: 123 mls/hr Documented By: [id number] Infusion: 10/31/23 19:38 Dose: Infused Documented By: [id number] Admin: 10/31/23 17:12 Dose: 122.8 mls/hr Documented By: [facility] Infusion: 10/31/23 11:13 Dose: Infused Documented By: [facility] Admin: 10/31/23 10:13 Dose: 122.8 mls/hr Documented By: [facility] Infusion: 10/31/23 00:24 Dose: Infused Documented By: [id number] Admin: 10/30/23 23:23 Dose: 123 mls/hr Documented By: [id number] Infusion: 10/30/23 18:36 Dose: Infused Documented By: Admin: 10/30/23 17:24 Dose: 122.8 mls/hr Documented By: AVA Magnesium Sulfate/Dextrose (Magnesium Sulfate / D5w) 1 gm in 100 mls @ 50 mls/hr IV Q2H [facility] Stop: 10/31/23 10:59 Last Infusion: 10/31/23 19:42 Dose: Infused Documented By: [id number] Admin: 10/31/23 10:21 Dose: 50 mls/hr Documented By: Infusion: 10/31/23 09:09 Dose: Infused Documented By: Admin: 10/31/23 07:09 Dose: 50 mls/hr Documented By: [id number] Infusion: 10/31/23 07:05 Dose: Infused Documented By: [id number] Admin: 10/31/23 05:05 Dose: 50 mls/hr Documented By: [id number] Vancomycin HCl 1,000 mg/ (Sodium Chloride) 270 mls @ 200 mls/hr IV Q24H [facility] Stop: 11/07/23 09:59 Last Infusion: 11/01/23 16:26 Dose: Infused Documented By: Admin: 11/01/23 11:00 Dose: 200 mls/hr Documented By: Infusion: 10/31/23 19:39 Dose: Infused Documented By: [id number] Admin: 10/31/23 10:00 Dose: 200 mls/hr Documented By: FABY Sodium Bicarbonate 150 meq/ (Dextrose) 1,150 mls @ 75 mls/hr IV .[id number] [facility] Stop: 11/30/23 08:59 Last Infusion: 11/01/23 19:06 Dose: Infused Documented By: [facility] Admin: 11/01/23 01:06 Dose: 75 mls/hr Documented By: [id number] Infusion: 11/01/23 00:39 Dose: Infused Documented By: [id number] Admin: 10/31/23 09:19 Dose: 75 mls/hr Documented By: [facility] Potassium Chloride (K Delfino / Wtr) 10 meq in 100 mls @ 100 mls/hr IV Q1H [facility] Stop: 10/31/23 10:59 Last Admin: 10/31/23 17:35 Dose: Not Given Documented By: [facility] Admin: 10/31/23 17:30 Dose: Not Given Documented By: [facility] Norepinephrine Bitartrate (Levophed/D5w) 4 mg in 250 mls @ 14.359 mls/hr IV .[id number] BUCK; Protocol Stop: 11/30/23 13:14 Last Titration: 11/01/23 16:26 Dose: Infused Documented By: [facility] Titration: 11/01/23 05:05 Dose: 0.07 mcg/kg/min, 14.4 mls/hr Documented By: [id number] Admin: 10/31/23 21:29 Dose: 0.05 mcg/kg/min, 10.3 mls/hr Documented By: [id number] Co-signed By: [facility] Titration: 10/31/23 21:29 Dose: Infused Documented By: [id number] Co-signed By: [facility] Titration: 10/31/23 20:46 Dose: 0.05 mcg/kg/min, 10.3 mls/hr Documented By: [id number] Admin: 10/31/23 13:15 Dose: 0.06 mcg/kg/min, 12.3 mls/hr Documented By: [facility] Co-signed By: [facility] Potassium Chloride (K Delfino / Wtr) 10 meq in 100 mls @ 100 mls/hr IV Q1H [facility] Stop: 10/31/23 19:29 Last Infusion: 10/31/23 20:41 Dose: Infused Documented By: [id number] Admin: 10/31/23 19:36 Dose: 100 mls/hr Documented By: [id number] Infusion: 10/31/23 18:34 Dose: Infused Documented By: [id number] Admin: 10/31/23 17:34 Dose: 100 mls/hr Documented By: [facility] Potassium Chloride (K Delfino / Wtr) 10 meq in 100 mls @ 100 mls/hr IV Q1H [facility] Stop: 11/01/23 09:14 Last Infusion: 11/01/23 19:06 Dose: Infused Documented By: [facility] Admin: 11/01/23 09:05 Dose: 100 mls/hr Documented By: [facility] Infusion: 11/01/23 08:33 Dose: Infused Documented By: [facility] Admin: 11/01/23 07:33 Dose: 100 mls/hr Documented By: [facility] Infusion: 11/01/23 07:19 Dose: Infused Documented By: [facility] Admin: 11/01/23 06:19 Dose: 100 mls/hr Documented By: [id number] Infusion: 11/01/23 06:19 Dose: Infused Documented By: [id number] Admin: 11/01/23 05:23 Dose: 100 mls/hr Documented By: [id number] Lorazepam 0.5 mg/ Syringe 0.5 mls @ 2 mls/min IV Q8H [facility] Stop: 12/01/23 15:59 Last Admin: 11/02/23 16:45 Dose: Not Given Documented By: Admin: 11/02/23 11:30 Dose: 2 mls/min Documented By: Admin: 11/02/23 01:28 Dose: 2 mls/min Documented By: [id number] Admin: 11/01/23 16:24 Dose: 2 mls/min Documented By: [email or web address] Ioversol (Optiray 320 125ml) 112 ml IV ONCE ONE Stop: 10/30/23 14:28 Last Admin: 10/30/23 14:27 Dose: 112 ml Documented By: [email or web address] Midodrine (Midodrine Hcl 10 Mg Tab) 10 mg PO TID@0800,1200,1700 [facility] Stop: 11/28/23 16:59 Last Admin: 11/01/23 16:25 Dose: Not Given Documented By: Admin: 11/01/23 12:06 Dose: 10 mg Documented By: Admin: 11/01/23 09:02 Dose: 10 mg Documented By: Admin: 10/31/23 17:25 Dose: 10 mg Documented By: Admin: 10/31/23 13:00 Dose: 10 mg Documented By: Admin: 10/31/23 09:19 Dose: 10 mg Documented By: Admin: 10/30/23 17:26 Dose: 10 mg Documented By: Admin: 10/30/23 11:20 Dose: 10 mg Documented By: Admin: 10/30/23 07:39 Dose: 10 mg Documented By: Admin: 10/29/23 17:48 Dose: 10 mg Documented By: MAYUR Midodrine (Midodrine Hcl 10 Mg Tab) 10 mg PO NOW STA Stop: 10/29/23 11:08 Last Admin: 10/29/23 11:37 Dose: 10 mg Documented By: MAYUR Multivitamins/Minerals (Multi Vit W/Minerals Liquid 15 Ml Udc) 15 ml PEG QAM BUCK Stop: 12/01/23 08:59 Last Admin: 11/01/23 09:04 Dose: 15 ml Documented By: MTP Norepinephrine Bitartrate (Norepinephrine/D5w 4 Mg/250 Ml) Confirm Administered Dose 4 mg IV .STK-MED ONE Stop: 10/29/23 18:13 Last Admin: 10/29/23 18:22 Dose: Not Given Documented By: AVA Oxycodone HCl (Oxycodone Hcl Soln 5 Mg/5 Ml Udc) 10 mg GT Q4H PRN PRN Reason: pain Stop: 11/11/23 19:16 Last Admin: 10/29/23 09:21 Dose: 10 mg Documented By: Admin: 10/29/23 04:05 Dose: 10 mg Documented By: Admin: 10/28/23 22:16 Dose: 10 mg Documented By: RANDALL Potassium Chloride (Potassium Chloride 20 Meq/15 Ml Udc) 40 meq PEG NOW STA Stop: 10/30/23 06:23 Last Admin: 10/30/23 06:40 Dose: 40 meq Documented By: JASMIN Sterile Water (Tube Feeding Water Flush) 100 ml PEG Q4H [facility]CK Stop: 11/30/23 10:29 Last Admin: 11/01/23 18:27 Dose: Not Given Documented By: [facility] Admin: 11/01/23 16:25 Dose: Not Given Documented By: [facility] Admin: 11/01/23 12:06 Dose: 100 ml Documented By: [facility] Admin: 11/01/23 05:31 Dose: 100 ml Documented By: [id number] Admin: 11/01/23 02:53 Dose: 100 ml Documented By: [id number] Admin: 10/31/23 20:48 Dose: 100 ml Documented By: [id number] Admin: 10/31/23 17:25 Dose: 100 ml Documented By: [facility] Admin: 10/31/23 14:00 Dose: 100 ml Documented By: [facility] Admin: 10/31/23 11:25 Dose: 100 ml Documented By: MTP (1) Sepsis Sepsis acute organ dysfunction status: unspecified Sepsis type: sepsis due to unspecified organism Qualified Code(s): A41.9 - Sepsis, unspecified organism (5) Dysphagia Dysphagia type: unspecified Qualified Code(s): R13.10 - Dysphagia, unspecified
--- NOTE | 2023-11-04 07:04 | Hospitalist Progress Note ---
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 He was being managed for the following: Sepsis with Multifocal Pneumonia, Trach Dependent Respiratory Failure Hypotension/Septic Shock: Likely 2/2 above. Metabolic Encephalopathy: Likely 2/2 above in setting of general frailty. ? IE of TAVR Tip Concern for Ileus [place] Ischemia vs. Stress-Induced CM Hypercalcemia Hyponatremia Severe Malnutrition: PEG tube in place. Cancer-Related Pain History of Head and Neck Cancer s/p Treatment and Jaw Reconstruction Code Status: DNR/DNI - No Resuscitation Dispo: Patient was converted to comfort care measures on 11/01/2023. No labs/no active treatment. Comfort care medications on board. Per communication report by Dr. Leone on 11/01/23: "Patient 's indicates that the patient would want to be let go in peace and to comfortably if he was in the active phase of dying. She acknowledges that he is severely ill and likely will not recover from this illness. She is in agreement with proceeding with comfort measures only. Jesse, the patient's son is also in agreement with proceeding with comfort measures only. Multiple other family members including the patient's mother and brother are in agreement with comfort measures only at this time." Patient seen under the supervision of Dr. Carlson, he did not personally see the patient this morning. I spent a total of 25 minutes coordinating, documenting, and providing care for this patient excluding time spent in the performance of separately billed services. This included personally reviewing all current laboratories and imaging studies, medical reconciliation, outpatient chart review and discussion with specialists. This chart was completed in part utilizing Speech Voice Recognition Software. Grammatical errors, random word insertions, pronoun errors, and incomplete sentences are an occasional consequence of this system due to software limitations, ambient noise, and hardware issues. Any formal questions or concerns about the content, text, or information contained within the body of this dictation should be directly addressed to the provider for clarification. Admission and Anticipated Discharge Date Admission Date: October 28, 2023 Supervising Physician Co-Signing Physician Notes pt was not seen/evaluated by myself. Subjective Patient seen & examined at bedside in room E308-1. Patient remains obtunded, does not open eyes to verbal stimuli. at bedside, mentions she feels that he is quite comfortable. denies having any concerns or questions at this time. Reminded her that she can reach out at any point if she needs us. Patient has been converted to comfort care status as of 11/01/2023. Review of Systems Review of Systems: At least ten systems reviewed and negative, except as noted in the HPI. Physical Exam Physical Exam: General: Frail, elderly, cachectic and obtunded. Unresponsive to verbal stimuli. HEENT: Dry mucous membranes, no eye-opening to verbal stimuli. Respiratory: Trach tube and collar in place. Shallow, bradypneic respirations. Cardiovascular: Trace BLE edema noted, regular heart sounds. Abdomen/GI: Normal bowel sounds, soft, nontender, nondistended, PEG tube noted. : Langford catheter intact, draining clear yellow urine. Extremities/Musculoskeletal: Diffuse loss of muscle mass. Neurologic: Unable to appropriately evaluate, patient is obtunded. Skin: Known wound on patient's L shoulder blade, did not visualize as does not want pt repositioned. Results & Data Results & Data Vital Signs (Past 12 Hours) Vital Signs O2 Del Method O2 Flow Rate FiO2 11/03/23 21:30 Trach Collar 7 30 Diagnostic Findings Chest X-Ray 10/28/23 13:18 XR chest 1V portable CLINICAL HISTORY: Chest pain, nonspecific COMPARISON STUDY: Chest CT September 02, 2023. Chest radiograph October 13, 2023. FINDINGS: A left-sided PICC, prosthetic aortic valve, right neck and left axillary surgical clips are again noted. There is no pneumothorax or pleural effusion. Extensive bibasilar opacities. Right midlung opacity has slightly increased. Left basilar opacity is slightly increased. Gaseous distention of several bowel loops within the upper abdomen is again noted. IMPRESSION: Progression of extensive bilateral airspace opacities suggestive of pneumonia or aspiration pneumonitis. Radiographic follow-up to ensure resolution is recommended. ACT 112: Negative or not required by law. Electronically signed by: Soham Becerra M.D. 10/28/2023 2:[address] 10/29/23 10:59 CT chest diagnostic wo con CLINICAL HISTORY: multifocal pneumonia TECHNIQUE: Multidetector row helical CT of the chest was performed. Coronal and sagittal reformations were obtained. Automated dose lowering techniques and/or adjustment according to patient size were utilized for this exam. CT DOSE: 310.35 mGy.cm Comparison: Comparison is made to CT chest 09/02/2023 FINDINGS: Lungs and pleura: Extensive consolidation favoring the lower lobes, increased from prior exam. Tracheostomy tube is again seen. Heart and pericardium: Aortic valvular calcifications are seen. Biatrial enlargement is seen. Vessels: Severe atherosclerotic changes in the aorta and coronary arteries. Mediastinum and layne: Subcentimeter lymph nodes are seen. Chest wall and lower neck: Patient is cachectic in appearance. Abdomen: Mild ascites is seen. Patient is status post cholecystectomy. Bones: Degenerative changes in the thoracic spine. IMPRESSION: 1. Multifocal consolidation compatible with pneumonia, increased from prior exam. 2. Mild ascites which may reflect third spacing. 3. Cachexia. 4. Additional findings as above. ACT 112: Negative or not required by law. Electronically signed by: Orville Fortune M.D. 10/29/2023 1:15 PM KUB X-Ray 10/29/23 12:54 KUB CLINICAL HISTORY: Distended bowel loops seen on chest CT. FINDINGS: 2 AP, portable, supine abdominal radiographs are correlated with abdominal CT dated 10/11/[address] dated 10/29/2023. A percutaneous gastrostomy tube is in place. Significant gaseous distention of the colon is similar to the 10/11/2023 CT scan. There is no evidence of high-grade small bowel obstruction. There is no evidence of intraperitoneal free air on these supine images. Cholecystectomy clips are noted in the right upper quadrant. Multifocal airspace consolidation is seen at the lung bases. The heart is enlarged with evidence of previous cardiac valve surgery. The skeletal structures are osteopenic and appear intact. There is moderate lumbosacral spondylosis. Small radiodense metallic foreign bodies project over the left ilium and the right femoral head. IMPRESSION: 1. Multifocal airspace consolidation at the lung bases favors pneumonia/aspiration pneumonitis. Correlate clinically. 2. There is diffuse gaseous distention of the colon, which is similar to the prior abdominal CT scan. This could related to rectosigmoid fecal impaction/functional obstruction or possibly colonic ileus. Clinical correlation will be required. Follow-up as warranted. Electronically signed by: Sunil Khanna M.D. 10/29/2023 6:53 PM Chest X-Ray 10/30/23 09:43 SINGLE VIEW CHEST CLINICAL HISTORY: Status post bronchoalveolar lavage. FINDINGS: An AP, portable, upright chest radiograph is compared to study dated 10/28/2023 and correlated with chest CT dated 10/29/2023. Correlation is made with abdominal CT dated 09/06/2023. The examination is degraded by portable technique and apical lordotic positioning. A tracheostomy and left-sided PICC are unchanged in position. Numerous surgical clips project over the left upper chest. There is evidence of previous cardiac valve surgery. The heart is enlarged. The pulmonary vasculature is noncongested. There is bibasilar airspace consolidation, right greater than left. Small pleural effusions are noted. No pneumothorax is seen. The skeletal structures are osteopenic. The bony thorax is grossly intact. Cholecystectomy clips are noted in the right upper quadrant. A gastrostomy tube projects over the upper abdomen. IMPRESSION: 1. No pneumothorax is identified post procedure. 2. Bibasilar airspace consolidation is again seen at both lung bases, left greater than right. This is typical for pneumonia/aspiration pneumonitis. Clinical correlation will be required and radiographic follow-up to resolution is recommended. 3. Cardiomegaly without radiographic evidence of congestive failure. 4. Small pleural effusions are noted. ACT 112: Negative or not required by law. Electronically signed by: Sunil Khanna M.D. 10/30/2023 10:00 AM Abdomen/Pelvis CTA 10/30/23 11:14 CT ANGIOGRAM OF THE ABDOMEN AND PELVIS CLINICAL HISTORY: Generalized abdominal pain. COMPARISON STUDY: Abdominal CT dated 10/11/2023. TECHNIQUE: Following the IV administration of 112 cc of Optiray 320, CT scan of the abdomen and pelvis is performed from the lung bases to the proximal femora. Images are reviewed in the axial, sagittal, and coronal planes. 3-D MIPS images are created and assessed. IV contrast was administered without complication. A dose lowering technique was utilized adhering to the principles of ALARA. The examination is degraded by cachexia, as well as by streak artifact from the arms which could not be elevated above the abdomen. There is also motion artifact. CT DOSE: 876.31 mGy.cm FINDINGS: Lung bases: There is evidence of previous aortic valve surgery. The heart is mildly enlarged and without pericardial effusion. The coronary arteries are densely calcified. There is extensive multifocal airspace consolidation at both lung bases, left greater than right . Small pleural effusions are noted. Liver: The contrast-enhanced liver is normal in size, contour, and attenuation. There is [id number] intrahepatic biliary ductal dilatation. Foci of portal venous gas seen previously are no longer identified. Gallbladder: Surgically absent noting clips in the gallbladder fossa. Spleen: Normal in size and attenuation 2. Heterogeneous arterial phase enhancement. Pancreas: Atrophic and grossly unremarkable. Adrenal glands: A 1.6 cm left adrenal adenoma is unchanged. The right adrenal gland is normal as imaged. Kidneys: The contrast enhanced kidneys are normal in size and without hydronephrosis. The kidneys enhance symmetrically. Bilateral renal cysts measure up to 3.6 cm. Nonobstructing bilateral renal calculi measure up to 9 mm. A 1.9 cm hyperdense lesion in the interpolar left kidney seen on image #128 is unchanged. This appears to show postcontrast enhancement when compared to prior studies. Abdominal aorta and iliac arteries: There is moderate atherosclerotic calcification of the abdominal aorta which is normal in caliber. Abdominal aorta is widely patent. No dissection is seen. The iliac arteries are widely patent bilaterally noting atherosclerotic plaque and irregularity.. Major branches of the abdominal aorta: The celiac trunk, superior mesenteric, and inferior mesenteric arteries are widely patent. Hepatic arterial anatomy is conventional. The splenic artery is patent. Single bilateral renal arteries are patent. Stomach and bowel: A percutaneous gastrostomy tube is in place and appears appropriately positioned. There is rectosigmoid fecal impaction and moderate to severe constipation. Question mild rectal wall thickening. There is postoperative change noted in the rectosigmoid. The appendix is normal as visualized. No mesenteric venous gas is clearly seen. Peritoneum: There is diffuse mesenteric edema. No intraperitoneal free air or abdominal ascites is identified. Lymphadenopathy: None. Pelvic viscera: The bladder is partially decompressed. Langford catheter and appears thick walled. There are nonspecific foci of intraluminal gas. The prostate gland is mildly enlarged and heterogeneous. Postsurgical change is noted in the right groin. Skeletal structures: The skeletal structures are osteopenic. There is moderate lumbosacral spondylosis. Sclerotic changes noted in the sacroiliac joints. No lytic or blastic lesions are seen. Soft tissues: The patient is cachectic. There is anasarca of the body wall. IMPRESSION: 1. Streak and motion compromised examination. The examination is also degraded by cachexia and diffuse edema. 2. Multifocal airspace consolidation is seen at both lung bases, typical for pneumonia/aspiration pneumonitis. Clinical correlation will be required and radiographic follow-up to resolution is recommended. 3. Small pleural effusions. 4. Unremarkable CT angiogram of the abdominal aorta and its major branches. 5. There is diffuse mesenteric edema and anasarca of the body wall. 6. There is rectosigmoid fecal impaction and moderate to severe constipation. Question rectal wall thickening. This is not well assessed due to anasarca. Correlate clinically for evidence of a nonspecific proctitis. 7. Bilateral nephrolithiasis. 8. A hyperdense and likely enhancing lesion in the interpolar left kidney is similar in appearance to previous. A renal neoplasm is not excluded. A nonemergent renal ultrasound could be considered for further assessment. 9. Additional findings as above. ACT 112: Negative or not required by law. Electronically signed by: Sunil Khanna M.D. 10/30/2023 4:52 PM Chest X-Ray 10/31/23 08:55 XR chest 1V portable CLINICAL HISTORY: pneumonia COMPARISON STUDY: Chest CT October 29, 2023. Chest radiograph October 30, 2023. FINDINGS: A tracheostomy tube and left PICC are in place. There are left axillary surgical clips and a prosthetic aortic valve. Cardiomediastinal silhouette is stable. There is a small left pleural effusion. There is no pneumothorax. Extensive bilateral consolidation has mildly progressed since prior chest radiograph. IMPRESSION: 1. Progression of extensive bilateral airspace opacities suggestive of multifocal pneumonia. 2. Small left pleural effusion. ACT 112: Negative or not required by law. Electronically signed by: Soham Becerra M.D. 10/31/2023 10:04 AM Chest X-Ray 11/01/23 07:00 XR chest 1V portable CLINICAL HISTORY: Respiratory failure. COMPARISON STUDY: Chest CT October 29, 2023. Chest radiograph October 31, 2023. FINDINGS: Tracheostomy tube, prosthetic aortic valve and left PICC are in place. There are left chest/axillary surgical clips. Small left pleural effusion is again noted. There is no pneumothorax. Extensive bilateral airspace opacities persist. The cardiomediastinal silhouette is stable. IMPRESSION: 1. No pneumothorax. No significant a small left pleural effusion. 2. Persistent extensive airspace opacities suggestive of multifocal pneumonia. ACT 112: Negative or not required by law. Electronically signed by: Soham Becerra M.D. 11/01/2023 8:05 AM Medications Administered Acetaminophen (Acetaminophen Susp 325 Mg/10.15 Ml Udc) 650 mg GT Q6H PRN PRN Reason: Pain or Fever Stop: 11/27/23 23:40 Last Admin: 10/29/23 09:21 Dose: 650 mg Documented By: Admin: 10/29/23 02:24 Dose: 650 mg Documented By: [facility] Glycopyrrolate (Glycopyrrolate 0.2 Mg/Ml Vial) 0.2 mg IV Q4H PRN PRN Reason: Secretions or Pulm Congestion Stop: 12/01/23 15:18 Last Admin: 11/01/23 18:26 Dose: 0.2 mg Documented By: [facility] Morphine Sulfate (Morphine Sulf/Nss) 100 mg in 100 mls @ 6 mls/hr IV .[id number] ON LICENSE OF [facility]; Protocol Stop: 11/15/23 15:29 Last Titration: 11/03/23 19:10 Dose: 6 mg/hr, 6 mls/hr Documented By: WESTON Co-signed By: IDRIS Admin: 11/03/23 17:22 Dose: 6 mg/hr, 6 mls/hr Documented By: IDRIS Co-signed By: ANOOP Titration: 11/03/23 14:46 Dose: Infused Documented By: IDRIS Co-signed By: ANOOP Titration: 11/03/23 07:10 Dose: 6 mg/hr, 6 mls/hr Documented By: IDRIS Co-signed By: GHISLAINE Admin: 11/02/23 22:06 Dose: 6 mg/hr, 6 mls/hr Documented By: SRW Co-signed By: DEMETRIF Titration: 11/02/23 22:06 Dose: Infused Documented By: SRW Co-signed By: PLF Titration: 11/02/23 18:54 Dose: 6 mg/hr, 6 mls/hr Documented By: SRW Co-signed By: DLS Titration: 11/02/23 12:11 Dose: 6 mg/hr, 6 mls/hr Documented By: MTP Co-signed By: DLS Admin: 11/02/23 05:45 Dose: 6 mg/hr, 6 mls/hr Documented By: [id number] Co-signed By: GUILLERMINA Titration: 11/02/23 05:45 Dose: Infused Documented By: [id number] Co-signed By: GUILLERMINA Titration: 11/01/23 18:40 Dose: 6 mg/hr, 6 mls/hr Documented By: MTP Co-signed By: CIARA Titration: 11/01/23 18:21 Dose: 5 mg/hr, 5 mls/hr Documented By: MTP Co-signed By: CIARA Titration: 11/01/23 17:43 Dose: 4 mg/hr, 4 mls/hr Documented By: MTP Co-signed By: CIARA Titration: 11/01/23 17:13 Dose: 3 mg/hr, 3 mls/hr Documented By: MTP Co-signed By: DIMITRIS Admin: 11/01/23 16:24 Dose: 2 mg/hr, 2 mls/hr Documented By: MTP Co-signed By: CIARA Lorazepam 0.5 mg/ Syringe 0.5 mls @ 2 mls/min IV Q4H PRN; Protocol PRN Reason: Anxiety/Agitation Stop: 12/01/23 15:18 Last Admin: 11/01/23 18:39 Dose: 2 mls/min Documented By: MTP Lorazepam (Lorazepam 0.5 Mg Tab) 0.5 mg PO Q4H PRN PRN Reason: Anxiety/Agitation Stop: 12/01/23 15:18 Last Admin: 11/01/23 16:05 Dose: 0.5 mg Documented By: MTP Morphine Sulfate (Morphine Bolus From Bag) 1 mg IV Q30M PRN PRN Reason: Comfort Care Parameters Stop: 11/15/23 15:18 Last Admin: 11/01/23 18:40 Dose: 1 mg Documented By: MTP Co-signed By: CIARA Admin: 11/01/23 18:20 Dose: 1 mg Documented By: FABY Co-signed By: CIARA Admin: 11/01/23 17:50 Dose: 1 mg Documented By: MTP Co-signed By: CIARA Discontinued Medications Albuterol (Albut/Ipratrop 3mg/0.5mg Neb 3 Ml Vial) Confirm Administered Dose 3 ml .ROUTE .STK-MED ONE Stop: 10/30/23 06:01 Last Admin: 10/30/23 06:17 Dose: 3 ml Documented By: SENIA Albuterol (Albuterol 0.083% Nebu Soln 3 Ml Vial) 2.5 mg NEB NOW STA; Protocol Stop: 10/30/23 06:02 Last Admin: 10/30/23 06:17 Dose: Not Given Documented By: SENIA Aspirin (Aspirin 81 Mg Chew) 81 mg PEG DAILY BUCK Stop: 11/30/23 17:29 Last Admin: 11/01/23 09:03 Dose: 81 mg Documented By: Admin: 10/31/23 17:34 Dose: 81 mg Documented By: FABY Atorvastatin Calcium (Atorvastatin 40 Mg Tab) 40 mg PEG QAM BUCK Stop: 11/30/23 17:29 Last Admin: 11/01/23 09:03 Dose: 40 mg Documented By: Admin: 10/31/23 19:38 Dose: 40 mg Documented By: [id number] Atropine Sulfate (Atropine Sulfate 0.1 Mg/Ml 10ml Syr) Confirm Administered Dose 1 mg IV .STK-MED ONE Stop: 10/31/23 13:05 Last Admin: 10/31/23 17:10 Dose: Not Given Documented By: MTP Calcitonin Trenton (Calcitonin Trenton 400 Units/2 Ml) 235 units SQ NOW STA Stop: 10/28/23 14:44 Last Admin: 10/28/23 16:33 Dose: 235 units Documented By: RUSSG Emollient Ointment (Petrolatum 16 Oz Jar) 1 oz EXT BID BUCK Stop: 11/27/23 20:59 Last Admin: 11/01/23 09:04 Dose: 1 oz Documented By: Admin: 10/31/23 20:48 Dose: 1 oz Documented By: [id number] Admin: 10/31/23 10:20 Dose: 1 oz Documented By: Admin: 10/30/23 21:17 Dose: 1 oz Documented By: [id number] Admin: 10/30/23 08:17 Dose: 1 oz Documented By: Admin: 10/29/23 22:20 Dose: 1 oz Documented By: Admin: 10/29/23 15:55 Dose: Not Given Documented By: Admin: 10/28/23 21:44 Dose: Not Given Documented By: RANDALL Gabapentin (Gabapentin 250 Mg/5 Ml 470 Ml Btl) 250 mg GT TID BUCK Stop: 11/27/23 20:59 Last Admin: 10/29/23 15:51 Dose: Not Given Documented By: Admin: 10/29/23 08:53 Dose: 250 mg Documented By: Admin: 10/28/23 21:43 Dose: 250 mg Documented By: RANDALL Heparin Sodium (Porcine) (Heparin Sod 5,000 Unit/0.5 Ml Vial) 5,000 units SQ Q 12 BUCK Stop: 11/27/23 20:59 Last Admin: 11/01/23 09:03 Dose: 5,000 units Documented By: Admin: 10/31/23 20:48 Dose: 5,000 units Documented By: [id number] Admin: 10/31/23 09:22 Dose: 5,000 units Documented By: Admin: 10/30/23 21:05 Dose: 5,000 units Documented By: [id number] Admin: 10/30/23 08:14 Dose: 5,000 units Documented By: Admin: 10/29/23 22:20 Dose: 5,000 units Documented By: Admin: 10/29/23 09:21 Dose: 5,000 units Documented By: Admin: 10/28/23 20:38 Dose: 5,000 units Documented By: RANDALL Vancomycin HCl 1,500 mg/ (Sodium Chloride) 530 mls @ 200 mls/hr IV NOW ONE Stop: 10/28/23 17:19 Last Infusion: 10/28/23 19:29 Dose: Infused Documented By: Admin: 10/28/23 16:50 Dose: 200 mls/hr Documented By: AFTAB Sodium Chloride (Nss) 1,000 mls @ 999 mls/hr IV .Q1H1M ONE Stop: 10/28/23 15:43 Last Infusion: 10/28/23 17:34 Dose: Infused Documented By: Admin: 10/28/23 16:33 Dose: 999 mls/hr Documented By: AFTAB Piperacillin Sod/Tazobactam Sod (Zosyn) 4.5 gm in 100 mls @ 200 mls/hr IV NOW ONE Stop: 10/28/23 15:22 Last Admin: 10/28/23 16:35 Dose: Not Given Documented By: MMLindsay Cefepime HCl (Maxipime) 20 mls @ 5 mls/min IV NOW ONE Stop: 10/28/23 16:48 Last Admin: 10/28/23 16:50 Dose: 5 mls/min Documented By: AFTAB Sodium Chloride (Nss) 1,000 mls @ 80 mls/hr IV .[id number] BUCK Stop: 11/27/23 16:29 Last Admin: 10/30/23 08:45 Dose: Not Given Documented By: Infusion: 10/30/23 08:45 Dose: Infused Documented By: Admin: 10/29/23 18:22 Dose: Not Given Documented By: Admin: 10/29/23 10:51 Dose: 80 mls/hr Documented By: Infusion: 10/29/23 09:08 Dose: Infused Documented By: Admin: 10/28/23 20:22 Dose: 80 mls/hr Documented By: RANDALL Cefepime HCl 2,000 mg/ (Dextrose) 100 mls @ 33.333 mls/hr IV Q8H BUCK; Protocol Stop: 11/04/23 21:59 Last Infusion: 10/30/23 15:59 Dose: Infused Documented By: Admin: 10/30/23 13:40 Dose: 33.3 mls/hr Documented By: Infusion: 10/30/23 09:44 Dose: Infused Documented By: Admin: 10/30/23 06:39 Dose: 33.3 mls/hr Documented By: Infusion: 10/30/23 01:29 Dose: Infused Documented By: Admin: 10/29/23 22:20 Dose: 33.3 mls/hr Documented By: Infusion: 10/29/23 19:20 Dose: Infused Documented By: Admin: 10/29/23 16:19 Dose: 33.3 mls/hr Documented By: Infusion: 10/29/23 09:05 Dose: Infused Documented By: Admin: 10/29/23 06:04 Dose: 33.3 mls/hr Documented By: Infusion: 10/29/23 00:52 Dose: Infused Documented By: Admin: 10/28/23 21:51 Dose: 33.3 mls/hr Documented By: RANDALL Vancomycin HCl 1,250 mg/ (Sodium Chloride) 275 mls @ 200 mls/hr IV Q24H BUCK Stop: 11/05/23 07:59 Last Infusion: 10/30/23 09:44 Dose: Infused Documented By: Admin: 10/30/23 08:14 Dose: 200 mls/hr Documented By: Infusion: 10/29/23 10:16 Dose: Infused Documented By: Admin: 10/29/23 08:53 Dose: 200 mls/hr Documented By: MAYUR Potassium Chloride (K Delfino / Wtr) 10 meq in 100 mls @ 100 mls/hr IV Q1H BUCK Stop: 10/29/23 10:59 Last Infusion: 10/29/23 12:02 Dose: Infused Documented By: Admin: 10/29/23 11:02 Dose: 100 mls/hr Documented By: Infusion: 10/29/23 10:57 Dose: Infused Documented By: Admin: 10/29/23 09:57 Dose: 100 mls/hr Documented By: Infusion: 10/29/23 09:53 Dose: Infused Documented By: Admin: 10/29/23 08:53 Dose: 100 mls/hr Documented By: MAYUR Sodium Chloride (Nss) 1,000 mls @ 999 mls/hr IV .Q1H1M BUCK Stop: 10/29/23 11:30 Last Infusion: 10/29/23 11:52 Dose: Infused Documented By: Admin: 10/29/23 11:37 Dose: 999 mls/hr Documented By: MAYUR Sodium Chloride (Nss) 250 mls @ 999 mls/hr IV .Q16M ONE Stop: 10/29/23 15:05 Last Infusion: 10/29/23 16:31 Dose: Infused Documented By: Admin: 10/29/23 16:15 Dose: 999 mls/hr Documented By: MAYUR Albumin Human (Albumin 25%) 25 gm in 100 mls @ 50 mls/hr IV ONE ONE Stop: 10/29/23 16:51 Last Admin: 10/29/23 18:33 Dose: Not Given Documented By: MAYUR Albumin Human (Albumin 5%) 250 mls @ 500 mls/hr IV ONE ONE Stop: 10/29/23 15:29 Last Infusion: 10/29/23 16:08 Dose: Infused Documented By: Admin: 10/29/23 15:38 Dose: 500 mls/hr Documented By: MAYUR Lactated Ringer's (Lr) 500 mls @ 999 mls/hr IV .Q31M ONE Stop: 10/29/23 15:22 Last Infusion: 10/29/23 16:08 Dose: Infused Documented By: Admin: 10/29/23 15:38 Dose: 999 mls/hr Documented By: MAYUR Hydrocortisone Sodium (Succinate 50 mg/ Syringe) 1 mls @ 4 mls/min IV Q6H BUCK Stop: 11/28/23 14:59 Last Admin: 11/01/23 16:25 Dose: Not Given Documented By: Admin: 11/01/23 10:00 Dose: 4 mls/min Documented By: Admin: 11/01/23 03:13 Dose: 4 mls/min Documented By: [id number] Admin: 10/31/23 20:46 Dose: 4 mls/min Documented By: [id number] Admin: 10/31/23 16:00 Dose: 4 mls/min Documented By: Admin: 10/31/23 09:20 Dose: 4 mls/min Documented By: Admin: 10/31/23 03:12 Dose: 4 mls/min Documented By: [id number] Admin: 10/30/23 21:05 Dose: 4 mls/min Documented By: [id number] Admin: 10/30/23 17:24 Dose: 4 mls/min Documented By: Admin: 10/30/23 08:16 Dose: 4 mls/min Documented By: Admin: 10/30/23 03:11 Dose: 4 mls/min Documented By: Admin: 10/29/23 22:19 Dose: 4 mls/min Documented By: Admin: 10/29/23 15:47 Dose: 4 mls/min Documented By: MAYUR Albumin Human (Albumin 25%) 25 gm in 100 mls @ 50 mls/hr IV ONE ONE Stop: 10/29/23 17:29 Last Infusion: 10/29/23 18:22 Dose: Infused Documented By: Admin: 10/29/23 16:13 Dose: 50 mls/hr Documented By: MAYUR Pantoprazole Sodium 40 mg/ (Syringe) 10 mls @ 5 mls/min IV DAILY@1100 BUCK Stop: 11/29/23 10:59 Last Admin: 11/01/23 12:06 Dose: 5 mls/min Documented By: Admin: 10/31/23 09:20 Dose: 5 mls/min Documented By: Admin: 10/30/23 11:20 Dose: 5 mls/min Documented By: AVA Norepinephrine Bitartrate (Levophed/D5w) 4 mg in 250 mls @ 15.435 mls/hr IV .[id number] ON LICENSE OF [facility]; Protocol Stop: 11/28/23 18:14 Last Titration: 10/31/23 19:45 Dose: Infused Documented By: [id number] Titration: 10/31/23 07:19 Dose: 0.07 mcg/kg/min, 15.4 mls/hr Documented By: [id number] Admin: 10/31/23 06:39 Dose: Not Given Documented By: [id number] Titration: 10/31/23 05:59 Dose: 0.07 mcg/kg/min, 15.4 mls/hr Documented By: [id number] Admin: 10/31/23 01:56 Dose: 0.09 mcg/kg/min, 19.8 mls/hr Documented By: [id number] Co-signed By: MNM Titration: 10/31/23 01:56 Dose: Infused Documented By: [id number] Co-signed By: MNM Titration: 10/30/23 23:09 Dose: 0.09 mcg/kg/min, 19.8 mls/hr Documented By: [id number] Admin: 10/30/23 20:36 Dose: Not Given Documented By: [id number] Titration: 10/30/23 20:30 Dose: 0.07 mcg/kg/min, 15.4 mls/hr Documented By: [id number] Titration: 10/30/23 19:17 Dose: 0.09 mcg/kg/min, 19.8 mls/hr Documented By: AVA Co-signed By: [id number] Admin: 10/30/23 12:53 Dose: 0.09 mcg/kg/min, 19.8 mls/hr Documented By: WS Co-signed By: CMP Titration: 10/30/23 12:53 Dose: Infused Documented By: WS Co-signed By: CMP Titration: 10/30/23 10:11 Dose: 0.09 mcg/kg/min, 19.8 mls/hr Documented By: Titration: 10/30/23 10:05 Dose: 0.07 mcg/kg/min, 15.4 mls/hr Documented By: Titration: 10/30/23 06:51 Dose: 0.05 mcg/kg/min, 11 mls/hr Documented By: JLoi Co-signed By: AVA Titration: 10/29/23 19:21 Dose: 0.05 mcg/kg/min, 11 mls/hr Documented By: JLoi Co-signed By: AVA Admin: 10/29/23 18:21 Dose: 0.05 mcg/kg/min, 11 mls/hr Documented By: WS Co-signed By: [facility] Vasopressin 20 units/ Sodium (Chloride) 101 mls @ 12.12 mls/hr IV .[id number] ON LICENSE OF [facility] Stop: 11/29/23 10:14 Last Admin: 10/31/23 19:42 Dose: Not Given Documented By: [id number] Infusion: 10/31/23 19:40 Dose: Infused Documented By: [id number] Infusion: 10/31/23 07:19 Dose: 0.04 unit/min, 12.1 mls/hr Documented By: [id number] Admin: 10/31/23 03:10 Dose: 0.04 unit/min, 12.1 mls/hr Documented By: [id number] Co-signed By: CP Infusion: 10/31/23 02:00 Dose: Infused Documented By: [id number] Co-signed By: CP Infusion: 10/30/23 19:17 Dose: 0.04 unit/min, 12.1 mls/hr Documented By: WS Co-signed By: [id number] Admin: 10/30/23 17:39 Dose: 0.04 unit/min, 12.1 mls/hr Documented By: AVA Co-signed By: [id number] Infusion: 10/30/23 17:39 Dose: Infused Documented By: AVA Co-signed By: [email or web address] Admin: 10/30/23 10:28 Dose: 0.04 unit/min, 12.1 mls/hr Documented By: AVA Co-signed By: MAYUR Albumin Human (Albumin 5%) 250 mls @ 500 mls/hr IV ONE ONE Stop: 10/30/23 11:06 Last Infusion: 10/30/23 11:28 Dose: Infused Documented By: Admin: 10/30/23 10:54 Dose: 500 mls/hr Documented By: AVA Potassium Chloride (K Delfino / Wtr) 10 meq in 100 mls @ 100 mls/hr IV Q1H BUCK Stop: 10/30/23 17:14 Last Infusion: 10/30/23 18:37 Dose: Infused Documented By: Admin: 10/30/23 17:25 Dose: 100 mls/hr Documented By: Infusion: 10/30/23 16:30 Dose: Infused Documented By: Admin: 10/30/23 15:30 Dose: 100 mls/hr Documented By: Infusion: 10/30/23 15:30 Dose: Infused Documented By: Admin: 10/30/23 15:00 Dose: 100 mls/hr Documented By: Infusion: 10/30/23 14:19 Dose: Infused Documented By: Admin: 10/30/23 13:19 Dose: 100 mls/hr Documented By: Infusion: 10/30/23 13:17 Dose: Infused Documented By: Admin: 10/30/23 12:17 Dose: 100 mls/hr Documented By: Infusion: 10/30/23 12:17 Dose: Infused Documented By: Admin: 10/30/23 11:20 Dose: 100 mls/hr Documented By: AVA Ceftolozane/Tazobactam 3,000 (mg/ Dextrose) 122.8 mls @ 122.8 mls/hr IV Q8H BUCK; Protocol Stop: 11/06/23 15:59 Last Infusion: 11/01/23 18:48 Dose: Infused Documented By: Admin: 11/01/23 16:25 Dose: Not Given Documented By: Admin: 11/01/23 09:06 Dose: 122.8 mls/hr Documented By: Infusion: 11/01/23 01:06 Dose: Infused Documented By: [id number] Admin: 10/31/23 23:47 Dose: 123 mls/hr Documented By: [id number] Infusion: 10/31/23 19:38 Dose: Infused Documented By: [id number] Admin: 10/31/23 17:12 Dose: 122.8 mls/hr Documented By: [facility] Infusion: 10/31/23 11:13 Dose: Infused Documented By: [facility] Admin: 10/31/23 10:13 Dose: 122.8 mls/hr Documented By: [facility] Infusion: 10/31/23 00:24 Dose: Infused Documented By: [id number] Admin: 10/30/23 23:23 Dose: 123 mls/hr Documented By: [id number] Infusion: 10/30/23 18:36 Dose: Infused Documented By: Admin: 10/30/23 17:24 Dose: 122.8 mls/hr Documented By: AVA Magnesium Sulfate/Dextrose (Magnesium Sulfate / D5w) 1 gm in 100 mls @ 50 mls/hr IV Q2H ON LICENSE OF [facility] Stop: 10/31/23 10:59 Last Infusion: 10/31/23 19:42 Dose: Infused Documented By: [id number] Admin: 10/31/23 10:21 Dose: 50 mls/hr Documented By: [facility] Infusion: 10/31/23 09:09 Dose: Infused Documented By: [facility] Admin: 10/31/23 07:09 Dose: 50 mls/hr Documented By: [id number] Infusion: 10/31/23 07:05 Dose: Infused Documented By: [id number] Admin: 10/31/23 05:05 Dose: 50 mls/hr Documented By: [id number] Vancomycin HCl 1,000 mg/ (Sodium Chloride) 270 mls @ 200 mls/hr IV Q24H ON LICENSE OF [facility] Stop: 11/07/23 09:59 Last Infusion: 11/01/23 16:26 Dose: Infused Documented By: [facility] Admin: 11/01/23 11:00 Dose: 200 mls/hr Documented By: [facility] Infusion: 10/31/23 19:39 Dose: Infused Documented By: [id number] Admin: 10/31/23 10:00 Dose: 200 mls/hr Documented By: [facility] Sodium Bicarbonate 150 meq/ (Dextrose) 1,150 mls @ 75 mls/hr IV .[id number] ON LICENSE OF [facility] Stop: 11/30/23 08:59 Last Infusion: 11/01/23 19:06 Dose: Infused Documented By: [facility] Admin: 11/01/23 01:06 Dose: 75 mls/hr Documented By: [id number] Infusion: 11/01/23 00:39 Dose: Infused Documented By: [id number] Admin: 10/31/23 09:19 Dose: 75 mls/hr Documented By: [facility] Potassium Chloride (K Delfino / Wtr) 10 meq in 100 mls @ 100 mls/hr IV Q1H BUCK Stop: 10/31/23 10:59 Last Admin: 10/31/23 17:35 Dose: Not Given Documented By: [facility] Admin: 10/31/23 17:30 Dose: Not Given Documented By: [facility] Norepinephrine Bitartrate (Levophed/D5w) 4 mg in 250 mls @ 14.359 mls/hr IV .[id number] BUCK; Protocol Stop: 11/30/23 13:14 Last Titration: 11/01/23 16:26 Dose: Infused Documented By: [facility] Titration: 11/01/23 05:05 Dose: 0.07 mcg/kg/min, 14.4 mls/hr Documented By: [id number] Admin: 10/31/23 21:29 Dose: 0.05 mcg/kg/min, 10.3 mls/hr Documented By: [id number] Co-signed By: [facility] Titration: 10/31/23 21:29 Dose: Infused Documented By: [id number] Co-signed By: [facility] Titration: 10/31/23 20:46 Dose: 0.05 mcg/kg/min, 10.3 mls/hr Documented By: [id number] Admin: 10/31/23 13:15 Dose: 0.06 mcg/kg/min, 12.3 mls/hr Documented By: [facility] Co-signed By: [facility] Potassium Chloride (K Delfino / Wtr) 10 meq in 100 mls @ 100 mls/hr IV Q1H BUCK Stop: 10/31/23 19:29 Last Infusion: 10/31/23 20:41 Dose: Infused Documented By: [id number] Admin: 10/31/23 19:36 Dose: 100 mls/hr Documented By: [id number] Infusion: 10/31/23 18:34 Dose: Infused Documented By: [id number] Admin: 10/31/23 17:34 Dose: 100 mls/hr Documented By: [facility] Potassium Chloride (K Delfino / Wtr) 10 meq in 100 mls @ 100 mls/hr IV Q1H ON LICENSE OF [facility] Stop: 11/01/23 09:14 Last Infusion: 11/01/23 19:06 Dose: Infused Documented By: [facility] Admin: 11/01/23 09:05 Dose: 100 mls/hr Documented By: Infusion: 11/01/23 08:33 Dose: Infused Documented By: [facility] Admin: 11/01/23 07:33 Dose: 100 mls/hr Documented By: Infusion: 11/01/23 07:19 Dose: Infused Documented By: [facility] Admin: 11/01/23 06:19 Dose: 100 mls/hr Documented By: [id number] Infusion: 11/01/23 06:19 Dose: Infused Documented By: [id number] Admin: 11/01/23 05:23 Dose: 100 mls/hr Documented By: [id number] Lorazepam 0.5 mg/ Syringe 0.5 mls @ 2 mls/min IV Q8H ON LICENSE OF [facility] Stop: 12/01/23 15:59 Last Admin: 11/02/23 16:45 Dose: Not Given Documented By: Admin: 11/02/23 11:30 Dose: 2 mls/min Documented By: [facility] Admin: 11/02/23 01:28 Dose: 2 mls/min Documented By: [id number] Admin: 11/01/23 16:24 Dose: 2 mls/min Documented By: [facility] Ioversol (Optiray 320 125ml) 112 ml IV ONCE ONE Stop: 10/30/23 14:28 Last Admin: 10/30/23 14:27 Dose: 112 ml Documented By: SVETA Midodrine (Midodrine Hcl 10 Mg Tab) 10 mg PO TID@0800,1200,1700 ON LICENSE OF [facility] Stop: 11/28/23 16:59 Last Admin: 11/01/23 16:25 Dose: Not Given Documented By: [facility] Admin: 11/01/23 12:06 Dose: 10 mg Documented By: Admin: 11/01/23 09:02 Dose: 10 mg Documented By: [facility] Admin: 10/31/23 17:25 Dose: 10 mg Documented By: [facility] Admin: 10/31/23 13:00 Dose: 10 mg Documented By: [facility] Admin: 10/31/23 09:19 Dose: 10 mg Documented By: Admin: 10/30/23 17:26 Dose: 10 mg Documented By: Admin: 10/30/23 11:20 Dose: 10 mg Documented By: Admin: 10/30/23 07:39 Dose: 10 mg Documented By: Admin: 10/29/23 17:48 Dose: 10 mg Documented By: MAYUR Midodrine (Midodrine Hcl 10 Mg Tab) 10 mg PO NOW STA Stop: 10/29/23 11:08 Last Admin: 10/29/23 11:37 Dose: 10 mg Documented By: MAYUR Multivitamins/Minerals (Multi Vit W/Minerals Liquid 15 Ml Udc) 15 ml PEG QAM BUCK Stop: 12/01/23 08:59 Last Admin: 11/01/23 09:04 Dose: 15 ml Documented By: FABY Norepinephrine Bitartrate (Norepinephrine/D5w 4 Mg/250 Ml) Confirm Administered Dose 4 mg IV .STK-MED ONE Stop: 10/29/23 18:13 Last Admin: 10/29/23 18:22 Dose: Not Given Documented By: AVA Oxycodone HCl (Oxycodone Hcl Soln 5 Mg/5 Ml Udc) 10 mg GT Q4H PRN PRN Reason: pain Stop: 11/11/23 19:16 Last Admin: 10/29/23 09:21 Dose: 10 mg Documented By: Admin: 10/29/23 04:05 Dose: 10 mg Documented By: Admin: 10/28/23 22:16 Dose: 10 mg Documented By: RANDALL Potassium Chloride (Potassium Chloride 20 Meq/15 Ml Udc) 40 meq PEG NOW STA Stop: 10/30/23 06:23 Last Admin: 10/30/23 06:40 Dose: 40 meq Documented By: JASMIN Sterile Water (Tube Feeding Water Flush) 100 ml PEG Q4H BUCK Stop: 11/30/23 10:29 Last Admin: 11/01/23 18:27 Dose: Not Given Documented By: Admin: 11/01/23 16:25 Dose: Not Given Documented By: Admin: 11/01/23 12:06 Dose: 100 ml Documented By: Admin: 11/01/23 05:31 Dose: 100 ml Documented By: [id number] Admin: 11/01/23 02:53 Dose: 100 ml Documented By: [id number] Admin: 10/31/23 20:48 Dose: 100 ml Documented By: [id number] Admin: 10/31/23 17:25 Dose: 100 ml Documented By: [facility] Admin: 10/31/23 14:00 Dose: 100 ml Documented By: Admin: 10/31/23 11:25 Dose: 100 ml Documented By: MTP (1) Sepsis Sepsis acute organ dysfunction status: unspecified Sepsis type: sepsis due to unspecified organism Qualified Code(s): A41.9 - Sepsis, unspecified organism (5) Dysphagia Dysphagia type: unspecified Qualified Code(s): R13.10 - Dysphagia, unspecifie d
[2023-11-04] MEDS ORDERED: [UNRECOGNIZED DRUG - OTHER] MT PRN (12:04)
[2023-11-04] MEDS ORDERED: IDENTIFIER MT PRN (12:04)
[2023-11-04] MEDS ORDERED: WATER MT PRN (12:04)
[2023-11-04] MEDS ORDERED: STERILE MT PRN (12:04)
--- NOTE | 2023-11-04 12:27 | Communication Note ---
Date of Service: November 04, 2023 Brief Pall Med Note Notified by nursing pt advised that her mother in law/pt mother "carries a fully loaded Glock in her purse, with the safety off. She was caught in the metal detectors at [place] when she came to visit him before." Notified primary team, who have notified security. Will note, there is signif animosity between pt and his family ani his mother and siblings/please see my previous notes. The actual truth may be hard to discern and while this may be not a viable concern, caution should be undertaken until confirmation. Thank you. James Palma DNP Director, Palliative Medicine
[2023-11-04] MEDS ORDERED: MoRPHine BOLUS from BAG IV PRN (14:22)
--- NOTE | 2023-11-04 14:31 | Palliative Care Progress Note ---
Date of Service November 04, 2023 Assessment & Plan (1) Oral bleeding: Plan: Will begin 5% tranexamic acid (TXA) oral rinse Q2h prn as a 10-mL soaking gauze for 10 min at a time Limit oral mouth swab in area of bleeding Education provided to , encouraged her to leave the area of bleeding alone/do not scrub/rub mouth swabs over it and then restart bleeding Biotene on swabs for oral dryness is very concerned about mouth care and dryness we discussed his mouth breathing and EOL breathing changes, advised oral dryness may be normal at this junciton and we will not be able to "fix" it (2) Dyspnea and respiratory abnormalities: Plan: MS infusion max dose increased to 10mg per hour, bolus increased to 2mg and increase by 1mg/hr as needed (3) Cancer related pain: Plan: See med changes #2 (4) Weakness generalized: (5) Counseling regarding advanced directives and goals of care: Plan: Face to face ACP discussion with x 25min at bedside. We discussed changes pt may move through in the dying process including but not limited to sleeping more, disorientation when awake, restlessness, diminished senses/inability to respond to stimulus although ability to be aware of them remains intact longer, changes in body temperatures, skin changes/mottli ng/cyanosis, respiratory pattern changes, oral secretions. Family verbalized understanding. The goal is to assure a peaceful . (6) Encounter for hospice care discussion: (7) Palliative care by specialist: (8) Failure to thrive in adult: Plan referenced to nursing that her MIL/ pt mother carries a loaded Glock pistol in her purse which was discovered when she tried visiting pt at [facility] and walked thru a metal detector. The veracity of this is questionable given the amount of conflict in this family however staff and provider safety assured with notification to primary team/security notified. ACP as above. Patient is actively dying. Anticipate within 1-2 days. Thank you for allowing us to participate in the ongoing care of this patient. Please page with any additional concerns. James Palma DNP Director, Palliative Medicine Admission and Anticipated Discharge Date Admission Date: October 28, 2023 Results & Data Vital Signs (Past 12 Hours) Vital Signs O2 Del Method 11/04/23 08:00 Trach Collar PG Care Time/CCT Total # of Minutes Spent Total Time Spent with Patient: Total time spent is greater than 50% in coordination of care (as documented) at patient's floor/unit and/or counseling patient: I spent 90 minutes overall addressing this case: 10 min in medical data review/discussion with referring provider(s) and/or preparation for the visit 10 min in direct interaction with the patient/exam 25min in Advance Care Planning/Goals of Care discussions as detailed above in note (must be >16min) 25 min in subsequent review and synthesis of assessment and plan 20 min communicating with other providers regarding the patient's case: Advanced Care Planning 57735 Advanced Care Planning 30 [place] [address] SUB INP/OBS CARE 3/50MIN (25 - SIGNIFICANT, SEPARATELY IDENTIFIABLE ) Patient Type Established Medical Decision Making High Complexity Diagnoses Oral bleeding K13.79 Dyspnea and respiratory abnormalities R06.00; R06.89 Cancer related pain G89.3 Weakness generalized R53.1 Counseling regarding advanced directives and goals of care Z71.89 Encounter for hospice care discussion Z71.89 Palliative care by specialist Z51.5 Failure to thrive in adult R62.7 Additional Codes Advanced Care Planning - 26738 Advanced Care Planning 30 Min: 12166 Advanced Care Planning 30 Min ([id number])
--- NOTE | 2023-11-05 13:21 | Hospitalist Progress Note ---
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 He was being managed for the following: Sepsis with Multifocal Pneumonia, Trach Dependent Respiratory Failure Hypotension/Septic Shock: Likely 2/2 above. Metabolic Encephalopathy: Likely 2/2 above in setting of general frailty. ? IE of TAVR Tip Concern for Ile[place] Ischemia vs. Stress-Induced CM Hypercalcemia Hyponatremia Severe Malnutrition: PEG tube in place. Cancer-Related Pain History of Head and Neck Cancer s/p Treatment and Jaw Reconstruction Code Status: DNR/DNI - No Resuscitation Dispo: Patient was converted to comfort care measures on 11/01/2023. No labs/no active treatment. Comfort care medications on board. Pt appears comfortable, at bedside aware to reach out if she feels otherwise. This chart was completed in part utilizing Speech Voice Recognition Software. Grammatical errors, random word insertions, pronoun errors, and incomplete sentences are an occasional consequence of this system due to software limitations, ambient noise, and hardware issues. Any formal questions or concer ns about the content, text, or information contained within the body of this dictation should be directly addressed to the provider for clarification. Admission and Anticipated Discharge Date Admission Date: October 28, 2023 Subjective Patient seen & examined at bedside in room E308-1. Patient remains obtunded, does not open eyes to verbal stimuli. at bedside, mentions she feels that he is quite comfortable. denies having any concerns or questions at this time. Reminded her that she can reach out at any point if she needs us. Patient has been converted to comfort care status as of 11/01/2023. Physical Exam Physical Exam: Frail, elderly, cachectic, obtunded Dry oral mucosa No eye-opening to verbal stimuli Trach tube noted Trace BLE edema noted Urinary catheter with minimal urine noted. Results & Data Results & Data Vital Signs (Past 12 Hours) Vital Signs O2 Del Method 11/05/23 08:00 Trach Collar (1) Sepsis Sepsis acute organ dysfunction status: unspecified Sepsis type: sepsis due to unspecified organism Qualified Code(s): A41.9 - Sepsis, unspecified organism (5) Dysphagia Dysphagia type: unspecified Qualified Code(s): R13.10 - Dysphagia, unspecified
--- NOTE | 2023-11-05 15:04 | Palliative Care Progress Note ---
Date of Service November 05, 2023 Assessment & Plan (1) Oral bleeding: (2) Persistent wound pain: (3) Cancer related pain: (4) Dyspnea and respiratory abnormalities: (5) Weakness generalized: (6) Palliative care by specialist: Plan Continue current plan of care. Oral mucosal bleeding has improved with TXA Thank you for allowing us to participate in the ongoing care of this patient. Please page with any additional concerns. James Palma DNP Director, Palliative Medicine Admission and Anticipated Discharge Date Admission Date: October 28, 2023 Subjective Remains on comfort care, no acute distress. Review of Systems Review of Systems: Unobtainable due to reduced consciousness Physical Exam Constitutional: + ill appearing, + cachectic, + altered mental status and + frail appearing Eyes: PERRL ENMT: Nose: + dry nasal mucous membranes, + face asymmetric and + facial edema (right jaw to chin and neck) Mouth: + poor dentition Neck: + limited neck extension Respiratory: + labored breathing and symmetric chest movement Auscultation: + diminished lung sounds and + crackles Cardiovascular: Rate/Rhythm: regular rate and regular rhythm Gastrointestinal (Abdomen): Inspection/Auscultation: + scaphoid (+peg) Musculoskeletal: gen weakness Skin: + skin tightening and + dry skin scapular wound is worse, +bone visible sacral wound has worsened, ++malodorous dc BLE with worsening lesions, vasc insuff changes Psychiatric: Eye Contact: + poor eye contact unable to follow commands [facility] ++ Results & Data Vital Signs (Past 12 Hours) Vital Signs O2 Del Method 11/05/23 08:00 Trach Collar PG Care Time/CCT Total # of Minutes Spent Total Time Spent: 45 Total Time Spent with Patient: Total time spent is greater than 50% in coordination of care (as documented) at patient's floor/unit and/or counseling patient: Coding [place] [address] SUB INP/OBS CARE 3/50MIN Patient Type Established History Comprehensive Exam Comprehensive Medical Decision Making High Complexity Diagnoses Oral bleeding K13.79 Persistent wound pain R52 Cancer related pain G89.3 Dyspnea and respiratory abnormalities R06.00; R06.89 Weakness generalized R53.1 Palliative care by specialist Z51.5
--- NOTE | 2023-11-06 13:47 | Hospitalist Progress Note ---
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 He was being managed for the following: Sepsis with Multifocal Pneumonia, Trach Dependent Respiratory Failure Hypotension/Septic Shock: Likely 2/2 above. Metabolic Encephalopathy: Likely 2/2 above in setting of general frailty. ? IE of TAVR Tip Concern for [place]le[place] Ischemia vs. Stress-Induced CM Hypercalcemia Hyponatremia Severe Malnutrition: PEG tube in place. Cancer-Related Pain History of Head and Neck Cancer s/p Treatment and Jaw Reconstruction Code Status: DNR/DNI - No Resuscitation Dispo: Patient was converted to comfort care measures on 11/01/2023. No labs/no active treatment. Comfort care medications on board. Pt appears comfortable, at bedside aware to reach out if she feels otherwise. This chart was completed in part utilizing Speech Voice Recognition Software. Grammatical errors, random word insertions, pronoun errors, and incomplete sentences are an occasional consequence of this system due to software limitations, ambient noise, and hardware issues. Any formal questions or concer ns about the content, text, or information contained within the body of this dictation should be directly addressed to the provider for clarification. Admission and Anticipated Discharge Date Admission Date: October 28, 2023 Subjective Patient seen & examined at bedside in room E308-1. Patient remains obtunded, does not open eyes to verbal stimuli. at bedside, mentions she feels that he is quite comfortable. denies having any concerns or questions at this time. Reminded her that she can reach out at any point if she needs us. Patient has been converted to comfort care status as of 11/01/2023. Physical Exam Physical Exam: Frail, elderly, cachectic, obtunded Dry oral mucosa No eye-opening to verbal stimuli Trach tube noted Trace BLE edema noted b/l crackles noted. Urinary catheter with minimal urine noted. Results & Data Results & Data Vital Signs (Past 12 Hours) Vital Signs O2 Del Method O2 Flow Rate FiO2 11/06/23 08:30 Trach Collar 7 28 (1) Sepsis Sepsis acute organ dysfunction status: unspecified Sepsis type: sepsis due to unspecified organism Qualified Code(s): A41.9 - Sepsis, unspecified organism (5) Dysphagia Dysphagia type: unspecified Qualified Code(s): R13.10 - Dysphagia, unspecified
--- NOTE | 2023-11-07 11:35 | Hospitalist Progress Note ---
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 He was being managed for the following: Sepsis with Multifocal Pneumonia, Trach Dependent Respiratory Failure Hypotension/Septic Shock: Likely 2/2 above. Metabolic Encephalopathy: Likely 2/2 above in setting of general frailty. ? IE of TAVR Tip Concern for Ile[place] Ischemia vs. Stress-Induced CM Hypercalcemia Hyponatremia Severe Malnutrition: PEG tube in place. Cancer-Related Pain History of Head and Neck Cancer s/p Treatment and Jaw Reconstruction Code Status: DNR/DNI - No Resuscitation Dispo: Patient was converted to comfort care measures on 11/01/2023. No labs/no active treatment. Comfort care medications on board. CM to assist w/ dc plan of hospice home or hospice facility. in hospital under comfort care until then. Pt appears comfortable, at bedside aware to reach out if she feels otherwise. This chart was completed in part utilizing Speech Voice Recognition Software. Grammatical errors, random word insertions, pronoun errors, and incomplete sentences are an occasional consequence of this system due to software limitations, ambient noise, and hardware issues. Any formal questions or concerns about the content, text, or information contained within the body of this dictation should be directly addressed to the provider for clarification. Admission and Anticipated Discharge Date Admission Date: October 28, 2023 Subjective Patient seen & examined at bedside in room E308-1. Patient remains obtunded. at bedside, mentions she feels that he is quite comfortable. denies having any concerns or questions at this time. Reminded her that she can reach out at any point if she needs us. Patient has been converted to comfort care status as of 11/01/2023. Physical Exam Physical Exam: Frail, elderly, cachectic, obtunded Dry oral mucosa No eye-opening to verbal stimuli Trach tube noted Trace BLE edema noted b/l crackles noted. Urinary catheter with minimal urine noted. (1) Sepsis Sepsis acute organ dysfunction status: unspecified Sepsis type: sepsis due to unspecified organism Qualified Code(s): A41.9 - Sepsis, unspecified organism (5) Dysphagia Dysphagia type: unspecified Qualified Code(s): R13.10 - Dysphagia, unspecified
--- NOTE | 2023-11-07 12:51 | Palliative Care Progress Note ---
Date of Service November 07, 2023 Assessment & Plan (1) Oral bleeding: Plan: Bleeding has improved with the addition of the tranexamic acid soaked gauze. (2) Persistent wound pain: (3) Cancer related pain: (4) Dyspnea and respiratory abnormalities: (5) Weakness generalized: (6) Palliative care by specialist: Plan I had a 20-minute [id number] ACP discussion about end-of-life care with patient's , during which we discussed the changes found on exam today to indicate that Beltran is transitioning to an active dying process. She is in agreement and responded that she plans to stay by his side and will not be returning home. She added that home is over an hour away and she does not want to risk not being here when he dies. She is comfortable with the current plan of care and I have modified his morphine bolus order from every 30 minutes as needed to every 15 minutes as needed. He continues to receive morphine 6 mg/h and a continuous infusion and now has the option for morphine 2 mg IV every 15 minutes as needed for any breakthrough pain, shortness of breath, air hunger. Additionally he has orders for IV Ativan and glycopyrrolate for secretion management. Continue current plan of care. Oral mucosal bleeding has improved with TXA Thank you for allowing us to participate in the ongoing care of this patient. Please page with any additional concerns. James Palma DNP Director, Palliative Medicine Admission and Anticipated Discharge Date Admission Date: October 28, 2023 Lori Gong remains on comfort care. His is at the bedside. She feels that he has begun to make a transition. He is lethargic and much less interactive. There have been intermittent visits from other family members, however states she feels no choice but to stay present at his bedside because of continued conflict/lack of trust with other family members. She tells me the only person she would trust being alone in the room with patient or without her present, would be his son. Review of Systems Review of Systems: Unobtainable due to reduced consciousness Physical Exam Physical Exam: Cachectic frail male, lying in bed. Eyes are open but he does not respond to verbal or tactile stimulus. He is unable to blink in response to commands. Mouth is open and pharynx is noted to be dry. There is significant and severe bitemporal wasting. Eyes are gaunt and his cheeks are sunken. Neck without stridor. Trach intact. Mild increased respiratory distress. Lungs diminished overall, few crackles. Abdomen scaphoid. PEG intact. Diffuse generalized weakness. Unable to follow commands. Skin is pale. Cool to touch. There is mottling to the bilateral lower extremities at the base of the foot up to the ankle. There are some early violaceous/mottling changes of bilateral lower extremities. There is some dusky changes to his fingertips. PG Care Time/CCT Total # of Minutes Spent Total Time Spent with Patient: Total time spent is greater than 50% in coordination of care (as documented) at patient's floor/unit and/or counseling patient: I spent 50 minutes overall addressing this case: 5 min in medical data review/discussion with referring provider(s) and/or preparation for the visit 10 min in direct interaction with the patient/exam 20 min in Advance Care Planning/Goals of Care discussions as detailed above in note (must be >16min) 5 min in subsequent review and synthesis of assessment and plan 10 min communicating with other providers regarding the patient's case: Nursing, primary team. Advanced Care Planning 13575 Advanced Care Planning 30 Min [place] [address] SUB INP/OBS CARE 3/50MIN Patient Type Established History Comprehensive Exam Comprehensive Medical Decision Making High Complexity Diagnoses Oral bleeding K13.79 Persistent wound pain R52 Cancer related pain G89.3 Dyspnea and respiratory abnormalities R06.00; R06.89 Weakness generalized R53.1 Palliative care by specialist Z51.5 Additional Codes Advanced Care Planning - 03413 Advanced Care Planning 30 Min: 80801 Advanced Care Planning 30 Min ([id number])
[2023-11-08] MEDS: MoRPHine BOLUS from BAG IV PRN (09:05)
--- NOTE | 2023-11-08 12:59 | Hospitalist Progress Note ---
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 He was being managed for the following: Sepsis with Multifocal Pneumonia, Trach Dependent Respiratory Failure Hypotension/Septic Shock: Likely 2/2 above. Metabolic Encephalopathy: Likely 2/2 above in setting of general frailty. ? IE of TAVR Tip Concern for Ile[place] Ischemia vs. Stress-Induced CM Hypercalcemia Hyponatremia Severe Malnutrition: PEG tube in place. Cancer-Related Pain History of Head and Neck Cancer s/p Treatment and Jaw Reconstruction -- Currently on comfort measures only from 11/01/2023 No distress on exam today Palliative care following Case management to help with discharge planning Continue comfort medications as needed Code Status: DNR/DNI Admission and Anticipated Discharge Date Admission Date: October 28, 2023 Subjective Patient is seen and examined at bedside Unable to obtain any history as patient is obtunded Currently on comfort measures only Discussed with patient's at bedside Review of Systems Review of Systems: Unobtainable due to reduced consciousness Physical Exam Physical Exam: Physical Exam: Vitals signs as noted above General Appearance: Thin, frail, cachectic, obtunded Head: normocephalic, Atraumatic Neck: supple, + Trach Respiratory/Chest: Decreased breath sounds, No accessory muscle use Cardiovascular: S1, S2, +Edema Neurologic/Psych: Obtunded Results & Data Results & Data Vital Signs (Past 12 Hours) Vital Signs O2 Del Method FiO2 11/08/23 08:19 Trach Collar 28 (1) Sepsis Sepsis acute organ dysfunction status: unspecified Sepsis type: sepsis due to unspecified organism Qualified Code(s): A41.9 - Sepsis, unspecified organism (5) Dysphagia Dysphagia type: unspecified Qualified Code(s): R13.10 - Dysphagia, unspecified
[2023-11-08] MEDS ORDERED: Nursing to Pharmacy Communication SCH (13:15)
--- NOTE | 2023-11-09 13:49 | Hospitalist Progress Note ---
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 He was being managed for the following: Sepsis with Multifocal Pneumonia, Trach Dependent Respiratory Failure Hypotension/Septic Shock: Likely 2/2 above. Metabolic Encephalopathy: Likely 2/2 above in setting of general frailty. ? IE of TAVR Tip Concern for [place]le[place] Ischemia vs. Stress-Induced CM Hypercalcemia Hyponatremia Severe Malnutrition: PEG tube in place. Cancer-Related Pain History of Head and Neck Cancer s/p Treatment and Jaw Reconstruction -- Currently on comfort measures only from 11/01/2023 No distress on exam today Palliative care following Case management to help with discharge planning Continue comfort medications as needed Clinically deteriorating No distress on exam today Code Status: DNR/DNI Admission and Anticipated Discharge Date Admission Date: October 28, 2023 Subjective Patient is seen and examined at bedside Unable to obtain any history as patient is obtunded No distress on exam Family at bedside Currently on comfort measures only Clinically deteriorating Review of Systems Review of Systems: Unobtainable due to reduced consciousness Physical Exam Physical Exam: Physical Exam: Vitals signs as noted above General Appearance: Thin, frail, cachectic, obtunded Head: normocephalic, Atraumatic Neck: supple, + Trach Respiratory/Chest: Decreased breath sounds, No accessory muscle use Cardiovascular: S1, S2, +Edema Neurologic/Psych: Obtunded Results & Data Results & Data Vital Signs (Past 12 Hours) Vital Signs O2 Del Method 11/09/23 08:00 Trach Collar (1) Sepsis Sepsis acute organ dysfunction status: unspecified Sepsis type: sepsis due to unspecified organism Qualified Code(s): A41.9 - Sepsis, unspecified organism (5) Dysphagia Dysphagia type: unspecified Qualified Code(s): R13.10 - Dysphagia, unspecified
--- NOTE | 2023-11-10 15:46 | Discharge Summary ---
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 1024 for which ID was consulted and recommended 6 weeks of meropenem for presumed osteomyelitis after which patient had drainage from hysterectomy 07/2023 and subsequently underwent right composite mandibulectomy, right neck dissection, left scapular and latissimus free flap to right neck grafting and treat tube exchange. he had completed multiple course of antibiotics since then. He was recently admi tted 10/11/2023 for possible G-tube displacement/ malfunction And was found to have pneumonia. he was seen by palliative and discharged on 10/16on home hospice, no antibiotics were prescribed. Patient was brought today for respiratory distress. I saw and examined the patient at bedside. I reviewed prior notes including palliative and ID notes. I spoke to the extensively at bedside and also spoke with the patient. Patient elects for full code and states he wants to get better and wants to leave. at bedside states patient has 2POA, his brother and his son. During recent admission, his brother went behind their back and changed him to comfort measures and hospice and it was a surprise to them when the hospice nurse showed up at their home. states that his son does not agree with the patient's brother's decision but agrees with her and are trying to get the brother off the POA and have her as POA. During my encounter, patient is awake, alert and says few words but he opted for full code and his agrees. He looks sick, on trach and supplemental oxygen and is very malnourished. No fever, acute distress, chest pain, N/V. Admission Exam Per Admitting Provider General: Frail elderly male, sick looking, cachectic, not in acute distress HEENT: JESSICA, dry oral mucosa, on trach with supplemental oxygen. Chest: Coarse breath sounds bilaterally with rhonchi CVS: Regular, normal heart sounds Abdomen: Soft, non tender, not distended, normal bowel sounds, PEG tube noted Neuro: Awake, alert, weak voice, says few words, not conversing much MSK: loss of muscle mass diffusely Principal Diagnosis Pneumonia Discharge Exam Patient was Discharge Data Allergies Allergy/AdvReac Type Severity Reaction Status Date / Time herbal complex no.323 Allergy Severe RASH ALL Verified 10/28/23 16:51 [From Menofem] OVER BODY/LEGS ceftazidime Allergy Intermediate SWELLING Verified 10/28/23 16:51 OF LOWER LEGS--GOING FOR ALLERGY TESTING metronidazole [From Flagyl] Allergy Intermediate SWELLING Verified 10/28/23 16:51 OF LOWER LEGS--GOING FOR ALLERGY TESTING Penicillins Allergy Unknown CAN'T Verified 10/28/23 16:51 REMEMBER Consultations 10/28/23 15:16 ED Decision to Admit Stat 10/28/23 16:30 Consult Palliative Care Routine Consult Pulmonology Routine 10/29/23 13:40 Consult General Surgery Routine 10/29/23 14:33 Consult Ambulatory Services Representative Routine 10/30/23 11:27 Consult Infectious Diseases Routine 10/31/23 13:53 Consult Cardiology Routine Ordered Studies 10/29/23 10:59 CT chest diagnostic wo con Stat 10/30/23 11:14 CT angio abdomen pelvis w con Urgent Hospital Course (1) Multifocal pneumonia: Mark Gutierrez is a 68 y/o M with PMHx of chronic osteomyelitis, chronic wounds, 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 After extensive discussion with family by the treatment team; he will transition over to comfort measures. Patient on November 10, 2023 at 10:05 am Total Time Total Time Spent Total Time Spent (In Minutes): 8 Total Time Includes: Examination of the Patient, Discharge Planning, Medication Reconciliation, Communication With Other Providers and Other Discharge Plan Discharge Items Patient Disposition: Other Date/Time: 11/10/23 10:05
== END 2023-11-10 11:48 | disposition expired | DRG 871 ==
LOC: ED 13:14 → 2E 16:25 → SUATTDRO 16:25 → 2E 18:21 → 1E 10-29 17:59 → 3E 11-02 12:34
DX: I25.10 Atherosclerotic heart disease of native coronary artery without angina pectoris; L89.319 Pressure ulcer of right buttock, unspecified stage; L89.159 Pressure ulcer of sacral region, unspecified stage; C02.9 Malignant neoplasm of tongue, unspecified; Z11.52 Encounter for screening for COVID-19; I51.81 Takotsubo syndrome; Z93.1 Gastrostomy status; A41.9 Sepsis, unspecified organism; G93.41 Metabolic encephalopathy; J18.9 Pneumonia, unspecified organism; I38 Endocarditis, valve unspecified; D69.59 Other secondary thrombocytopenia; D61.818 Other pancytopenia; M86.68 Other chronic osteomyelitis, other site; G89.3 Neoplasm related pain (acute) (chronic); I95.9 Hypotension, unspecified; I47.19 Other supraventricular tachycardia; E43 Unspecified severe protein-calorie malnutrition; E83.52 Hypercalcemia; J96.20 Acute and chronic respiratory failure, unspecified whether with hypoxia or hypercapnia; E87.6 Hypokalemia; K56.7 Ileus, unspecified; R65.21 Severe sepsis with septic shock; Z88.3 Allergy status to other anti-infective agents; Z88.8 Allergy status to other drugs, medicaments and biological substances; L89.329 Pressure ulcer of left buttock, unspecified stage; Z79.899 Other long term (current) drug therapy; L89.123 Pressure ulcer of left upper back, stage 3; Z93.0 Tracheostomy status; Z88.0 Allergy status to penicillin; C41.1 Malignant neoplasm of mandible; D63.8 Anemia in other chronic diseases classified elsewhere; Z51.5 Encounter for palliative care; R13.10 Dysphagia, unspecified; Z86.14 Personal history of Methicillin resistant Staphylococcus aureus infection; Z92.3 Personal history of irradiation; R57.0 Cardiogenic shock; J69.0 Pneumonitis due to inhalation of food and vomit; Z68.21 Body mass index [BMI] 21.0-21.9, adult; E87.1 Hypo-osmolality and hyponatremia